=== PATIENT | female | born 1995 | race Caucasian/White ===

== ENCOUNTER 2016-05-10 13:15 | Emergency (ER) | payer SELFPAY ==
[2016-05-10 13:31] VITALS: BP 139/82
--- NOTE | 2016-05-10 13:34 | ER Document Report ---
ED Medical Screen (RME) - General Stated Complaint: RECTAL BLEEDING Mode of Arrival: Ambulatory Information source: Patient Notes: 20 y/o F presents to ED c/o bright red blood per rectum. Reports noted blood today when wiping during bowel movement. Denies pain, fever, or recent illness. I have greeted and performed a rapid initial assessment of this patient. A comprehensive ED assessment and evaluation of the patient, analysis of test results and completion of the medical decision making process will be conducted by additional ED providers. TRAVEL OUTSIDE OF THE [place] IN LAST 30 DAYS: No - Related Data Allergies/Adverse Reactions: albuterol [Albuterol] Allergy (Severe, Verified 05/10/16 13:31) Heart races & passes out chloraprep/pastora wipes Adverse Reaction (Mild, Uncoded 05/10/16 13:31) itching/welts Past Medical History - Social History Family history: Reviewed & Not Pertinent - Past Medical History Cardiac Medical History: Denies: Hx Hypertension GI Medical History: Reports: Hx Gastroesophageal Reflux Disease - With . Denies: Hx Hiatal Hernia, Hx Ulcer Skin Medical History: Reports Hx MRSA Past Surgical History: Reports: Hx Cardiac Surgery, Hx Section - Immunizations Hx Diphtheria, Pertussis, Tetanus Vaccination: No Physical Exam - Vital signs Vitals: Temp Pulse Resp BP Pulse Ox 98.2 F 94 16 139/82 H 95 05/10/16 13:30 05/10/16 13:30 05/10/16 13:30 05/10/16 13:30 05/10/16 13:30 - General General appearance: Appears well, Alert In distress: None - Respiratory Respiratory status: No respiratory distress Course - Vital Signs Vital signs: Temp Pulse Resp BP Pulse Ox 98.2 F 94 16 139/82 H 95 05/10/16 13:30 05/10/16 13:30 05/10/16 13:30 05/10/16 13:30 05/10/16 13:30
== END 2016-05-10 15:10 | disposition left against medical advice (07) ==
LOC: ER 13:15
DX: Z53.9 Procedure and treatment not carried out, unspecified reason (principal); K62.5 Hemorrhage of anus and rectum
CPT/HCPCS: 99281

== ENCOUNTER 2016-05-14 17:30 | Emergency (ER) | payer SELFPAY ==
[2016-05-14] MEDS ORDERED: ONDANSETRON 4 MG TAB.RAPDIS PO ONE (17:47)
--- NOTE | 2016-05-14 17:48 | ER Document Report ---
ED Medical Screen (RME) - General Stated Complaint: VOMITING Time seen by provider: 17:46 Notes: Pt presents with flulike symptoms that started last night. Symptoms include fever, congestion, vomiting 6. States no BM in 4 days but when she wipes she' s noticed some mucus coming from her rectum. I have greeted and performed a rapid initial assessment of this patient. A comprehensive ED assessment and evaluation of the patient, analysis of test results and completion of the medical decision making process will be conducted by additional ED providers. TRAVEL OUTSIDE OF THE [place] IN LAST 30 DAYS: No - Related Data Allergies/Adverse Reactions: albuterol [Albuterol] Allergy (Severe, Verified 05/14/16 17:47) Heart races & passes out chloraprep/pastora wipes Adverse Reaction (Mild, Uncoded 05/14/16 17:47) itching/welts Past Medical History - Social History Family history: Reviewed & Not Pertinent - Past Medical History Cardiac Medical History: Denies: Hx Hypertension Renal/ Medical History: Denies: Hx Peritoneal Dialysis GI Medical History: Reports: Hx Gastroesophageal Reflux Disease - With . Denies: Hx Hiatal Hernia, Hx Ulcer Skin Medical History: Reports Hx MRSA Past Surgical History: Reports: Hx Cardiac Surgery, Hx Section - Immunizations Hx Diphtheria, Pertussis, Tetanus Vaccination: No Physical Exam - Vital signs Vitals: Temp Pulse Resp BP Pulse Ox 99.1 F 136 H 18 134/82 H 98 05/14/16 17:43 05/14/16 17:43 05/14/16 17:43 05/14/16 17:43 05/14/16 17:43 - General General appearance: Appears well, Alert In distress: None - Cardiovascular Rhythm: Tachycardia Heart sounds: Normal auscultation Course - Vital Signs Vital signs: Temp Pulse Resp BP Pulse Ox 99.1 F 136 H 18 134/82 H 98 05/14/16 17:43 05/14/16 17:43 05/14/16 17:43 05/14/16 17:43 05/14/16 17:43
[2016-05-14 18:50] LABS: APPEARANCE,URINE SLIGHTLY-CLOUDY; BILIRUBIN,URINE NEGATIVE (NEGATIVE); GLUCOSE, URINE NEGATIVE (NEGATIVE); KETONES,URINE NEGATIVE (NEGATIVE); LEUKOCYTE ESTERASE,URINE NEGATIVE (NEGATIVE); NITRITE,URINE NEGATIVE (NEGATIVE); PROTEIN,URINE 100 mg/dL (NEGATIVE); URINE SPECIFIC GRAVITY 1.031; UROBILINOGEN,URINE NEGATIVE mg/dL (<2.0)
[2016-05-14] MEDS ORDERED: ONDANSETRON HCL INJ/PF 4 MG/2 ML SDV IV ONE (19:23)
[2016-05-14] MEDS ORDERED: NORMAL SALINE 1000 ML 2,000 ML IV ONE (19:23)
--- NOTE | 2016-05-14 19:25 | ER Document Report ---
ED General - General Chief Complaint: Flu Symptoms Stated Complaint: VOMITING Notes: Patient is a 20-year-old female without past medical history who presents with vomiting and diarrhea that has been ongoing for the past 2 days. Her daughter has been sick with the same illness. States nothing improves or worsens her symptoms. She has had subjective fever at home but has not recorded a temperature. She has not seeing a primary care doctor regarding today's concerns. Since the symptoms have been unchanged since onset and she is unable to tolerate any oral fluids are up-to-date today which prompted her come to the emergency department. She denies any focal abdominal pain. Denies any chest pain or shortness of breath. Is uncertain she's had similar symptoms before. TRAVEL OUTSIDE OF THE [place] IN LAST 30 DAYS: No - Related Data Allergies/Adverse Reactions: albuterol [Albuterol] Allergy (Severe, Verified 05/14/16 17:47) Heart races & passes out chloraprep/pastora wipes Adverse Reaction (Mild, Uncoded 05/14/16 17:47) itching/welts Past Medical History - General Information source: Patient - Social History Smoking Status: Never Smoker Chew tobacco use (# tins/day): No Frequency of alcohol use: None Drug Abuse: None Lives with: Spouse/Significant other Family History: Reviewed & Not Pertinent Patient has suicidal ideation: No Patient has homicidal ideation: No - Past Medical History Cardiac Medical History: Denies: Hx Hypertension Renal/ Medical History: Denies: Hx Peritoneal Dialysis GI Medical History: Reports: Hx Gastroesophageal Reflux Disease - With . Denies: Hx Hiatal Hernia, Hx Ulcer Skin Medical History: Reports Hx MRSA Past Surgical History: Reports: Hx Cardiac Surgery, Hx Section - Immunizations Hx Diphtheria, Pertussis, Tetanus Vaccination: No Review of Systems - Review of Systems Notes: Constitutional: Negative for fever. HENT: Negative for sore throat. Eyes: Negative for visual changes. Cardiovascular: Negative for chest pain. Respiratory: Negative for shortness of breath. Gastrointestinal: Positive for vomiting and diarrhea Genitourinary: Negative for dysuria. Musculoskeletal: Negative for back pain. Skin: Negative for rash. Neurological: Negative for headaches, weakness or numbness. 10 point ROS negative except as marked above and in HPI. Physical Exam - Vital signs Vitals: Temp Pulse Resp BP Pulse Ox 99.1 F 136 H 18 134/82 H 98 05/14/16 17:43 05/14/16 17:43 05/14/16 17:43 05/14/16 17:43 05/14/16 17:43 Interpretation: Tachycardic Notes: PHYSICAL EXAMINATION: GENERAL: Appears mildly uncomfortable but in no acute distress. HEAD: Atraumatic, normocephalic. EYES: Pupils equal round and reactive to light, extraocular movements intact, sclera anicteric, conjunctiva are normal. ENT: nares patent, oropharynx clear without exudates. Dry mucous membranes. NECK: Normal range of motion, supple without lymphadenopathy LUNGS: Breath sounds clear to auscultation bilaterally and equal. No wheezes rales or rhonchi. HEART: Regular tachycardia without murmurs ABDOMEN: Soft, nontender, normoactive bowel sounds. No guarding, no rebound. No masses appreciated. EXTREMITIES: Normal range of motion, no pitting or edema. No cyanosis. NEUROLOGICAL: No focal neurological deficits. Moves all extremities spontaneously and on command. PSYCH: Normal mood, normal affect. SKIN: Warm, Dry, normal turgor, no rashes or lesions noted. Course - Re-evaluation Re-evalutation: 05/14/16 19:24 Presentation of an overall well-appearing patient in no acute distress with complaints of nausea, vomiting, diarrhea. This is consistent with likely viral gastroenteritis. However, patient has had a small amount of blood in her stool and reports a subjective fever at home concerning for a possible bacterial enterocolitis. She will be started on 3 day course of ciprofloxacin. Patient has no abdominal tenderness on exam and specifically no tenderness in the RLQ, LLQ, RUQ. Patient was mildly tachycardic at time of arrival and did appear clinically dehydrated on exam. 2 L of IV fluids will be administered. Able to tolerate oral intake here in the emergency department. Low clinical suspicion for any acute life-threatening etiology based on exam and history including acute cholecystitis, SBO, appendicitis, nephrolithiasis, or pylonephritis. BMP without evidence of significant acute kidney injury. 05/14/16 21:10 Tachycardia is resolved after fluid administration. Patient feels improved at this time.At this time will discharge with return precautions and follow-up recommendations. Verbal discharge instructions given a the bedside and opportunity for questions given. Medication warnings reviewed. Patient is in agreement with this plan and has verbalized understanding of return precautions and the need for primary care follow-up in the next 24-72 hours. - Vital Signs Vital signs: Temp Pulse Resp BP Pulse Ox 98.6 F 96 18 109/57 L 97 05/14/16 21:40 05/14/16 21:40 05/14/16 21:40 05/14/16 21:40 05/14/16 21:40 - Laboratory Result Diagrams: 05/14/16 20:30 Laboratory results interpreted by me: 05/14/16 05/14/16 18:00 20:30 Glucose 114 H Urine Protein 100 H Urine Ascorbic Acid 40 H Discharge - Discharge Clinical Impression: Vomiting and diarrhea, Dehydration Condition: Good Disposition: HOME, SELF-CARE Additional Instructions: Your symptoms are likely due to a viral illness and should resolve in the next several days. However, given that you have had a fever and some bloody diarrhea at home your been sent home on a 3 day course of ciprofloxacin. Continue to stay hydrated with plenty of solution such as Gatorade or Pedialyte. You are being prescribed Zofran to take as needed for nausea and vomiting. Please return if you develop severe abdominal pain, pass out, become unable to tolerate any oral fluids for 12 more hours, or any other symptoms that are concerning to you. Prescriptions: Ciprofloxacin HCl [Cipro 500 mg Tablet] 500 mg PO BID #6 tablet Referrals: MARC SABA MD [Primary Care Provider] - Follow up in 3-5 days
[2016-05-14 21:06] LABS: ANION GAP 14 (5-19); BLOOD UREA NITROGEN 10 mg/dL (7-20); CALCIUM 9.5 mg/dL (8.4-10.2); CARBON DIOXIDE 26 mmol/L (22-30); CHLORIDE 100 mmol/L (98-107); CREATININE RESULT 0.64 mg/dL (0.52-1.25); GLUCOSE 114 mg/dL (75-110); POTASSIUM 3.8 mmol/L (3.6-5.0); SODIUM 139.8 mmol/L (137-145)
[2016-05-14] MEDS ORDERED: ONDANSETRON ODT 4 MG TAB (6 TAB/DSPK) PO PRN (21:11)
[2016-05-14 22:11] VITALS: BP 109/57
== END 2016-05-14 21:44 | disposition home or self-care (01) ==
LOC: ER 17:30
DX: R11.10 Vomiting, unspecified (principal); R19.7 Diarrhea, unspecified; E86.0 Dehydration; R50.9 Fever, unspecified
CPT/HCPCS: 99283; 96374; 36415; 81025; 80048; 81001; 87804; J2405

== ENCOUNTER 2016-05-20 20:56 | Emergency (ER) | payer SELFPAY ==
--- NOTE | 2016-05-20 21:55 | ER Document Report ---
ED Medical Screen (RME) - General Stated Complaint: CHEST PAIN Notes: Patient is a 20-year-old female presents emergency Department complaining of cough for 3 weeks. She states shes had new onset chest pain due to the coughing that is new as of yesterday. She states her cough has become less severe but more frequent Patient is on BC, nonnsmoker, denies recent travel, recent surgery FH (+) blood clot in Mom-DVT and Dad unsure where lmp: 04/28/16 uses protection, one partner Lungs clear to auscultation bilaterally. Chest pain nonreproducible on exam. She states that her chest pain that it's worse after coughing. I have greeted and performed a rapid initial assessment of this patient. A comprehensive ED assessment and evaluation of the patient, analysis of test results and completion of the medical decision making process will be conducted by additional ED providers. TRAVEL OUTSIDE OF THE [place] IN LAST 30 DAYS: No - Related Data Allergies/Adverse Reactions: albuterol [Albuterol] Allergy (Severe, Verified 05/14/16 17:47) Heart races & passes out chloraprep/pastora wipes Adverse Reaction (Mild, Uncoded 05/14/16 17:47) itching/welts Past Medical History - Social History Family history: Reviewed & Not Pertinent - Past Medical History Cardiac Medical History: Denies: Hx Hypertension Renal/ Medical History: Denies: Hx Peritoneal Dialysis GI Medical History: Reports: Hx Gastroesophageal Reflux Disease - With . Denies: Hx Hiatal Hernia, Hx Ulcer Skin Medical History: Reports Hx MRSA Past Surgical History: Reports: Hx Cardiac Surgery, Hx Section - Immunizations Hx Diphtheria, Pertussis, Tetanus Vaccination: No Physical Exam - Vital signs Vitals: Temp Pulse Resp BP Pulse Ox 98.9 F 104 H 17 137/81 H 97 05/20/16 21:23 05/20/16 21:23 05/20/16 21:23 05/20/16 21:23 05/20/16 21:23 Course - Vital Signs Vital signs: Temp Pulse Resp BP Pulse Ox 98.9 F 104 H 17 137/81 H 97 05/20/16 21:23 05/20/16 21:23 05/20/16 21:23 05/20/16 21:23 05/20/16 21:23
[2016-05-20] MEDS ORDERED: IPRATROPIUM BROMIDE 0.02% NEB 0.5 MG/2.5 ML AMPUL NEB ONE (22:00)
[2016-05-20 22:34] LABS: APPEARANCE,URINE CLEAR; BILIRUBIN,URINE NEGATIVE (NEGATIVE); GLUCOSE, URINE NEGATIVE (NEGATIVE); KETONES,URINE NEGATIVE (NEGATIVE); LEUKOCYTE ESTERASE,URINE NEGATIVE (NEGATIVE); NITRITE,URINE NEGATIVE (NEGATIVE); PROTEIN,URINE NEGATIVE (NEGATIVE); URINE SPECIFIC GRAVITY 1.003; UROBILINOGEN,URINE NEGATIVE mg/dL (<2.0)
[2016-05-20] MEDS ORDERED: BENZONATATE 100 MG CAPSULE PO ONE (23:20)
[2016-05-20] MEDS ORDERED: HYDROCODONE/ACETAMINOPHEN 5-325 MG TABLET PO ONE (23:20)
--- NOTE | 2016-05-20 23:25 | ER Document Report ---
ED General - General Chief Complaint: Cold Symptoms Stated Complaint: CHEST PAIN Notes: Patient is a 20-year-old female that comes emergency department for chief complaint of cough for 3 weeks, pain in her chest, she states that today she noticed more sharp pains in her chest in between coughing episodes and she became concerned and came in to be evaluated. Cough is nonproductive, she states it is worse when lying down and she has difficulty sleeping. He states about a week ago she also briefly had vomiting and diarrhea for which she was evaluated and treated here with Cipro. She states this resolved. She denies any lower extremity swelling, recent travel, smoking, or asthma history. TRAVEL OUTSIDE OF THE [place] IN LAST 30 DAYS: No - Related Data Allergies/Adverse Reactions: albuterol [Albuterol] Allergy (Severe, Verified 05/14/16 17:47) Heart races & passes out chloraprep/pastora wipes Adverse Reaction (Mild, Uncoded 05/14/16 17:47) itching/welts Past Medical History - General Information source: Patient - Social History Smoking Status: Never Smoker Chew tobacco use (# tins/day): No Frequency of alcohol use: None Drug Abuse: None Lives with: Family Family History: Reviewed & Not Pertinent Patient has suicidal ideation: No Patient has homicidal ideation: No - Past Medical History Cardiac Medical History: Denies: Hx Hypertension Renal/ Medical History: Denies: Hx Peritoneal Dialysis GI Medical History: Reports: Hx Gastroesophageal Reflux Disease - With . Denies: Hx Hiatal Hernia, Hx Ulcer Skin Medical History: Reports Hx MRSA Past Surgical History: Reports: Hx Cardiac Surgery, Hx Section - Immunizations Hx Diphtheria, Pertussis, Tetanus Vaccination: No Review of Systems - Review of Systems Constitutional: No symptoms reported EENT: No symptoms reported Cardiovascular: See HPI Respiratory: See HPI Gastrointestinal: No symptoms reported Genitourinary: No symptoms reported Female Genitourinary: No symptoms reported Musculoskeletal: No symptoms reported Skin: No symptoms reported Hematologic/Lymphatic: No symptoms reported Neurological/Psychological: No symptoms reported Physical Exam - Vital signs Vitals: Temp Pulse Resp BP Pulse Ox 98.9 F 104 H 17 137/81 H 97 05/20/16 21:23 05/20/16 21:23 05/20/16 21:23 05/20/16 21:23 05/20/16 21:23 Interpretation: Normal - General General appearance: Appears well, Alert In distress: None - Alert and well-appearing - HEENT Head: Normocephalic, Atraumatic Eyes: Normal Conjunctiva: Normal Eyelashes: Normal Pupils: PERRL Mouth/Lips: Normal Mucous membranes: Normal Pharynx: Normal Neck: Normal - Respiratory Respiratory status: No respiratory distress Chest status: Nontender Breath sounds: Normal Chest palpation: Normal - Cardiovascular Rhythm: Regular. No: Tachycardia - Patient is not tachycardic on my exam Heart sounds: Normal auscultation, S1 appreciated, S2 appreciated Murmur: No - Abdominal Inspection: Normal Distension: No distension Bowel sounds: Normal Tenderness: Nontender. No: Tender, Guarding Organomegaly: No organomegaly - Back Back: Normal, Nontender - Extremities General upper extremity: Normal inspection, Nontender, Normal color, Normal ROM , Normal temperature General lower extremity: Normal inspection, Nontender, Normal color, Normal ROM , Normal temperature, Normal weight bearing. No: Rosi's sign - Neurological Neuro grossly intact: Yes Cognition: Normal Orientation: AAOx4 [place] Coma Scale Eye Opening: Spontaneous [place] Coma Scale Verbal: Oriented [place] Coma Scale Motor: Obeys Commands [place] Coma Scale Total: 15 Speech: Normal Motor strength normal: LUE, RUE, LLE, RLE Sensory: Normal - Psychological Associated symptoms: Normal affect, Normal mood - Skin Skin Temperature: Warm Skin Moisture: Dry Skin Color: Normal Course - Re-evaluation Re-evalutation: Patient does not have specific or reproducible chest pain on exam, however she is alert, smiling, clear lung sounds, no rapid breathing, no hypoxia, very well- appearing. Patient does have frequent coughing episodes however, these are nonproductive. EKG sinus rhythm with no concerning abnormalities. Pleuritic cough. No fever or evidence of infection. After workup, discussion, examination, patient will be treated symptomatically for cough, instructed to rest, hydrate, follow up with primary care, discussed return precautions. Patient states satisfaction and agreement. - Vital Signs Vital signs: Temp Pulse Resp BP Pulse Ox 98.9 F 103 H 20 123/75 98 05/20/16 21:23 05/20/16 23:46 05/20/16 23:46 05/20/16 23:46 05/20/16 23:46 Discharge - Discharge Clinical Impression: Cough Chest pain Qualifiers: Chest pain type: unspecified Qualified Code(s): R07.9 - Chest pain, unspecified Condition: Stable Disposition: HOME, SELF-CARE Additional Instructions: EKG and chest x-ray are normal. Take cough medication as prescribed, Tessalon during the day, syrup at night if needed. Hydrate and rest. Follow-up with primary care. Return to the emergency department for any concerning or worsening symptoms. Prescriptions: Hydrocodone Bit/Homatropine [Hycodan Syrup 5-1.5 mg/5 ml Ud Cup] 5 ml PO Q4HP PRN #120 ml PRN Reason: Benzonatate [Tessalon Perle 100 mg Capsule] 100 mg PO Q8HP PRN #20 cap PRN Reason: Referrals: MARC SABA MD [Primary Care Provider] - Follow up as needed
[2016-05-21 00:13] VITALS: BP 123/75
--- NOTE | 2016-05-21 19:38 | EKG REPORT ---
SEVERITY:- NORMAL ECG - SINUS RHYTHM : Confirmed by: Sliverio Dave 21-May-2016 19:36:45
== END 2016-05-21 00:19 | disposition home or self-care (01) ==
LOC: ER 20:56
DX: R05 Cough (principal); R07.9 Chest pain, unspecified; Z88.8 Allergy status to other drugs, medicaments and biological substances
CPT/HCPCS: 93005; 94640; 99285; 81025; 81001; 71020; 93010; J3490

== ENCOUNTER 2016-05-23 22:19 | Emergency (ER) | payer OTHER ==
[2016-05-23] MEDS ORDERED: OXYCODONE-ACETAMINOPHEN 5-325 MG TABLET PO ONE (22:45)
[2016-05-23] MEDS ORDERED: FENTANYL CITRATE INJ/PF 100 MCG/2 ML AMPUL IV ONE (23:42)
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
[2016-05-24] MEDS ORDERED: FENTANYL CITRATE INJ/PF 100 MCG/2 ML AMPUL IV ONE (01:07)
[2016-05-24] MEDS ORDERED: LIDOCAINE 1% INJ-PF (10 MG/ML) 30 ML SDV ONE (01:16)
[2016-05-24] MEDS ORDERED: HYDROCODONE/ACETAMINOPHEN 5-325 MG TABLET PO ONE (01:46)
[2016-05-24] MEDS ORDERED: HYDROCODONE/ACETAMINOPHEN 5-325 MG 6 TAB/DSPK PO PRN (01:46)
[2016-05-24 03:01] VITALS: BP 110/65
== END 2016-05-24 02:57 | disposition home or self-care (01) ==
LOC: ER 22:19
PROC: 0HQEXZZ Repair Left Lower Arm Skin, External Approach (ICD-10-PCS; principal; 2016-05-23)
DX: S42.211A Unspecified displaced fracture of surgical neck of right humerus, initial encounter for closed fracture (principal); S51.812A Laceration without foreign body of left forearm, initial encounter; V48.6XXA Car passenger injured in noncollision transport accident in traffic accident, initial encounter; M54.2 Cervicalgia; R55 Syncope and collapse; Z88.8 Allergy status to other drugs, medicaments and biological substances; Z86.14 Personal history of Methicillin resistant Staphylococcus aureus infection
CPT/HCPCS: 96376; 99284; 96374; 73060; 70450; 72125; 12002; J3010

== ENCOUNTER 2016-05-28 15:02 | Day surgery (SDC) | payer OTHER, MEDICAID ==
[~2016-05-28 15:02] MED LIST: CEFAZOLIN 2 GM/D5W RTU 2 GM/50 ML RTUPB IV SCH; DEXAMETHASONE SOD PHOSPHATE INJ 4 MG/1 ML VIAL ONE; GLYCOPYRROLATE INJ 0.4 MG/2 ML VIAL ONE; LIDOCAINE 2% INJ-PF (20 MG/ML) 10 ML AMPUL ONE; METOCLOPRAMIDE HCL INJ/PF 10 MG/2 ML SDV ONE; NEOSTIGMINE METHYLSULFATE 10 MG/10 ML VIAL ONE; ONDANSETRON HCL INJ/PF 4 MG/2 ML SDV ONE; ROCURONIUM BROMIDE INJ 50 MG/5 ML VIAL IV ONE; SUCCINYLCHOLINE CHLORIDE INJ 200 MG/10 ML VIAL ONE
[2016-05-28] MEDS ORDERED: MIDAZOLAM 2 MG/2 ML INJ ONE (15:39)
[2016-05-28] MEDS ORDERED: ACETAMINOPHEN 100 ML IV ONE (15:39)
[2016-05-28] MEDS ORDERED: FENTANYL CITRATE INJ/PF 250 MCG/5 ML AMPULE ONE (15:39)
[2016-05-28] MEDS ORDERED: PROPOFOL INJ 200 MG/20 ML VIAL IV ONE (15:39)
[2016-05-28] MEDS ORDERED: MORPHINE SULFATE 10 MG/ML INJ ONE ×2 (15:40→17:33)
[2016-05-28] MEDS ORDERED: OXYCODONE-ACETAMINOPHEN 5-325 MG TABLET PO PRN ×2 (17:04)
[2016-05-28] MEDS ORDERED: MEPERIDINE HCL/PF INJ 25 MG/1 ML DISP.SYRIN IV PRN (17:04)
[2016-05-28] MEDS ORDERED: MORPHINE SULFATE 10 MG/ML INJ IV PRN (17:04)
[2016-05-28] MEDS ORDERED: PROMETHAZINE HCL INJ 25 MG/1 ML VIAL IV PRN ×2 (17:04)
[2016-05-28] MEDS ORDERED: FENTANYL CITRATE INJ/PF 100 MCG/2 ML AMPUL IV PRN ×3 (17:04)
[2016-05-28] MEDS ORDERED: DIPHENHYDRAMINE HCL 50 MG/ML VIAL IV PRN (17:04)
[2016-05-28] MEDS ORDERED: BUPIVACAINE HCL 0.5 % INJ/PF 30 ML SDV ONE (18:44)
[2016-05-28] MEDS ORDERED: ONDANSETRON HCL INJ/PF 4 MG/2 ML SDV IV PRN (19:05)
[2016-05-28] MEDS ORDERED: HYDROMORPHONE HCL INJ/PF 2 MG/ML AMPULE IV PRN (19:05)
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
--- NOTE | 2016-05-28 19:20 | PDOC DISCHARGE SUMMARY ---
Discharge Summary (SDC) - Discharge Final Diagnosis: Right proximal humerus fracture Date of Surgery: 05/28/16 Discharge Date: 05/28/16 Condition: Good Treatment or Instructions: Schedule Follow Up w/ Dr. Jakob Merino @ [facility] for [facility] to be seen in 10-14 days or as scheduled [place]: [place]: [place]: Keep operative dressing on until follow-up unless significant drainage. Ice and elevate May begin pendulum exercises, elbow wrist and hand range of motion. Stool softener of choice when on pain medication. Prescriptions: Oxycodone HCl/Acetaminophen [Percocet 5-325 mg Tablet] 1 - 2 tab PO ASDIR PRN # 45 tablet PRN Reason: Discharge Diet: As Tolerated Discharge Activity: No Lifting Over 10 Pounds, No Lifting/Push/Pulling Report the Following to Your Physician Immediately: Fever over 101 Degrees, Unusual Bleeding, Redness, Swelling, Warmth, Increased Soreness
[2016-05-29] MEDS: OXYCODONE-ACETAMINOPHEN 5-325 MG TABLET PO PRN ×2 (01:17→07:25)
--- NOTE | 2016-05-29 07:49 | PDOC PROGRESS REPORT ---
Subjective Progress Note for:: 05/29/16 Subjective:: Patient complaining of pain but had just received oral pain medication Physical Exam Vital Signs: Temp Pulse Resp BP Pulse Ox 36.9 C 106 H 16 118/70 95 05/29/16 04:58 05/29/16 04:58 05/29/16 04:58 05/29/16 04:58 05/29/16 04:58 Intake & Output 05/28/16 05/29/16 05/30/16 06:59 06:59 06:59 Intake Total 4000 Output Total 775 Balance 3225 Weight 80.74 kg General appearance: PRESENT: mild distress Head exam: PRESENT: normocephalic Eye exam: PRESENT: EOMI Respiratory exam: PRESENT: unlabored Cardiovascular exam: PRESENT: RRR Vascular exam: PRESENT: normal capillary refill GI/Abdominal exam: PRESENT: soft Rectal exam: PRESENT: deferred Extremities exam: PRESENT: other - Right hand with full motor, sensory and vascular. Right shoulder dressing clean dry and intact Neurological exam: PRESENT: alert, awake, oriented to person, oriented to place , oriented to time, oriented to situation. ABSENT: motor sensory deficit Psychiatric exam: PRESENT: appropriate affect, normal mood. ABSENT: homicidal ideation, suicidal ideation Skin exam: PRESENT: dry, intact, warm. ABSENT: cyanosis, rash Results Impressions: Fluoroscopy 05/28/16 00:00 IMPRESSION: IMAGE(S) OBTAINED DURING PROCEDURE. Humerus X-Ray 05/28/16 00:00 IMPRESSION: IMAGE(S) OBTAINED DURING PROCEDURE. Assessment & Plan - Diagnosis (1) Fracture of neck of right humerus Qualifiers: Encounter type: initial encounter Is this a current diagnosis for this admission?: YesPlan: 20-year-old white female status post open reduction internal fixation right proximal humerus fracture. Patient can be discharged home today. Prescription for Percocet written. - Time Time Spent with patient: Less than 15 minutes Anticipated discharge: Home Within: within 24 hours
[2016-05-29 08:07] VITALS: BP 118/70
== END 2016-05-29 09:10 | disposition home or self-care (01) ==
LOC: OROUT 15:02 → 2N 21:04 → OROUT 05-29 09:10
PROVIDERS: ATTEND Orthopaedic Surgery
PROC: 0PSC04Z Reposition Right Humeral Head with Internal Fixation Device, Open Approach (ICD-10-PCS; principal; 2016-05-28 17:00)
DX: S42.201A Unspecified fracture of upper end of right humerus, initial encounter for closed fracture (principal); V89.2XXA Person injured in unspecified motor-vehicle accident, traffic, initial encounter; M79.621 Pain in right upper arm; F41.9 Anxiety disorder, unspecified; Z79.51 Long term (current) use of inhaled steroids; Z79.899 Other long term (current) drug therapy; Q25.6 Stenosis of pulmonary artery
CPT/HCPCS: 81025; 73060; 23615; C1713; J2250; J3490 ×2; J1100; J3010; J2765; J2270; J0330; J2405; J2704; J0690; J0131; 01630

== ENCOUNTER 2016-07-05 08:50 | Emergency (ER) | payer MEDICAID, OTHER ==
[2016-07-05] MEDS ORDERED: OXYCODONE-ACETAMINOPHEN 5-325 MG TABLET PO ONE (09:47)
[2016-07-05] MEDS ORDERED: PROMETHAZINE HCL 25 MG TABLET PO ONE (09:49)
--- NOTE | 2016-07-05 09:50 | ER Document Report ---
ED General - General Chief Complaint: Flank Pain Stated Complaint: SIDE PAIN Mode of Arrival: Ambulatory Information source: Patient, Dr. Office Notes: 20-year-old female presents with complaints of left flank pain of three-day duration. Patient notes she had burning on urination a week ago now is having nausea vomiting diarrhea. Denies any significant abdominal pain notes it is mostly in the left flank TRAVEL OUTSIDE OF THE [place] IN LAST 30 DAYS: No - HPI Onset: Other - Three-day duration Onset/Duration: Persistent Quality of pain: Achy Severity: Mild Pain Level: 1 Associated symptoms: Diarrhea, Nausea, Vomiting Relieved by: Denies Similar symptoms previously: No Recently seen / treated by doctor: Yes - Related Data Allergies/Adverse Reactions: albuterol [Albuterol] Allergy (Severe, Verified 05/14/16 17:47) Heart races & passes out chloraprep/pastora wipes Adverse Reaction (Mild, Uncoded 05/14/16 17:47) itching/welts Past Medical History - Social History Smoking Status: Never Smoker Cigarette use (# per day): No Chew tobacco use (# tins/day): No Smoking Education Provided: No Family History: Reviewed & Not Pertinent Patient has suicidal ideation: No Patient has homicidal ideation: No - Past Medical History Cardiac Medical History: Denies: Hx Coronary Artery Disease, Hx Heart Attack, Hx Hypertension Pulmonary Medical History: Denies: Hx Asthma, Hx Bronchitis, Hx COPD, Hx Pneumonia Neurological Medical History: Denies: Hx Cerebrovascular Accident, Hx Seizures Renal/ Medical History: Denies: Hx Peritoneal Dialysis GI Medical History: Reports: Hx Gastroesophageal Reflux Disease - With . Denies: Hx Hiatal Hernia, Hx Ulcer Musculoskeltal Medical History: Denies Hx Arthritis Skin Medical History: Reports Hx MRSA Past Surgical History: Reports: Hx Cardiac Surgery, Hx Section - Immunizations Hx Diphtheria, Pertussis, Tetanus Vaccination: Yes Review of Systems - Review of Systems Notes: REVIEW OF SYSTEMS: CONSTITUTIONAL : Denies fever, chills, or sweats. Denies recent illness. EENT: Denies eye, ear, throat, or mouth pain or symptoms. Denies nasal or sinus congestion or discharge. Denies throat, tongue, or mouth swelling or difficulty swallowing. CARDIOVASCULAR: Denies chest pain. Denies palpitations or racing or irregular heart beat. Denies ankle edema. RESPIRATORY: Denies cough, cold, or chest congestion. Denies shortness of breath, difficulty breathing, or wheezing. GASTROINTESTINAL: Admits to nausea vomiting diarrhea left flank pain GENITOURINARY: Denies difficulty urinating, painful urination, burning, frequency, blood in urine, or discharge. FEMALE GENITOURINARY: Denies vaginal bleeding, heavy or abnormal periods, irregular periods. Denies vaginal discharge or odor. MUSCULOSKELETAL: Denies back or neck pain or stiffness. Denies joint pain or swelling. SKIN: Denies rash, lesions or sores. HEMATOLOGIC : Denies easy bruising or bleeding. LYMPHATIC: Denies swollen, enlarged glands. NEUROLOGICAL: Denies confusion or altered mental status. Denies passing out or loss of consciousness. Denies dizziness or lightheadedness. Denies headache. Denies weakness or paralysis or loss of use of either side. Denies problems with gait or speech. Denies sensory loss, numbness, or tingling. Denies seizures. PSYCHIATRIC: Denies anxiety or stress. Denies depression, suicidal ideation, or homicidal ideation. ALL OTHER SYSTEMS REVIEWED AND NEGATIVE. Dictation was performed using [email or web address] voice recognition software PHYSICAL EXAMINATION: GENERAL: Well-appearing, well-nourished and in mild distress. HEAD: Atraumatic, normocephalic. EYES: Pupils equal round and reactive to light, extraocular movements intact, conjunctiva are normal. ENT: Nares patent, oropharynx clear without exudates. Moist mucous membranes. NECK: Normal range of motion, supple without lymphadenopathy LUNGS: Breath sounds clear to auscultation bilaterally and equal. No wheezes rales or rhonchi. HEART: Tachycardic ABDOMEN: Soft, nontender, nondistended abdomen. No guarding, no rebound. No masses appreciated. Left CVA tenderness Female : deferred Musculoskeletal: Normal range of motion, no pitting or edema. No cyanosis. NEUROLOGICAL: Cranial nerves grossly intact. Normal speech, normal gait. Normal sensory, motor exams PSYCH: Normal mood, normal affect. SKIN: Warm, Dry, normal turgor, no rashes or lesions noted. Physical Exam - Vital signs Vitals: Temp Pulse Resp BP Pulse Ox 97.5 F 125 H 18 142/105 H 97 07/05/16 09:15 07/05/16 09:15 07/05/16 09:15 07/05/16 09:15 07/05/16 09:15 Course - Re-evaluation Re-evalutation: 07/05/16 09:50 Urinalysis lab work pending patient given nausea pain control probable pyelonephritis 07/05/16 10:22 Patient's urinalysis is consistent with pyelonephritis, she is given IV fluids nausea pain control and hCG pending Given that she is afebrile otherwise well-appearing except for the tachycardia believe she is stable for discharge After performing a Medical Screening Examination, I estimate there is LOW risk for ACUTE APPENDICITIS, BOWEL OBSTRUCTION, ACUTE CHOLECYSTITIS, PERFORATED DIVERTICULITIS, INCARCERATED HERNIA, PANCREATITIS, PELVIC INFLAMMATORY DISEASE, PERFORATED ULCER, ECTOPIC , or TUBO-OVARIAN ABSCESS, thus I consider the discharge disposition reasonable. Also, there is no evidence or peritonitis , sepsis, or toxicity. I have reevaluated this patient multiple times and no significant life threatening changes are noted. The patient and I have discussed the diagnosis and risks, and we agree with discharging home with close follow-up with the understanding that symptoms and presentations can change. We also discussed returning to the Emergency Department immediately if new or worsening symptoms occur. We have discussed the symptoms which are most concerning (e.g., bloody stool, fever, changing or worsening pain, vomiting) that necessitate immediate return. - Vital Signs Vital signs: Temp Pulse Resp BP Pulse Ox 97.5 F 125 H 18 142/105 H 97 07/05/16 09:15 07/05/16 09:15 07/05/16 09:15 07/05/16 09:15 07/05/16 09:15 - Laboratory Result Diagrams: 07/05/16 09:55 07/05/16 09:55 Laboratory results interpreted by me: 07/05/16 07/05/16 09:55 09:55 WBC 11.2 H Seg Neutrophils % 79.9 H Lymphocytes % 12.9 L Absolute Neutrophils 8.9 H Urine Protein 100 H Urine Blood LARGE H Ur Leukocyte Esterase TRACE H Discharge - Discharge Clinical Impression: Pyelonephritis, Tachycardia Nausea & vomiting Qualifiers: Vomiting type: unspecified Vomiting Intractability: non-intractable Qualified Code(s): R11.2 - Nausea with vomiting, unspecified Condition: Stable Disposition: HOME, SELF-CARE Instructions: Pyelonephritis ([facility]) Additional Instructions: Follow up with your physician tomorrow for further care or return to the ED IMMEDIATELY if symptoms worsen or new concerns occur. If you cannot afford to follow up with your primary care physician a list of low cost clinics have been provided at the end of your discharge papers as well. Prescriptions: Ciprofloxacin HCl [Cipro 500 mg Tablet] 500 mg PO BID #20 tablet Oxycodone HCl/Acetaminophen [Percocet 5-325 mg Tablet] 1 - 2 tab PO Q4H PRN #15 tablet PRN Reason: Promethazine HCl [Phenergan 25 mg Tablet] 1 - 2 tab PO Q6H PRN #15 tablet PRN Reason:
[2016-07-05] MEDS ORDERED: NORMAL SALINE 1000 ML 1,000 ML IV ONE (10:04)
[2016-07-05] MEDS ORDERED: METOCLOPRAMIDE HCL INJ/PF 10 MG/2 ML SDV IV ONE (10:04)
[2016-07-05 10:12] LABS: ABSOLUTE EOSINOPHILS # (AUTO) 0.1 10^3/uL (0.0-0.6); ABSOLUTE LYMPHOCYTES (AUTO) 1.4 10^3/uL (0.5-4.7); ABSOLUTE MONOCYTES (AUTO) 0.7 10^3/uL (0.1-1.4); ABSOLUTE NEUT (AUTO) 8.9 10^3/uL (1.7-8.2); BASOPHILS % (AUTO) 0.3 % (0-2); EOSINOPHILS % (AUTO) 0.7 % (0-6); HEMOGLOBIN 15.2 g/dL (12.0-15.5); HGB HCT DIFFERENCE 1.6; LYMPHOCYTES % (AUTO) 12.9 % (13-45); MEAN CORPUSCULAR HEMOGLOBIN 29.6 pg (27.0-33.4); MEAN CORPUSCULAR HGB CONC 34.5 g/dL (32.0-36.0); MEAN CORPUSCULAR VOLUME 86 fl (80-97); MONOCYTES % (AUTO) 6.2 % (3-13); RED BLOOD COUNT 5.12 10^6/uL (3.72-5.28); RED CELL DISTRIBUTION WIDTH 12.6 % (11.5-14.0); SEGMENTED NEUTROPHILS % (AUTO) 79.9 % (42-78); WHITE BLOOD COUNT 11.2 10^3/uL (4.0-10.5)
[2016-07-05 10:19] LABS: AMORPHOUS SEDIMENT,URINE TRACE /HPF; APPEARANCE,URINE TURBID; BILIRUBIN,URINE NEGATIVE (NEGATIVE); GLUCOSE, URINE NEGATIVE (NEGATIVE); KETONES,URINE NEGATIVE (NEGATIVE); LEUKOCYTE ESTERASE,URINE TRACE (NEGATIVE); NITRITE,URINE NEGATIVE (NEGATIVE); PROTEIN,URINE 100 mg/dL (NEGATIVE); URINE SPECIFIC GRAVITY 1.026; UROBILINOGEN,URINE NEGATIVE mg/dL (<2.0)
[2016-07-05 10:29] LABS: ALANINE AMINOTRANSFERASE 30 U/L (9-52); ALBUMIN 4.5 g/dL (3.5-5.0); ALKALINE PHOSPHATASE 108 U/L (38-126); ANION GAP 14 (5-19); ASPARTATE AMINO TRANSFERASE 20 U/L (14-36); BILIRUBIN,DIRECT 0.1 mg/dL (0.0-0.4); BILIRUBIN,TOTAL 0.5 mg/dL (0.2-1.3); BLOOD UREA NITROGEN 9 mg/dL (7-20); CALCIUM 9.9 mg/dL (8.4-10.2); CARBON DIOXIDE 25 mmol/L (22-30); CHLORIDE 103 mmol/L (98-107); CREATININE RESULT 0.71 mg/dL (0.52-1.25); GLUCOSE 123 mg/dL (75-110); LIPASE 110.9 U/L (23-300); SODIUM 141.7 mmol/L (137-145); TOTAL PROTEIN 7.5 g/dL (6.3-8.2)
[2016-07-05 11:51] VITALS: BP 140/89
== END 2016-07-05 11:52 | disposition home or self-care (01) ==
LOC: ER 08:50
DX: N12 Tubulo-interstitial nephritis, not specified as acute or chronic (principal); R00.0 Tachycardia, unspecified; R11.2 Nausea with vomiting, unspecified; R10.9 Unspecified abdominal pain; R30.0 Dysuria; R19.7 Diarrhea, unspecified; Z86.14 Personal history of Methicillin resistant Staphylococcus aureus infection
CPT/HCPCS: 99284; 96361; 96374; 36415; 83690; 85025; 81025; 80053; 81001; J2765; J3490; J7030

== ENCOUNTER 2016-07-08 19:16 | Emergency (ER) | payer MEDICAID ==
[2016-07-08 20:49] LABS: APPEARANCE,URINE CLOUDY; BILIRUBIN,URINE NEGATIVE (NEGATIVE); GLUCOSE, URINE NEGATIVE (NEGATIVE); KETONES,URINE 20 mg/dL (NEGATIVE); LEUKOCYTE ESTERASE,URINE MODERATE (NEGATIVE); NITRITE,URINE NEGATIVE (NEGATIVE); PROTEIN,URINE 100 mg/dL (NEGATIVE); URINE SPECIFIC GRAVITY 1.027; UROBILINOGEN,URINE NEGATIVE mg/dL (<2.0)
[2016-07-08] MEDS ORDERED: ONDANSETRON 4 MG TAB.RAPDIS PO ONE (22:25)
[2016-07-08] MEDS ORDERED: ONDANSETRON 4 MG TAB.RAPDIS ONE (22:28)
[2016-07-08] MEDS ORDERED: MORPHINE SULFATE 10 MG/ML INJ IV ONE (22:56)
[2016-07-08] MEDS ORDERED: ONDANSETRON HCL INJ/PF 4 MG/2 ML SDV IV ONE (22:56)
[2016-07-08] MEDS ORDERED: NORMAL SALINE 1000 ML 1,000 ML IV ONE (22:57)
--- NOTE | 2016-07-08 23:13 | ER Document Report ---
ED GI/ - General Chief Complaint: Flank Pain Stated Complaint: LEFT FLANK PAIN Time seen by provider: 23:00 Notes: Patient is a 20-year-old female that comes emergency department with chief complaint of left flank pain and vomiting. She states she was evaluated and treated for a kidney infection, states she was taking Cipro, she states she initially improved and was not needing to take pain or nausea medication, however she states that shortly after this she worsened and began having pain and vomiting again. She vomited 6 times. She denies history of kidney stones, denies frequent urinary tract infections, denies fever. She denies vaginal discharge but she is on her menstrual cycle. TRAVEL OUTSIDE OF THE [place] IN LAST 30 DAYS: No - Related Data Allergies/Adverse Reactions: albuterol [Albuterol] Allergy (Severe, Verified 07/08/16 19:44) Heart races & passes out chloraprep/pastora wipes Adverse Reaction (Mild, Uncoded 07/08/16 19:44) itching/welts Past Medical History - General Information source: Patient - Social History Smoking Status: Never Smoker Frequency of alcohol use: None Drug Abuse: None Lives with: Family Family History: Reviewed & Not Pertinent - Past Medical History Cardiac Medical History: Denies: Hx Coronary Artery Disease, Hx Heart Attack, Hx Hypertension Pulmonary Medical History: Denies: Hx Asthma, Hx Bronchitis, Hx COPD, Hx Pneumonia Neurological Medical History: Denies: Hx Cerebrovascular Accident, Hx Seizures Renal/ Medical History: Denies: Hx Peritoneal Dialysis GI Medical History: Reports: Hx Gastroesophageal Reflux Disease - With . Denies: Hx Hiatal Hernia, Hx Ulcer Musculoskeltal Medical History: Denies Hx Arthritis Skin Medical History: Reports Hx MRSA Past Surgical History: Reports: Hx Cardiac Surgery, Hx Section - Immunizations Hx Diphtheria, Pertussis, Tetanus Vaccination: Yes Review of Systems - Review of Systems Constitutional: No symptoms reported EENT: No symptoms reported Cardiovascular: No symptoms reported Respiratory: No symptoms reported Gastrointestinal: See HPI Genitourinary: See HPI Female Genitourinary: See HPI Musculoskeletal: No symptoms reported Skin: No symptoms reported Hematologic/Lymphatic: No symptoms reported Neurological/Psychological: No symptoms reported Physical Exam - Vital signs Vitals: Temp Pulse Resp BP Pulse Ox 98.5 F 105 H 18 124/88 H 99 07/08/16 19:46 07/08/16 19:46 07/08/16 19:46 07/08/16 19:46 07/08/16 19:46 Interpretation: Normal - General General appearance: Alert, Anxious In distress: Moderate - Patient appears very uncomfortable - HEENT Head: Normocephalic, Atraumatic Eyes: Normal Conjunctiva: Normal Extraocular movements intact: Yes Eyelashes: Normal Pupils: PERRL Nasal: Normal Mouth/Lips: Normal Mucous membranes: Dry Pharynx: Normal Neck: Normal - Respiratory Respiratory status: No respiratory distress Chest status: Nontender Breath sounds: Normal Chest palpation: Normal - Cardiovascular Rhythm: Regular, Tachycardia - Borderline Heart sounds: Normal auscultation, S1 appreciated, S2 appreciated Murmur: No - Abdominal Inspection: Normal Distension: No distension Bowel sounds: Normal Tenderness: Tender - Tender in the mid to lower abdomen on the left side, otherwise unremarkable Organomegaly: No organomegaly - Back Back: Normal, CVA tenderness - Left CVA tenderness - Extremities General upper extremity: Normal inspection, Nontender, Normal color, Normal ROM , Normal temperature General lower extremity: Normal inspection, Nontender, Normal color, Normal ROM , Normal temperature, Normal weight bearing. No: Rosi's sign - Neurological Neuro grossly intact: Yes Cognition: Normal Orientation: AAOx4 Monroe Coma Scale Eye Opening: Spontaneous [place] Coma Scale Verbal: Oriented Monroe Coma Scale Motor: Obeys Commands Monroe Coma Scale Total: 15 Speech: Normal Motor strength normal: LUE, RUE, LLE, RLE Sensory: Normal - Psychological Associated symptoms: Normal affect, Normal mood - Skin Skin Temperature: Warm Skin Moisture: Dry Skin Color: Normal Course - Re-evaluation Re-evalutation: Urine contaminated by menstrual cycle blood. Nonspecific. Appears to be a worsening infection, however this is not certain. Culture placed. Patient's presentation is suggestive of ureterolithiasis, much more comfortable after medications. Renal functioning unremarkable, mild leukocytosis, patient has been vomiting. No fever or tachycardia after treatments. CT of the abdomen and pelvis without contrast ordered to further evaluate patient's condition. CT showing left nephrolithiasis at 2 mm at the UVJ. Mild obstructive changes. No acute abnormalities otherwise. Catheterized urine sample obtained, this was found to not have any signs of infection. After medications patient is asymptomatic, I discussed her findings in detail, will provide treatments for this, referred to urology, discussed return precautions, patient states understanding and agreement. Patient requests Diflucan because she was taking Cipro and she frequently gets yeast infections after taking antibiotics. - Vital Signs Vital signs: Temp Pulse Resp BP Pulse Ox 98.2 F 97 17 124/70 95 07/09/16 02:53 07/09/16 02:53 07/09/16 02:53 07/09/16 02:53 07/09/16 02:53 - Laboratory Result Diagrams: 07/08/16 23:32 07/08/16 23:32 Laboratory results interpreted by me: 07/08/16 07/08/16 07/08/16 20:25 23:32 23:32 WBC 13.4 H Hgb 15.6 H Seg Neutrophils % 80.0 H Lymphocytes % 12.4 L Absolute Neutrophils 10.7 H Glucose 112 H Urine Protein 100 H Urine Ketones 20 H Urine Blood LARGE H Ur Leukocyte Esterase MODERATE H 07/09/16 01:18 WBC Hgb Seg Neutrophils % Lymphocytes % Absolute Neutrophils Glucose Urine Protein Urine Ketones Urine Blood MODERATE H Ur Leukocyte Esterase Discharge - Discharge Clinical Impression: Ureterolithiasis, Left flank pain Vomiting Qualifiers: Vomiting type: unspecified Vomiting Intractability: non-intractable Nausea presence: with nausea Qualified Code(s): R11.2 - Nausea with vomiting, unspecified Condition: Stable Disposition: HOME, SELF-CARE Additional Instructions: You are passing a kidney stone on the left side. You also have a right-sided stone in your right kidney which may pass eventually. Take Percocet if needed for pain, I recommend combining with ibuprofen and the Zofran for additional symptom management. Follow up with urology, see referrals below. Return to the emergency department immediately for concerning or worsening symptoms including fever, severe pain, uncontrolled vomiting, etc. [facility] Urologist in [place], [place] Address: [address] [place], [place] [id number] [facility] Medical clinic in [place], [place] Address: [address] [place] [id number] Prescriptions: Fluconazole [Diflucan] 150 mg PO ONCE PRN #1 tablet PRN Reason: Ondansetron [Zofran Odt 4 mg Tablet] 1 - 2 tab PO Q4H PRN #20 tab.rapdis PRN Reason: For Nausea/Vomiting Oxycodone HCl/Acetaminophen [Percocet 5-325 mg Tablet] 1 - 2 tab PO Q4H PRN #20 tablet PRN Reason: Referrals: MARC SABA MD [Primary Care Provider] - Follow up as needed
[2016-07-08 23:48] LABS: ABSOLUTE BASOPHILS # (AUTO) 0.1 10^3/uL (0.0-0.2); ABSOLUTE LYMPHOCYTES (AUTO) 1.7 10^3/uL (0.5-4.7); ABSOLUTE MONOCYTES (AUTO) 0.9 10^3/uL (0.1-1.4); ABSOLUTE NEUT (AUTO) 10.7 10^3/uL (1.7-8.2); BASOPHILS % (AUTO) 0.4 % (0-2); EOSINOPHILS % (AUTO) 0.3 % (0-6); HEMATOCRIT 44.8 % (36.0-47.0); HEMOGLOBIN 15.6 g/dL (12.0-15.5); LYMPHOCYTES % (AUTO) 12.4 % (13-45); MEAN CORPUSCULAR HEMOGLOBIN 29.8 pg (27.0-33.4); MEAN CORPUSCULAR HGB CONC 34.8 g/dL (32.0-36.0); MEAN CORPUSCULAR VOLUME 86 fl (80-97); MONOCYTES % (AUTO) 6.9 % (3-13); RED BLOOD COUNT 5.23 10^6/uL (3.72-5.28); RED CELL DISTRIBUTION WIDTH 12.8 % (11.5-14.0); WHITE BLOOD COUNT 13.4 10^3/uL (4.0-10.5)
[2016-07-09 00:03] LABS: ALANINE AMINOTRANSFERASE 29 U/L (9-52); ALBUMIN 4.7 g/dL (3.5-5.0); ALKALINE PHOSPHATASE 105 U/L (38-126); ANION GAP 16 (5-19); ASPARTATE AMINO TRANSFERASE 29 U/L (14-36); BILIRUBIN,DIRECT 0.1 mg/dL (0.0-0.4); BILIRUBIN,TOTAL 0.7 mg/dL (0.2-1.3); BLOOD UREA NITROGEN 10 mg/dL (7-20); CALCIUM 9.7 mg/dL (8.4-10.2); CARBON DIOXIDE 25 mmol/L (22-30); CHLORIDE 98 mmol/L (98-107); GLUCOSE 112 mg/dL (75-110); TOTAL PROTEIN 7.7 g/dL (6.3-8.2)
[2016-07-09] MEDS ORDERED: KETOROLAC TROMETHAMINE INJ/PF 30 MG/1 ML SDV IV ONE (01:04)
[2016-07-09] MEDS ORDERED: HYDROMORPHONE HCL INJ/PF 2 MG/ML AMPULE IV ONE (01:33)
[2016-07-09 01:34] LABS: APPEARANCE,URINE CLEAR; BILIRUBIN,URINE NEGATIVE (NEGATIVE); GLUCOSE, URINE NEGATIVE (NEGATIVE); KETONES,URINE NEGATIVE (NEGATIVE); LEUKOCYTE ESTERASE,URINE NEGATIVE (NEGATIVE); NITRITE,URINE NEGATIVE (NEGATIVE); PROTEIN,URINE NEGATIVE (NEGATIVE); URINE SPECIFIC GRAVITY 1.002; UROBILINOGEN,URINE NEGATIVE mg/dL (<2.0)
[2016-07-09] MEDS ORDERED: ONDANSETRON ODT 4 MG TAB (6 TAB/DSPK) PO PRN (02:33)
[2016-07-09 02:59] VITALS: BP 124/70
== END 2016-07-09 03:00 | disposition home or self-care (01) ==
LOC: ER 19:16
DX: N20.1 Calculus of ureter (principal); R10.9 Unspecified abdominal pain; R11.2 Nausea with vomiting, unspecified
CPT/HCPCS: 99284; 96361; 51701; 96374; 96375; 36415; 85025; 81025; 80053; 81001; 76380; J2270; J1170; J2405; J7030; S0119

== ENCOUNTER 2016-07-11 15:30 | Emergency (ER) | payer MEDICAID ==
[2016-07-11] MEDS ORDERED: ONDANSETRON HCL INJ/PF 4 MG/2 ML SDV IV ONE (16:09)
[2016-07-11] MEDS ORDERED: HYDROMORPHONE HCL INJ/PF 2 MG/ML AMPULE IV ONE (16:09)
[2016-07-11] MEDS ORDERED: NORMAL SALINE 1000 ML 1,000 ML IV ONE (16:09)
--- NOTE | 2016-07-11 16:17 | ER Document Report ---
ED Medical Screen (RME) - General Mode of Arrival: Ambulatory Information source: Patient TRAVEL OUTSIDE OF THE [place] IN LAST 30 DAYS: No - HPI Onset: This afternoon Onset/Duration: Sudden Quality of pain: Dull Severity: Severe Associated Symptoms: Nausea Exacerbated by: Denies Relieved by: Denies Similar symptoms previously: Yes - KNOWN H/O KIDNEY STONES Recently seen / treated by doctor: Yes - 07/05 AND 07/[facility] <SHAYY CONSTANTINO - Last Filed: 07/11/16 16:14> <ALYSE JONES - Last Filed: 07/11/16 19:42> - General Chief Complaint: Flank Pain Stated Complaint: URINARY ISSUES - Related Data Allergies/Adverse Reactions: albuterol [Albuterol] Allergy (Severe, Verified 07/11/16 15:46) Heart races & passes out chloraprep/pastora wipes Adverse Reaction (Mild, Uncoded 07/11/16 15:46) itching/welts Past Medical History - General Information source: Patient - Social History Family history: Reviewed & Not Pertinent - Past Medical History Cardiac Medical History: Denies: Hx Coronary Artery Disease, Hx Heart Attack, Hx Hypertension Pulmonary Medical History: Denies: Hx Asthma, Hx Bronchitis, Hx COPD, Hx Pneumonia Neurological Medical History: Denies: Hx Cerebrovascular Accident, Hx Seizures Renal/ Medical History: Reports: Hx Kidney Stones. Denies: Hx Peritoneal Dialysis GI Medical History: Reports: Hx Gastroesophageal Reflux Disease - With . Denies: Hx Hiatal Hernia, Hx Ulcer Musculoskeltal Medical History: Denies Hx Arthritis Skin Medical History: Reports Hx MRSA Past Surgical History: Reports: Hx Cardiac Surgery, Hx Section - Immunizations Hx Diphtheria, Pertussis, Tetanus Vaccination: Yes <COLEENGLADYSSHAYY - Last Filed: 07/11/16 16:14> Review of Systems - Review of Systems Constitutional: No symptoms reported. denies: Chills, Fever EENT: No symptoms reported Cardiovascular: No symptoms reported Respiratory: No symptoms reported Gastrointestinal: See HPI Genitourinary: See HPI Female Genitourinary: denies: <DOUGIESHAYY - Last Filed: 07/11/16 16:14> Physical Exam - Vital signs Interpretation: Hypertensive, Tachycardic, Tachypneic - General General appearance: Alert In distress: Moderate - HEENT Head: Normocephalic Eyes: Normal Ears: Normal Nasal: Normal Mouth/Lips: Normal Mucous membranes: Normal - Respiratory Respiratory status: No respiratory distress <SHAYY CONSTANTINO - Last Filed: 07/11/16 16:14> Course - Laboratory Result Diagrams: 07/11/16 18:55 07/11/16 17:51 <KARENALYSE - Last Filed: 07/11/16 19:42> - Vital Signs Vital signs: Temp Pulse Resp BP Pulse Ox 98.6 F 107 H 22 H 135/116 H 100 07/11/16 15:37 07/11/16 15:37 07/11/16 15:37 07/11/16 15:37 07/11/16 15:37 - Laboratory Laboratory results interpreted by me: 07/11/16 07/11/16 07/11/16 17:51 17:52 18:55 WBC 11.7 H Glucose 113 H Urine Ketones TRACE H Urine Blood SMALL H Doctor's Discharge <SHAYY CONSTANTINO - Last Filed: 07/11/16 16:14> <ALYSE JONES - Last Filed: 07/11/16 19:42> - Discharge Clinical Impression: Kidney stone Condition: Good Disposition: HOME, SELF-CARE Additional Instructions: KIDNEY STONE: You are passing or have passed a kidney stone. These stones are usually due to increased calcium or uric acid concentrations in your urine. Stones within the kidney itself are not painful. The pain occurs as the stone leaves the kidney to pass down the long tube, called the ureter, leading to the bladder. If the stone is small, it will usually pass by itself. Most patients can pass the stone at home. You will usually receive medications for pain, nausea or vomiting, and sometimes a medication to assist in passing the kidney stone. However, if the pain is very severe or if vomiting prevents you from taking oral pain medications, you may need to return for further treatment. Drink three or four quarts of fluids per day. You will be given pain medication (if needed) and urine strainers. Strain all your urine to see if the stone passes. If your doctor has asked you to bring the stone in for analysis, return with the stone once it has passed. Return if pain or vomiting become severe, if you develop a high fever, if you are unable to pass your urine, or if other unusual symptoms occur. PAIN MEDICATION INJECTION: You have received an injection of a pain medication. You should experience significant pain relief within 45 minutes. This drug is a narcotic - - it will impair your judgement, slow your reaction time and make you sleepy ( as well as relieve your pain). Narcotics also can cause nausea. You should not drive, work with machinery, or perform any task requiring mental alertness until all effects of the medication are gone -- six to eight hours. Do not take any alcohol, or sedatives, and do not take any other medication without checking with your physician. ANTINAUSEA MEDICATION: You have been given a medication to suppress nausea and vomiting. This type of medication can be given as a shot, pill, or suppository. It will usually last for many hours. Pills and shots usually last six to eight hours, suppositories last about 12 hours. For the typical illness, only one or two doses of the medication may be necessary. Mild lightheadedness may occur. This type of medicine can cause drowsiness. Do not drive or operate dangerous machinery while under its influence. Do not mix with alcohol. See your doctor at once if you have muscle spasms or tightness, or uncontrollable motions (particularly of the neck, mouth, or jaw). Persistent vomiting or severe lightheadedness should also be evaluated by the physician. ORAL NARCOTIC MEDICATION: You have been given a prescription for pain control. This medication is a narcotic. It's best taken with food, as nausea can result if taken on an empty stomach. Don't operate machinery or drive within six hours of taking this medication. Do not combine this medicine with alcohol, or with any medication which can cause sedation (such as cold tablets or sleeping pills) unless you get permission from the physician. Narcotics tend to cause constipation. If possible, drink plenty of fluids and eat a diet high in fiber and fruits. Please be aware that prescription narcotics also have the potential for abuse. People become addicted to these medications because of the general sense of wellbeing that they induce. This feeling along with a significant reduction in tension, anxiety, and aggression provides a stimulating seductive quality to these drugs. Once your pain is under control, we encourage you to discard your unused narcotics. FOLLOW-UP CARE: If you have been referred to a physician for follow-up care, call the physician s office for an appointment as you were instructed or within the next two days. If you experience worsening or a significant change in your symptoms, notify the physician immediately or return to the Emergency Department at any time for re-evaluation. Prescriptions: Ciprofloxacin HCl [Cipro 500 mg Tablet] 500 mg PO BID #14 tablet Ibuprofen [Motrin 800 mg Tablet] 800 mg PO Q8H PRN #30 tab PRN Reason: Forms: Elevated Blood Pressure Referrals: MARC SABA MD [Primary Care Provider] - Follow up in 1 week
[2016-07-11 18:11] LABS: APPEARANCE,URINE SLIGHTLY-CLOUDY; BILIRUBIN,URINE NEGATIVE (NEGATIVE); GLUCOSE, URINE NEGATIVE (NEGATIVE); KETONES,URINE TRACE mg/dL (NEGATIVE); LEUKOCYTE ESTERASE,URINE NEGATIVE (NEGATIVE); NITRITE,URINE NEGATIVE (NEGATIVE); PROTEIN,URINE NEGATIVE (NEGATIVE); URINE SPECIFIC GRAVITY 1.014; UROBILINOGEN,URINE NEGATIVE mg/dL (<2.0)
[2016-07-11 18:31] LABS: ANION GAP 11 (5-19); BLOOD UREA NITROGEN 8 mg/dL (7-20); CALCIUM 8.7 mg/dL (8.4-10.2); CARBON DIOXIDE 25 mmol/L (22-30); CHLORIDE 105 mmol/L (98-107); CREATININE RESULT 0.68 mg/dL (0.52-1.25); GLUCOSE 113 mg/dL (75-110); POTASSIUM 3.6 mmol/L (3.6-5.0); SODIUM 140.8 mmol/L (137-145)
[2016-07-11 19:00] LABS: ABSOLUTE BASOPHILS # (AUTO) 0.1 10^3/uL (0.0-0.2); ABSOLUTE EOSINOPHILS # (AUTO) 0.2 10^3/uL (0.0-0.6); ABSOLUTE LYMPHOCYTES (AUTO) 2.3 10^3/uL (0.5-4.7); ABSOLUTE NEUT (AUTO) 8.1 10^3/uL (1.7-8.2); BASOPHILS % (AUTO) 0.5 % (0-2); EOSINOPHILS % (AUTO) 1.9 % (0-6); HEMATOCRIT 40.5 % (36.0-47.0); HGB HCT DIFFERENCE 1.5; LYMPHOCYTES % (AUTO) 20.2 % (13-45); MEAN CORPUSCULAR HEMOGLOBIN 29.7 pg (27.0-33.4); MEAN CORPUSCULAR HGB CONC 34.6 g/dL (32.0-36.0); MEAN CORPUSCULAR VOLUME 86 fl (80-97); MONOCYTES % (AUTO) 8.3 % (3-13); RED BLOOD COUNT 4.72 10^6/uL (3.72-5.28); RED CELL DISTRIBUTION WIDTH 12.5 % (11.5-14.0); SEGMENTED NEUTROPHILS % (AUTO) 69.1 % (42-78); WHITE BLOOD COUNT 11.7 10^3/uL (4.0-10.5)
[2016-07-11] MEDS ORDERED: HYDROCODONE/ACETAMINOPHEN 5-325 MG 6 TAB/DSPK PO PRN (19:41)
[2016-07-11 20:18] VITALS: BP 116/69
== END 2016-07-11 20:20 | disposition home or self-care (01) ==
LOC: ER 15:30
DX: N20.0 Calculus of kidney (principal); R11.0 Nausea; Z86.14 Personal history of Methicillin resistant Staphylococcus aureus infection; Z87.442 Personal history of urinary calculi
CPT/HCPCS: 99284; 96374; 96375; 36415; 85025; 81025; 80048; 81001; 76380; J1170; J2405

== ENCOUNTER → 2016-08-11 | Outpatient (CLI) | payer MEDICAID ==
--- NOTE | 2016-08-11 18:33 | RADIOLOGY REPORT (SQ) ---
EXAM DESCRIPTION: FOOT RIGHT COMPLETE COMPLETED DATE/TIME: 08/11/2016 6:14 pm REASON FOR STUDY: RIGHT FOOT INJURY, INITIAL ENCOUNTER COMPARISON: None. NUMBER OF VIEWS: Three views. TECHNIQUE: AP, lateral and oblique radiographic images acquired of the right foot. LIMITATIONS: None. FINDINGS: MINERALIZATION: Normal. BONES: There is a small chip fracture involving the head of the 5th proximal phalanx. JOINTS: No effusions. SOFT TISSUES: No soft tissue swelling. No foreign body. OTHER: No other significant finding. IMPRESSION: Small chip fracture that appears to involve the head of the 5th proximal phalanx. TECHNICAL DOCUMENTATION: JOB ID: [id number] [employer]- All Rights Reserved
== END ==
LOC: RAD 17:48
PROVIDERS: ATTEND Nurse Practitioner Acute Care
DX: S92.511A Displaced fracture of proximal phalanx of right lesser toe(s), initial encounter for closed fracture (principal); X58.XXXA Exposure to other specified factors, initial encounter

== ENCOUNTER → 2016-08-16 | Outpatient (CLI) | payer MEDICAID ==
--- NOTE | 2016-08-16 16:42 | RADIOLOGY REPORT (SQ) ---
EXAM DESCRIPTION: U/S RETROPERITON (RENAL/AORTA) COMPLETED DATE/TIME: 08/16/2016 4:34 pm REASON FOR STUDY: UNSPECIFIED HYDRONEPHROSIS N13.30 UNSPECIFIED HYDRONEPHROSIS COMPARISON: CT dated 07/11/2016 TECHNIQUE: Dynamic and static grayscale images acquired of the kidneys and bladder and recorded on P ACS. Additional selected color Doppler and spectral images recorded. LIMITATIONS: None. FINDINGS: RIGHT KIDNEY: Normal size. Normal echogenicity. No solid or suspicious masses. No hydronep hrosis. No calcifications. LEFT KIDNEY: Normal size. Normal echogenicity. No solid or suspicious masses. No hydronephrosis. No calcifications. BLADDER: No masses. OTHER FINDINGS: No other significant finding. IMPRESSION: NORMAL RENAL AND BLADDER ULTRASOUND. TECHNICAL DOCUMENTATION: JOB ID: [id number] [email or web address]- All Rights Reserved
== END ==
LOC: RAD 16:12
PROVIDERS: ATTEND Obstetrics & Gynecology
DX: N13.30 Unspecified hydronephrosis (principal); N23 Unspecified renal colic
CPT/HCPCS: 76770

== ENCOUNTER 2016-09-03 11:59 | Emergency (ER) | payer MEDICAID ==
--- NOTE | 2016-09-03 12:56 | ER Document Report ---
ED Medical Screen (RME) - General Mode of Arrival: Ambulatory Information source: Patient TRAVEL OUTSIDE OF THE [place] IN LAST 30 DAYS: No <ROXANA WAHL - Last Filed: 09/03/16 12:50> <TIFFANY GENAO - Last Filed: 09/04/16 14:34> - General Chief Complaint: Vaginal Bleeding Stated Complaint: VAGINAL BLEEDING,ABDOMINAL PAIN Time Seen by Provider: 09/03/16 12:50 Notes: 21 yo female presents to ed for heavy vaginal bleeding with clots. LMP was jul 12 2016. Was seen at [facility] 2 days ago and just checked bp and told her if the bleeding continued it could be the nuva ring. She states they did not do test. was late changing out ring. Pelvic and lower back cramping. I have seen this patient in PIT and another provider will do a complete history physical and treatment in the ed. (ROXANA WAHL) - Related Data Allergies/Adverse Reactions: albuterol [Albuterol] Allergy (Severe, Verified 09/03/16 12:51) Heart races & passes out chloraprep/pastora wipes Adverse Reaction (Mild, Uncoded 09/03/16 12:51) itching/welts Past Medical History - Social History Family history: Reviewed & Not Pertinent - Past Medical History Cardiac Medical History: Denies: Hx Coronary Artery Disease, Hx Heart Attack, Hx Hypertension Pulmonary Medical History: Denies: Hx Asthma, Hx Bronchitis, Hx COPD, Hx Pneumonia Neurological Medical History: Denies: Hx Cerebrovascular Accident, Hx Seizures Renal/ Medical History: Reports: Hx Kidney Stones. Denies: Hx Peritoneal Dialysis GI Medical History: Reports: Hx Gastroesophageal Reflux Disease - With . Denies: Hx Hiatal Hernia, Hx Ulcer Musculoskeltal Medical History: Denies Hx Arthritis Skin Medical History: Reports Hx MRSA Past Surgical History: Reports: Hx Cardiac Surgery, Hx Section - Immunizations Hx Diphtheria, Pertussis, Tetanus Vaccination: Yes <ROXANA WAHL - Last Filed: 09/03/16 12:50> Course - Laboratory Result Diagrams: 09/03/16 13:07 09/03/16 13:07 <TIFFANY GENAO - Last Filed: 09/04/16 14:34> - Vital Signs Vital signs: Temp Pulse Resp BP Pulse Ox 98.8 F 105 H 12 119/73 97 06/23/17 17:05 09/03/16 17:05 09/03/16 17:05 09/03/16 17:05 09/03/16 17:05 - Laboratory Laboratory results interpreted by me: 09/03/16 09/03/16 09/03/16 13:07 13:07 13:07 WBC 11.6 H RBC 5.51 H Hgb 15.8 H Hct 47.4 H Carbon Dioxide 21 L Urine Protein 100 H Urine Blood LARGE H Ur Leukocyte Esterase LARGE H 09/03/16 14:45 WBC RBC Hgb Hct Carbon Dioxide Urine Protein Urine Blood MODERATE H Ur Leukocyte Esterase Doctor's Discharge <ROXANA WAHL - Last Filed: 09/03/16 12:50> <TIFFANY GENAO - Last Filed: 09/04/16 14:34> - Discharge Clinical Impression: Irregular menses, Bacterial vaginosis, Hematuria Condition: Stable Disposition: HOME, SELF-CARE Additional Instructions: Vaginosis, Bacterial Your exam shows you have bacterial vaginosis. This condition is due to an overgrowth of bacteria in the vagina. Symptoms may include vaginal itching or pain, a smelly discharge, and sometimes burning with urination. Normally this is not transmitted by sexual contact. Vaginosis can be treated with oral or topical antibiotics. Metronidazole ( Flagyl) pills are usually effective. Topical vaginal creams include Cleocin and Metro-Gel. You should avoid sexual contact until your symptoms are all better. Call the doctor if you develop pelvic pain, fever, or problems with urination, or if you don't improve as expected. Hematuria Hematuria, or blood in your urine, can be caused by minor medical problems , such as a bladder infection, or by more serious medical conditions, such as kidney stones or even tumors of the bladder or kidney. If the cause of the hematuria is known (such as a bladder infection) and can be treated, it may not need further evaluation. If the cause is not known, it will usually require further evaluation by a specialist, such as a urologist. In particular, unexplained hematuria in the older patient must be evaluated to rule out a serious condition, such as a bladder or kidney tumor. If the hematuria worsens or you are passing clots and then are unable to urinate, you should be re-evaluated. A catheter may need to be placed in the bladder to permit passage of urine. If you develop high fever, severe pain, or other new or worsening symptoms, return to the Emergency Department for re- evaluation. Prescriptions: Metronidazole [Flagyl 500 mg Tablet] 500 mg PO Q6H #40 tablet Forms: Elevated Blood Pressure Referrals: MARC SABA MD [Primary Care Provider] - Follow up in 1 week
[2016-09-03 13:35] LABS: ABSOLUTE EOSINOPHILS # (AUTO) 0.2 10^3/uL (0.0-0.6); ABSOLUTE LYMPHOCYTES (AUTO) 2.4 10^3/uL (0.5-4.7); ABSOLUTE NEUT (AUTO) 8.1 10^3/uL (1.7-8.2); BASOPHILS % (AUTO) 0.2 % (0-2); EOSINOPHILS % (AUTO) 1.3 % (0-6); HEMATOCRIT 47.4 % (36.0-47.0); HEMOGLOBIN 15.8 g/dL (12.0-15.5); LYMPHOCYTES % (AUTO) 20.6 % (13-45); MEAN CORPUSCULAR HEMOGLOBIN 28.7 pg (27.0-33.4); MEAN CORPUSCULAR HGB CONC 33.4 g/dL (32.0-36.0); MEAN CORPUSCULAR VOLUME 86 fl (80-97); MONOCYTES % (AUTO) 8.6 % (3-13); RED BLOOD COUNT 5.51 10^6/uL (3.72-5.28); RED CELL DISTRIBUTION WIDTH 12.3 % (11.5-14.0); SEGMENTED NEUTROPHILS % (AUTO) 69.3 % (42-78); WHITE BLOOD COUNT 11.6 10^3/uL (4.0-10.5)
[2016-09-03 13:43] LABS: APPEARANCE,URINE CLOUDY; BILIRUBIN,URINE NEGATIVE (NEGATIVE); GLUCOSE, URINE NEGATIVE (NEGATIVE); KETONES,URINE NEGATIVE (NEGATIVE); LEUKOCYTE ESTERASE,URINE LARGE (NEGATIVE); NITRITE,URINE NEGATIVE (NEGATIVE); PROTEIN,URINE 100 mg/dL (NEGATIVE); URINE SPECIFIC GRAVITY 1.021; UROBILINOGEN,URINE NEGATIVE mg/dL (<2.0)
[2016-09-03 13:47] LABS: BACTERIA,URINE 1+ /HPF; RBC,URINE 50-100 /HPF
[2016-09-03 14:01] LABS: ALANINE AMINOTRANSFERASE 21 U/L (9-52); ALBUMIN 4.2 g/dL (3.5-5.0); ALKALINE PHOSPHATASE 96 U/L (38-126); ANION GAP 13 (5-19); ASPARTATE AMINO TRANSFERASE 15 U/L (14-36); BILIRUBIN,DIRECT 0.2 mg/dL (0.0-0.4); BILIRUBIN,TOTAL 0.4 mg/dL (0.2-1.3); BLOOD UREA NITROGEN 9 mg/dL (7-20); CALCIUM 9.3 mg/dL (8.4-10.2); CARBON DIOXIDE 21 mmol/L (22-30); CHLORIDE 104 mmol/L (98-107); CREATININE RESULT 0.59 mg/dL (0.52-1.25); GLUCOSE 79 mg/dL (75-110); SODIUM 138.3 mmol/L (137-145); TOTAL PROTEIN 7.7 g/dL (6.3-8.2)
[2016-09-03] MEDS ORDERED: ONDANSETRON 4 MG TAB.RAPDIS PO ONE (14:27)
[2016-09-03] MEDS ORDERED: KETOROLAC TROMETHAMINE 60 MG/2 ML SDV IM ONE (14:27)
--- NOTE | 2016-09-03 14:37 | ER Document Report ---
ED GI/ - General Mode of Arrival: Ambulatory Information source: Patient TRAVEL OUTSIDE OF THE [place] IN LAST 30 DAYS: No - HPI Patient complains to provider of: Abdominal pain, Vaginal bleeding Onset: Other - 4 days ago Location: Vaginal Vaginal bleeding (Compared to normal period): Heavier, Passing clots Associated symptoms: Other - See notes above <MIK MARTIN - Last Filed: 09/03/16 15:35> <JANET NAVARRO - Last Filed: 09/03/16 19:20> - General Chief Complaint: Vaginal Bleeding Stated Complaint: VAGINAL BLEEDING,ABDOMINAL PAIN Time Seen by Provider: 09/03/16 12:50 Notes: 21-year-old female presents to the ED complaining of vaginal bleeding and lower back and diffuse abdominal pain for the past 4 days. Patient reports to passing quarter sized clots, lightheadedness, fatigue, vomiting, and nausea. Patient denies dizziness or weakness. Patient saw her OB 2 days ago and was told that her blood pressure was elevated and was told to come back if the bleeding continued. Patient tried to make an appointment with her OB, but was unable to do so, so she came to the ED. Patient is currently using the Nuva ring and states that she is using it appropriately. She has been bleeding through 1 pad every 1-2 hours. Patient reports to using Tylenol for mild pain relief. (MIK MARTIN) - Related Data Allergies/Adverse Reactions: albuterol [Albuterol] Allergy (Severe, Verified 09/03/16 12:51) Heart races & passes out chloraprep/pastora wipes Adverse Reaction (Mild, Uncoded 09/03/16 12:51) itching/welts Past Medical History - General Information source: Patient - Social History Smoking Status: Current Every Day Smoker Chew tobacco use (# tins/day): No Frequency of alcohol use: Occasional Drug Abuse: None Family History: Reviewed & Not Pertinent Patient has suicidal ideation: No Patient has homicidal ideation: No - Past Medical History Cardiac Medical History: Renal/ Medical History: Reports: Hx Kidney Stones GI Medical History: Reports: Hx Gastroesophageal Reflux Disease - With Musculoskeltal Medical History: Denies Hx Arthritis Skin Medical History: Reports Hx MRSA Past Surgical History: Reports: Hx Cardiac Surgery, Hx Section - Immunizations Hx Diphtheria, Pertussis, Tetanus Vaccination: Yes <MIK MARTIN - Last Filed: 09/03/16 15:35> Review of Systems - Review of Systems Constitutional: No symptoms reported EENT: No symptoms reported Cardiovascular: No symptoms reported Respiratory: No symptoms reported Gastrointestinal: See HPI, Abdominal pain - diffuse, Nausea, Vomiting Genitourinary: No symptoms reported Female Genitourinary: See HPI, Vaginal bleeding Musculoskeletal: No symptoms reported Skin: No symptoms reported Hematologic/Lymphatic: No symptoms reported Neurological/Psychological: No symptoms reported -: Yes All other systems reviewed and negative <MIK MARTIN - Last Filed: 09/03/16 15:35> Physical Exam <MIK MARTIN - Last Filed: 09/03/16 15:35> <JANET NAVARRO - Last Filed: 09/03/16 19:20> - Vital signs Vitals: Temp Pulse Resp BP Pulse Ox 98.6 F 91 18 139/68 H 95 09/03/16 12:03 09/03/16 12:03 09/03/16 12:03 09/03/16 12:03 09/03/16 12:03 - Notes Notes: GENERAL: Alert, interacts well. No acute distress. HEAD: Normocephalic, atraumatic. EYES: Pupils equal, round, and reactive to light. Extraocular movements intact. ENT: Oral mucosa moist, tongue midline. NECK: Full range of motion. Supple. Trachea midline. LUNGS: Clear to auscultation bilaterally, no wheezes, rales, or rhonchi. No respiratory distress. HEART: Regular rate and rhythm. No murmurs, gallops, or rubs. ABDOMEN: Soft. Mild diffuse abdominal tenderness to palpation. No guarding, rebound, or rigidity. Non-distended. Bowel sounds present in all 4 quadrants. EXTREMITIES: Moves all 4 extremities spontaneously. No edema, radial and dorsalis pedis pulses 2/4 bilaterally. No cyanosis. GENITOURINARY: Small amount of dried brown blood, but no active bleeding from cervix. Nuvaring is in position. No cervical motion tenderness. Exam was chaperoned by Diana Villasenor and Selma Hammer. NEUROLOGICAL: Alert and oriented x3. Normal speech. PSYCH: Normal affect, normal mood. SKIN: Warm, dry, normal turgor. No rashes or lesions noted. (MIK MARTIN) Course - Laboratory Result Diagrams: 09/03/16 13:07 09/03/16 13:07 <MIK MARTIN - Last Filed: 09/03/16 15:35> - Laboratory Result Diagrams: 09/03/16 13:07 09/03/16 13:07 <JANET NAVARRO - Last Filed: 09/03/16 19:20> - Re-evaluation Re-evalutation: 09/03/16 16:50 CBC shows leukocytosis of 11.6 and hemoglobin 15.8 consistent with hemoconcentration, this is further supported by CO2 of 21 on her chemistries that indicates mild dehydration, hCG is negative, initial urinalysis was a clean catch that showed moderate squamous epithelial cells so it appears to be contaminated, this showed large blood and large leukocyte esterase, I then had the nurses perform a catheterized urine that shows moderate blood but only 0-1 RBCs and trace bacteria, this was sent for culture as it is not convincing for infection at this time, it is concerning for possible myoglobinuria rather than true hematuria. Patient is already seeing a urologist for workup for the blood in her urine. She is scheduled see him again in 3 months and have a 24-hour urine collection performed in 2 months. Wet prep does not show any trichomonas but it does show 4+ bacteria and 1+ WBCs suspicious for bacterial vaginosis, patient will be treated with Flagyl. Chlamydia and gonorrhea tests are negative. (JANET NAVARRO) - Vital Signs Vital signs: Temp Pulse Resp BP Pulse Ox 98.8 F 105 H 12 119/73 97 09/03/16 17:05 09/03/16 17:05 09/03/16 17:05 09/03/16 17:05 09/03/16 17:05 - Laboratory Laboratory results interpreted by me: 09/03/16 09/03/16 09/03/16 13:07 13:07 13:07 WBC 11.6 H RBC 5.51 H Hgb 15.8 H Hct 47.4 H Carbon Dioxide 21 L Urine Protein 100 H Urine Blood LARGE H Ur Leukocyte Esterase LARGE H 09/03/16 14:45 WBC RBC Hgb Hct Carbon Dioxide Urine Protein Urine Blood MODERATE H Ur Leukocyte Esterase Discharge <MIK MARTIN - Last Filed: 09/03/16 15:35> <JANET NVAARRO - Last Filed: 09/03/16 19:20> - Discharge Clinical Impression: Irregular menses, Bacterial vaginosis, Hematuria Condition: Stable Disposition: HOME, SELF-CARE Additional Instructions: Vaginosis, Bacterial Your exam shows you have bacterial vaginosis. This condition is due to an overgrowth of bacteria in the vagina. Symptoms may include vaginal itching or pain, a smelly discharge, and sometimes burning with urination. Normally this is not transmitted by sexual contact. Vaginosis can be treated with oral or topical antibiotics. Metronidazole ( Flagyl) pills are usually effective. Topical vaginal creams include Cleocin and Metro-Gel. You should avoid sexual contact until your symptoms are all better. Call the doctor if you develop pelvic pain, fever, or problems with urination, or if you don't improve as expected. Hematuria Hematuria, or blood in your urine, can be caused by minor medical problems , such as a bladder infection, or by more serious medical conditions, such as kidney stones or even tumors of the bladder or kidney. If the cause of the hematuria is known (such as a bladder infection) and can be treated, it may not need further evaluation. If the cause is not known, it will usually require further evaluation by a specialist, such as a urologist. In particular, unexplained hematuria in the older patient must be evaluated to rule out a serious condition, such as a bladder or kidney tumor. If the hematuria worsens or you are passing clots and then are unable to urinate, you should be re-evaluated. A catheter may need to be placed in the bladder to permit passage of urine. If you develop high fever, severe pain, or other new or worsening symptoms, return to the Emergency Department for re- evaluation. Prescriptions: Metronidazole [Flagyl 500 mg Tablet] 500 mg PO Q6H #40 tablet Forms: Elevated Blood Pressure Referrals: MARC SABA MD [Primary Care Provider] - Follow up in 1 week Scribe Attestation: 09/03/16 19:20 I personally performed the services described in the documentation, reviewed and edited the documentation which was dictated to the scribe in my presence, and it accurately records my words and actions. (JANET NAVARRO) Scribe Documentation - Scribe Written by Francesca:: Francesca Terry, 09/03/2016 1458 acting as scribe for :: Yenny <MIK MARTIN - Last Filed: 09/03/16 15:35>
[2016-09-03 15:42] LABS: APPEARANCE,URINE CLEAR; BILIRUBIN,URINE NEGATIVE (NEGATIVE); GLUCOSE, URINE NEGATIVE (NEGATIVE); KETONES,URINE NEGATIVE (NEGATIVE); LEUKOCYTE ESTERASE,URINE NEGATIVE (NEGATIVE); NITRITE,URINE NEGATIVE (NEGATIVE); PROTEIN,URINE NEGATIVE (NEGATIVE); URINE SPECIFIC GRAVITY 1.017; UROBILINOGEN,URINE NEGATIVE mg/dL (<2.0)
[2016-09-03 15:43] LABS: BACTERIA,URINE TRACE /HPF; RBC,URINE 0-1 /HPF; WBC,URINE 0-1 /HPF
[2016-09-03 16:01] LABS: CHLAM PCR NOT DETECTED (NOT DETECT)
[2016-09-03 17:08] VITALS: BP 119/73
== END 2016-09-03 17:26 | disposition home or self-care (01) ==
LOC: ER 11:59
DX: N92.6 Irregular menstruation, unspecified (principal); N76.0 Acute vaginitis; B96.89 Other specified bacterial agents as the cause of diseases classified elsewhere; R31.9 Hematuria, unspecified; M54.5 Low back pain; R10.9 Unspecified abdominal pain; F17.200 Nicotine dependence, unspecified, uncomplicated; Z87.442 Personal history of urinary calculi; Z86.14 Personal history of Methicillin resistant Staphylococcus aureus infection
CPT/HCPCS: 99284; 96372; 51701; 36415; 87086; 87210; 84703; 85025; 80053; 81001; 87491; 87591; J1885; S0119

== ENCOUNTER 2016-11-14 20:43 | Emergency (ER) | payer MEDICAID ==
[2016-11-14] MEDS ORDERED: CETIRIZINE 10 MG TABLET PO ONE (22:26)
[2016-11-14] MEDS ORDERED: BUTALB/ACETAMINOPHEN/CAFFEINE 1 TAB EACH PO ONE (22:26)
--- NOTE | 2016-11-14 22:28 | ER Document Report ---
ED General - General Chief Complaint: Allergic Reaction Stated Complaint: POSSIBLE HIVES Time Seen by Provider: 11/14/16 21:32 Notes: Patient is a 54-[id number]-year-old female with a history of idiopathic urticaria who presents with concerns that her urticaria has not yet resolved. She was seen in the emergency department 36 hours ago and at that time started on steroids. She notes that her hives have diminished in size but that they are still present. Denies any difficulty breathing, vomiting, diarrhea, abdominal pain or syncope. States this feels very similar to prior episodes of exacerbations of her idiopathic urticaria. She also notes that she has a migraine headache which is typical for her but notes that this is not the reason for her visit today. Describes it as her typical migraine, with left- sided, throbbing, constant pain to her scalp. Lights and sounds worsen the pain. She has not tried anything for improvement of the pain. TRAVEL OUTSIDE OF THE [place] IN LAST 30 DAYS: No - Related Data Allergies/Adverse Reactions: albuterol [Albuterol] Allergy (Severe, Verified 11/14/16 21:16) Heart races & passes out chloraprep/pastora wipes Adverse Reaction (Mild, Uncoded 11/14/16 21:16) itching/welts Past Medical History - General Information source: Patient - Social History Smoking Status: Never Smoker Frequency of alcohol use: None Drug Abuse: None Lives with: Spouse/Significant other Family History: Reviewed & Not Pertinent - Past Medical History Cardiac Medical History: Denies: Hx Coronary Artery Disease, Hx Heart Attack, Hx Hypertension Pulmonary Medical History: Denies: Hx Asthma, Hx Bronchitis, Hx COPD, Hx Pneumonia Neurological Medical History: Denies: Hx Cerebrovascular Accident, Hx Seizures Renal/ Medical History: Reports: Hx Kidney Stones. Denies: Hx Peritoneal Dialysis GI Medical History: Reports: Hx Gastroesophageal Reflux Disease - With . Denies: Hx Hiatal Hernia, Hx Ulcer Musculoskeltal Medical History: Denies Hx Arthritis Skin Medical History: Reports Hx MRSA Past Surgical History: Reports: Hx Cardiac Surgery, Hx Section - Immunizations Hx Diphtheria, Pertussis, Tetanus Vaccination: Yes Review of Systems - Review of Systems Notes: Constitutional: Negative for fever. HENT: Negative for sore throat. Eyes: Negative for visual changes. Cardiovascular: Negative for chest pain. Respiratory: Negative for shortness of breath. Gastrointestinal: Negative for abdominal pain, vomiting or diarrhea. Genitourinary: Negative for dysuria. Musculoskeletal: Negative for back pain. Skin: Positive for rash. Neurological: Negative for headaches, weakness or numbness. 10 point ROS negative except as marked above and in HPI. Physical Exam - Vital signs Vitals: Temp Pulse Resp BP Pulse Ox 98.4 F 76 16 149/85 H 98 11/14/16 21:18 11/14/16 21:18 11/14/16 21:18 11/14/16 21:18 11/14/16 21:18 Interpretation: Hypertensive Notes: PHYSICAL EXAMINATION: GENERAL: Well-appearing, well-nourished and in no acute distress. HEAD: Atraumatic, normocephalic. EYES: Pupils equal round and reactive to light, extraocular movements intact, sclera anicteric, conjunctiva are normal. ENT: nares patent, oropharynx clear without exudates. Moist mucous membranes. NECK: Normal range of motion, supple without lymphadenopathy LUNGS: Breath sounds clear to auscultation bilaterally and equal. No wheezes rales or rhonchi. HEART: Regular rate and rhythm without murmurs ABDOMEN: Soft, nontender, normoactive bowel sounds. No guarding, no rebound. No masses appreciated. EXTREMITIES: Normal range of motion, no pitting or edema. No cyanosis. NEUROLOGICAL: No focal neurological deficits. Moves all extremities spontaneously and on command. PSYCH: Normal mood, normal affect. SKIN: Warm, Dry, normal turgor, small areas of scattered urticaria Course - Re-evaluation Re-evalutation: 11/14/16 22:26 Patient presents with symptoms consistent with an allergic reaction without anaphylaxis. States is better than when she was seen only cutaneous involvement with multiple areas of hives. States it is better than when she was seen to possibly 36 hours ago and she is already on steroids. Vitals otherwise within normal limits at time of arrival. No respiratory, GI, cardiovascular, or oral pharyngeal symptoms. She has seen an reservations manager in the past and did not react to anything other than histamine. Her clinical history is most suggestive of a likely autoimmune versus hypersensitivity origin. Will recommend ongoing antihistamine therapy as an outpatient. At this time will discharge with return precautions and follow-up recommendations. Verbal discharge instructions given a the bedside and opportunity for questions given. Medication warnings reviewed. Patient is in agreement with this plan and has verbalized understanding of return precautions and the need for primary care follow-up in the next 24-72 hours. - Vital Signs Vital signs: Temp Pulse Resp BP Pulse Ox 98.3 F 74 18 107/62 99 11/14/16 22:30 11/14/16 22:30 11/14/16 22:30 11/14/16 22:30 11/14/16 22:30 Discharge - Discharge Clinical Impression: Urticaria Condition: Good Disposition: HOME, SELF-CARE Additional Instructions: You were seen today for hives. This can be either allergic, autoimmune, or environmental in origin. You can continue to take cetirizine 10mg up to 3 times daily as needed for itching. Apply the topical steroid cream that has been prescribed as needed for severe inching. IF YOU DEVELOP DIFFICULTY BREATHING, SPREADING OF HIVES, VOMITING, LIGHTHEADEDNESS, IMMEDIATELY AND CALL 911. Please follow-up with your primary care physician in the next 1-2 days.
[2016-11-14 22:32] VITALS: BP 107/62
== END 2016-11-14 22:48 | disposition home or self-care (01) ==
LOC: ER 20:43
DX: L50.9 Urticaria, unspecified (principal); G43.909 Migraine, unspecified, not intractable, without status migrainosus; Z88.8 Allergy status to other drugs, medicaments and biological substances; Z86.14 Personal history of Methicillin resistant Staphylococcus aureus infection
CPT/HCPCS: 99283; J3490 ×2

== ENCOUNTER 2016-11-16 12:26 | Emergency (ER) | payer MEDICAID ==
[2016-11-16 12:40] VITALS: BP 140/78
--- NOTE | 2016-11-16 13:31 | ER Document Report ---
ED Allergic Reaction - General Chief Complaint: Hives Stated Complaint: POSSIBLE ALLERGIC REACTION Time Seen by Provider: 11/16/16 13:15 Mode of Arrival: Ambulatory Information source: Patient Notes: 21-year-old female presents to ED for complaint of idiopathic urticaria. She states that she is concerned that she has been to the emergency room several times and has not gotten any relief from her hives. She states that the hives are smaller and fewer of them but she is still having them. She denies any difficulty breathing nausea vomiting belly pain or any passing out. She states she has been in hand the past for passing out due to her hives. She has been to an guest service agent and had allergy testing and they told her she was not allergic to anything. She denies any symptoms except for the urticaria. He states she has been on prednisone and antihistamines and Pepcid. She states that the guest service agent put her on Zyrtec twice a day and she has been taken that. She states the urticaria started in April 2014. TRAVEL OUTSIDE OF THE [place] IN LAST 30 DAYS: No - HPI Onset: Other - Chronic idiopathic urticaria Onset/Duration: Persistent Quality of pain: Burning - From hives Severity: Moderate Pain Level: 3 Identified cause: No Skin rash / itching: Diffuse, "Hives" Associated symptoms: None Similar symptoms previously: No Recently seen / treated by doctor: No - Related Data Allergies/Adverse Reactions: albuterol [Albuterol] Allergy (Severe, Verified 11/14/16 21:16) Heart races & passes out chloraprep/pastora wipes Adverse Reaction (Mild, Uncoded 11/14/16 21:16) itching/welts Past Medical History - General Information source: Patient - Social History Smoking Status: Current Every Day Smoker Cigarette use (# per day): Yes - 7 cigarettes a day Chew tobacco use (# tins/day): No Smoking Education Provided: Yes - Less than 2 minutes Frequency of alcohol use: None Drug Abuse: None Lives with: Family Family History: None Patient has suicidal ideation: No Patient has homicidal ideation: No - Past Medical History Cardiac Medical History: Reports: None Pulmonary Medical History: Reports: None EENT Medical History: Reports: None Neurological Medical History: Reports: None Endocrine Medical History: Reports: None Renal/ Medical History: Reports: Hx Kidney Stones Malignancy Medical History: Reports: None GI Medical History: Reports: Hx Gastroesophageal Reflux Disease - With Musculoskeltal Medical History: Reports None Skin Medical History: Reports Hx MRSA Psychiatric Medical History: Reports: None Traumatic Medical History: Reports: None Infectious Medical History: Reports: None Past Surgical History: Reports: Hx Cardiac Surgery, Hx Section - Immunizations Immunizations up to date: Yes Hx Diphtheria, Pertussis, Tetanus Vaccination: Yes Review of Systems - Review of Systems Constitutional: No symptoms reported EENT: No symptoms reported Cardiovascular: No symptoms reported Respiratory: No symptoms reported Gastrointestinal: No symptoms reported Genitourinary: No symptoms reported Female Genitourinary: No symptoms reported Musculoskeletal: No symptoms reported Skin: Other - Urticaria to arms legs abdomen and back Hematologic/Lymphatic: No symptoms reported Neurological/Psychological: No symptoms reported -: Yes All other systems reviewed and negative Physical Exam - Vital signs Vitals: Temp Pulse Resp BP Pulse Ox 99.4 F 88 18 140/78 H 97 11/16/16 12:38 11/16/16 12:38 11/16/16 12:38 11/16/16 12:38 11/16/16 12:38 Interpretation: Normal - General General appearance: Appears well, Alert - HEENT Head: Normocephalic, Atraumatic Eyes: Normal Pupils: PERRL - Respiratory Respiratory status: No respiratory distress Chest status: Nontender Breath sounds: Normal Chest palpation: Normal - Cardiovascular Rhythm: Regular Heart sounds: Normal auscultation Murmur: No - Abdominal Inspection: Normal Distension: No distension Bowel sounds: Normal Tenderness: Nontender Organomegaly: No organomegaly - Back Back: Normal, Nontender - Extremities General upper extremity: Normal inspection, Nontender, Normal color, Normal ROM , Normal temperature General lower extremity: Normal inspection, Nontender, Normal color, Normal ROM , Normal temperature, Normal weight bearing. No: Rosi's sign - Neurological Neuro grossly intact: Yes Cognition: Normal Orientation: AAOx4 [place] Coma Scale Eye Opening: Spontaneous [place] Coma Scale Verbal: Oriented [place] Coma Scale Motor: Obeys Commands [place] Coma Scale Total: 15 Speech: Normal Motor strength normal: LUE, RUE, LLE, RLE Sensory: Normal - Psychological Associated symptoms: Normal affect, Normal mood - Skin Skin Temperature: Warm Skin Moisture: Dry Skin Color: Normal Location of irregularity: Generalized Character of irregularity: Erythematous, Urticarial Irregularity with: Swelling, Tenderness Course - Re-evaluation Re-evalutation: 11/16/16 15:02 Symptoms consistent with chronic urticaria. Patient is on Zyrtec twice daily Pepcid twice daily and states she is taking prednisone at this time. She states that the hives get better and worse. She has been seen several times and started on the steroids and Pepcid recently. Her vital signs are normal. She is having no difficulty breathing swallowing or speaking. I recommended a stronger antihistamine for a short period of time. Hydroxyzine 50 mg daily written. Patient given instructions that this will make her sleepy she needs to not take this medication when she needs to drive or be alone with her small children. Patient instructed to follow-up with her primary doctor and her guest service agent. - Vital Signs Vital signs: Temp Pulse Resp BP Pulse Ox 99.4 F 88 18 140/78 H 97 11/16/16 12:38 11/16/16 12:38 11/16/16 12:38 11/16/16 12:38 11/16/16 12:38 Discharge - Discharge Clinical Impression: Urticaria Condition: Stable Disposition: HOME, SELF-CARE Instructions: Family Physicians / Practices Additional Instructions: ACUTE ALLERGIC REACTION: Your symptoms are due to an allergic reaction. Allergy can cause hives, swelling of the hands, feet, and face, hoarseness, and difficulty swallowing or breathing. It may be due to exposure to medication, animal dander, foods, infection, or insect bites. Medication is a common cause, even when prior use of this same medication caused no problems. Acute treatment may include adrenalin and antihistamines. Usually, the specific allergic agent can't be identified unless repeated episodes occur. Home treatment includes the following: (1) Stop any suspicious medications. This will be discussed with you. (2) Oral antihistamines for the next four to five days. Example, diphenhydramine (Benadryl) every four hours. (3) You may also use cimetidine (Tagamet), ranitidine (Zantac), or famotidine ( Pepcid) every four hours if diphenhydramine is not controlling itching and hives. (4) Avoid aspirin until the hives completely disappear. (5) Avoid hot baths or showers until the hives are completely gone. Call the doctor if faintness, difficulty swallowing, tightness in the chest , or wheezing occurs. ACID-SUPPRESSING MEDICATION: You have a prescription for medicine which reduces the stomach's secretion of acid. Examples include Zantac, Tagament, and Pepcid. These drugs are often used to allow healing of ulcers or esophagitis. They may be needed to prevent recurrence of ulcers in some patients, or to prevent damage from acid reflux in the esophagus. Take all medication as prescribed, even after the pain is gone. Regular antacids may be added as needed if you have symptoms while taking this medicine. These medications sometimes are prescribed for allergic reactions because they have anti-histaminic effects and relieve the rash and itching of the reaction. There are usually no side effects from this medication. But, in rare cases and particularly in the elderly, serious problems can occur. Contact your doctor if there is fever, rash, hallucinations, confusion, or unusual bruising. Contact your doctor at once if you develop lightheadedness, black or bloody stool, or bloody vomitus. ANTIHISTAMINES: An antihistamine has been given and/or prescribed to control your symptoms. Antihistamines are used for many reasons, including itching, watering eyes, runny nose, allergic swelling, hives, and insect stings. Antihistamines may cause drowsiness, especially with the first dose. Do not operate machinery or drive while under the effects of the medication. Other common side effects include dry mouth and eyes. In older persons, antihistamines can occasionally cause urinary retention, constipation, and trouble focusing the eyes. Do not combine the medication with alcohol, or with any other medication without talking to your doctor. USE OF DIPHENHYDRAMINE: The use of diphenhydramine (Benadryl) has been recommended to control allergic symptoms. The 25 mg strength is available over- the-counter, as well as the elixir. This antihistamine is used for many symptoms. It's useful for itching, watering eyes and nose, allergic swelling, hives, and insect stings. The medication can be repeated four times daily. Age Elixir (12.5 mg/tsp) 25 mg pill 2-3 yr 1/2 tsp 4-8 yr 1 tsp 9-14 yr 2 tsp one tab adult 1-2 tabs Antihistamines may cause drowsiness, especially with the first dose. Do not operate machinery or drive while under the effects of the medication. Do not combine the medication with alcohol, or with any other medication without talking to your doctor. FOLLOW-UP CARE: If you have been referred to a physician for follow-up care, call the physician s office for an appointment as you were instructed or within the next two days. If you experience worsening or a significant change in your symptoms, notify the physician immediately or return to the Emergency Department at any time for re-evaluation. Prescriptions: Hydroxyzine Pamoate [Vistaril 25 mg Capsule] 25 mg PO DAILYP PRN #30 capsule PRN Reason: Forms: Elevated Blood Pressure
== END 2016-11-16 13:48 | disposition home or self-care (01) ==
LOC: ER 12:26
DX: L50.1 Idiopathic urticaria (principal); F17.210 Nicotine dependence, cigarettes, uncomplicated; Z87.442 Personal history of urinary calculi; Z86.14 Personal history of Methicillin resistant Staphylococcus aureus infection
CPT/HCPCS: 99282

== ENCOUNTER 2017-01-06 22:37 | Emergency (ER) | payer MEDICAID ==
[2017-01-06] MEDS ORDERED: EPINEPHRINE INJ/PF 1 MG/1 ML AMPULE IM ONE (23:35)
--- NOTE | 2017-01-07 00:19 | ER Document Report ---
ED General - General Chief Complaint: Allergic Reaction Stated Complaint: RASH,BREATING DIFFICULTY Time Seen by Provider: 01/06/17 23:34 Notes: Patient is a 21-year-old female with a past medical history of idiopathic urticaria who presents with an exacerbation of this urticaria. Patient states she woke up with a large patch of hives on her right upper extremity earlier today. She took cetirizine and prednisone her initially her hives did dissipate but she states approximately 3 hours ago they became diffuse covering her bilateral upper and lower extremities. She also notes that she had some mild difficulty breathing. Nothing worsened her symptoms. Uncertain of the trigger although she states she had allergy testing done several weeks ago which was negative for any acute reaction to any tested allergen. She has not seen a primary care doctor regarding today's symptoms. She denies any vomiting , diarrhea, fever or constitutional symptoms. TRAVEL OUTSIDE OF THE [place] IN LAST 30 DAYS: No - Related Data Allergies/Adverse Reactions: albuterol [Albuterol] Allergy (Severe, Verified 11/14/16 21:16) Heart races & passes out chloraprep/pastora wipes Adverse Reaction (Mild, Uncoded 11/14/16 21:16) itching/welts Past Medical History - General Information source: Patient - Social History Smoking Status: Never Smoker Frequency of alcohol use: None Drug Abuse: None Lives with: Family Family History: Reviewed & Not Pertinent Patient has suicidal ideation: No Patient has homicidal ideation: No - Past Medical History Cardiac Medical History: Denies: Hx Coronary Artery Disease, Hx Heart Attack, Hx Hypertension Pulmonary Medical History: Denies: Hx Asthma, Hx Bronchitis, Hx COPD, Hx Pneumonia Neurological Medical History: Denies: Hx Cerebrovascular Accident, Hx Seizures Renal/ Medical History: Reports: Hx Kidney Stones. Denies: Hx Peritoneal Dialysis GI Medical History: Reports: Hx Gastroesophageal Reflux Disease - With . Denies: Hx Hiatal Hernia, Hx Ulcer Musculoskeltal Medical History: Denies Hx Arthritis Skin Medical History: Reports Hx MRSA Past Surgical History: Reports: Hx Cardiac Surgery, Hx Section - Immunizations Immunizations up to date: Yes Hx Diphtheria, Pertussis, Tetanus Vaccination: Yes Review of Systems - Review of Systems Notes: Constitutional: Negative for fever. HENT: Negative for sore throat. Eyes: Negative for visual changes. Cardiovascular: Negative for chest pain. Respiratory: Positive for shortness of breath. Gastrointestinal: Negative for abdominal pain, vomiting or diarrhea. Genitourinary: Negative for dysuria. Musculoskeletal: Negative for back pain. Skin: Positive for urticaria Neurological: Negative for headaches, weakness or numbness. 10 point ROS negative except as marked above and in HPI. Physical Exam - Vital signs Vitals: Temp Pulse Resp BP Pulse Ox 98.6 F 91 20 147/87 H 99 01/06/17 22:45 01/06/17 22:45 01/06/17 22:45 01/06/17 22:45 01/06/17 22:45 Interpretation: Hypertensive Notes: PHYSICAL EXAMINATION: GENERAL: Well-appearing, well-nourished and in no acute distress. HEAD: Atraumatic, normocephalic. EYES: Pupils equal round and reactive to light, extraocular movements intact, sclera anicteric, conjunctiva are normal. ENT: nares patent, oropharynx clear without exudates. Moist mucous membranes. NECK: Normal range of motion, supple without lymphadenopathy LUNGS: Breath sounds clear to auscultation bilaterally and equal. No wheezes rales or rhonchi. HEART: Regular rate and rhythm without murmurs ABDOMEN: Soft, nontender, normoactive bowel sounds. No guarding, no rebound. No masses appreciated. EXTREMITIES: Normal range of motion, no pitting or edema. No cyanosis. NEUROLOGICAL: No focal neurological deficits. Moves all extremities spontaneously and on command. PSYCH: Normal mood, normal affect. SKIN: Warm, Dry, normal turgor, diffuse urticaria over the bilateral upper and lower extremities, chest wall and back Course - Re-evaluation Re-evalutation: 01/07/17 00:20 Patient presents with diffuse urticaria without any respiratory, cardiovascular , or GI system involvement. Patient's clinical history is most consistent with autoimmune urticaria as she has had brought allergy testing all of which was negative. Her urticaria also seemed appear at random. Clinical examination does show diffuse urticaria but is otherwise unremarkable. Patient is already on steroids. She has had improvement of her urticaria here after receiving a single dose of IM epinephrine. I have encouraged her to follow-up with allergy/ immunology as she may require long-term immunosuppression. Vitals otherwise within normal limits. I do not see an indication to monitor the patient long- term here in the emergency department at this point based on her well appearance and absence of symptoms consistent with acute anaphylaxis. At this time will discharge with return precautions and follow-up recommendations. Verbal discharge instructions given a the bedside and opportunity for questions given. Medication warnings reviewed. Patient is in agreement with this plan and has verbalized understanding of return precautions and the need for primary care follow-up in the next 24-72 hours. - Vital Signs Vital signs: Temp Pulse Resp BP Pulse Ox 97.5 F 158 H 18 156/71 H 98 01/07/17 00:59 01/07/17 00:59 01/07/17 00:59 01/07/17 00:59 01/07/17 00:59 Discharge - Discharge Clinical Impression: Autoimmune urticaria Condition: Good Disposition: HOME, SELF-CARE Additional Instructions: He can begin taking cetirizine 10 mg 3 times daily. Please follow-up with allergy terminal manager as you may require long-term immunosuppression if you continue to have these bouts of urticaria. Please return to the emergency department immediately if he began having difficulty breathing, pass out, progressive worsening of your hives, or any other symptoms that are worrisome to you.
[2017-01-07 01:00] VITALS: BP 156/71
== END 2017-01-07 01:30 | disposition home or self-care (01) ==
LOC: ER 22:37
DX: L50.8 Other urticaria (principal); R06.02 Shortness of breath; Z88.8 Allergy status to other drugs, medicaments and biological substances
CPT/HCPCS: 99283; 96372; J0171

== ENCOUNTER 2017-01-08 00:56 | Emergency (ER) | payer MEDICAID ==
[2017-01-08 01:05] VITALS: BP 147/95
[2017-01-08] MEDS ORDERED: DEXAMETHASONE 4 MG TABLET PO ONE (01:48)
--- NOTE | 2017-01-08 02:15 | ER Document Report ---
ED Allergic Reaction - General Chief Complaint: Allergic Reaction Stated Complaint: TROUBLE BREATHING Time Seen by Provider: 01/08/17 01:47 Notes: Patient is a 21-year-old female with a past medical history of idiopathic versus autoimmune urticaria who presents with urticaria and concerns of difficulty breathing. She was seen 24 hours ago for the same complaint by me. States she been doing well until tonight when she began to develop diffuse urticaria and felt she could not breathe. She tried taking hydroxyzine in a cold shower but this did not resolve her symptoms so she came to the emergency department. She notes at time of my assessment that her difficulty breathing has spontaneously resolved. She does remain with diffuse urticarial lesions that are consistently pruritic. She is planning to follow-up with allergy and immunology at her earliest ability. She denies any vomiting, diarrhea, or syncope. TRAVEL OUTSIDE OF THE [place] IN LAST 30 DAYS: No - Related Data Allergies/Adverse Reactions: albuterol [Albuterol] Allergy (Severe, Verified 01/08/17 00:59) Heart races & passes out chloraprep/pastora wipes Adverse Reaction (Mild, Uncoded 11/14/16 21:16) itching/welts Past Medical History - General Information source: Patient - Social History Smoking Status: Never Smoker Frequency of alcohol use: None Drug Abuse: None Lives with: Spouse/Significant other Family History: Reviewed & Not Pertinent Patient has suicidal ideation: No Patient has homicidal ideation: No - Past Medical History Cardiac Medical History: Denies: Hx Coronary Artery Disease, Hx Heart Attack, Hx Hypertension Pulmonary Medical History: Denies: Hx Asthma, Hx Bronchitis, Hx COPD, Hx Pneumonia Neurological Medical History: Denies: Hx Cerebrovascular Accident, Hx Seizures Renal/ Medical History: Reports: Hx Kidney Stones. Denies: Hx Peritoneal Dialysis GI Medical History: Reports: Hx Gastroesophageal Reflux Disease - With . Denies: Hx Hiatal Hernia, Hx Ulcer Musculoskeltal Medical History: Denies Hx Arthritis Skin Medical History: Reports Hx MRSA Past Surgical History: Reports: Hx Cardiac Surgery, Hx Section - Immunizations Immunizations up to date: Yes Hx Diphtheria, Pertussis, Tetanus Vaccination: Yes Review of Systems - Review of Systems Notes: Constitutional: Negative for fever. HENT: Negative for sore throat. Eyes: Negative for visual changes. Cardiovascular: Negative for chest pain. Respiratory: Positive ve for shortness of breath. Gastrointestinal: Negative for abdominal pain, vomiting or diarrhea. Genitourinary: Negative for dysuria. Musculoskeletal: Negative for back pain. Skin: Positive for urticaria Neurological: Negative for headaches, weakness or numbness. 10 point ROS negative except as marked above and in HPI. Physical Exam - Vital signs Vitals: Temp Pulse Resp BP Pulse Ox 98.2 F 102 H 24 H 147/95 H 97 01/08/17 01:00 01/08/17 01:00 01/08/17 01:00 01/08/17 01:00 01/08/17 01:00 Interpretation: Tachycardic, Tachypneic Notes: PHYSICAL EXAMINATION: GENERAL: Well-appearing, well-nourished and in no acute distress. HEAD: Atraumatic, normocephalic. EYES: Pupils equal round and reactive to light, extraocular movements intact, sclera anicteric, conjunctiva are normal. ENT: nares patent, oropharynx clear without exudates. Moist mucous membranes. NECK: Normal range of motion, supple without lymphadenopathy LUNGS: Breath sounds clear to auscultation bilaterally and equal. No wheezes rales or rhonchi. HEART: Regular rate and rhythm without murmurs ABDOMEN: Soft, nontender, normoactive bowel sounds. No guarding, no rebound. No masses appreciated. EXTREMITIES: Normal range of motion, no pitting or edema. No cyanosis. NEUROLOGICAL: No focal neurological deficits. Moves all extremities spontaneously and on command. PSYCH: Normal mood, normal affect. SKIN: Warm, Dry, normal turgor, diffuse urticarial lesions over the bilateral upper and lower extremities relatively improved since last assessment Course - Re-evaluation Re-evalutation: 01/08/17 02:13 Patient presents with ongoing intermittent spell of diffuse urticaria and intermittent difficulty breathing. At time of assessment she states her difficulty breathing has resolved without any acute intervention. Vitals within normal limits. Breath sounds clear bilaterally without any stridor or wheezing. No GI or cardiovascular involvement. Again, patient does have a known history of increasing episodes around her menstrual cycle and continues to be on her menses today. She notes that the last time she had these episodes was when she was last having her menstrual period I have encouraged her to follow-up with [facility] for consideration of an intrauterine device that she her cycle can be terminated to prevent recurrences as this would certainly be preferable to going on long-term immunosuppression. At this time will discharge with return precautions and follow-up recommendations. Verbal discharge instructions given a the bedside and opportunity for questions given. Medication warnings reviewed. Patient is in agreement with this plan and has verbalized understanding of return precautions and the need for primary care follow-up in the next 24-72 hours. - Vital Signs Vital signs: Temp Pulse Resp BP Pulse Ox 98.2 F 102 H 24 H 147/95 H 97 01/08/17 01:00 01/08/17 01:00 01/08/17 01:00 01/08/17 01:00 01/08/17 01:00 Discharge - Discharge Clinical Impression: Autoimmune urticaria Condition: Good Disposition: HOME, SELF-CARE Additional Instructions: Follow-up with your [facility] for consideration of placement of an intrauterine device as we discussed. Follow-up with allergy and immunology for consideration of further management of your autoimmune urticaria.
== END 2017-01-08 02:33 | disposition home or self-care (01) ==
LOC: ER 00:56
DX: L50.8 Other urticaria (principal); Z79.899 Other long term (current) drug therapy
CPT/HCPCS: 99283; J3490

== ENCOUNTER 2017-01-10 20:40 | Emergency (ER) | payer MEDICAID ==
[2017-01-10] MEDS ORDERED: FAMOTIDINE INJ/PF 20 MG/2 ML SDV IV ONE (22:59)
[2017-01-10] MEDS ORDERED: METHYLPREDNISOLONE INJ 125 MG/2 ML SDV IV ONE (22:59)
--- NOTE | 2017-01-10 23:01 | ER Document Report ---
ED Medical Screen (RME) - General Chief Complaint: Allergic Reaction Stated Complaint: POSSIBLE ALLERGIC REACTION Time Seen by Provider: 01/10/17 22:58 Mode of Arrival: Ambulatory Information source: Patient Notes: Patient presents complaining of hives for the past week. Patient does report intermittent difficulty breathing. Patient states that she did have some lip swelling and hand swelling today although has taken Benadryl around 7 PM and the lip swelling has improved. Patient did see an information systems architect today. Patient has been seen in the emergency department 3 other times this week for this complaint. TRAVEL OUTSIDE OF THE [place] IN LAST 30 DAYS: No - Related Data Allergies/Adverse Reactions: albuterol [Albuterol] Allergy (Severe, Verified 01/10/17 21:06) Heart races & passes out chloraprep/pastora wipes Adverse Reaction (Mild, Uncoded 11/14/16 21:16) itching/welts Past Medical History - Social History Family history: Reviewed & Not Pertinent - Past Medical History Cardiac Medical History: Denies: Hx Coronary Artery Disease, Hx Heart Attack, Hx Hypertension Pulmonary Medical History: Denies: Hx Asthma, Hx Bronchitis, Hx COPD, Hx Pneumonia Neurological Medical History: Denies: Hx Cerebrovascular Accident, Hx Seizures Renal/ Medical History: Reports: Hx Kidney Stones. Denies: Hx Peritoneal Dialysis GI Medical History: Reports: Hx Gastroesophageal Reflux Disease - With . Denies: Hx Hiatal Hernia, Hx Ulcer Musculoskeltal Medical History: Denies Hx Arthritis Skin Medical History: Reports Hx MRSA Past Surgical History: Reports: Hx Cardiac Surgery, Hx Section - Immunizations Immunizations up to date: Yes Hx Diphtheria, Pertussis, Tetanus Vaccination: Yes History of Influenza Vaccine for 12/2016 - 05/2017 Season: Unknown Physical Exam - Vital signs Vitals: Temp Pulse Resp BP Pulse Ox 98.3 F 77 20 127/83 H 100 01/10/17 21:06 01/10/17 21:06 01/10/17 21:06 01/10/17 21:06 01/10/17 21:06 - HEENT Mouth/Lips: Normal. No: Angioedema Mucous membranes: Normal Pharynx: Normal. No: Potential airway comprom. - Skin Skin irregularity: Rash - Urticarial rash distributed to extremities Course - Vital Signs Vital signs: Temp Pulse Resp BP Pulse Ox 98.3 F 77 20 127/83 H 100 01/10/17 21:06 01/10/17 21:06 01/10/17 21:06 01/10/17 21:06 01/10/17 21:06
--- NOTE | 2017-01-10 23:51 | ER Document Report ---
HPI - HPI Patient complains to provider of: Jhoana Pain Level: 4 Context: Patient is a 21-year-old female comes emergency department for chief complaint of a rash that is itchy over the majority of her body but especially on her arms and legs. She has a history of chronic idiopathic urticaria, she states she saw an bellows filler today but they barely spoke to her and she is going to her primary care provider tomorrow for a referral. She states she came in because earlier today she was having a shortness of breath sensation, she states this has resolved now, she has been taking Benadryl at home. She states that currently her only symptom is the itchy rash. She states she has had full allergy testing in the past and nothing came back positive. She states she has been told she may have autoimmune urticaria. She states she was on prednisone but this did not help and she was taken off. - REPRODUCTIVE Reproductive: DENIES: : - DERM Skin Color: Normal Past Medical History - General Information source: Patient - Social History Smoking Status: Never Smoker Frequency of alcohol use: None Drug Abuse: None Lives with: Spouse/Significant other Family History: Reviewed & Not Pertinent Patient has suicidal ideation: No Patient has homicidal ideation: No - Past Medical History Cardiac Medical History: Denies: Hx Coronary Artery Disease, Hx Heart Attack, Hx Hypertension Pulmonary Medical History: Denies: Hx Asthma, Hx Bronchitis, Hx COPD, Hx Pneumonia Neurological Medical History: Denies: Hx Cerebrovascular Accident, Hx Seizures Renal/ Medical History: Reports: Hx Kidney Stones. Denies: Hx Peritoneal Dialysis GI Medical History: Reports: Hx Gastroesophageal Reflux Disease - With . Denies: Hx Hiatal Hernia, Hx Ulcer Musculoskeltal Medical History: Denies Hx Arthritis Skin Medical History: Reports Hx MRSA Past Surgical History: Reports: Hx Cardiac Surgery, Hx Section - Immunizations Immunizations up to date: Yes Hx Diphtheria, Pertussis, Tetanus Vaccination: Yes Vertical Provider Document - CONSTITUTIONAL General Appearance: WD/WN, No Apparent Distress - INFECTION CONTROL TRAVEL OUTSIDE OF THE [place] IN LAST 30 DAYS: No - HEENT HEENT: Atraumatic, Normal ENT Exam, Normocephalic - NECK Neck: Normal Inspection - RESPIRATORY Respiratory: Breath Sounds Normal, No Respiratory Distress O2 Sat by Pulse Oximetry: 100 - CARDIOVASCULAR Cardiovascular: Regular Rate, Regular Rhythm - GI/ABDOMEN Gastrointestinal: Abdomen Soft, Abdomen Non-Tender - NEURO Level of Consciousness: Awake, Alert, Appropriate - DERM Integumentary: Rash - Faint scattered urticaria mainly over the legs at the knees and thighs, faintly over the underarms, otherwise unremarkable skin exam Course - Re-evaluation Re-evalutation: No wheezing on my examination. No hypoxia, facial swelling, tongue swelling, airway compromise, or signs of distress. On reexamination after Solu-Medrol and Pepcid patient's hives are significantly decreased. She states she feels much improved and she is ready to leave. Patient has a close follow-up today with her primary provider, she is planning on seeing another bellows filler, she is planning on getting injections from allergies. She already has epi-pens at home. She is already taking antihistamines. Discussed follow-up and return precautions in detail. Patient states understanding and agreement. - Vital Signs Vital signs: Temp Pulse Resp BP Pulse Ox 98.3 F 77 20 127/83 H 100 01/10/17 21:06 01/10/17 21:06 01/10/17 21:06 01/10/17 21:06 01/10/17 21:06 Discharge - Discharge Clinical Impression: Urticaria Condition: Stable Disposition: HOME, SELF-CARE Additional Instructions: Please follow-up with your provider and bellows filler as planned. Continue your home antihistamines. In the event of anaphylaxis (tongue/throat/airway swelling) please take the epinephrine and return to the emergency department. Return for any other concerning symptoms.
[2017-01-11] MEDS ORDERED: DEXAMETHASONE SOD PHOS INJ 10 MG/1 ML VIAL IV ONE (00:35)
[2017-01-11 01:11] VITALS: BP 130/85
== END 2017-01-11 01:05 | disposition home or self-care (01) ==
LOC: ER 20:40
DX: L50.1 Idiopathic urticaria (principal); Z86.14 Personal history of Methicillin resistant Staphylococcus aureus infection
CPT/HCPCS: 99283; 96374; 96375; J2930; S0028; J1100

== ENCOUNTER 2017-04-15 20:43 | Emergency (ER) | payer MEDICAID, OTHER ==
[2017-04-15 21:59] LABS: APPEARANCE,URINE CLEAR; BILIRUBIN,URINE NEGATIVE (NEGATIVE); COLOR,URINE STRAW; GLUCOSE, URINE NEGATIVE (NEGATIVE); KETONES,URINE NEGATIVE (NEGATIVE); LEUKOCYTE ESTERASE,URINE NEGATIVE (NEGATIVE); NITRITE,URINE NEGATIVE (NEGATIVE); PROTEIN,URINE NEGATIVE (NEGATIVE); URINE SPECIFIC GRAVITY 1.009; UROBILINOGEN,URINE NEGATIVE mg/dL (<2.0)
--- NOTE | 2017-04-15 22:03 | ER Document Report ---
HPI - HPI Pain Level: 3 Context: Patient is a 21-year-old female presents emergency department with a chief complaint of sore throat as well as cough for the past 3 days. States that her sore throat is intermittent. She denies any pain with swallowing she has had a ache in her throat. Denies any fever. Denies any productive cough, shortness of breath, chest pain. Patient states that she has not taken anything at home for symptoms. Denies any recent sick contacts. Patient is a non-smoker - EENT EENT: REPORTS: Sore Throat - REPRODUCTIVE Reproductive: DENIES: : Past Medical History - Social History Smoking Status: Unknown if Ever Smoked Family History: Reviewed & Not Pertinent Patient has suicidal ideation: No Patient has homicidal ideation: No - Past Medical History Cardiac Medical History: Denies: Hx Coronary Artery Disease, Hx Heart Attack, Hx Hypertension Pulmonary Medical History: Denies: Hx Asthma, Hx Bronchitis, Hx COPD, Hx Pneumonia Neurological Medical History: Denies: Hx Cerebrovascular Accident, Hx Seizures Renal/ Medical History: Reports: Hx Kidney Stones. Denies: Hx Peritoneal Dialysis GI Medical History: Reports: Hx Gastroesophageal Reflux Disease - With . Denies: Hx Hiatal Hernia, Hx Ulcer Musculoskeltal Medical History: Denies Hx Arthritis Skin Medical History: Reports Hx MRSA Past Surgical History: Reports: Hx Cardiac Surgery, Hx Section - Immunizations Immunizations up to date: Yes Hx Diphtheria, Pertussis, Tetanus Vaccination: Yes Vertical Provider Document - CONSTITUTIONAL Agree With Documented VS: Yes Notes: PHYSICAL EXAM GENERAL: Alert, interacts well. HEENT: NCAT, pale conjunctiva, extraocular movements intact, pupils PERRL. external ear normal, no evidence of external auditory canal tenderness, blood/ drainage, cerumen impaction, TM intact without evidence of effusion, bulging, injection, MMM, Uvula midline. Airway patent. No evidence of tonsillar enlargement, peritonsillar abscess, retropharyngeal abscess. LUNGS: Clear to auscultation bilaterally, no wheezes, rales, or rhonchi. No respiratory distress. HEART: Regular rate and rhythm. No murmurs, gallops, or rubs. ABDOMEN: Soft, nondistended, nontender. No guarding, rebound, or rigidity.. Bowel sounds present in all 4 quadrants. Back: No CVA tenderness bilaterally, pain reproducible palpation, paralumbar parathoracic muscle tenderness EXTREMITIES: Moves all 4 extremities spontaneously. No edema, radial and dorsalis pedis pulses 2/4 bilaterally. No cyanosis. NEUROLOGICAL: Alert and oriented x4. Normal speech. PSYCH: Normal affect, normal mood. SKIN: Warm, dry, normal turgor. No rashes or lesions noted. - INFECTION CONTROL TRAVEL OUTSIDE OF THE [place] IN LAST 30 DAYS: No Course - Re-evaluation Re-evalutation: 04/15/17 23:11 Patient is a 21-year-old female is hemodynamically stable, no acute distress and afebrile. presentation is most consistent with a viral upper respiratory infection. Patient is overall well appearance, vitals within normal limits, well-hydrated. Patient denies any headache, neck pain, and has no evidence of meningismus on examination. Lungs are clear bilaterally. No evidence of respiratory distress. Based on clinical exam and history, I do not suspect an acute pneumonia, meningitis, strep pharyngitis, or an acute encephalitis. Centor criteria low with negative strep test. No laboratory or imaging testing is indicated at this time. Will discharge patient with return precautions and followup recommendations. They are in agreement this plan have verbalized understanding return precautions. - Diagnostic Test Radiology reviewed: Image reviewed, Reports reviewed Discharge - Discharge Clinical Impression: URI (upper respiratory infection) Qualifiers: URI type: unspecified viral URI Qualified Code(s): J06.9 - Acute upper respiratory infection, unspecified Condition: Good Disposition: HOME, SELF-CARE Additional Instructions: Your symptoms are most likely due to a viral infection it should resolve over the next 7-14 days. You should take [id number] guanfacine per bottle instructions to help thin the mucus. For nasal congestion: I would recommend that you get [id number] oxymetazoline also known is afrin. Use only per bottle instructions and be sure to never use this for more than 3 days if you can develop severe rebound congestion. You may also use tylenol or ibuprofen as needed for aches and thorat discomfort. Please be sure to drink plenty of fluids and get rest. Return to the emergency department he began having difficulty breathing, chest pain, persistent vomiting, or any other symptoms that are concerning to you.
--- NOTE | 2017-04-15 22:24 | RADIOLOGY REPORT (SQ) ---
EXAM DESCRIPTION: CHEST PA/LAT COMPLETED DATE/TIME: 04/15/2017 10:16 pm REASON FOR STUDY: chest wall pain COMPARISON: 05/20/2016 EXAM PARAMETERS: NUMBER OF VIEWS: two views TECHNIQUE: Digital Frontal and Lateral radiographic views of the chest acquired. RADIATION DOSE: NA LIMITATIONS: none FINDINGS: LUNGS AND PLEURA: No opacities, masses or pneumothorax. No pleural effusion. MEDIASTINUM AND HILAR STRUCTURES: No masses or contour abnormalities. HEART AND VASCULAR STRUCTURES: Heart normal size. No evidence for failure. BONES: No acute findings. HARDWARE: None in the chest. OTHER: No other significant finding. IMPRESSION: NO SIGNIFICANT RADIOGRAPHIC FINDING IN THE CHEST. TECHNICAL DOCUMENTATION: JOB ID: [id number] [employer]- All Rights Reserved
[2017-04-15 23:02] LABS: A TYPE INFLUENZA AG NEGATIVE (NEGATIVE); B INFLUENZA AG NEGATIVE (NEGATIVE)
[2017-04-15] MEDS ORDERED: DIPHENHYDRAMINE HCL 25 MG CAPSULE PO ONE (23:12)
[2017-04-15 23:25] VITALS: BP 138/83
== END 2017-04-15 23:25 | disposition home or self-care (01) ==
LOC: ER 20:43
DX: J06.9 Acute upper respiratory infection, unspecified (principal); Z87.442 Personal history of urinary calculi; Z86.14 Personal history of Methicillin resistant Staphylococcus aureus infection
CPT/HCPCS: 99284; 87070; 87880; 87077; 81001; 87804; 71046; J3490

== ENCOUNTER 2017-05-13 20:51 | Emergency (ER) | payer MEDICAID ==
[2017-05-13 22:14] LABS: ABSOLUTE EOSINOPHILS # (AUTO) 0.2 10^3/uL (0.0-0.6); ABSOLUTE LYMPHOCYTES (AUTO) 3.9 10^3/uL (0.5-4.7); BASOPHILS % (AUTO) 0.4 % (0-2); EOSINOPHILS % (AUTO) 2.3 % (0-6); HEMATOCRIT 43.7 % (36.0-47.0); HEMOGLOBIN 15.1 g/dL (12.0-15.5); MEAN CORPUSCULAR HEMOGLOBIN 30.3 pg (27.0-33.4); MEAN CORPUSCULAR HGB CONC 34.5 g/dL (32.0-36.0); MEAN CORPUSCULAR VOLUME 88 fl (80-97); MONOCYTES % (AUTO) 10.5 % (3-13); PLATELET COUNT 216 10^3/uL (150-450); RED BLOOD COUNT 4.98 10^6/uL (3.72-5.28); RED CELL DISTRIBUTION WIDTH 12.5 % (11.5-14.0); SEGMENTED NEUTROPHILS % (AUTO) 43.8 % (42-78); TOTAL CELLS COUNTED % (AUTO) 100 %; WHITE BLOOD COUNT 9.1 10^3/uL (4.0-10.5)
[2017-05-13 22:22] LABS: APPEARANCE,URINE CLOUDY; BILIRUBIN,URINE NEGATIVE (NEGATIVE); COLOR,URINE YELLOW; GLUCOSE, URINE NEGATIVE (NEGATIVE); KETONES,URINE NEGATIVE (NEGATIVE); LEUKOCYTE ESTERASE,URINE NEGATIVE (NEGATIVE); NITRITE,URINE NEGATIVE (NEGATIVE); PROTEIN,URINE NEGATIVE (NEGATIVE); URINE SPECIFIC GRAVITY 1.027; UROBILINOGEN,URINE NEGATIVE mg/dL (<2.0)
--- NOTE | 2017-05-13 22:26 | RADIOLOGY REPORT (SQ) ---
EXAM DESCRIPTION: CHEST PA/LAT COMPLETED DATE/TIME: 05/13/2017 10:18 pm REASON FOR STUDY: intermittent epigastric pain COMPARISON: 04/15/2017 EXAM PARAMETERS: NUMBER OF VIEWS: two views TECHNIQUE: Digital Frontal and Lateral radiographic views of the chest acquired. RADIATION DOSE: NA LIMITATIONS: none FINDINGS: LUNGS AND PLEURA: No opacities, masses or pneumothorax. No pleural effusion. MEDIASTINUM AND HILAR STRUCTURES: No masses or contour abnormalities. HEART AND VASCULAR STRUCTURES: Heart stable in size. No evidence for failure. BONES: No acute findings. HARDWARE: None in the chest. OTHER: No other significant finding. IMPRESSION: NO ACUTE CARDIOPULMONARY PROCESS. NO SIGNIFICANT CHANGE FROM PRIOR STUDY. TECHNICAL DOCUMENTATION: JOB ID: [id number] [employer]- All Rights Reserved Reading location - IP/workstation name: [email or web address]
[2017-05-13 22:28] LABS: ALANINE AMINOTRANSFERASE 31 U/L (9-52); ALBUMIN 4.6 g/dL (3.5-5.0); ALKALINE PHOSPHATASE 81 U/L (38-126); ANION GAP 10 (5-19); ASPARTATE AMINO TRANSFERASE 18 U/L (14-36); BILIRUBIN,DIRECT 0.1 mg/dL (0.0-0.4); BILIRUBIN,TOTAL 0.2 mg/dL (0.2-1.3); BLOOD UREA NITROGEN 14 mg/dL (7-20); CALCIUM 9.6 mg/dL (8.4-10.2); CARBON DIOXIDE 28 mmol/L (22-30); CHLORIDE 102 mmol/L (98-107); GLUCOSE 93 mg/dL (75-110); SODIUM 140.2 mmol/L (137-145); TOTAL PROTEIN 7.1 g/dL (6.3-8.2)
[2017-05-13 22:51] LABS: T.VAGINALIS (WET MOUNT) NO TRICHOMONAS SEEN; YEAST (WET MOUNT) NO YEAST SEEN
[2017-05-13 22:52] LABS: BACTERIA (WET MOUNT) 3+ BACTERIA SEEN; EPITHELIALS (WET MOUNT) 3+ EPITHELIALS SEEN; RBCS (WET MOUNT) NO RBCS SEEN; WBCS (WET MOUNT) RARE WBCS SEEN
--- NOTE | 2017-05-13 23:06 | ER Document Report ---
ED General - General Chief Complaint: Flank Pain Stated Complaint: ABDOMINAL PAIN Time Seen by Provider: 05/13/17 21:59 TRAVEL OUTSIDE OF THE [place] IN LAST 30 DAYS: No - HPI Notes: Patient is a 21-year-old female who presents to the ED complaining of intermittent lower pelvic cramping times several days. Patient has also had intermittent epigastric burning pain that is worsened with food intake during acute flareups. Patient states that her pains do not radiate otherwise and her lower abdominal symptoms are described as more of a soreness and cramping. Patient states that she currently does not have any epigastric discomfort, and her lower abdominal discomfort is "mild." Patient states that she has been eating and drinking without difficulties. She is urinating normally and having normal bowel movements. She has not tried any [id number] meds for her symptoms. Patient states that she has been in a monogamous relationship and has lower concerns for any STD or STI. Denies any vaginal discharge, odor, or bleeding. Denies any headache, fever, neck pain, URI, sore throat, chest pain, palpitations, syncope, cough, shortness of breath, wheeze, dyspnea, nausea/ vomiting/diarrhea, urinary retention, dysuria, hematuria, back pain, loss of control of bowel or bladder, numbness/tingling, saddle anesthesia, muscle paralysis/weakness, or rash. - Related Data Allergies/Adverse Reactions: albuterol [Albuterol] Allergy (Severe, Verified 01/10/17 21:06) Heart races & passes out chloraprep/pastora wipes Adverse Reaction (Mild, Uncoded 11/14/16 21:16) itching/welts Past Medical History - Social History Smoking Status: Former Smoker Frequency of alcohol use: None Drug Abuse: None Family History: Reviewed & Not Pertinent Patient has suicidal ideation: No Patient has homicidal ideation: No - Past Medical History Cardiac Medical History: Denies: Hx Coronary Artery Disease, Hx Heart Attack, Hx Hypertension Pulmonary Medical History: Denies: Hx Asthma, Hx Bronchitis, Hx COPD, Hx Pneumonia Neurological Medical History: Denies: Hx Cerebrovascular Accident, Hx Seizures Renal/ Medical History: Reports: Hx Kidney Stones. Denies: Hx Peritoneal Dialysis GI Medical History: Reports: Hx Gastroesophageal Reflux Disease - With . Denies: Hx Hiatal Hernia, Hx Ulcer Musculoskeltal Medical History: Denies Hx Arthritis Skin Medical History: Reports Hx MRSA Past Surgical History: Reports: Hx Cardiac Surgery, Hx Section - Immunizations Immunizations up to date: Yes Hx Diphtheria, Pertussis, Tetanus Vaccination: Yes Review of Systems - Review of Systems -: Yes All other systems reviewed and negative Physical Exam - Vital signs Vitals: Temp Pulse Resp BP Pulse Ox 98.5 F 84 14 143/87 H 98 05/13/17 21:04 05/13/17 21:04 05/13/17 21:04 05/13/17 21:04 05/13/17 21:04 - Notes Notes: PHYSICAL EXAMINATION: GENERAL: Well-appearing, well-nourished and in no acute distress. A&Ox4. Appears and moves comfortably. HEAD: Atraumatic, normocephalic. EYES: Pupils equal round and reactive to light, extraocular movements intact, conjunctiva are normal. ENT: Nares patent, oropharynx clear without exudates. Moist mucous membranes. No tonsillar hypertrophy or erythema. NECK: Normal range of motion, supple without lymphadenopathy LUNGS: Breath sounds clear to auscultation bilaterally and equal. No wheezes rales or rhonchi. HEART: Regular rate and rhythm without murmurs ABDOMEN: Soft, nondistended abdomen. No guarding, no rebound. No masses appreciated. Normal bowel sounds present. CVA tenderness negative bilaterally. + mild tenderness to the pelvic area. No tenderness at [place] point with a negative dunbar. Female : No inguinal adenopathy. External genitalia without erythema, lesions , or masses. Vaginal mucosa pink with scant white discharge. Cervix parous, pink, and without discharge. Uterus is smooth. No adnexal tenderness. Musculoskeletal: FROM to passive/active. Strength 5+/5. Extremities: No cyanosis/clubbing/edema b/l. Peripheral pulses 2+. Capillary refill less than 3 seconds. NEUROLOGICAL: Normal speech, normal gait. Normal sensory, motor exams PSYCH: Normal mood, normal affect. SKIN: Warm, Dry, normal turgor, no rashes or lesions noted. Course - Re-evaluation Re-evalutation: 05/13/17 23:50 Patient is an afebrile, well-hydrated, 21-year-old female who presents to the ED with bacterial vaginosis as well as intermittent epigastric pain which I suspect is gastritis versus GERD. Vitals are stable. PE is otherwise unremarkable. CBC, CMP, lipase, urinalysis, hCG were all unremarkable for any acute pathology. See wet mount results which showed bacterial vaginosis. Chlamydia/gonorrhea test are pending, but I do have a low suspicion at this time. Patient still accepted treatment with Zithromax and Rocephin. Chest x- ray was unremarkable for any acute pathology. Transvaginal ultrasound was unremarkable for any acute pathology. No other labs or imaging warranted at this time based on H&P. Patient is tolerating p.o. without any difficulties. Low suspicion/risk for acute appendicitis, bowel obstruction, acute cholecystitis, acute cholangitis, perforated diverticulitis, incarcerated hernia , pancreatitis, perforated ulcer, peritonitis, sepsis, pelvic inflammatory disease, ectopic , tubo-ovarian abscess, ovarian torsion, or other systemic emergent condition at this time. Patient is aware that her condition can change from initial presentation and she needs to monitor symptoms closely and seek medical attention if any acute changes. I will send her home with a prescription for Flagyl as well as Carafate and omeprazole. Conservative measures otherwise for symptoms. Recheck with your PCM/OBGYN in 3-5 days. Consider consult with a cigarette making machine catcher. Return to the ED with any worsening /concerning symptoms otherwise as reviewed in discharge. Patient is in agreement. - Vital Signs Vital signs: Temp Pulse Resp BP Pulse Ox 98.5 F 84 14 143/87 H 98 05/13/17 21:04 05/13/17 21:04 05/13/17 21:04 05/13/17 21:04 05/13/17 21:04 - Laboratory Result Diagrams: 05/13/17 21:55 05/13/17 21:55 Discharge - Discharge Clinical Impression: Bacterial vaginosis, Epigastric abdominal pain Condition: Stable Disposition: HOME, SELF-CARE Instructions: Abdominal Pain ([facility]), Low-Fat Diet ([facility]), Metronidazole ([facility]), Vaginosis, Bacterial ([facility]) Additional Instructions: Maintain adequate fluid and food intake Avoid caffeine, spices, citrus, eating soon before laying down, etc tylenol if needed Proper hygenic techniques Monitor for any worsening symptoms Make sure you are staying hydrated enough to urinate and have normal BM's Recheck with your PCM/OBGYN in 3-5 days Consider consult with Gastroenterology for ongoing/worsening symptoms Return to the ED with any worsening symptoms and/or development of fever, headache, chest pain, palpitations, syncope, shortness of breath, trouble breathing, abdominal pain, n/v/d, blood in stool/urine, weakness, or other worsening symptoms that are concerning to you. Prescriptions: Metronidazole [Flagyl] 500 mg PO BID #14 tablet Omeprazole 20 mg PO DAILY #30 tablet. Sucralfate [Carafate] 1 gm PO QID PRN #420 ml PRN Reason: Forms: Elevated Blood Pressure [facility]errals[facility] [Provider Group] - Follow up as needed ULI MICHAEL MD [ACTIVE STAFF] - Follow up as needed JAMARI DE LEÓN MD [ACTIVE STAFF] - Follow up as needed
--- NOTE | 2017-05-13 23:52 | RADIOLOGY REPORT (SQ) ---
EXAM DESCRIPTION: U/S NON OB PEL TV W/DOPPLER CLINICAL HISTORY: 21 years, Female, lower pelvic pain COMPARISON: None. TECHNIQUE: Transvaginal LIMITATIONS: As below. FINDINGS: 9 cm uterus, 0.6 cm thick endometrial stripe with limited visualization due to positioning artifact, minimal free pelvic fluid, and nonvisualization of bilateral ovaries due to bowel artifact appear otherwise unremarkable. IMPRESSION: No acute findings; limitation.
[2017-05-13] MEDS ORDERED: AZITHROMYCIN 250 MG TABLET PO ONE (23:54)
[2017-05-13] MEDS ORDERED: CEFTRIAXONE INJ 250 MG VIAL IM ONE (23:54)
[2017-05-14 00:11] LABS: CHLAM PCR NOT DETECTED (NOT DETECT); GON PCR NOT DETECTED (NOT DETECT)
[2017-05-14 00:19] VITALS: BP 124/70
== END 2017-05-14 00:19 | disposition home or self-care (01) ==
LOC: ER 20:51
DX: N76.0 Acute vaginitis (principal); B96.89 Other specified bacterial agents as the cause of diseases classified elsewhere; R10.13 Epigastric pain; R10.2 Pelvic and perineal pain; R10.30 Lower abdominal pain, unspecified; Z87.891 Personal history of nicotine dependence
CPT/HCPCS: 99284; 96372; 36415; 87086; 87210; 83690; 85025; 81025; 80053; 81001; 87491; 87591; 71046; 76830; 93976; Q0144; J0696

== ENCOUNTER 2017-05-31 00:20 | Emergency (ER) | payer MEDICAID ==
[2017-05-31 00:59] LABS: APPEARANCE,URINE CLEAR; BILIRUBIN,URINE NEGATIVE (NEGATIVE); COLOR,URINE YELLOW; GLUCOSE, URINE NEGATIVE (NEGATIVE); KETONES,URINE NEGATIVE (NEGATIVE); LEUKOCYTE ESTERASE,URINE NEGATIVE (NEGATIVE); NITRITE,URINE NEGATIVE (NEGATIVE); PROTEIN,URINE NEGATIVE (NEGATIVE); URINE SPECIFIC GRAVITY 1.024
[2017-05-31] MEDS ORDERED: CEPHALEXIN 500 MG CAPSULE PO ONE (02:54)
--- NOTE | 2017-05-31 03:06 | ER Document Report ---
ED General - General Chief Complaint: Urinary Problem Stated Complaint: PAINFUL URINATION Time Seen by Provider: 05/31/17 02:07 Notes: Patient is a 21 year old female currently at approximately 6 weeks by LMP who presents with 2 days of dysuria. Patient reports that each time she urinates it arrieta and stings and she also notes urinary frequency and incomplete emptying with urination. She states this feels exactly the same as when she has had urinary tract infections in the past. Nothing improves or worsens her symptoms. She has not seen a primary care doctor regarding today's concerns. She denies any fever, flank pain, lower abdominal pain or constitutional symptoms. No vaginal bleeding or discharge. TRAVEL OUTSIDE OF THE [place] IN LAST 30 DAYS: No - Related Data Allergies/Adverse Reactions: albuterol [Albuterol] Allergy (Severe, Verified 01/10/17 21:06) Heart races & passes out chloraprep/pastora wipes Adverse Reaction (Mild, Uncoded 11/14/16 21:16) itching/welts Past Medical History - General Information source: Patient Last Menstrual Period: 04/07/17 - Social History Smoking Status: Never Smoker Frequency of alcohol use: None Drug Abuse: None Lives with: Spouse/Significant other Family History: Reviewed & Not Pertinent Patient has suicidal ideation: No Patient has homicidal ideation: No - Past Medical History Cardiac Medical History: Denies: Hx Coronary Artery Disease, Hx Heart Attack, Hx Hypertension Pulmonary Medical History: Denies: Hx Asthma, Hx Bronchitis, Hx COPD, Hx Pneumonia Neurological Medical History: Denies: Hx Cerebrovascular Accident, Hx Seizures Renal/ Medical History: Reports: Hx Kidney Stones. Denies: Hx Peritoneal Dialysis GI Medical History: Reports: Hx Gastroesophageal Reflux Disease - With . Denies: Hx Hiatal Hernia, Hx Ulcer Musculoskeltal Medical History: Denies Hx Arthritis Skin Medical History: Reports Hx MRSA Past Surgical History: Reports: Hx Cardiac Surgery, Hx Section - Immunizations Immunizations up to date: Yes Hx Diphtheria, Pertussis, Tetanus Vaccination: Yes Review of Systems - Review of Systems Notes: Constitutional: Negative for fever. HENT: Negative for sore throat. Eyes: Negative for visual changes. Cardiovascular: Negative for chest pain. Respiratory: Negative for shortness of breath. Gastrointestinal: Negative for abdominal pain, vomiting or diarrhea. Genitourinary: Positive for dysuria. Musculoskeletal: Negative for back pain. Skin: Negative for rash. Neurological: Negative for headaches, weakness or numbness. 10 point ROS negative except as marked above and in HPI. Physical Exam - Vital signs Vitals: Temp Pulse Resp BP Pulse Ox 98.4 F 91 18 146/75 H 100 05/31/17 00:31 05/31/17 00:31 05/31/17 00:31 05/31/17 00:31 05/31/17 00:31 Interpretation: Normal Notes: PHYSICAL EXAMINATION: GENERAL: Well-appearing, well-nourished and in no acute distress. HEAD: Atraumatic, normocephalic. EYES: Pupils equal round and reactive to light, extraocular movements intact, sclera anicteric, conjunctiva are normal. ENT: nares patent, oropharynx clear without exudates. Moist mucous membranes. NECK: Normal range of motion, supple without lymphadenopathy LUNGS: Breath sounds clear to auscultation bilaterally and equal. No wheezes rales or rhonchi. HEART: Regular rate and rhythm without murmurs ABDOMEN: Soft, nontender, normoactive bowel sounds. No guarding, no rebound. No masses appreciated. EXTREMITIES: Normal range of motion, no pitting or edema. No cyanosis. NEUROLOGICAL: No focal neurological deficits. Moves all extremities spontaneously and on command. PSYCH: Normal mood, normal affect. SKIN: Warm, Dry, normal turgor, no rashes or lesions noted. Course - Re-evaluation Re-evalutation: 05/31/17 03:04 Patient presents with symptoms consistent with an acute cystitis. Vitals wnl. No history of fever, flank pain, or constitution symptoms to suggest ascending infection at this time. Patient is well in appearance, tolerating oral intake without difficulty. No focal abdominal tenderness to suggest acute appendicitis , biliary pathology, acute pancreatitis, tubo-ovarian abscesses, or pelvic inflammatory disease. Although the urinalysis is overall unremarkable, patient' s clinical history is extremely consistent with a urinary tract infection. A culture will be sent but I will also begin empiric treatment given her degree of symptoms. Patient is but already knew about her and has OB follow-up in the morning. At this time will discharge with return precautions and follow-up recommendations. Verbal discharge instructions given a the bedside and opportunity for questions given. Medication warnings reviewed. Patient is in agreement with this plan and has verbalized understanding of return precautions and the need for primary care follow-up in the next 24-72 hours. - Vital Signs Vital signs: Temp Pulse Resp BP Pulse Ox 98.5 F 88 18 142/72 H 100 05/31/17 03:31 05/31/17 03:31 05/31/17 03:31 05/31/17 03:31 05/31/17 03:31 - Laboratory Laboratory results interpreted by me: 05/31/17 05/31/17 00:41 00:41 Urine Urobilinogen 2.0 H Urine HCG, Qual POSITIVE H Discharge - Discharge Clinical Impression: Dysuria Condition: Good Disposition: HOME, SELF-CARE Additional Instructions: Your urine shows findings consistent with a urinary tract infection. Please take all the antibiotics as directed even if your symptoms have improved. Please follow-up with your primary care physician as needed. Return to emergency room if you develop fever >101F, persistent vomiting, become lethargic , have severe pain in your sides, or any other symptoms that are concerning to you. Prescriptions: Cephalexin Monohydrate [Keflex 500 mg Capsule] 500 mg PO QID #20 capsule Referrals: ART SELLERS FNP-C [Primary Care Provider] - Follow up as needed
[2017-05-31 03:32] VITALS: BP 142/72
== END 2017-05-31 03:34 | disposition home or self-care (01) ==
LOC: ER 00:20
DX: O26.899 Other specified pregnancy related conditions, unspecified trimester (principal); R30.0 Dysuria; R39.14 Feeling of incomplete bladder emptying; R35.0 Frequency of micturition; Z3A.00 Weeks of gestation of pregnancy not specified; Z87.440 Personal history of urinary (tract) infections; Z87.442 Personal history of urinary calculi; Z88.8 Allergy status to other drugs, medicaments and biological substances
CPT/HCPCS: 81001; 81025; 87086; 99283

== ENCOUNTER 2017-06-19 22:04 | Emergency (ER) | payer MEDICAID ==
--- NOTE | 2017-06-19 23:58 | ER Document Report ---
ED General - General Chief Complaint: Vag Bleeding, +preg <12wks Stated Complaint: VAGINAL BLEEDING Time Seen by Provider: 06/19/17 23:37 Notes: 21-year-old at approximately 7 weeks by dates presents with 2 problems, ongoing upper epigastric pain that feels like heartburn intermittently for 3 weeks. This is been evaluated by her primary care. Not currently having this pain. More concerning to her is some lower abdominal cramping which now resolved it was read by vaginal spotting for the past few hours. 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 Considered high risk and is being seen by health department for a few visits before [facility] [place] for high risk maternal- medicine. She has had 2 ultrasounds confirming an intrauterine gestational sac but she says they did not see a heartbeat yet last one of these was done at 5 weeks. TRAVEL OUTSIDE OF THE [place] IN LAST 30 DAYS: No - Related Data Allergies/Adverse Reactions: albuterol [Albuterol] Allergy (Severe, Verified 01/10/17 21:06) Heart races & passes out chloraprep/pastora wipes Adverse Reaction (Mild, Uncoded 11/14/16 21:16) itching/welts Past Medical History - Social History Smoking Status: Never Smoker Family History: Reviewed & Not Pertinent - Past Medical History Cardiac Medical History: Denies: Hx Coronary Artery Disease, Hx Heart Attack, Hx Hypertension Pulmonary Medical History: Denies: Hx Asthma, Hx Bronchitis, Hx COPD, Hx Pneumonia Neurological Medical History: Denies: Hx Cerebrovascular Accident, Hx Seizures Renal/ Medical History: Reports: Hx Kidney Stones. Denies: Hx Peritoneal Dialysis GI Medical History: Reports: Hx Gastroesophageal Reflux Disease - With . Denies: Hx Hiatal Hernia, Hx Ulcer Musculoskeltal Medical History: Denies Hx Arthritis Skin Medical History: Reports Hx MRSA Past Surgical History: Reports: Hx Cardiac Surgery, Hx Section - Immunizations Immunizations up to date: Yes Hx Diphtheria, Pertussis, Tetanus Vaccination: Yes Review of Systems - Review of Systems Notes: REVIEW OF SYSTEMS GEN: Denies fever, chills, weight loss ENT: Denies sore throat, nasal discharge, ear pain EYES: Denies blurry vision, eye pain, discharge CV: Denies chest pain, palpitations, edema RESP: Denies cough, shortness of breath, wheezing GI: Epigastric pain vaginal bleeding MSK: Denies joint pain/swelling, edema, SKIN: Denies rash, skin lesions LYMPH: Denies swollen glands/lymph nodes NEURO: Denies headache, focal weakness or numbness, dizziness PSYCH: Denies depression, suicidal or homicidal ideation PHYSICAL EXAMINATION General: No acute distress, well-nourished Head: Atraumatic, normocephalic ENT: Mouth normal, oropharynx moist, no exudates or tonsillar enlargement Eyes: Conjunctiva normal, pupils equal, lids normal Neck: No JVD, supple, no guarding CVS: Normal rate, regular rhythm, no murmurs Resp: No resp distress, equal and normal breath sounds bilaterally GI: Nondistended, soft, no tenderness to palpation, no rebound or guarding Ext: No deformities, no edema, normal range of motion in upper and lower ext Back: No CVA or midline TTP Skin: No rash, warm Lymphatic: No lymphadeopathy noted Neuro: Awake, alert. Face symmetric. GCS 15. Physical Exam - Vital signs Vitals: Temp Pulse BP Pulse Ox 98.8 F 86 138/83 H 100 06/19/17 22:26 06/19/17 22:26 06/19/17 22:26 06/19/17 22:26 Course - Re-evaluation Re-evalutation: 06/19/17 23:58 21-year-old female high risk presents with vaginal spotting the first trimester. No previously established IUP based on her report. She said her blood type is O-. Will do type and screen beta hCG labs and a transvaginal ultrasound. In terms of her epigastric pain I think that this is less pertinent , sounds like GERD and is been going on for 3 weeks with no tenderness. No Mak sign present. 06/20/17 02:32 Beta hCG is appropriately elevated. Blood type O+, no RhoGam needed. Ultrasound shows viable intrauterine 7 weeks and change. Discussed with Dr. Giang from [facility] who will gladly follow up the patient in 48 hours in her office for both a beta hCG and a consultation regarding his high risk . Patient was reassured, recommended Pepcid and Tums for her upper abdominal pain, which she is not currently feeling, and she was discharged home in stable condition. I have discussed with the patient there likely diagnosis, aftercare plan, follow-up plans and my usual and customary return precautions. They verbalized understanding of this. - Vital Signs Vital signs: Temp Pulse Resp BP Pulse Ox 98.1 F 83 14 107/85 96 06/20/17 02:24 06/20/17 02:24 06/20/17 02:24 06/20/17 02:24 06/20/17 02:24 - Laboratory Result Diagrams: 06/20/17 00:25 06/20/17 00:25 Laboratory results interpreted by me: 06/20/17 00:25 Creatinine 0.51 L AST 13 L Beta HCG, Quant [id number] H - Diagnostic Test Radiology reviewed: Image reviewed, Reports reviewed Discharge - Discharge Clinical Impression: Threatened miscarriage Condition: Good Disposition: HOME, SELF-CARE Instructions: [facility]-[employer] [facility] Doctors Additional Instructions: Please follow-up in 48 hours for repeat beta hCG Referrals: [facility], [facility] [Primary Care Provider] - Follow up as needed
[2017-06-20 00:46] LABS: ABSOLUTE BASOPHILS # (AUTO) 0.1 10^3/uL (0.0-0.2); ABSOLUTE EOSINOPHILS # (AUTO) 0.1 10^3/uL (0.0-0.6); ABSOLUTE LYMPHOCYTES (AUTO) 3.8 10^3/uL (0.5-4.7); ABSOLUTE NEUT (AUTO) 5.1 10^3/uL (1.7-8.2); BASOPHILS % (AUTO) 0.5 % (0-2); EOSINOPHILS % (AUTO) 0.8 % (0-6); HEMATOCRIT 43.2 % (36.0-47.0); HEMOGLOBIN 14.9 g/dL (12.0-15.5); LYMPHOCYTES % (AUTO) 37.3 % (13-45); MEAN CORPUSCULAR HEMOGLOBIN 30.5 pg (27.0-33.4); MEAN CORPUSCULAR HGB CONC 34.5 g/dL (32.0-36.0); MEAN CORPUSCULAR VOLUME 89 fl (80-97); MONOCYTES % (AUTO) 10.3 % (3-13); PLATELET COUNT 212 10^3/uL (150-450); RED BLOOD COUNT 4.88 10^6/uL (3.72-5.28); RED CELL DISTRIBUTION WIDTH 12.8 % (11.5-14.0); SEGMENTED NEUTROPHILS % (AUTO) 51.1 % (42-78); TOTAL CELLS COUNTED % (AUTO) 100 %; WHITE BLOOD COUNT 10.1 10^3/uL (4.0-10.5)
[2017-06-20 01:05] LABS: ALANINE AMINOTRANSFERASE 17 U/L (9-52); ALBUMIN 4.1 g/dL (3.5-5.0); ALKALINE PHOSPHATASE 72 U/L (38-126); ANION GAP 9 (5-19); ASPARTATE AMINO TRANSFERASE 13 U/L (14-36); BILIRUBIN,DIRECT 0.1 mg/dL (0.0-0.4); BILIRUBIN,TOTAL 0.2 mg/dL (0.2-1.3); BLOOD UREA NITROGEN 10 mg/dL (7-20); CALCIUM 9.6 mg/dL (8.4-10.2); CARBON DIOXIDE 24 mmol/L (22-30); CHLORIDE 104 mmol/L (98-107); GLUCOSE 99 mg/dL (75-110); SODIUM 137.2 mmol/L (137-145); TOTAL PROTEIN 6.3 g/dL (6.3-8.2)
[2017-06-20] MEDS ORDERED: DIPHENHYDRAMINE HCL 50 MG CAPSULE PO ONE (01:21)
[2017-06-20 01:47] LABS: AMORPHOUS SEDIMENT,URINE TRACE /HPF; APPEARANCE,URINE SLIGHTLY-CLOUDY; BILIRUBIN,URINE NEGATIVE (NEGATIVE); COLOR,URINE YELLOW; GLUCOSE, URINE NEGATIVE (NEGATIVE); KETONES,URINE NEGATIVE (NEGATIVE); LEUKOCYTE ESTERASE,URINE NEGATIVE (NEGATIVE); NITRITE,URINE NEGATIVE (NEGATIVE); PROTEIN,URINE NEGATIVE (NEGATIVE); URINE SPECIFIC GRAVITY 1.015; UROBILINOGEN,URINE NEGATIVE mg/dL (<2.0)
--- NOTE | 2017-06-20 02:06 | RADIOLOGY REPORT (SQ) ---
EXAM DESCRIPTION: U/S OB TRANSVAG W/DOPPLER CLINICAL HISTORY: 21 years, Female, , vaginal bleeding COMPARISON: 3.05.01 TECHNIQUE: Transvaginal LIMITATIONS: None. FINDINGS: Living intrauterine fetus measures 7w3d with RUTH of 02/03/18 and cardiac activity of 163 bpm. [place] rump length is 1.2-cm. Cervical length is 3.0 cm. Ovarian fossae are unremarkable. Ovaries are not directly visualized. No free fluid. IMPRESSION: Living intrauterine fetus measures 7w3d with RUTH of 02/03/18.
[2017-06-20 02:27] VITALS: BP 107/85
== END 2017-06-20 02:25 | disposition home or self-care (01) ==
LOC: ER 22:04
DX: O20.0 Threatened abortion (principal); O26.851 Spotting complicating pregnancy, first trimester; Z3A.01 Less than 8 weeks gestation of pregnancy; Z88.8 Allergy status to other drugs, medicaments and biological substances
CPT/HCPCS: 99284; 86900; 86901; 36415; 84702; 85025; 80053; 81001; 76817; 93976; J3490

== ENCOUNTER 2017-07-16 19:23 | Emergency (ER) | payer MEDICAID ==
--- NOTE | 2017-07-16 20:19 | ER Document Report ---
ED General - General Chief Complaint: Rib Pain Stated Complaint: UPPER LT ABDOMINAL PAIN Time Seen by Provider: 07/16/17 20:19 Mode of Arrival: Ambulatory Information source: Patient TRAVEL OUTSIDE OF THE [place] IN LAST 30 DAYS: No - HPI Notes: 22-year-old female 1 para 1 who is 12 weeks comes to the ER for left rib pain that has been occurring for the last 2 days. She reports she has been coughing the last few days, dry cough. Patient does have history of seasonal allergies. Patient states she had similar episode when she was initially found out to be . Denies any trauma. Patient states it hurts when she takes a deep breath or sneezes. Pain is 3 out of 10, achy. Has tried ibuprofen in the past but has not been taking any due to her . Denies any chest pain or shortness of breath. Denies any fevers or chills. Denies palpitations, shortness of breath, dyspnea, nausea, vomiting, diarrhea, abdominal pain, hematuria,blurred vision, double vision, loss of vision, speech changes, LH, dizziness, syncope, headaches, wheezing, ST, URI, neck pain, weakness, bowel or bladder dysfunction, saddle anesthesia, numbness or tingling in bilateral upper or lower extremities equally, muscle paralysis, weakness in bilateral upper or lower extremities equally or rash. Denies IV drug use. - Related Data Allergies/Adverse Reactions: albuterol [Albuterol] Allergy (Severe, Verified 01/10/17 21:06) Heart races & passes out chloraprep/pastora wipes Adverse Reaction (Mild, Uncoded 11/14/16 21:16) itching/welts Past Medical History - General Information source: Patient - Social History Smoking Status: Never Smoker Family History: Reviewed & Not Pertinent - Past Medical History Cardiac Medical History: Denies: Hx Coronary Artery Disease, Hx Heart Attack, Hx Hypertension Pulmonary Medical History: Denies: Hx Asthma, Hx Bronchitis, Hx COPD, Hx Pneumonia Neurological Medical History: Denies: Hx Cerebrovascular Accident, Hx Seizures Renal/ Medical History: Reports: Hx Kidney Stones. Denies: Hx Peritoneal Dialysis GI Medical History: Reports: Hx Gastroesophageal Reflux Disease - With . Denies: Hx Hiatal Hernia, Hx Ulcer Musculoskeltal Medical History: Denies Hx Arthritis Skin Medical History: Reports Hx MRSA Past Surgical History: Reports: Hx Cardiac Surgery, Hx Section - Immunizations Immunizations up to date: Yes Hx Diphtheria, Pertussis, Tetanus Vaccination: Yes Review of Systems - Review of Systems Constitutional: No symptoms reported EENT: No symptoms reported Cardiovascular: No symptoms reported Respiratory: No symptoms reported Gastrointestinal: No symptoms reported Genitourinary: No symptoms reported Female Genitourinary: No symptoms reported Musculoskeletal: No symptoms reported Skin: No symptoms reported Hematologic/Lymphatic: No symptoms reported Neurological/Psychological: No symptoms reported Physical Exam - Notes Notes: PHYSICAL EXAMINATION: GENERAL: Well-appearing, well-nourished and in no acute distress. HEAD: Atraumatic, normocephalic. EYES: Pupils equal round and reactive to light, extraocular movements intact, conjunctiva are normal. ENT: Nares patent, oropharynx clear without exudates. Moist mucous membranes. NECK: Normal range of motion, supple without lymphadenopathy LUNGS: Breath sounds clear to auscultation bilaterally and equal. No wheezes rales or rhonchi. Reproducible left chest wall pain on palpation between 6 and seventh intercostal space HEART: Regular rate and rhythm without murmurs ABDOMEN: Soft, nontender, nondistended abdomen. No guarding, no rebound. No masses appreciated. Female : deferred Musculoskeletal: Normal range of motion, no pitting or edema. No cyanosis. NEUROLOGICAL: Cranial nerves grossly intact. Normal speech, normal gait. Normal sensory, motor exams PSYCH: Normal mood, normal affect. SKIN: Warm, Dry, normal turgor, no rashes or lesions noted. Course - Re-evaluation Re-evalutation: 22-year-old female urinalysis is negative for any proteinuria comes for left- sided rib pain after coughing for the last few days. This provider is able to reproduce pain that brought patient to the emergency room. Discussed with patient the importance of taking [id number] Tylenol, splinting when coughing or sneezing, warm compress 20 minutes on 20 minutes off several times a day to area. Follow-up with REUSE TECHNICIAN within 3 days. I have reevaluated this patient multiple times and no significant life threatening changes, no signs of toxicity, sepsis or peritonitis are noted. The patient and I have discussed the diagnosis and risks, and we agree with discharging home and close follow- up. We also discussed returning to the Emergency Department immediately if new or worsening symptoms occur with the understanding that symptoms and presentations can change. At this time will discharge with return precautions and follow-up recommendations. Verbal discharge instructions given a the bedside and opportunity for questions given. We have discussed the symptoms which are most concerning (e.g., saddle anesthesia, urinary or bowel incontinence or retention, changing or worsening pain) that necessitate immediate return. Medication warnings reviewed. Patient is in agreement with this plan and has verbalized understanding of return precautions and the need for primary care follow-up in the next 24-72 hours. Patient verbalized understanding of plan of care and agree with plan of care. Discharge - Discharge Clinical Impression: Acute costochondritis Condition: Good Disposition: HOME, SELF-CARE Instructions: Costochondritis ([facility]) Referrals: RELL ORTEGA MD [[facility]] - Follow up in 3-5 days MARC SABA MD [Primary Care Provider] - Follow up in 3-5 days
[2017-07-16 21:18] LABS: APPEARANCE,URINE SLIGHTLY-CLOUDY; BILIRUBIN,URINE NEGATIVE (NEGATIVE); CALCIUM OXALATE CRYSTALS,URINE RARE /HPF; COLOR,URINE YELLOW; GLUCOSE, URINE NEGATIVE (NEGATIVE); KETONES,URINE NEGATIVE (NEGATIVE); LEUKOCYTE ESTERASE,URINE NEGATIVE (NEGATIVE); NITRITE,URINE NEGATIVE (NEGATIVE); PROTEIN,URINE NEGATIVE (NEGATIVE); URINE SPECIFIC GRAVITY 1.021; UROBILINOGEN,URINE NEGATIVE mg/dL (<2.0)
== END 2017-07-16 22:00 | disposition home or self-care (01) ==
LOC: ER 19:23
DX: O99.89 Other specified diseases and conditions complicating pregnancy, childbirth and the puerperium (principal); M94.0 Chondrocostal junction syndrome [Tietze]; O26.891 Other specified pregnancy related conditions, first trimester; R07.81 Pleurodynia; R10.10 Upper abdominal pain, unspecified; R05 Cough; Z3A.12 12 weeks gestation of pregnancy
CPT/HCPCS: 81001; 99283

== ENCOUNTER 2017-07-27 16:59 | Emergency (ER) | payer MEDICAID ==
[2017-07-27 19:56] LABS: ABSOLUTE EOSINOPHILS # (AUTO) 0.1 10^3/uL (0.0-0.6); ABSOLUTE LYMPHOCYTES (AUTO) 2.7 10^3/uL (0.5-4.7); ABSOLUTE MONOCYTES (AUTO) 0.8 10^3/uL (0.1-1.4); ABSOLUTE NEUT (AUTO) 4.3 10^3/uL (1.7-8.2); BASOPHILS % (AUTO) 0.2 % (0-2); HEMATOCRIT 40.6 % (36.0-47.0); HEMOGLOBIN 14.1 g/dL (12.0-15.5); LYMPHOCYTES % (AUTO) 34.9 % (13-45); MEAN CORPUSCULAR HEMOGLOBIN 30.6 pg (27.0-33.4); MEAN CORPUSCULAR HGB CONC 34.9 g/dL (32.0-36.0); MEAN CORPUSCULAR VOLUME 88 fl (80-97); MONOCYTES % (AUTO) 9.6 % (3-13); PLATELET COUNT 189 10^3/uL (150-450); RED BLOOD COUNT 4.63 10^6/uL (3.72-5.28); RED CELL DISTRIBUTION WIDTH 12.6 % (11.5-14.0); SEGMENTED NEUTROPHILS % (AUTO) 54.3 % (42-78); TOTAL CELLS COUNTED % (AUTO) 100 %; WHITE BLOOD COUNT 7.8 10^3/uL (4.0-10.5)
[2017-07-27] MEDS ORDERED: NORMAL SALINE 1000 ML 1,000 ML IV ONE (20:07)
[2017-07-27] MEDS ORDERED: METOCLOPRAMIDE HCL INJ/PF 10 MG/2 ML SDV IV ONE (20:08)
--- NOTE | 2017-07-27 20:14 | ER Document Report ---
ED General - General Chief Complaint: Abdominal Pain Stated Complaint: FACIAL NUMBNESS Time Seen by Provider: 07/27/17 19:24 Mode of Arrival: Ambulatory Information source: Patient TRAVEL OUTSIDE OF THE [place] IN LAST 30 DAYS: No - HPI Patient complains to provider of: left sided headache Onset: Other - last few days Onset/Duration: Gradual Associated symptoms: Nausea, Vomiting - usual for her with . Last emesis yesterday. Exacerbated by: Denies Relieved by: Denies Similar symptoms previously: Yes Notes: Patient is sitting up in bed laughing and smiling. Her 3-year-old daughter as well as her are present. Patient states that she has a left-sided headache behind her left eye as well as pins and needles to the eye area. She states it started yesterday. She states that she does have a history of migraines and with her 3-year-old her whole second trimester she had headaches. She is 13 weeks currently her QUALITATIVE FIELD COORDINATOR is women's health care. She is having no diarrhea. She has solid and liquid intake positive urination. She states she also has some lower abdominal cramping without any vaginal bleeding or discharge. Patient states she is content is concerned because her coworker had intrahepatic cholestasis her . She found this out after they were discussing their pregnancies at work. Patient states that she has itchy hands and her coworker had itchy hands as well. - Related Data Allergies/Adverse Reactions: albuterol [Albuterol] Allergy (Severe, Verified 07/27/17 16:59) Heart races & passes out chloraprep/pastora wipes Adverse Reaction (Mild, Uncoded 07/27/17 16:59) itching/welts Past Medical History - General Information source: Patient - Social History Smoking Status: Never Smoker Chew tobacco use (# tins/day): No Frequency of alcohol use: None Drug Abuse: None Lives with: Family Family History: Reviewed & Not Pertinent Patient has suicidal ideation: No Patient has homicidal ideation: No - Past Medical History Cardiac Medical History: Reports: None Denies: Hx Coronary Artery Disease, Hx Heart Attack, Hx Hypertension Pulmonary Medical History: Reports: None Denies: Hx Asthma, Hx Bronchitis, Hx COPD, Hx Pneumonia EENT Medical History: Reports: None Neurological Medical History: Reports: None. Denies: Hx Cerebrovascular Accident, Hx Seizures Endocrine Medical History: Reports: None Renal/ Medical History: Reports: Hx Kidney Stones. Denies: Hx Peritoneal Dialysis GI Medical History: Reports: Hx Gastroesophageal Reflux Disease - With . Denies: Hx Hiatal Hernia, Hx Ulcer Musculoskeltal Medical History: Reports None, Denies Hx Arthritis Skin Medical History: Reports Hx MRSA Psychiatric Medical History: Reports: None Traumatic Medical History: Reports: None Past Surgical History: Reports: Hx Cardiac Surgery - pulm stenosis-had stent placed, Hx Section - @41 weeks pregant due to breech - Immunizations Immunizations up to date: Yes Hx Diphtheria, Pertussis, Tetanus Vaccination: Yes Review of Systems - Review of Systems Constitutional: No symptoms reported EENT: No symptoms reported Cardiovascular: No symptoms reported Respiratory: No symptoms reported Gastrointestinal: See HPI Genitourinary: No symptoms reported Female Genitourinary: No symptoms reported Musculoskeletal: No symptoms reported Skin: See HPI Hematologic/Lymphatic: No symptoms reported Neurological/Psychological: Headaches. denies: Confusion, Dementia, Depression , Anxiety, Hallucinations, Sensory change, Weakness, Gait changes, Loss of power , Paralysis, Seizure, Lost consciousness, Speech impairment, Numbness, Suicidal ideation, Tingling Physical Exam - Vital signs Vitals: Temp Pulse Resp BP Pulse Ox 99.3 F 89 18 132/81 H 99 07/27/17 17:14 07/27/17 17:14 07/27/17 17:14 07/27/17 17:14 07/27/17 17:14 - Notes Notes: PHYSICAL EXAMINATION: GENERAL: Well-appearing, well-nourished and in no acute distress. HEAD: Atraumatic, normocephalic. EYES: Pupils equal round and reactive to light, extraocular movements intact, conjunctiva are normal. Nystagmus. ENT: Nares patent, oropharynx clear without exudates. Moist mucous membranes. NECK: Normal range of motion, supple without lymphadenopathy LUNGS: Breath sounds clear to auscultation bilaterally and equal. No wheezes rales or rhonchi. HEART: Regular rate and rhythm without murmurs ABDOMEN: Soft, nontender, nondistended abdomen. No guarding, no rebound. No masses appreciated. Female : deferred Musculoskeletal: Normal range of motion, no pitting or edema. No cyanosis. NEUROLOGICAL: Cranial nerves grossly intact. Normal speech, normal gait. Normal sensory, motor exams PSYCH: Normal mood, normal affect. SKIN: Warm, Dry, normal turgor, no rashes or lesions noted. Course - Re-evaluation Re-evalutation: 07/27/17 21:36 Patient states she is feeling better. Headache is much improved. I did tell her that we are going to discharge her home and she is agreeable to the plan. Patient's to follow up with her QUALITATIVE FIELD COORDINATOR this week. She is to return to the emergency department immediately if she has any visual deficits, fevers, intractable vomiting or any other concerns. 07/27/17 21:37 Labs- All tests 24 hr 07/27/17 07/27/17 07/27/17 19:40 19:40 20:25 WBC 7.8 RBC 4.63 Hgb 14.1 Hct 40.6 MCV 88 MCH 30.6 MCHC 34.9 RDW 12.6 Plt Count 189 Seg Neutrophils % 54.3 Lymphocytes % 34.9 Monocytes % 9.6 Eosinophils % 1.0 Basophils % 0.2 Absolute Neutrophils 4.3 Absolute Lymphocytes 2.7 Absolute Monocytes 0.8 Absolute Eosinophils 0.1 Absolute Basophils 0.0 Sodium 140.2 Potassium 3.6 Chloride 103 Carbon Dioxide 26 Anion Gap 11 BUN 9 Creatinine 0.53 Est GFR ( Amer) > 60 Est GFR (Non-Af Amer) > 60 Glucose 87 Calcium 9.0 Total Bilirubin 0.3 Direct Bilirubin 0.3 Neonat Total Bilirubin Not Reportable Neonat Direct Bilirubin Not Reportable Neonat Indirect Bili Not Reportable AST 14 ALT 20 Alkaline Phosphatase 61 Total Protein 6.3 Albumin 3.6 Beta HCG, Quant 93502.00 H Total Beta HCG POSITIVE Urine Color YELLOW Urine Appearance CLOUDY Urine pH 8.0 Ur Specific [place] 1.013 Urine Protein NEGATIVE Urine Glucose (UA) NEGATIVE Urine Ketones NEGATIVE Urine Blood NEGATIVE Urine Nitrite NEGATIVE Urine Bilirubin NEGATIVE Urine Urobilinogen NEGATIVE Ur Leukocyte Esterase NEGATIVE Urine WBC (Auto) 13 Urine RBC (Auto) 1 Squamous Epi Cells Auto 2 Amorphous Sediment Auto TRACE Urine Mucus (Auto) RARE Urine Ascorbic Acid NEGATIVE 07/27/17 21:38 FHT 141 - Vital Signs Vital signs: Temp Pulse Resp BP Pulse Ox 99.3 F 89 18 112/71 100 07/27/17 17:14 07/27/17 17:14 07/27/17 17:14 07/27/17 21:03 07/27/17 21:03 - Laboratory Result Diagrams: 07/27/17 19:40 07/27/17 19:40 Laboratory results interpreted by me: 07/27/17 19:40 Beta HCG, Quant 93595.00 H Discharge - Discharge Clinical Impression: Headache Condition: Stable Disposition: HOME, SELF-CARE Instructions: Headache ([facility]) Additional Instructions: Return to the emergency department immediately if you have fevers, intractable vomiting, worsening of headache, visual disturbance or any other concerns. Please follow-up with your QUALITATIVE FIELD COORDINATOR within the next 2-3 days as well as her primary medical doctor. Referrals: MARC SABA MD [Primary Care Provider] - Follow up in 3-5 days
[2017-07-27 20:18] LABS: ALANINE AMINOTRANSFERASE 20 U/L (9-52); ALBUMIN 3.6 g/dL (3.5-5.0); ALKALINE PHOSPHATASE 61 U/L (38-126); ANION GAP 11 (5-19); ASPARTATE AMINO TRANSFERASE 14 U/L (14-36); BILIRUBIN,DIRECT 0.3 mg/dL (0.0-0.4); BILIRUBIN,TOTAL 0.3 mg/dL (0.2-1.3); BLOOD UREA NITROGEN 9 mg/dL (7-20); CARBON DIOXIDE 26 mmol/L (22-30); CHLORIDE 103 mmol/L (98-107); GLUCOSE 87 mg/dL (75-110); POTASSIUM 3.6 mmol/L (3.6-5.0); SODIUM 140.2 mmol/L (137-145); TOTAL PROTEIN 6.3 g/dL (6.3-8.2)
[2017-07-27 20:58] LABS: AMORPHOUS SEDIMENT,URINE TRACE /HPF; APPEARANCE,URINE CLOUDY; BILIRUBIN,URINE NEGATIVE (NEGATIVE); COLOR,URINE YELLOW; GLUCOSE, URINE NEGATIVE (NEGATIVE); KETONES,URINE NEGATIVE (NEGATIVE); LEUKOCYTE ESTERASE,URINE NEGATIVE (NEGATIVE); NITRITE,URINE NEGATIVE (NEGATIVE); PROTEIN,URINE NEGATIVE (NEGATIVE); URINE SPECIFIC GRAVITY 1.013; UROBILINOGEN,URINE NEGATIVE mg/dL (<2.0)
[2017-07-27 22:16] VITALS: BP 116/81
== END 2017-07-27 22:16 | disposition home or self-care (01) ==
LOC: ER 16:59
DX: O26.891 Other specified pregnancy related conditions, first trimester (principal); R51 Headache; R10.30 Lower abdominal pain, unspecified; R20.0 Anesthesia of skin; R11.2 Nausea with vomiting, unspecified; Z3A.13 13 weeks gestation of pregnancy
CPT/HCPCS: 99284; 96361; 96374; 36415; 84702; 85025; 80053; 81001; J2765; J7030

== ENCOUNTER 2017-08-11 20:40 | Emergency (ER) | payer MEDICAID ==
[2017-08-11 21:45] LABS: ABSOLUTE EOSINOPHILS # (AUTO) 0.1 10^3/uL (0.0-0.6); ABSOLUTE MONOCYTES (AUTO) 0.8 10^3/uL (0.1-1.4); ABSOLUTE NEUT (AUTO) 6.1 10^3/uL (1.7-8.2); BASOPHILS % (AUTO) 0.3 % (0-2); EOSINOPHILS % (AUTO) 0.6 % (0-6); HEMATOCRIT 40.2 % (36.0-47.0); HEMOGLOBIN 14.3 g/dL (12.0-15.5); LYMPHOCYTES % (AUTO) 30.1 % (13-45); MEAN CORPUSCULAR HEMOGLOBIN 31.1 pg (27.0-33.4); MEAN CORPUSCULAR HGB CONC 35.5 g/dL (32.0-36.0); MEAN CORPUSCULAR VOLUME 88 fl (80-97); MONOCYTES % (AUTO) 8.4 % (3-13); PLATELET COUNT 183 10^3/uL (150-450); RED BLOOD COUNT 4.59 10^6/uL (3.72-5.28); RED CELL DISTRIBUTION WIDTH 12.6 % (11.5-14.0); SEGMENTED NEUTROPHILS % (AUTO) 60.6 % (42-78); TOTAL CELLS COUNTED % (AUTO) 100 %
[2017-08-11 21:52] LABS: APPEARANCE,URINE SLIGHTLY-CLOUDY; BILIRUBIN,URINE NEGATIVE (NEGATIVE); COLOR,URINE YELLOW; GLUCOSE, URINE NEGATIVE (NEGATIVE); KETONES,URINE 80 mg/dL (NEGATIVE); LEUKOCYTE ESTERASE,URINE NEGATIVE (NEGATIVE); NITRITE,URINE NEGATIVE (NEGATIVE); PROTEIN,URINE NEGATIVE (NEGATIVE); UROBILINOGEN,URINE NEGATIVE mg/dL (<2.0)
[2017-08-11 21:57] LABS: ALANINE AMINOTRANSFERASE 23 U/L (9-52); ALBUMIN 3.9 g/dL (3.5-5.0); ALKALINE PHOSPHATASE 72 U/L (38-126); ANION GAP 13 (5-19); ASPARTATE AMINO TRANSFERASE 13 U/L (14-36); BILIRUBIN,DIRECT 0.3 mg/dL (0.0-0.4); BILIRUBIN,TOTAL 0.4 mg/dL (0.2-1.3); BLOOD UREA NITROGEN 8 mg/dL (7-20); CALCIUM 9.5 mg/dL (8.4-10.2); CARBON DIOXIDE 24 mmol/L (22-30); CHLORIDE 103 mmol/L (98-107); GLUCOSE 83 mg/dL (75-110); SODIUM 139.8 mmol/L (137-145); TOTAL PROTEIN 6.8 g/dL (6.3-8.2)
--- NOTE | 2017-08-11 23:26 | RADIOLOGY REPORT (SQ) ---
EXAM DESCRIPTION: US LIMITED COMPLETED DATE/TME: 08/11/2017 21:34 CLINICAL HISTORY: 22 years, Female, vaginal pain abd pain +preg LMP 04/29/2017 COMPARISON: None. TECHNIQUE: Limited second trimester obstetrical ultrasound obtained with transabdominal imaging. LIMITATIONS: None. FINDINGS: Cervical length of 3.0 cm and closed. position: Breech heart rate 157 beats for minute. Placenta: Anterior. IMPRESSION: Single live intrauterine with heart rate of 157 beats for minute. 2010 [facility] [employer]- All Rights Reserved
--- NOTE | 2017-08-12 00:11 | ER Document Report ---
ED General - General Chief Complaint: Vaginal Pain Stated Complaint: ABDOMINAL PAIN Time Seen by Provider: 08/11/17 21:32 TRAVEL OUTSIDE OF THE [place] IN LAST 30 DAYS: No - HPI Patient complains to provider of: Abdominal pain Notes: Patient is a coming in for lower abdominal pain. Patient is approximately 15 weeks . Patient denies any trauma to her abdomen denies any vaginal discharge vaginal bleeding. Patient denies any recent sexual intercourse. Patient otherwise is resting comfortably upon my evaluation states compliance with her vitamins and other medications. - Related Data Allergies/Adverse Reactions: albuterol [Albuterol] Allergy (Severe, Verified 07/27/17 16:59) Heart races & passes out chloraprep/pastora wipes Adverse Reaction (Mild, Uncoded 07/27/17 16:59) itching/welts Past Medical History - Social History Smoking Status: Unknown if Ever Smoked Family History: Reviewed & Not Pertinent Patient has suicidal ideation: No Patient has homicidal ideation: No - Past Medical History Cardiac Medical History: Denies: Hx Coronary Artery Disease, Hx Heart Attack, Hx Hypertension Pulmonary Medical History: Denies: Hx Asthma, Hx Bronchitis, Hx COPD, Hx Pneumonia Neurological Medical History: Denies: Hx Cerebrovascular Accident, Hx Seizures Renal/ Medical History: Reports: Hx Kidney Stones. Denies: Hx Peritoneal Dialysis GI Medical History: Reports: Hx Gastroesophageal Reflux Disease - With . Denies: Hx Hiatal Hernia, Hx Ulcer Musculoskeltal Medical History: Denies Hx Arthritis Skin Medical History: Reports Hx MRSA Past Surgical History: Reports: Hx Cardiac Surgery - pulm stenosis-had stent placed, Hx Section - @41 weeks pregant due to breech - Immunizations Immunizations up to date: Yes Hx Diphtheria, Pertussis, Tetanus Vaccination: Yes Review of Systems - Review of Systems Constitutional: No symptoms reported EENT: No symptoms reported Cardiovascular: No symptoms reported Respiratory: No symptoms reported Gastrointestinal: Abdominal pain Genitourinary: No symptoms reported Female Genitourinary: No symptoms reported Musculoskeletal: No symptoms reported Skin: No symptoms reported Hematologic/Lymphatic: No symptoms reported Neurological/Psychological: No symptoms reported -: Yes All other systems reviewed and negative Physical Exam - Vital signs Vitals: Temp Pulse Resp BP Pulse Ox 98.7 F 80 12 142/86 H 100 08/11/17 21:17 08/11/17 21:17 08/11/17 21:17 08/11/17 21:17 08/11/17 21:17 Interpretation: Normal - General General appearance: Appears well, Alert - HEENT Head: Normocephalic, Atraumatic Eyes: Normal Pupils: PERRL - Respiratory Respiratory status: No respiratory distress Chest status: Nontender Breath sounds: Normal Chest palpation: Normal - Cardiovascular Rhythm: Regular Heart sounds: Normal auscultation Murmur: No - Abdominal Inspection: Normal, Gravid female Distension: No distension Bowel sounds: Normal Tenderness: Nontender Organomegaly: No organomegaly - Back Back: Normal, Nontender - Extremities General upper extremity: Normal inspection, Nontender, Normal color, Normal ROM , Normal temperature General lower extremity: Normal inspection, Nontender, Normal color, Normal ROM , Normal temperature, Normal weight bearing. No: Rosi's sign - Neurological Neuro grossly intact: Yes Cognition: Normal Orientation: AAOx4 [place] Coma Scale Eye Opening: Spontaneous [place] Coma Scale Verbal: Oriented [place] Coma Scale Motor: Obeys Commands [place] Coma Scale Total: 15 Speech: Normal Motor strength normal: LUE, RUE, LLE, RLE Sensory: Normal - Psychological Associated symptoms: Normal affect, Normal mood - Skin Skin Temperature: Warm Skin Moisture: Dry Skin Color: Normal Course - Re-evaluation Re-evalutation: 08/12/17 03:38 The patient presents with abdominal pain without signs of peritonitis or other life-threatening or serious etiology. The patient appears stable for discharge and has been instructed to return immediately if the symptoms worsen in any way , or in 8-12hr if not improved for re-evaluation. The patient has been instructed to return if the symptoms worsen or change in any way. Patient's ultrasound otherwise not show any signs significant pathology. Possible etiology of her pain is round ligament. Patient was encouraged to follow-up with her CORPORATE LAW SPECIALIST she was very grateful for her care and pleased about the ultrasound results. - Vital Signs Vital signs: Temp Pulse Resp BP Pulse Ox 98.3 F 83 16 133/76 H 100 08/12/17 00:15 08/12/17 00:15 08/12/17 00:15 08/12/17 00:15 08/12/17 00:15 - Laboratory Result Diagrams: 08/11/17 21:25 08/11/17 21:25 Laboratory results interpreted by me: 08/11/17 08/11/17 21:25 21:25 Creatinine 0.49 L AST 13 L Beta HCG, Quant 49093.00 H Urine Ketones 80 H Discharge - Discharge Clinical Impression: Abdominal pain during Qualifiers: Trimester: second trimester Qualified Code(s): O26.892 - Other specified related conditions, second trimester Condition: Good Disposition: HOME, SELF-CARE Instructions: Abdominal Pain ([facility]), Pelvic Pain in ([facility]) Additional Instructions: Recommend taking Tylenol for your pain. At this time your ultrasound lab work did not reveal any significant pathology. Please return to ER symptoms worsen follow-up with your CORPORATE LAW SPECIALIST. Recommend taking the Reglan as prescribed for any nausea that you are having also from information provided below for nausea treatment during For nausea and vomiting during I recomment: Start with 10-12.5 mg of pyridoxine (vitamin B6) three times a day for 2 days. If not fully effective, Increase to 12.5 mg of pyridoxine four times a day for 2 days. If not fully effective, Increase to 25 mg of pyridoxine three times a day for 2 days. If not fully effective, Continue 25 mg pyridoxine 3 times a day, and add 12.5 mg of doxylamine before bedtime each day for 2 days. If not fully effective, Continue 25 mg pyridoxine 3 times a day, and take 12.5 mg of doxylamine twice a day. If not fully effective, Continue 25 mg pyridoxine 3 times a day, and take 12.5 mg of doxylamine three times a day. If not fully effective, Continue 25 mg pyridoxine 3 times a day, and 12.5 mg of doxylamine 3 times a day , while adding Emetrol, one to two tablespoons (15-30 cc) taken once or twice a day as needed. (Emetrol is an [id number] mixture of sugar syrups and phosphoric acid [phosphorylated carbohydrate solution]) that acts by soothing the actual wall of the gastrointestinal tract). If not fully effective, Consult with your doctor. Prescriptions: Metoclopramide HCl [Reglan] 5 mg PO Q6 #30 tablet Referrals: ISI ROOT, [Primary Care Provider] - Follow up as needed
[2017-08-12 00:21] VITALS: BP 133/76
== END 2017-08-12 00:17 | disposition home or self-care (01) ==
LOC: ER 20:40
DX: O26.892 Other specified pregnancy related conditions, second trimester (principal); R10.30 Lower abdominal pain, unspecified; Z3A.00 Weeks of gestation of pregnancy not specified; Z88.8 Allergy status to other drugs, medicaments and biological substances; Z87.19 Personal history of other diseases of the digestive system
CPT/HCPCS: 36415; 76815; 80053; 81001; 83690; 84702; 85025; 86900; 86901; 99284

== ENCOUNTER 2017-08-31 17:18 | Emergency (ER) | payer MEDICAID, OTHER ==
--- NOTE | 2017-08-31 17:43 | ER Document Report ---
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 She denies full LOC. She follows with cardiology at [facility] for the pulmonary artery stenosis and PACs and had a normal checkup 5 days ago. She had a Holter monitor and dropped it off in radiology 4 days ago, but did not hear the results. She denies any current symptoms. Denies current abdominal pain, nausea, vomiting, vaginal bleeding, chest pain, shortness of breath, back pain, leg swelling or hemoptysis. TRAVEL OUTSIDE OF THE [place] IN LAST 30 DAYS: No - Related Data Allergies/Adverse Reactions: albuterol [Albuterol] Allergy (Severe, Verified 08/31/17 17:22) Heart races & passes out chloraprep/pastora wipes Adverse Reaction (Mild, Uncoded 08/31/17 17:22) itching/welts Past Medical History - General Information source: Patient - Social History Smoking Status: Never Smoker Chew tobacco use (# tins/day): No Frequency of alcohol use: None Drug Abuse: None Family History: Reviewed & Not Pertinent Patient has suicidal ideation: No Patient has homicidal ideation: No - Past Medical History Cardiac Medical History: Denies: Hx Coronary Artery Disease, Hx Heart Attack, Hx Hypertension Pulmonary Medical History: Denies: Hx Asthma, Hx Bronchitis, Hx COPD, Hx Pneumonia Neurological Medical History: Denies: Hx Cerebrovascular Accident, Hx Seizures Renal/ Medical History: Reports: Hx Kidney Stones. Denies: Hx Peritoneal Dialysis GI Medical History: Reports: Hx Gastroesophageal Reflux Disease - With . Denies: Hx Hiatal Hernia, Hx Ulcer Musculoskeltal Medical History: Denies Hx Arthritis Skin Medical History: Reports Hx MRSA Past Surgical History: Reports: Hx Cardiac Surgery - pulm stenosis-had stent placed, Hx Section - @41 weeks pregant due to breech - Immunizations Immunizations up to date: Yes Hx Diphtheria, Pertussis, Tetanus Vaccination: Yes Review of Systems - Review of Systems Notes: REVIEW OF SYSTEMS: CONSTITUTIONAL: -fevers, -chills EENT: -eye pain, -difficulty swallowing, -nasal congestion CARDIOVASCULAR: -chest pain, +near syncope. RESPIRATORY: -cough, -SOB GASTROINTESTINAL: -abdominal pain, -nausea, -vomiting, -diarrhea GENITOURINARY: -dysuria, -hematuria MUSCULOSKELETAL: -back pain, -neck pain SKIN: -rash or skin lesions. HEMATOLOGIC: -easy bruising or bleeding. LYMPHATIC: -swollen, enlarged glands. NEUROLOGICAL: -altered mental status or loss of consciousness, -headache, - neurologic symptoms PSYCHIATRIC: -anxiety, -depression. ALL OTHER SYSTEMS REVIEWED AND NEGATIVE. Physical Exam - Vital signs Vitals: Temp Pulse Resp BP Pulse Ox 98.4 F 81 15 128/65 H 97 08/31/17 17:27 08/31/17 17:27 08/31/17 17:27 08/31/17 17:27 08/31/17 17:27 - Notes Notes: PHYSICAL EXAMINATION: GENERAL: Well-appearing, well-nourished and in no acute distress. HEAD: Atraumatic, normocephalic. EYES: Pupils equal round and reactive to light, extraocular movements intact, sclera anicteric, conjunctiva are normal. ENT: nares patent, oropharynx clear without exudates. Moist mucous membranes. NECK: Normal range of motion, supple without lymphadenopathy LUNGS: Breath sounds clear to auscultation bilaterally and equal. No wheezes rales or rhonchi. HEART: Regular rate and rhythm without murmurs ABDOMEN: Soft, nontender, normoactive bowel sounds. Gravid abdomen. No guarding , no rebound. No masses appreciated. EXTREMITIES: Normal range of motion, no pitting or edema. No cyanosis. NEUROLOGICAL: Cranial nerves grossly intact. Normal speech, normal gait. Normal sensory and motor exams. PSYCH: Normal mood, normal affect. SKIN: Warm, Dry, normal turgor, no rashes or lesions noted. Course - Re-evaluation Re-evalutation: Patient appears well and has no symptoms at this time. Her symptoms sound consistent with vasovagal near syncope. Her EKG does not show any evidence of prolonged QT syndrome, WPW or Brugada. She just saw her deboning team leader this week and said her pulmonary arteries are patent and not stenotic. Urine does not show evidence of UTI and she had a hemoglobin checked earlier today that was 14 by her OB. Instructed patient to continue to stay hydrated and follow-up with her primary care physician. Given very strict return precautions and she understands. - Vital Signs Vital signs: Temp Pulse Resp BP Pulse Ox 98.4 F 81 15 128/65 H 97 08/31/17 17:27 08/31/17 17:27 08/31/17 17:27 08/31/17 17:27 08/31/17 17:27 Discharge - Discharge Clinical Impression: Near syncope Condition: Stable Additional Instructions: SYNCOPAL EPISODE: Syncope (fainting or near-fainting) can occur from many different health problems. Or it can be a simple fainting spell requiring no treatment. It is safe for you to go home, but further evaluation will likely be necessary. Your work-up may include tests for internal bleeding, heart disease, medication problems, or near-strokes. Tests are not always required, however, depending on the nature of your problem. The warning signs of an impending faint include: dizziness, lightheadedness , nausea, hot flashes, tingling, and weakness. If this happens, lay down and put your feet up, then wait until all of these symptoms have passed before standing up again. If these episodes become recurrent, or if you develop chest pain, heart palpitations, mental confusion, blurred vision, or headache, then you should call the physician, or go to the emergency room. NEAR SYNCOPAL EPISODE: Syncope or near syncope (fainting or near-fainting) can occur from many different health problems. Or it can be a simple fainting spell requiring no treatment. It is safe for you to go home, but further evaluation will likely be necessary. Your work-up may include tests for internal bleeding, heart disease, medication problems, or near-strokes. Tests are not always required, however, depending on the nature of your problem. The warning signs of an impending faint include: dizziness, lightheadedness , nausea, hot flashes, tingling, and weakness. If this happens, lay down and put your feet up, then wait until all of these symptoms have passed before standing up again. If these episodes become recurrent, or if you develop chest pain, heart palpitations, mental confusion, blurred vision, or headache, then you should call the physician, or go to the emergency room. NORMAL EXAM AND WORKUP: At this time, your examination and workup show no significant abnormality. No significant abnormal physical findings were noted. All laboratory, EKG, and imaging (x-ray, CT scans, ultrasound) studies that were ordered show no significant abnormality. Although your examination and all studies that were ordered showed no significant abnormal finding, there are no examinations and no studies that are 100% accurate. There is always the possibility that some abnormality could exist and not be detected with physical examination or within the limits and capabilities of laboratory and other studies. You should return or follow up as you were instructed on your visit today for further evaluation if your symptoms do not resolve. FOLLOW-UP CARE: If you have been referred to a physician for follow-up care, call the physician s office for an appointment as you were instructed or within the next two days. If you experience worsening or a significant change in your symptoms, notify the physician immediately or return to the Emergency Department at any time for re-evaluation. Forms: Elevated Blood Pressure Referrals: ISI ROOT, [Primary Care Provider] - Follow up as needed
[2017-08-31 18:20] LABS: APPEARANCE,URINE SLIGHTLY-CLOUDY; BILIRUBIN,URINE NEGATIVE (NEGATIVE); CALCIUM OXALATE CRYSTALS,URINE RARE /HPF; COLOR,URINE YELLOW; GLUCOSE, URINE 50 mg/dL (NEGATIVE); KETONES,URINE NEGATIVE (NEGATIVE); LEUKOCYTE ESTERASE,URINE NEGATIVE (NEGATIVE); NITRITE,URINE NEGATIVE (NEGATIVE); PROTEIN,URINE 30 mg/dL (NEGATIVE); URINE SPECIFIC GRAVITY 1.024
[2017-08-31 18:36] VITALS: BP 126/64
--- NOTE | 2017-09-01 09:36 | EKG REPORT ---
SEVERITY:- BORDERLINE ECG - SINUS RHYTHM WITH APC BORDERLINE T ABNORMALITIES, INFERIOR LEADS : Confirmed by: Silverio Dave 01-Sep-2017 09:35:26
== END 2017-08-31 18:36 | disposition home or self-care (01) ==
LOC: ER 17:18
DX: O26.892 Other specified pregnancy related conditions, second trimester (principal); R55 Syncope and collapse; Q25.6 Stenosis of pulmonary artery; O99.412 Diseases of the circulatory system complicating pregnancy, second trimester; I49.1 Atrial premature depolarization; O23.42 Unspecified infection of urinary tract in pregnancy, second trimester; Z3A.17 17 weeks gestation of pregnancy
CPT/HCPCS: 81001; 82962; 93005; 93010; 99284

== ENCOUNTER 2017-09-16 11:29 | Emergency (ER) | payer MEDICAID ==
[2017-09-16 11:35] VITALS: BP 134/79
--- NOTE | 2017-09-16 11:49 | ER Document Report ---
ED Medical Screen (RME) - General Chief Complaint: Cough Stated Complaint: COUGH Time Seen by Provider: 09/16/17 11:38 Notes: RAPID MEDICAL EVALUATION DISCLOSURE I have seen this patient as part of a Rapid Medical Evaluation and, if applicable, placed any initially appropriate orders. The patient will be seen and fully evaluated, including a full history and physical exam, by a provider ( in Main ED or Fast Track) when a room becomes available. 22-year-old female approximately 20 weeks gestation here with complaints of cough congestion runny nose ongoing for the past 1 week. The cough is productive of yellow-green sputum. This morning she felt like she had a fever. This morning she also started to have some lower abdominal pain but no dysuria hematuria frequency. She is also having nausea for the past 1 week but does not know if it is associated with her . EXAM CTAB RRR TRAVEL OUTSIDE OF THE [place]. IN LAST 30 DAYS: No - Related Data Allergies/Adverse Reactions: albuterol [Albuterol] Allergy (Severe, Verified 09/16/17 11:31) Heart races & passes out chloraprep/pastora wipes Adverse Reaction (Mild, Uncoded 09/16/17 11:31) itching/welts Past Medical History - Social History Chew tobacco use (# tins/day): No Drug Abuse: None Family history: Reviewed & Not Pertinent - Past Medical History Cardiac Medical History: Denies: Hx Coronary Artery Disease, Hx Heart Attack, Hx Hypertension Pulmonary Medical History: Denies: Hx Asthma, Hx Bronchitis, Hx COPD, Hx Pneumonia Neurological Medical History: Denies: Hx Cerebrovascular Accident, Hx Seizures Renal/ Medical History: Reports: Hx Kidney Stones. Denies: Hx Peritoneal Dialysis GI Medical History: Reports: Hx Gastroesophageal Reflux Disease - With . Denies: Hx Hiatal Hernia, Hx Ulcer Musculoskeltal Medical History: Denies Hx Arthritis Skin Medical History: Reports Hx MRSA Past Surgical History: Reports: Hx Cardiac Surgery - pulm stenosis-had stent placed, Hx Section - @41 weeks pregant due to breech - Immunizations Immunizations up to date: Yes Hx Diphtheria, Pertussis, Tetanus Vaccination: Yes History of Influenza Vaccine for 12/2016 - 05/2017 Season: Unknown Physical Exam - Vital signs Vitals: Temp Pulse Resp BP Pulse Ox 99.1 F 94 16 134/79 H 98 09/16/17 11:34 09/16/17 11:34 09/16/17 11:34 09/16/17 11:34 09/16/17 11:34 Course - Vital Signs Vital signs: Temp Pulse Resp BP Pulse Ox 99.1 F 94 16 134/79 H 98 09/16/17 11:34 09/16/17 11:34 09/16/17 11:34 09/16/17 11:34 09/16/17 11:34 Doctor's Discharge - Discharge Referrals: ISI ROOT DO [Primary Care Provider] - Follow up as needed
--- NOTE | 2017-09-16 12:30 | RADIOLOGY REPORT (SQ) ---
EXAM DESCRIPTION: CHEST 2 VIEWS COMPLETED DATE/TIME: 09/16/2017 12:20 pm REASON FOR STUDY: cough prod yellow green sputum; pneumonia? COMPARISON: 05/13/2017 in 05/20/2016 EXAM PARAMETERS: NUMBER OF VIEWS: two views TECHNIQUE: Digital Frontal and Lateral radiographic views of the chest acquired. RADIATION DOSE: NA LIMITATIONS: none FINDINGS: LUNGS AND PLEURA: No acute opacities, masses or pneumothorax. No pleural effusion. MEDIASTINUM AND HILAR STRUCTURES: No masses or contour abnormalities. HEART AND VASCULAR STRUCTURES: Heart normal size. No evidence for failure. BONES: No acute findings. HARDWARE: None in the chest. OTHER: No other significant finding. IMPRESSION: NO ACUTE RADIOGRAPHIC FINDING IN THE CHEST. TECHNICAL DOCUMENTATION: JOB ID: [id number] [employer]- All Rights Reserved Reading location - IP/workstation name: [email or web address]
[2017-09-16 12:37] LABS: APPEARANCE,URINE SLIGHTLY-CLOUDY; BILIRUBIN,URINE NEGATIVE (NEGATIVE); COLOR,URINE YELLOW; GLUCOSE, URINE 50 mg/dL (NEGATIVE); KETONES,URINE NEGATIVE (NEGATIVE); LEUKOCYTE ESTERASE,URINE NEGATIVE (NEGATIVE); NITRITE,URINE NEGATIVE (NEGATIVE); PROTEIN,URINE NEGATIVE (NEGATIVE); URINE SPECIFIC GRAVITY 1.009; UROBILINOGEN,URINE NEGATIVE mg/dL (<2.0)
--- NOTE | 2017-09-16 13:07 | ER Document Report ---
HPI - HPI Patient complains to provider of: Cough Onset: Last week Onset/Duration: Persistent Quality of pain: Achy Pain Level: 4 Context: Patient is currently 20 weeks reports cough for the past week. Patient is . Patient states she does have a history of pulmonary stenosis and is followed by maternal- medicine out of [place] as well as [facility]. Patient states she has had lower pelvic cramping off and on today although presently states the pain is resolved. Patient does complain of some nausea and vomiting 2 episodes today. Patient denies any urinary symptoms. Patient does report she has had elevated blood glucose level recently and is due to have a glucose tolerance test later this month. Patient denies any vaginal bleeding or discharge. Patient denies any shortness of breath. Associated Symptoms: Nonproductive cough, Nausea, Vomiting, Other - Lower abdominal pain. denies: Chest pain, Fever Exacerbated by: Denies Relieved by: Denies Similar symptoms previously: No Recently seen / treated by doctor: No - ROS ROS below otherwise negative: Yes Systems Reviewed and Negative: Yes All other systems reviewed and negative - CONSTITUTIONAL Constitutional: DENIES: Fever - EENT EENT: DENIES: Sore Throat - CARDIOVASCULAR Cardiovascular: DENIES: Chest pain - RESPIRATORY Respiratory: REPORTS: Coughing. DENIES: Trouble Breathing - GASTROINTESTINAL Gastrointestinal: REPORTS: Abdominal Pain, Nausea, Patient vomiting. DENIES: Diarrhea - URINARY Urinary: DENIES: Dysuria, Urgency, Frequency - REPRODUCTIVE Reproductive: DENIES: :, Abnormal bleeding / discharge - MUSCULOSKELETAL Musculoskeletal: DENIES: Back Pain - DERM Skin Color: Normal Skin Problems: None Past Medical History - General Information source: Patient - Social History Smoking Status: Never Smoker Chew tobacco use (# tins/day): No Drug Abuse: None Occupation: [employer] Lives with: Family Family History: Reviewed & Not Pertinent Patient has suicidal ideation: No Patient has homicidal ideation: No - Past Medical History Cardiac Medical History: Reports: Other - Pulmonary stenosis Denies: Hx Coronary Artery Disease, Hx Heart Attack, Hx Hypertension Pulmonary Medical History: Denies: Hx Asthma, Hx Bronchitis, Hx COPD, Hx Pneumonia Neurological Medical History: Denies: Hx Cerebrovascular Accident, Hx Seizures Renal/ Medical History: Reports: Hx Kidney Stones. Denies: Hx Peritoneal Dialysis GI Medical History: Reports: Hx Gastroesophageal Reflux Disease - With . Denies: Hx Hiatal Hernia, Hx Ulcer Musculoskeltal Medical History: Denies Hx Arthritis Skin Medical History: Reports Hx MRSA Past Surgical History: Reports: Hx Cardiac Surgery - pulm stenosis-had stent placed, Hx Section - @41 weeks pregant due to breech - Immunizations Immunizations up to date: Yes Hx Diphtheria, Pertussis, Tetanus Vaccination: Yes Vertical Provider Document - CONSTITUTIONAL Agree With Documented VS: Yes Exam Limitations: No Limitations General Appearance: WD/WN, No Apparent Distress - INFECTION CONTROL TRAVEL OUTSIDE OF THE [place] IN LAST 30 DAYS: No - HEENT HEENT: Atraumatic, Normal ENT Exam, Normocephalic - NECK Neck: Normal Inspection, Supple. negative: Lymphadenopathy-Left, Lymphadenopathy-Right - RESPIRATORY Respiratory: Breath Sounds Normal, No Respiratory Distress, Chest Non-Tender - CARDIOVASCULAR Cardiovascular: Regular Rate, Regular Rhythm, No Murmur - GI/ABDOMEN Gastrointestinal: Abdomen Soft, Abdomen Non-Tender, Normal Bowel Sounds Notes: Gravid - BACK Back: Normal Inspection. negative: CVA Tenderness-Right, CVA Tenderness-Left - MUSCULOSKELETAL/EXTREMETIES Musculoskeletal/Extremeties: ELOISE MOBLEY - NEURO Level of Consciousness: Awake, Alert, Appropriate Motor/Sensory: No Motor Deficit - DERM Integumentary: Warm, Dry, No Rash Course - Re-evaluation Re-evalutation: 09/16/17 13:04 The patient denies any abdominal tenderness at this time. Patient denies nausea. 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 Patient states she is to to have a glucose tolerance test within the next 2 weeks. Patient states that her [employer] is aware but they did not feel that she needed to have a sooner glucose tolerance test than what she is already scheduled. - Vital Signs Vital signs: Temp Pulse Resp BP Pulse Ox 99.1 F 94 16 134/79 H 98 09/16/17 11:34 09/16/17 11:34 09/16/17 11:34 09/16/17 11:34 09/16/17 11:34 - Laboratory Laboratory results interpreted by me: 09/16/17 11:45 Urine Glucose (UA) 50 H - Diagnostic Test Radiology reviewed: Image reviewed, Reports reviewed Discharge - Discharge Clinical Impression: Pelvic cramping, Cough Upper respiratory infection Qualifiers: URI type: unspecified URI Qualified Code(s): J06.9 - Acute upper respiratory infection, unspecified Condition: Stable Disposition: HOME, SELF-CARE Instructions: Upper Respiratory Illness ([facility]) Additional Instructions: Return immediately for any new or worsening symptoms Followup with your primary care provider, call tomorrow to make a followup appointment Follow-up directly with the labor and delivery floor for a labor check. You did have some glucose in your urine today. Follow-up with your [employer] regarding this finding. Forms: Return to Work Referrals: ISI ROOT DO [NO LOCAL MD] - Follow up as needed [facility] [Provider Group] - Follow up tomorrow
== END 2017-09-16 13:12 | disposition home or self-care (01) ==
LOC: ER 11:29
DX: O99.512 Diseases of the respiratory system complicating pregnancy, second trimester (principal); J06.9 Acute upper respiratory infection, unspecified; O26.892 Other specified pregnancy related conditions, second trimester; R05 Cough; R10.2 Pelvic and perineal pain; O21.2 Late vomiting of pregnancy; O99.282 Endocrine, nutritional and metabolic diseases complicating pregnancy, second trimester; R73.9 Hyperglycemia, unspecified; Z3A.20 20 weeks gestation of pregnancy
CPT/HCPCS: 71046; 81001; 82962; 99283

== ENCOUNTER 2017-09-16 13:06 | Outpatient (CLI) | payer MEDICAID ==
[2017-09-16 14:25] LABS: APPEARANCE,URINE CLEAR; BILIRUBIN,URINE NEGATIVE (NEGATIVE); COLOR,URINE STRAW; GLUCOSE, URINE NEGATIVE (NEGATIVE); KETONES,URINE NEGATIVE (NEGATIVE); LEUKOCYTE ESTERASE,URINE NEGATIVE (NEGATIVE); NITRITE,URINE NEGATIVE (NEGATIVE); PROTEIN,URINE NEGATIVE (NEGATIVE); URINE SPECIFIC GRAVITY 1.006; UROBILINOGEN,URINE NEGATIVE mg/dL (<2.0)
[2017-09-16 14:56] LABS: BACTERIA (WET MOUNT) 3+ BACTERIA SEEN; EPITHELIALS (WET MOUNT) 3+ EPITHELIALS SEEN; T.VAGINALIS (WET MOUNT) NO TRICHOMONAS SEEN; WBCS (WET MOUNT) 1+ WBCS SEEN; YEAST (WET MOUNT) NO YEAST SEEN
[2017-09-16 14:57] LABS: URINE AMPHETAMINES SCREEN NEGATIVE; URINE BARBITURATES SCREEN NEGATIVE; URINE BENZODIAZEPINES SCREEN NEGATIVE; URINE COCAINE SCREEN NEGATIVE; URINE MARIJUANA (THC) SCREEN NEGATIVE; URINE PHENCYCLIDINE SCREEN NEGATIVE
[2017-09-16 15:38] LABS: URINE METHADONE SCREEN NEGATIVE
--- NOTE | 2017-09-16 16:06 | RADIOLOGY REPORT (SQ) ---
EXAM DESCRIPTION: U/S OB LIMITED COMPLETED DATE/TIME: 09/16/2017 3:46 pm REASON FOR STUDY: s/p fall on 09/12. pelvic cramping, cvx length, plac COMPARISON: 08/11/2017 TECHNIQUE: Limited transabdominal and endovaginal grayscale ultrasound for evaluation of specific r equested obstetrical parameters. LIMITATIONS: None. FINDINGS: CERVICAL LENGTH: 3.2 cm Closed. BAKARI: 10.8 cm. FHR: 152 beats per minute. PRESENTATION: Breech OTHER: Placenta is anterior grade 1. No abruption or previa. IMPRESSION: LIMITED OBSTETRICAL ULTRASOUND WITH MEASURED PARAMETERS DELINEATED ABOVE. Trimester of : Second trimester - 13 weeks 1 day to 27 weeks 6 days. TECHNICAL DOCUMENTATION: JOB ID: [id number] [employer]- All Rights Reserved Reading location - IP/workstation name: [email or web address]
[2017-09-16 16:12] LABS: CHLAM PCR NOT DETECTED (NOT DETECT); GON PCR NOT DETECTED (NOT DETECT)
== END 2017-09-16 16:19 | disposition home or self-care (01) ==
LOC: LC 13:06
PROVIDERS: ATTEND Student in an Organized Health Care Education/Training Program
PROC: 4A1HXCZ Monitoring of Products of Conception, Cardiac Rate, External Approach (ICD-10-PCS; principal; 2017-09-16)
DX: O26.892 Other specified pregnancy related conditions, second trimester (principal); R10.2 Pelvic and perineal pain; Z3A.20 20 weeks gestation of pregnancy
CPT/HCPCS: 76815; 80307; 81001; 87210; 87491; 87591

== ENCOUNTER 2017-10-06 15:06 | Emergency (ER) | payer MEDICAID ==
[2017-10-06] MEDS ORDERED: NORMAL SALINE 1000 ML 1,000 ML IV ONE (15:56)
[2017-10-06] MEDS ORDERED: PYRIDOXINE HCL 50 MG TABLET PO ONE (15:57)
[2017-10-06] MEDS ORDERED: METOCLOPRAMIDE HCL 10 MG TABLET PO ONE (15:57)
--- NOTE | 2017-10-06 16:01 | ER Document Report ---
ED Medical Screen (RME) - General Chief Complaint: Nausea/Vomiting/Diarrhea Stated Complaint: VOMITING Time Seen by Provider: 10/06/17 15:50 Mode of Arrival: Ambulatory Information source: Patient TRAVEL OUTSIDE OF THE [place] IN LAST 30 DAYS: No - HPI Notes: 10/06/17 15:51 22 yr old female with a hx of pulmonary stenosis (since she was 10 months old and followed with same case investigator since) who is , 23 weeks presents to the ED with nausea, vomiting and loose stool at least 12 times in the last 24 hours with intermittent LUQ abdominal pain. Denies coffee ground emesis or melena. Pt's case investigator is Dr. Myles in [place] placed her on a holter monitor for 1 month due to palpitations, she has this multiple times before. Denies any cp, sob, vaginal discharge, vaginal pain or bleeding. S1 S2 regular, sinus. lungs CTA heart tones 154 I have greeted and performed a rapid initial assessment of this patient. A comprehensive ED assessment and evaluation of the patient, analysis of test results and completion of medical decision making process will be conducted by an additional ED providers. 10/06/17 17:59 - Related Data Allergies/Adverse Reactions: albuterol [Albuterol] Allergy (Severe, Verified 09/16/17 13:29) Heart races & passes out chloraprep/pastora wipes Adverse Reaction (Mild, Uncoded 09/16/17 13:29) itching/welts Past Medical History - Social History Family history: Reviewed & Not Pertinent - Past Medical History Cardiac Medical History: Denies: Hx Coronary Artery Disease, Hx Heart Attack, Hx Hypertension Pulmonary Medical History: Denies: Hx Asthma, Hx Bronchitis, Hx COPD, Hx Pneumonia Neurological Medical History: Denies: Hx Cerebrovascular Accident, Hx Seizures Renal/ Medical History: Reports: Hx Kidney Stones. Denies: Hx Peritoneal Dialysis GI Medical History: Reports: Hx Gastroesophageal Reflux Disease - With . Denies: Hx Hiatal Hernia, Hx Ulcer Musculoskeltal Medical History: Denies Hx Arthritis Skin Medical History: Reports Hx MRSA Past Surgical History: Reports: Hx Cardiac Surgery - pulm stenosis-had stent placed, Hx Section - @41 weeks pregant due to breech - Immunizations Immunizations up to date: Yes Hx Diphtheria, Pertussis, Tetanus Vaccination: Yes History of Influenza Vaccine for 12/2016 - 05/2017 Season: Unknown Physical Exam - Vital signs Vitals: Temp Pulse Resp BP Pulse Ox 99.2 F 73 18 126/64 H 100 10/06/17 15:28 10/06/17 15:28 10/06/17 15:28 10/06/17 15:28 10/06/17 15:28 Course - Vital Signs Vital signs: Temp Pulse Resp BP Pulse Ox 99.2 F 73 18 126/64 H 100 10/06/17 15:28 10/06/17 15:28 10/06/17 15:28 10/06/17 15:28 10/06/17 15:28 - Laboratory Result Diagrams: 10/06/17 17:23 10/06/17 17:23 Doctor's Discharge - Discharge Clinical Impression: Abdominal pain affecting Nausea and vomiting Qualifiers: Vomiting type: unspecified Vomiting Intractability: non-intractable Qualified Code(s): R11.2 - Nausea with vomiting, unspecified Diarrhea Qualifiers: Diarrhea type: unspecified type Qualified Code(s): R19.7 - Diarrhea, unspecified Condition: Stable Disposition: HOME, SELF-CARE Additional Instructions: ABDOMINAL PAIN: There are many causes of abdominal pain. Pain can mean a serious problem requiring surgery (such as appendicitis). It can also be an innocent problem that goes away on its own (such as a viral infection). Often, time must pass to determine the cause of pain. The physician does not feel that hospitalization is necessary, at present. Things may change within the next 24 hours. Call the doctor or come back for re- examination if any problems occur, such as: (1) Pain that becomes more severe, steady, or becomes concentrated in one specific area. Also, pain that is more severe with movement or coughing. (2) Vomiting that persists or becomes more frequent. (3) Blood in the vomitus, urine, or bowel movements. Blood in the stool may have a tarry or black appearance. (4) Shaking chills or fever greater than 100 degrees F. (5) The abdomen becomes more distended or swollen. (6) Bowel movements cease. (7) Failure to improve as expected. ANTINAUSEA MEDICATION: You have been given a medication to suppress nausea and vomiting. This type of medication can be given as a shot, pill, or suppository. It will usually last for many hours. Pills and shots usually last six to eight hours, suppositories last about 12 hours. For the typical illness, only one or two doses of the medication may be necessary. Mild lightheadedness may occur. This type of medicine can cause drowsiness. Do not drive or operate dangerous machinery while under its influence. Do not mix with alcohol. See your doctor at once if you have muscle spasms or tightness, or uncontrollable motions (particularly of the neck, mouth, or jaw). Persistent vomiting or severe lightheadedness should also be evaluated by the physician. Please go straight to labor and delivery for labor check due to your abdominal pain and vaginal pain. You will be discharged from the emergency room and sent up with paper for labor check. FOLLOW-UP CARE: If you have been referred to a physician for follow-up care, call the physician s office for an appointment as you were instructed or within the next two days. If you experience worsening or a significant change in your symptoms, notify the physician immediately or return to the Emergency Department at any time for re-evaluation. Referrals: MRAC SABA MD [Primary Care Provider] - Follow up as needed
--- NOTE | 2017-10-06 17:44 | ER Document Report ---
ED GI/ - General Chief Complaint: Nausea/Vomiting/Diarrhea Stated Complaint: VOMITING Time Seen by Provider: 10/06/17 15:50 Mode of Arrival: Ambulatory Notes: 22-year-old female presents to ED for cramping nausea vomiting or diarrhea with side pain and headache. She states she has had a weight loss and she is 23 weeks . Patient is alert and oriented respirations regular and unlabored speaking in full sentences. Patient states she is having vaginal pain and has been for the last hour or so. I spoke with Kenia and labor and delivery. She states that they will follow-up for lab results and the IV visit is I finished my assessment to send her up to labor and delivery. This young lady states that she called [facility] and they told her to come to the hospital and they would send her up to labor and delivery where she will get some IV fluids. Patient states when she got to the hospital they did not send her to labor and delivery but put her in the emergency room instead. TRAVEL OUTSIDE OF THE [place] IN LAST 30 DAYS: No - HPI Patient complains to provider of: Abdominal pain, Diarrhea, - 22 weeks , Vomiting Onset: This morning Timing/Duration: Intermittent Quality of pain: Cramping, Pressure Severity at maximum: Severe Severity in ED: Severe Pain Level: 5 Location: LUQ, LLQ, Vaginal Vaginal bleeding (Compared to normal period): None LMP: 23 weeks heart tones (bpm): 154 Associated symptoms: Diarrhea, Nausea, Vaginal discharge, Vomiting, Other - Patient states she has had vaginal pain as well as pain to the left abdomen all day intermittently. She states she has had vomiting 6 times today a couple loose stools. Exacerbated by: Denies Relieved by: Denies Similar symptoms previously: Yes Recently seen / treated by doctor: Yes - Related Data Allergies/Adverse Reactions: albuterol [Albuterol] Allergy (Severe, Verified 09/16/17 13:29) Heart races & passes out chloraprep/pastora wipes Adverse Reaction (Mild, Uncoded 09/16/17 13:29) itching/welts Past Medical History - General Information source: Patient - Social History Smoking Status: Never Smoker Cigarette use (# per day): No Chew tobacco use (# tins/day): No Smoking Education Provided: No Frequency of alcohol use: None Drug Abuse: None Lives with: Family Family History: Reviewed & Not Pertinent Patient has suicidal ideation: No Patient has homicidal ideation: No - Past Medical History Cardiac Medical History: Reports: None Pulmonary Medical History: Reports: None EENT Medical History: Reports: None Neurological Medical History: Reports: None Endocrine Medical History: Reports: None Renal/ Medical History: Reports: Hx Kidney Stones Malignancy Medical History: Reports: None GI Medical History: Reports: Hx Gastroesophageal Reflux Disease - With Musculoskeletal Medical History: Reports None Skin Medical History: Reports Hx MRSA Psychiatric Medical History: Reports: None Traumatic Medical History: Reports: None Infectious Medical History: Reports: None Past Surgical History: Reports: Hx Cardiac Surgery - pulm stenosis-had stent placed, Hx Section - @41 weeks pregant due to breech - Immunizations Immunizations up to date: Yes Hx Diphtheria, Pertussis, Tetanus Vaccination: Yes Review of Systems - Review of Systems Constitutional: No symptoms reported EENT: No symptoms reported Cardiovascular: No symptoms reported Respiratory: No symptoms reported Gastrointestinal: Abdominal pain - Left upper and lower and suprapubic pain, Diarrhea, Nausea, Vomiting Genitourinary: No symptoms reported Female Genitourinary: , Other - vaginal pressure Musculoskeletal: No symptoms reported Skin: No symptoms reported Hematologic/Lymphatic: No symptoms reported Neurological/Psychological: No symptoms reported -: Yes All other systems reviewed and negative Physical Exam - Vital signs Vitals: Temp Pulse Resp BP Pulse Ox 99.2 F 73 18 126/64 H 100 10/06/17 15:28 10/06/17 15:28 10/06/17 15:28 10/06/17 15:28 10/06/17 15:28 Interpretation: Normal - General General appearance: Appears well, Alert - HEENT Head: Normocephalic, Atraumatic Eyes: Normal Pupils: PERRL - Respiratory Respiratory status: No respiratory distress Chest status: Nontender Breath sounds: Normal Chest palpation: Normal - Cardiovascular Rhythm: Regular Heart sounds: Normal auscultation Murmur: No - Abdominal Inspection: Normal, Gravid female - 23 weeks Distension: No distension Bowel sounds: Normal Tenderness: Tender - Left upper and lower abdominal pain suprapubic pain Organomegaly: No organomegaly - Back Back: Normal, Nontender - Extremities General upper extremity: Normal inspection, Nontender, Normal color, Normal ROM , Normal temperature General lower extremity: Normal inspection, Nontender, Normal color, Normal ROM , Normal temperature, Normal weight bearing. No: Rosi's sign - Neurological Neuro grossly intact: Yes Cognition: Normal Orientation: AAOx4 [place] Coma Scale Eye Opening: Spontaneous [place] Coma Scale Verbal: Oriented [place] Coma Scale Motor: Obeys Commands [place] Coma Scale Total: 15 Speech: Normal Motor strength normal: LUE, RUE, LLE, RLE Sensory: Normal - Psychological Associated symptoms: Normal affect, Normal mood - Skin Skin Temperature: Warm Skin Moisture: Dry Skin Color: Normal Course - Re-evaluation Re-evalutation: 10/06/17 18:13 Talk with Kenia in labor and delivery unit. Patient will have her labs evaluated by labor and delivery and she will complete her IV fluids in labor and delivery. Patient is complaining of vaginal pain and will be discharged from the emergency room and sent to labor and delivery promptly. Patient was transported to labor and delivery by stretcher. - Vital Signs Vital signs: Temp Pulse Resp BP Pulse Ox 98.1 F 78 16 122/72 100 10/06/17 18:00 10/06/17 18:00 10/06/17 18:00 10/06/17 18:00 10/06/17 18:00 - Laboratory Result Diagrams: 10/06/17 17:23 10/06/17 17:23 Laboratory results interpreted by me: 10/06/17 10/06/17 17:23 17:23 BUN 4 L Creatinine 0.48 L AST 11 L Beta HCG, Quant 54961.00 H Urine Glucose (UA) 50 H Discharge - Discharge Clinical Impression: Abdominal pain affecting Nausea and vomiting Qualifiers: Vomiting type: unspecified Vomiting Intractability: non-intractable Qualified Code(s): R11.2 - Nausea with vomiting, unspecified Diarrhea Qualifiers: Diarrhea type: unspecified type Qualified Code(s): R19.7 - Diarrhea, unspecified Condition: Stable Disposition: HOME, SELF-CARE Additional Instructions: ABDOMINAL PAIN: There are many causes of abdominal pain. Pain can mean a serious problem requiring surgery (such as appendicitis). It can also be an innocent problem that goes away on its own (such as a viral infection). Often, time must pass to determine the cause of pain. The physician does not feel that hospitalization is necessary, at present. Things may change within the next 24 hours. Call the doctor or come back for re- examination if any problems occur, such as: (1) Pain that becomes more severe, steady, or becomes concentrated in one specific area. Also, pain that is more severe with movement or coughing. (2) Vomiting that persists or becomes more frequent. (3) Blood in the vomitus, urine, or bowel movements. Blood in the stool may have a tarry or black appearance. (4) Shaking chills or fever greater than 100 degrees F. (5) The abdomen becomes more distended or swollen. (6) Bowel movements cease. (7) Failure to improve as expected. ANTINAUSEA MEDICATION: You have been given a medication to suppress nausea and vomiting. This type of medication can be given as a shot, pill, or suppository. It will usually last for many hours. Pills and shots usually last six to eight hours, suppositories last about 12 hours. For the typical illness, only one or two doses of the medication may be necessary. Mild lightheadedness may occur. This type of medicine can cause drowsiness. Do not drive or operate dangerous machinery while under its influence. Do not mix with alcohol. See your doctor at once if you have muscle spasms or tightness, or uncontrollable motions (particularly of the neck, mouth, or jaw). Persistent vomiting or severe lightheadedness should also be evaluated by the physician. Please go straight to labor and delivery for labor check due to your abdominal pain and vaginal pain. You will be discharged from the emergency room and sent up with paper for labor check. FOLLOW-UP CARE: If you have been referred to a physician for follow-up care, call the physician s office for an appointment as you were instructed or within the next two days. If you experience worsening or a significant change in your symptoms, notify the physician immediately or return to the Emergency Department at any time for re-evaluation. Referrals: MARC SABA MD [Primary Care Provider] - Follow up as needed
[2017-10-06 17:55] LABS: ABSOLUTE EOSINOPHILS # (AUTO) 0.1 10^3/uL (0.0-0.6); ABSOLUTE LYMPHOCYTES (AUTO) 2.4 10^3/uL (0.5-4.7); ABSOLUTE MONOCYTES (AUTO) 0.7 10^3/uL (0.1-1.4); ABSOLUTE NEUT (AUTO) 6.7 10^3/uL (1.7-8.2); BASOPHILS % (AUTO) 0.3 % (0-2); EOSINOPHILS % (AUTO) 0.7 % (0-6); HEMATOCRIT 40.5 % (36.0-47.0); HEMOGLOBIN 14.5 g/dL (12.0-15.5); LYMPHOCYTES % (AUTO) 24.4 % (13-45); MEAN CORPUSCULAR HEMOGLOBIN 32.7 pg (27.0-33.4); MEAN CORPUSCULAR HGB CONC 35.7 g/dL (32.0-36.0); MEAN CORPUSCULAR VOLUME 92 fl (80-97); MONOCYTES % (AUTO) 7.2 % (3-13); PLATELET COUNT 170 10^3/uL (150-450); RED BLOOD COUNT 4.43 10^6/uL (3.72-5.28); RED CELL DISTRIBUTION WIDTH 13.9 % (11.5-14.0); SEGMENTED NEUTROPHILS % (AUTO) 67.4 % (42-78); TOTAL CELLS COUNTED % (AUTO) 100 %
[2017-10-06 18:05] LABS: APPEARANCE,URINE CLEAR; BILIRUBIN,URINE NEGATIVE (NEGATIVE); COLOR,URINE YELLOW; GLUCOSE, URINE 50 mg/dL (NEGATIVE); KETONES,URINE NEGATIVE (NEGATIVE); LEUKOCYTE ESTERASE,URINE NEGATIVE (NEGATIVE); NITRITE,URINE NEGATIVE (NEGATIVE); PROTEIN,URINE NEGATIVE (NEGATIVE); URINE SPECIFIC GRAVITY 1.009; UROBILINOGEN,URINE NEGATIVE mg/dL (<2.0)
[2017-10-06 18:12] VITALS: BP 122/72
[2017-10-06 18:17] LABS: ALANINE AMINOTRANSFERASE 18 U/L (9-52); ALKALINE PHOSPHATASE 71 U/L (38-126); ANION GAP 12 (5-19); ASPARTATE AMINO TRANSFERASE 11 U/L (14-36); BILIRUBIN,DIRECT 0.2 mg/dL (0.0-0.4); BILIRUBIN,TOTAL 0.6 mg/dL (0.2-1.3); BLOOD UREA NITROGEN 4 mg/dL (7-20); CALCIUM 9.2 mg/dL (8.4-10.2); CARBON DIOXIDE 26 mmol/L (22-30); CHLORIDE 102 mmol/L (98-107); GLUCOSE 99 mg/dL (75-110); POTASSIUM 3.8 mmol/L (3.6-5.0); SODIUM 140.4 mmol/L (137-145); TOTAL PROTEIN 6.9 g/dL (6.3-8.2)
== END 2017-10-06 18:10 | disposition home or self-care (01) ==
LOC: ER 15:06
DX: O21.2 Late vomiting of pregnancy (principal); R10.9 Unspecified abdominal pain; R19.7 Diarrhea, unspecified; Z3A.23 23 weeks gestation of pregnancy
CPT/HCPCS: 99284; 96360; 36415; 84702; 85025; 80053; 81001; J3490; J7030

== ENCOUNTER 2017-10-06 17:58 | Outpatient (CLI) | payer MEDICAID ==
[2017-10-06 20:32] LABS: URINE AMPHETAMINES SCREEN NEGATIVE; URINE BARBITURATES SCREEN NEGATIVE; URINE BENZODIAZEPINES SCREEN NEGATIVE; URINE COCAINE SCREEN NEGATIVE; URINE MARIJUANA (THC) SCREEN NEGATIVE; URINE METHADONE SCREEN NEGATIVE; URINE PHENCYCLIDINE SCREEN NEGATIVE
--- NOTE | 2017-10-06 20:34 | RADIOLOGY REPORT (SQ) ---
EXAM DESCRIPTION: U/S OB LIMITED COMPLETED DATE/TIME: 10/06/2017 8:14 pm REASON FOR STUDY: lower abdominal pain, cervical lenght, FWB COMPARISON: 09/16/2017 TECHNIQUE: Limited transabdominal grayscale ultrasound for evaluation of specific requested obstetri javed parameters. LIMITATIONS: None. FINDINGS: CERVICAL LENGTH: 3.3 cm Closed. BAKARI: 13.5 cm. FHR: 145 beats per minute. PRESENTATION: Breech OTHER: Anterior placenta. IMPRESSION: LIMITED OBSTETRICAL ULTRASOUND WITH MEASURED PARAMETERS DELINEATED ABOVE. Trimester of : Second trimester - 13 weeks 1 day to 27 weeks 6 days. TECHNICAL DOCUMENTATION: JOB ID: [id number] 2010 [employer]- All Rights Reserved Reading location - IP/workstation name: [email or web address]
== END 2017-10-06 20:45 | disposition home or self-care (01) ==
LOC: LC 17:58
PROVIDERS: ATTEND Student in an Organized Health Care Education/Training Program
PROC: 4A1HXCZ Monitoring of Products of Conception, Cardiac Rate, External Approach (ICD-10-PCS; principal; 2017-10-06)
DX: O21.2 Late vomiting of pregnancy (principal); O26.892 Other specified pregnancy related conditions, second trimester; R10.9 Unspecified abdominal pain; Z3A.22 22 weeks gestation of pregnancy
CPT/HCPCS: 76815; 80307

== ENCOUNTER 2017-10-17 13:06 | Outpatient (CLI) | payer MEDICAID ==
[2017-10-17 14:19] LABS: APPEARANCE,URINE CLEAR; BILIRUBIN,URINE NEGATIVE (NEGATIVE); COLOR,URINE STRAW; GLUCOSE, URINE 50 mg/dL (NEGATIVE); KETONES,URINE NEGATIVE (NEGATIVE); LEUKOCYTE ESTERASE,URINE NEGATIVE (NEGATIVE); NITRITE,URINE NEGATIVE (NEGATIVE); PROTEIN,URINE NEGATIVE (NEGATIVE); URINE SPECIFIC GRAVITY 1.002; UROBILINOGEN,URINE NEGATIVE mg/dL (<2.0)
[2017-10-17 14:21] LABS: BACTERIA (WET MOUNT) 3+ BACTERIA SEEN; EPITHELIALS (WET MOUNT) 4+ EPITHELIALS SEEN; WBCS (WET MOUNT) 1+ WBCS SEEN; YEAST (WET MOUNT) NO YEAST SEEN
[2017-10-17 14:23] LABS: T.VAGINALIS (WET MOUNT) COULD NOT PERFORM
[2017-10-17 14:44] LABS: URINE AMPHETAMINES SCREEN NEGATIVE; URINE BARBITURATES SCREEN NEGATIVE; URINE BENZODIAZEPINES SCREEN NEGATIVE; URINE COCAINE SCREEN NEGATIVE; URINE MARIJUANA (THC) SCREEN NEGATIVE; URINE METHADONE SCREEN NEGATIVE; URINE PHENCYCLIDINE SCREEN NEGATIVE
[2017-10-17 15:55] LABS: CHLAM PCR NOT DETECTED (NOT DETECT); GON PCR NOT DETECTED (NOT DETECT)
--- NOTE | 2017-10-17 17:56 | RADIOLOGY REPORT (SQ) ---
EXAM DESCRIPTION: U/S OB LIMITED COMPLETED DATE/TIME: 10/17/2017 5:49 pm REASON FOR STUDY: IUP @ 24w3d w vaginal bleeding and abdominal pain COMPARISON: 10/06/2017 TECHNIQUE: Limited transvaginal grayscale ultrasound for evaluation of specific requested obstetrica l parameters. LIMITATIONS: None. FINDINGS: CERVICAL LENGTH: 3.5 Closed. BAKARI: 14.7 cm. FHR: 156 beats per minute. PRESENTATION: Breech OTHER: No other significant findings. IMPRESSION: LIMITED OBSTETRICAL ULTRASOUND WITH MEASURED PARAMETERS DELINEATED ABOVE. Trimester of : Second trimester - 13 weeks 1 day to 27 weeks 6 days. TECHNICAL DOCUMENTATION: JOB ID: [id number] [employer]- All Rights Reserved Reading location - IP/workstation name: [email or web address]
== END 2017-10-17 18:02 | disposition home or self-care (01) ==
LOC: CANPRECLI → LC 13:06
PROVIDERS: ATTEND Obstetrics & Gynecology Gynecology
PROC: 4A1HXCZ Monitoring of Products of Conception, Cardiac Rate, External Approach (ICD-10-PCS; principal; 2017-10-17)
DX: O47.02 False labor before 37 completed weeks of gestation, second trimester (principal); O46.92 Antepartum hemorrhage, unspecified, second trimester; Z3A.24 24 weeks gestation of pregnancy
CPT/HCPCS: 76815; 80307; 81001; 87210; 87491; 87591

== ENCOUNTER 2017-11-05 09:49 | Outpatient (CLI) | payer MEDICAID ==
[2017-11-05 10:54] LABS: APPEARANCE,URINE CLEAR; BILIRUBIN,URINE NEGATIVE (NEGATIVE); COLOR,URINE YELLOW; GLUCOSE, URINE NEGATIVE (NEGATIVE); KETONES,URINE NEGATIVE (NEGATIVE); LEUKOCYTE ESTERASE,URINE NEGATIVE (NEGATIVE); NITRITE,URINE NEGATIVE (NEGATIVE); PROTEIN,URINE NEGATIVE (NEGATIVE); URINE SPECIFIC GRAVITY 1.013; UROBILINOGEN,URINE NEGATIVE mg/dL (<2.0)
[2017-11-05 11:11] LABS: URINE AMPHETAMINES SCREEN NEGATIVE; URINE BARBITURATES SCREEN NEGATIVE; URINE BENZODIAZEPINES SCREEN NEGATIVE; URINE COCAINE SCREEN NEGATIVE; URINE MARIJUANA (THC) SCREEN NEGATIVE; URINE METHADONE SCREEN NEGATIVE; URINE PHENCYCLIDINE SCREEN NEGATIVE
== END 2017-11-05 10:55 | disposition home or self-care (01) ==
LOC: LC 09:49
PROVIDERS: ATTEND Obstetrics & Gynecology Gynecology
PROC: 4A1HXCZ Monitoring of Products of Conception, Cardiac Rate, External Approach (ICD-10-PCS; principal; 2017-11-05)
DX: O26.892 Other specified pregnancy related conditions, second trimester (principal); R51 Headache; Z3A.27 27 weeks gestation of pregnancy
CPT/HCPCS: 80307; 81001

== ENCOUNTER 2017-11-18 18:56 | Outpatient (CLI) | payer MEDICAID ==
[2017-11-18 20:12] LABS: APPEARANCE,URINE CLEAR; BILIRUBIN,URINE NEGATIVE (NEGATIVE); COLOR,URINE YELLOW; GLUCOSE, URINE 50 mg/dL (NEGATIVE); KETONES,URINE NEGATIVE (NEGATIVE); LEUKOCYTE ESTERASE,URINE NEGATIVE (NEGATIVE); NITRITE,URINE NEGATIVE (NEGATIVE); PROTEIN,URINE NEGATIVE (NEGATIVE); URINE SPECIFIC GRAVITY 1.019
[2017-11-18 20:31] LABS: URINE AMPHETAMINES SCREEN NEGATIVE; URINE BARBITURATES SCREEN NEGATIVE; URINE BENZODIAZEPINES SCREEN NEGATIVE; URINE COCAINE SCREEN NEGATIVE; URINE MARIJUANA (THC) SCREEN NEGATIVE; URINE METHADONE SCREEN NEGATIVE; URINE PHENCYCLIDINE SCREEN NEGATIVE
--- NOTE | 2017-11-18 21:07 | RADIOLOGY REPORT (SQ) ---
EXAM DESCRIPTION: U/S OB LIMITED COMPLETED DATE/TIME: 11/18/2017 8:46 pm REASON FOR STUDY: cervical length severe abd pain COMPARISON: 10/17/2017 TECHNIQUE: Limited transabdominal grayscale ultrasound for evaluation of specific requested obstetri javed parameters. LIMITATIONS: None. FINDINGS: CERVICAL LENGTH: 3.5 cm. Closed. BAKARI: Not measured. Cm. FHR: 147 beats per minute. PRESENTATION: Cephalic. OTHER: No other significant findings. IMPRESSION: LIMITED OBSTETRICAL ULTRASOUND WITH MEASURED PARAMETERS DELINEATED ABOVE. Trimester of : Third trimester - 28 weeks to delivery. TECHNICAL DOCUMENTATION: JOB ID: [id number] [employer]- All Rights Reserved Reading location - IP/workstation name: [email or web address]
== END 2017-11-18 21:45 | disposition home or self-care (01) ==
LOC: LC 18:56
PROVIDERS: ATTEND Obstetrics & Gynecology
PROC: 4A1HXCZ Monitoring of Products of Conception, Cardiac Rate, External Approach (ICD-10-PCS; principal; 2017-11-18)
DX: O47.03 False labor before 37 completed weeks of gestation, third trimester (principal); Z3A.29 29 weeks gestation of pregnancy
CPT/HCPCS: 76815; 80307; 81001

== ENCOUNTER → 2017-12-16 | Outpatient (CLI) | payer MEDICAID ==
--- NOTE | 2017-12-17 19:25 | EKG REPORT ---
SEVERITY:- OTHERWISE NORMAL ECG - SINUS ARRHYTHMIA, RATE 74-85 VENTRICULAR PREMATURE COMPLEX : Confirmed by: Silverio Dave 17-Dec-2017 19:24:29
--- NOTE | 2017-12-19 15:37 | NONINVASIVE CARDIOLOGY REPORT ---
ECHOCARDIOGRAPHY REPORT [id number] RO[facility]#: DATE OF SERVICE: 12/16/2017 : 1995 [facility] REFERENCE #: [id number] PRIMARY CARE: Dee Thomas MD (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 REPORT This echocardiogram shows good cardiac function. Right ventricle is not abnormally large and not hypertrophied. Pulmonary valve function is normal. There is no abnormal pulmonary valve stenosis. Left ventricular size, wall thickness, and septal thickness are within normal limits, with normal LV ejection fraction 74%. Atrial sizes are normal. Aortic root is normal. Morphology of the aortic, mitral, and tricuspid valves are normal. There is no aortic coarctation. Doppler velocities are normal through the four cardiac valves and descending aorta. Color mapping shows normal degree of pulmonary valve regurgitation and no abnormal valve regurgitations. CARDIAC DIMENSIONS: LVED 4.5 cm, LVES 2.6 cm, LV wall 0.9 cm, septum 1.1 cm, right ventricle 3.0 cm, left atrium 3.6 cm. DOPPLER VELOCITIES: Aorta 1.2 m/sec, descending aorta 1.7, mitral 0.8 m/sec, pulmonary 0.8 m/sec, tricuspid 0.6 m/sec. FINAL IMPRESSION: NORMAL ECHOCARDIOGRAM YEARS AFTER INFANT BALLOON DILATION OF PULMONARY VALVE. PREMATURE ATRIAL BEATS ARE NOTED DURING THE STUDY, BUT VENTRICULAR FUNCTION IS EXCELLENT. INTERPRETING PHYSICIAN: MARQUITA DALEY MD /: [id number] TT: [id number] ID: [id number] /: [id number] TD: [id number] JOB: [id number] cc:MARQUITA DALEY MD >
--- NOTE | 2017-12-19 15:42 | [facility] ---
[facility] NAME: MICKEY GARZA [facility] REFERENCE #: [id number] : 1995 DATE OF VISIT: 12/16/2017 PRIMARY CARE: Faith Bernal NP and Dee Thomas MD, [facility]. CHIEF COMPLAIN: Followup of congenital heart disease and arrhythmia in a young woman who is at 33 weeks gestation . HISTORY: The patient is seen with her and her daughter at our [facility]. I performed a catheter balloon dilation of her pulmonary valve many years ago when she was an . Her result has been good with minimal pulmonary stenosis and good pulmonary valve function. We have noted over the years she has frequent premature atrial beats but she has not had any cardiac dysfunction from them. She is at 33 weeks' gestation . She says that she is feeling well. She feels no palpitations. She did feel palpitations up until about 20 weeks and now she no longer feels them. She feels good. Her energy seems good. Her breathing is good. She says that her glucose has been borderline but she is controlling her blood sugar without need of medication and that her fasting blood sugar is 90 and her postprandial 115. 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 She states the female fetus is doing well intrauterine. MEDICATIONS: vitamins. ALLERGIES TO MEDICATIONS: Stated to be ALBUTEROL allergic. SOCIAL HISTORY: Lives with her and her [id number] daughter. PAST MEDICAL HISTORY: See HPI. REVIEW OF SYSTEMS: Negative for significant headaches, chest pain, GI symptoms, urinary complaints, musculoskeletal issues, or abnormal bleeding issues. FAMILY HISTORY: She had a brother who during surgery for complex congenital heart disease. PHYSICAL EXAM: Weight 174 pounds, height 63 inches. Blood pressure 117/77, heart rate 80. General exam is a pleasant, well-appearing woman with good color and perfusion. I hear a premature atrial beat about every 20th heart beat. There is really no abnormal murmur. Lungs clear. Thyroid not enlarged. Abdomen is gravid. Distal pulses are excellent. Gait and coordination good. Extremities without edema. A twelve-lead electrocardiogram shows one premature atrial beat and the rest of the EKG is very normal. Her echocardiogram shows occasional premature atrial beat. Her pulmonary valve function is essentially normal after the pulmonary balloon catheter procedure many years ago. She has excellent left ventricular function and a normal appearing right heart. Her ejection fraction today was 74%. I reviewed result of a Holter monitor that was done here August 26 and it showed about 12,000 premature atrial beats representing about 12% of the QRS complexes. There was a four beat run of atrial ectopic rhythm at 160 beats per minute at which time she felt a palpitation. 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 SHE HAS FREQUENT ATRIAL PREMATURE BEATS BUT SHE IS AT VERY LOW RISK TO DEVELOP CLASSIC SVT. SHE COULD HAVE RUNS OF ATRIAL TACHYCARDIA IN THE UPPER 100S BUT EVEN IF THIS OCCURRED DURING DELIVERY IT SHOULD NOT RESULT IN ANY SYMPTOMS OR HEMODYNAMIC COMPROMISE. AT PRESENT, SHE IS FEELING NO PALPITATIONS. THERE IS NO INDICATION FOR HER TO BE ON ANTIARRHYTHMIC MEDICATION. IF SHE FEELS FREQUENT PALPITATIONS AFTER SHE DELIVERS AND IF SHE WISHES TO HAVE AN ABLATION OF HER ATRIAL FLUTTER, WHICH IT COULD BE, WE COULD OBTAIN A CONSULTATION REGARDING THIS BUT AT PRESENT SHE HAS NO MEDICAL INDICATION TO PERFORM THIS IN THE ABSENCE OF SYMPTOMS. I have asked her to call me after she delivers her baby and we can discuss if palpitations return. Because she has such frequent PACs, return to Pediatric Cardiology or adult environmental science program director within the next couple of years as recommended. MARQUITA DALEY MD [id number] PHY#: [id number] ID: [id number] JOB#: [id number] ACCT: [id number] cc:MARQUITA DALEY MD >
== END ==
LOC: PC 10:29
PROVIDERS: ATTEND Pediatrics Pediatric Cardiology
DX: I49.1 Atrial premature depolarization (principal); Q22.1 Congenital pulmonary valve stenosis
CPT/HCPCS: 93005; 93010; 93304; 93321; 93325

== ENCOUNTER 2017-12-23 16:23 | Outpatient (CLI) | payer MEDICAID ==
[2017-12-23 17:03] LABS: APPEARANCE,URINE SLIGHTLY-CLOUDY; BILIRUBIN,URINE NEGATIVE (NEGATIVE); COLOR,URINE YELLOW; GLUCOSE, URINE NEGATIVE (NEGATIVE); KETONES,URINE NEGATIVE (NEGATIVE); LEUKOCYTE ESTERASE,URINE NEGATIVE (NEGATIVE); NITRITE,URINE NEGATIVE (NEGATIVE); PROTEIN,URINE 30 mg/dL (NEGATIVE); URINE SPECIFIC GRAVITY 1.017; UROBILINOGEN,URINE NEGATIVE mg/dL (<2.0)
[2017-12-23 17:20] LABS: URINE AMPHETAMINES SCREEN NEGATIVE; URINE BARBITURATES SCREEN NEGATIVE; URINE BENZODIAZEPINES SCREEN NEGATIVE; URINE COCAINE SCREEN NEGATIVE; URINE MARIJUANA (THC) SCREEN NEGATIVE; URINE METHADONE SCREEN NEGATIVE; URINE PHENCYCLIDINE SCREEN NEGATIVE
[2017-12-23] MEDS ORDERED: HYDROXYZINE PAMOATE 50 MG CAPSULE ONE (17:29)
[2017-12-23] MEDS ORDERED: HYDROXYZINE PAMOATE 50 MG CAPSULE PO ONE (18:00)
--- NOTE | 2017-12-23 20:35 | Non Stress Test Report ---
Non Stress Test Datetime Report Generated by CPN: 12/23/2017 20:35 DEMOGRAPHIC EGA NST: 34.0 INDICATION Indication for Study: Ordered by Provider Indication for Study (NST) Other: LC URINE RESULTS Urine Protein, NST: Positive Urine Ketones - NST: Negative Urine Glucose - NST: Negative Urine Blood - NST: Negative MONITORING Monitor Explained: Monitor Explained; Test Explained; Patient Verbalized Understanding Time on Monitor: 12/23/2017 18:45 Time off Monitor: 12/23/2017 19:12 NST Duration: 27 NST INTERVENTIONS NST Interventions: PO Hydration Physician Notified NST: Dr. Giang BABY A: [id number] BABY A Movement : Present FHR Baseline : 135 Accelerations : 15X15 Decelerations : None Variability : Moderate 6-25bpm NST Review: Meets Criteria for Reactive NST NST Review and Verified By : Uma Herrera RN NST Results: Reactive NST REPORT Report Trigger: Send Report
== END 2017-12-23 20:28 | disposition home or self-care (01) ==
LOC: LC 16:23
PROVIDERS: ATTEND Student in an Organized Health Care Education/Training Program
PROC: 4A1HXCZ Monitoring of Products of Conception, Cardiac Rate, External Approach (ICD-10-PCS; principal; 2017-12-23)
DX: O47.03 False labor before 37 completed weeks of gestation, third trimester (principal); Z3A.34 34 weeks gestation of pregnancy
CPT/HCPCS: 59025; 81005; 80307; J3490

== ENCOUNTER 2017-12-26 10:09 | Outpatient (CLI) | payer MEDICAID ==
--- NOTE | 2017-12-26 10:59 | Non Stress Test Report ---
Non Stress Test Datetime Report Generated by CPN: 12/26/2017 10:58 DEMOGRAPHIC EGA NST: 34.3 INDICATION Indication for Study: Ordered by Provider MONITORING Monitor Explained: Monitor Explained; Test Explained; Patient Verbalized Understanding Time on Monitor: 12/26/2017 10:17 Time off Monitor: 12/26/2017 10:48 NST Duration: 31 NST INTERVENTIONS NST Interventions: None Physician Notified NST: C. Canales, CNM BABY A: [id number] BABY A Movement : Present Contraction Frequency : irregular FHR Baseline : 135 Accelerations : 15X15 Decelerations : None Variability : Moderate 6-25bpm NST Review: Meets Criteria for Reactive NST NST Review and Verified By : BRITTNEY Martinez Results: Reactive NST REPORT Report Trigger: Send Report
== END 2017-12-26 10:53 | disposition home or self-care (01) ==
LOC: LC 10:09
PROVIDERS: ATTEND Obstetrics & Gynecology
PROC: 4A1HXCZ Monitoring of Products of Conception, Cardiac Rate, External Approach (ICD-10-PCS; principal; 2017-12-26)
DX: Z34.93 Encounter for supervision of normal pregnancy, unspecified, third trimester (principal)
CPT/HCPCS: 59025

== ENCOUNTER 2017-12-30 14:26 | Outpatient (CLI) | payer MEDICAID ==
[2017-12-30 15:24] LABS: APPEARANCE,URINE SLIGHTLY-CLOUDY; BILIRUBIN,URINE NEGATIVE (NEGATIVE); COLOR,URINE YELLOW; GLUCOSE, URINE NEGATIVE (NEGATIVE); KETONES,URINE TRACE mg/dL (NEGATIVE); LEUKOCYTE ESTERASE,URINE NEGATIVE (NEGATIVE); NITRITE,URINE NEGATIVE (NEGATIVE); PROTEIN,URINE NEGATIVE (NEGATIVE); URINE SPECIFIC GRAVITY 1.009; UROBILINOGEN,URINE NEGATIVE mg/dL (<2.0)
[2017-12-30 15:41] LABS: URINE AMPHETAMINES SCREEN NEGATIVE; URINE BARBITURATES SCREEN NEGATIVE; URINE BENZODIAZEPINES SCREEN NEGATIVE; URINE COCAINE SCREEN NEGATIVE; URINE MARIJUANA (THC) SCREEN NEGATIVE; URINE METHADONE SCREEN NEGATIVE; URINE PHENCYCLIDINE SCREEN NEGATIVE
--- NOTE | 2017-12-30 16:08 | Non Stress Test Report ---
Non Stress Test Datetime Report Generated by CPN: 12/30/2017 16:08 DEMOGRAPHIC EGA NST: 35.0 INDICATION Indication for Study: Ordered by Provider MONITORING Monitor Explained: Monitor Explained; Test Explained; Patient Verbalized Understanding Time on Monitor: 12/30/2017 14:42 Time off Monitor: 12/30/2017 15:50 NST Duration: 68 NST INTERVENTIONS NST Interventions: None BABY A: [id number] BABY A Movement : Present Contraction Frequency : rare FHR Baseline : 135 Accelerations : 15X15 Decelerations : None Variability : Moderate 6-25bpm NST Review: Meets Criteria for Reactive NST NST Review and Verified By : Anne Chou RN NST Results: Reactive NST REPORT Report Trigger: Send Report
== END 2017-12-30 15:58 | disposition home or self-care (01) ==
LOC: LC 14:26
PROVIDERS: ATTEND Obstetrics & Gynecology
PROC: 4A1HXCZ Monitoring of Products of Conception, Cardiac Rate, External Approach (ICD-10-PCS; principal; 2017-12-30)
DX: O47.03 False labor before 37 completed weeks of gestation, third trimester (principal); Z3A.35 35 weeks gestation of pregnancy
CPT/HCPCS: 59025; 80307; 81001; 84112

== ENCOUNTER 2018-01-04 03:37 | Outpatient (CLI) | payer MEDICAID ==
[2018-01-04 04:06] LABS: APPEARANCE,URINE CLEAR; BILIRUBIN,URINE NEGATIVE (NEGATIVE); COLOR,URINE STRAW; GLUCOSE, URINE NEGATIVE (NEGATIVE); KETONES,URINE NEGATIVE (NEGATIVE); LEUKOCYTE ESTERASE,URINE NEGATIVE (NEGATIVE); NITRITE,URINE NEGATIVE (NEGATIVE); PROTEIN,URINE NEGATIVE (NEGATIVE); URINE SPECIFIC GRAVITY 1.009; UROBILINOGEN,URINE NEGATIVE mg/dL (<2.0)
[2018-01-04 04:21] LABS: URINE AMPHETAMINES SCREEN NEGATIVE; URINE BARBITURATES SCREEN NEGATIVE; URINE BENZODIAZEPINES SCREEN NEGATIVE; URINE COCAINE SCREEN NEGATIVE; URINE MARIJUANA (THC) SCREEN NEGATIVE; URINE METHADONE SCREEN NEGATIVE; URINE PHENCYCLIDINE SCREEN NEGATIVE
[2018-01-04] MEDS ORDERED: HYDROXYZINE PAMOATE 50 MG CAPSULE ONE (04:26)
--- NOTE | 2018-01-04 04:43 | Non Stress Test Report ---
Non Stress Test Datetime Report Generated by CPN: 01/04/2018 04:43 DEMOGRAPHIC EGA NST: 35.5 INDICATION Indication for Study: Ordered by Provider Indication for Study (NST) Other: LC MONITORING Monitor Explained: Monitor Explained; Test Explained; Patient Verbalized Understanding Time on Monitor: 01/04/2018 03:54 Time off Monitor: 01/04/2018 04:34 NST Duration: 40 NST INTERVENTIONS NST Interventions: PO Hydration; Reposition Patient Physician Notified NST: Aranda BABY A: [id number] BABY A Movement : Present Contraction Frequency : 3-7 FHR Baseline : 135 Accelerations : 15X15 Decelerations : None Variability : Moderate 6-25bpm NST Review: Meets Criteria for Reactive NST NST Review and Verified By : Fransico Krueger RN NST Results: Reactive NST REPORT Report Trigger: Send Report
[2018-01-04] MEDS ORDERED: HYDROXYZINE PAMOATE 50 MG CAPSULE PO ONE (04:50)
== END 2018-01-04 04:44 | disposition home or self-care (01) ==
LOC: LC 03:37
PROVIDERS: ATTEND Obstetrics & Gynecology
PROC: 4A1HXCZ Monitoring of Products of Conception, Cardiac Rate, External Approach (ICD-10-PCS; principal; 2018-01-04)
DX: O47.03 False labor before 37 completed weeks of gestation, third trimester (principal); Z3A.35 35 weeks gestation of pregnancy
CPT/HCPCS: 59025; 81001; 80307; J3490

== ENCOUNTER 2018-01-14 21:40 | Outpatient (CLI) | payer MEDICAID ==
[2018-01-14 22:47] LABS: APPEARANCE,URINE CLOUDY; BILIRUBIN,URINE NEGATIVE (NEGATIVE); COLOR,URINE YELLOW; GLUCOSE, URINE 50 mg/dL (NEGATIVE); KETONES,URINE NEGATIVE (NEGATIVE); LEUKOCYTE ESTERASE,URINE NEGATIVE (NEGATIVE); NITRITE,URINE NEGATIVE (NEGATIVE); PROTEIN,URINE 30 mg/dL (NEGATIVE); URINE SPECIFIC GRAVITY 1.021
[2018-01-14 23:07] LABS: URINE AMPHETAMINES SCREEN NEGATIVE; URINE BARBITURATES SCREEN NEGATIVE; URINE BENZODIAZEPINES SCREEN NEGATIVE; URINE COCAINE SCREEN NEGATIVE; URINE MARIJUANA (THC) SCREEN NEGATIVE; URINE METHADONE SCREEN NEGATIVE; URINE PHENCYCLIDINE SCREEN NEGATIVE
--- NOTE | 2018-01-14 23:27 | Non Stress Test Report ---
Non Stress Test Datetime Report Generated by CPN: 01/14/2018 23:27 DEMOGRAPHIC EGA NST: 37.1 INDICATION Indication for Study: Ordered by Provider Indication for Study (NST) Other: LC URINE RESULTS Urine Protein, NST: Positive Urine Ketones - NST: Negative Urine Glucose - NST: Positive Urine Blood - NST: Negative MONITORING Monitor Explained: Monitor Explained; Test Explained; Patient Verbalized Understanding Time on Monitor: 01/14/2018 22:06 Time off Monitor: 01/14/2018 23:19 NST Duration: 73 NST INTERVENTIONS NST Interventions: PO Hydration Physician Notified NST: Gregorio Elliott BABY A: [id number] BABY A Movement : Present Contraction Frequency : irregular FHR Baseline : 135 Accelerations : Prolonged Decelerations : None Variability : Moderate 6-25bpm NST Review: Meets Criteria for Reactive NST NST Review and Verified By : Maria Elena Mcguire RN NST REPORT Report Trigger: Send Report
--- NOTE | 2018-01-14 23:51 | RADIOLOGY REPORT (SQ) ---
EXAM DESCRIPTION: US BIOPHYSICAL PROFILE WITHOUT NON STRESS TEST COMPLETED DATE/TME: 01/14/2018 00:00 CLINICAL HISTORY: 22 years, Female, BPP Findings: Limited obstetric ultrasound demonstrates biophysical profile score of eight out of eight points. heart rate 169 bpm. BAKARI is low at 3.5 cm. IMPRESSION: Oligohydramnios. Biophysical profile score 8 out of eight points.
--- NOTE | 2018-01-15 01:49 | Admission Physical ---
Datetime Report Generated by CPN: 01/15/2018 01:49 CURRENT ADMISSION Chief Complaint: Decreased Movement; Other Chief Complaint Other: Widespread itching of hands, face, feet, legs x 3 days. Has not tried any remedies. Indication for Induction: Not Applicable Admit Impression : Term, Intrauterine ; No Active Labor Admit Impression- Other: Oligohydramnios Pruritis Admit Plan: Discharge Home Admit Plan- Other: BPP 88 (BAKARI 3.5 with 2x2 single pocket) Fractionated bile acids ordered ALLERGIES Medication Allergies: Yes Medication Allergies: albuterol/SV/Heart races p (01/04/2018) Latex: No Latex Allergies Food Allergies: none Environmental Allergies: none OBSTETRICAL HISTORY EDC: 02/03/2018 00:00 : 2 Para: 1 Term: 1 : 0 SAB: 0 IAB: 0 Ectopic: 0 Livin Cesareans: 1 VBACs: 0 Multiple Births: 0 Gestational Diabetes: No Rh Sensitization: No Incompetent Cervix: No MYRON: No Infertility: No ART Treatment: No Uterine Anomaly: No IUGR: No Hx Previous C/S: Yes Macrosomia: No Hx Loss/Stillborn: No PIH: No Hx : No Placenta Previa/Abruption: No Depression/PP Depression: No PTL/PROM: No Post Hemorrhage: No Current Procedures: Ultrasound; NST (Annotations: Data stored by CPN on behalf of user) Obstetrical History Comments: - 2013 41 weeks primary c/s r/t breech presentation G2- current , desires SEE RECORDS Alcohol: No Marijuana : No Cocaine: No Other Illicit Drugs: No Cigarettes: Former Smoker. 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 INFECTIOUS HISTORY Gonorrhea: No Genital Herpes: No Chlamydia: Yes Tuberculosis: No Syphilis: No Hepatitis: No HIV/AIDS Exposure: No Rash or Viral Illness: No HPV: No Infectious History Comments: chlamydia 2016 PHYSICAL EXAM General: Normal HEENT: Normal Neurologic: Normal Genitourinary Exam: Normal Pelvic Type: Adequate Vital Signs: Reviewed; Within Normal Limits VAGINAL EXAM Dilatation: 0 Effacement: 0 Station: -3 MEMBRANES Membranes: Intact FETUS A EGA: 37.2 Monitoring: External US FHR- Baseline: 135 Variability: Moderate 6-25bpm Accelerations: 15X15 Decelerations: None FHR Category: Category I Presentation: Vertex PLANS FOR LABOR AND DELIVERY Labor and Delivery: None Feeding Preference: Breast Benefit of Breast Feed Discussed: Yes INFORMED CONSENT Signature: with User ID: [email or web address]
== END 2018-01-15 01:46 | disposition home or self-care (01) ==
LOC: LC 21:40
PROVIDERS: ATTEND Obstetrics & Gynecology
PROC: 4A1HXCZ Monitoring of Products of Conception, Cardiac Rate, External Approach (ICD-10-PCS; principal; 2018-01-14)
DX: O41.03X0 Oligohydramnios, third trimester, not applicable or unspecified (principal); O36.8130 Decreased fetal movements, third trimester, not applicable or unspecified; O36.8330 Maternal care for abnormalities of the fetal heart rate or rhythm, third trimester, not applicable or unspecified; O47.1 False labor at or after 37 completed weeks of gestation; O26.893 Other specified pregnancy related conditions, third trimester; L29.9 Pruritus, unspecified; Z3A.37 37 weeks gestation of pregnancy
CPT/HCPCS: 36415; 59025; 76819; 80307; 81005; 82542

== ENCOUNTER 2018-01-15 16:51 | Outpatient (CLI) | payer MEDICAID ==
[2018-01-15] MEDS ORDERED: URSODIOL 300 MG CAPSULE PO ONE (17:23)
[2018-01-15] MEDS ORDERED: URSODIOL 300 MG CAPSULE ONE (17:49)
[2018-01-15 19:00] LABS: ALANINE AMINOTRANSFERASE 13 U/L (9-52); ASPARTATE AMINO TRANSFERASE 11 U/L (14-36)
--- NOTE | 2018-01-15 19:20 | Non Stress Test Report ---
Non Stress Test Datetime Report Generated by CPN: 01/15/2018 19:20 DEMOGRAPHIC EGA NST: 37.2 INDICATION Indication for Study: Other MONITORING Time on Monitor: 01/15/2018 17:07 Time off Monitor: 01/15/2018 19:19 NST Duration: 132 NST INTERVENTIONS Physician Notified NST: Dr Aranda BABY A: [id number] BABY A Movement : Present Contraction Frequency : irregular FHR Baseline : 135 Accelerations : 15X15 Decelerations : None Variability : Moderate 6-25bpm NST Review: Meets Criteria for Reactive NST NST Review and Verified By : H. Shayna, RN NST Results: Reactive NST REPORT Report Trigger: Send Report
[2018-01-15 19:31] LABS: APPEARANCE,URINE SLIGHTLY-CLOUDY; BILIRUBIN,URINE NEGATIVE (NEGATIVE); COLOR,URINE YELLOW; GLUCOSE, URINE NEGATIVE (NEGATIVE); KETONES,URINE NEGATIVE (NEGATIVE); LEUKOCYTE ESTERASE,URINE NEGATIVE (NEGATIVE); NITRITE,URINE NEGATIVE (NEGATIVE); PROTEIN,URINE NEGATIVE (NEGATIVE); UROBILINOGEN,URINE NEGATIVE mg/dL (<2.0)
[2018-01-15 19:46] LABS: URINE AMPHETAMINES SCREEN NEGATIVE; URINE BARBITURATES SCREEN NEGATIVE; URINE BENZODIAZEPINES SCREEN NEGATIVE; URINE COCAINE SCREEN NEGATIVE; URINE MARIJUANA (THC) SCREEN NEGATIVE; URINE METHADONE SCREEN NEGATIVE; URINE PHENCYCLIDINE SCREEN NEGATIVE
[2018-01-15] MEDS ORDERED: HYDROXYZINE PAMOATE 50 MG CAPSULE PO ONE (21:00)
--- NOTE | 2018-01-15 21:03 | RADIOLOGY REPORT (SQ) ---
EXAM DESCRIPTION: US LIMITED COMPLETED DATE/TME: 01/15/2018 00:00 CLINICAL HISTORY: 22 years, Female, BAKARI Findings: Single viable IUP is noted. BAKARI is noted at 6.6 cm. heart rate 153 bpm. Single viable IUP of 37 weeks and four days.
[2018-01-15] MEDS ORDERED: HYDROXYZINE PAMOATE 50 MG CAPSULE ONE (21:13)
== END 2018-01-15 21:14 | disposition home or self-care (01) ==
LOC: LC 16:51
PROVIDERS: ATTEND Obstetrics & Gynecology
PROC: 4A1HXCZ Monitoring of Products of Conception, Cardiac Rate, External Approach (ICD-10-PCS; principal; 2018-01-15)
DX: O47.1 False labor at or after 37 completed weeks of gestation (principal); O36.8330 Maternal care for abnormalities of the fetal heart rate or rhythm, third trimester, not applicable or unspecified; O26.893 Other specified pregnancy related conditions, third trimester; L29.9 Pruritus, unspecified; Z3A.37 37 weeks gestation of pregnancy
CPT/HCPCS: 59025; 36415; 84450; 84460; 81005; 80307; 76815; J3490 ×2

== ENCOUNTER 2018-01-20 11:19 | Outpatient (CLI) | payer MEDICAID ==
[2018-01-20 12:05] LABS: APPEARANCE,URINE SLIGHTLY-CLOUDY; BILIRUBIN,URINE NEGATIVE (NEGATIVE); COLOR,URINE YELLOW; GLUCOSE, URINE NEGATIVE (NEGATIVE); KETONES,URINE NEGATIVE (NEGATIVE); LEUKOCYTE ESTERASE,URINE NEGATIVE (NEGATIVE); NITRITE,URINE NEGATIVE (NEGATIVE); PROTEIN,URINE NEGATIVE (NEGATIVE); URINE SPECIFIC GRAVITY 1.012; UROBILINOGEN,URINE NEGATIVE mg/dL (<2.0)
[2018-01-20 12:33] LABS: BACTERIA (WET MOUNT) 4+ BACTERIA SEEN; EPITHELIALS (WET MOUNT) 3+ EPITHELIALS SEEN; RBCS (WET MOUNT) FEW RBCS SEEN; T.VAGINALIS (WET MOUNT) NO TRICHOMONAS SEEN; WBCS (WET MOUNT) 2+ WBCS SEEN; YEAST (WET MOUNT) NO YEAST SEEN
[2018-01-20 12:42] LABS: URINE AMPHETAMINES SCREEN NEGATIVE; URINE BARBITURATES SCREEN NEGATIVE; URINE BENZODIAZEPINES SCREEN NEGATIVE; URINE COCAINE SCREEN NEGATIVE; URINE MARIJUANA (THC) SCREEN NEGATIVE; URINE METHADONE SCREEN NEGATIVE; URINE PHENCYCLIDINE SCREEN NEGATIVE
[2018-01-20 12:59] LABS: ABSOLUTE LYMPHOCYTES (AUTO) 2.1 10^3/uL (0.5-4.7); ABSOLUTE MONOCYTES (AUTO) 0.8 10^3/uL (0.1-1.4); ABSOLUTE NEUT (AUTO) 5.8 10^3/uL (1.7-8.2); BASOPHILS % (AUTO) 0.3 % (0-2); EOSINOPHILS % (AUTO) 0.5 % (0-6); HEMATOCRIT 37.2 % (36.0-47.0); HEMOGLOBIN 13.1 g/dL (12.0-15.5); MEAN CORPUSCULAR HEMOGLOBIN 31.9 pg (27.0-33.4); MEAN CORPUSCULAR HGB CONC 35.2 g/dL (32.0-36.0); MEAN CORPUSCULAR VOLUME 91 fl (80-97); MONOCYTES % (AUTO) 9.1 % (3-13); PLATELET COUNT 147 10^3/uL (150-450); RED BLOOD COUNT 4.11 10^6/uL (3.72-5.28); RED CELL DISTRIBUTION WIDTH 13.1 % (11.5-14.0); SEGMENTED NEUTROPHILS % (AUTO) 66.1 % (42-78); TOTAL CELLS COUNTED % (AUTO) 100 %; WHITE BLOOD COUNT 8.7 10^3/uL (4.0-10.5)
[2018-01-20 13:18] LABS: ALANINE AMINOTRANSFERASE 10 U/L (9-52); ALBUMIN 3.2 g/dL (3.5-5.0); ALKALINE PHOSPHATASE 145 U/L (38-126); ANION GAP 12 (5-19); ASPARTATE AMINO TRANSFERASE 12 U/L (14-36); BILIRUBIN,DIRECT 0.2 mg/dL (0.0-0.4); BILIRUBIN,TOTAL 0.4 mg/dL (0.2-1.3); BLOOD UREA NITROGEN 5 mg/dL (7-20); CALCIUM 8.6 mg/dL (8.4-10.2); CARBON DIOXIDE 23 mmol/L (22-30); CHLORIDE 103 mmol/L (98-107); GLUCOSE 79 mg/dL (75-110); POTASSIUM 3.8 mmol/L (3.6-5.0); SODIUM 138.1 mmol/L (137-145)
--- NOTE | 2018-01-20 15:16 | Non Stress Test Report ---
Non Stress Test Datetime Report Generated by CPN: 01/20/2018 15:16 DEMOGRAPHIC EGA NST: 38.0 INDICATION Indication for Study: Ordered by Provider MONITORING Monitor Explained: Monitor Explained; Test Explained; Patient Verbalized Understanding Time on Monitor: 01/20/2018 11:29 Time off Monitor: 01/20/2018 12:26 NST Duration: 57 NST INTERVENTIONS NST Interventions: None Physician Notified NST: Gerard, CNM BABY A: [id number] BABY A Movement : Present Contraction Frequency : 6-12 FHR Baseline : 130 Accelerations : 15X15 Decelerations : None Variability : Moderate 6-25bpm NST Review: Meets Criteria for Reactive NST NST Review and Verified By : BRITTNEY Ragsdale Results: Reactive NST REPORT Report Trigger: Send Report
== END 2018-01-20 15:13 | disposition home or self-care (01) ==
LOC: LC 11:19
PROVIDERS: ATTEND Student in an Organized Health Care Education/Training Program
PROC: 4A1HXCZ Monitoring of Products of Conception, Cardiac Rate, External Approach (ICD-10-PCS; principal; 2018-01-20)
DX: O47.1 False labor at or after 37 completed weeks of gestation (principal); Z3A.38 38 weeks gestation of pregnancy
CPT/HCPCS: 36415; 59025; 80053; 80307; 81005; 84112; 85025; 87210

== ENCOUNTER 2018-01-22 01:57 | Outpatient (CLI) | payer MEDICAID ==
[2018-01-22 02:41] LABS: APPEARANCE,URINE SLIGHTLY-CLOUDY; BILIRUBIN,URINE NEGATIVE (NEGATIVE); COLOR,URINE YELLOW; GLUCOSE, URINE 50 mg/dL (NEGATIVE); KETONES,URINE NEGATIVE (NEGATIVE); LEUKOCYTE ESTERASE,URINE NEGATIVE (NEGATIVE); NITRITE,URINE NEGATIVE (NEGATIVE); PROTEIN,URINE NEGATIVE (NEGATIVE); URINE SPECIFIC GRAVITY 1.011; UROBILINOGEN,URINE NEGATIVE mg/dL (<2.0)
[2018-01-22 03:00] LABS: URINE AMPHETAMINES SCREEN NEGATIVE; URINE BARBITURATES SCREEN NEGATIVE; URINE BENZODIAZEPINES SCREEN NEGATIVE; URINE COCAINE SCREEN NEGATIVE; URINE MARIJUANA (THC) SCREEN NEGATIVE; URINE METHADONE SCREEN NEGATIVE; URINE PHENCYCLIDINE SCREEN NEGATIVE
[2018-01-22] MEDS ORDERED: HYDROXYZINE PAMOATE 50 MG CAPSULE PO ONE (03:03)
[2018-01-22] MEDS ORDERED: HYDROXYZINE PAMOATE 50 MG CAPSULE ONE (03:04)
--- NOTE | 2018-01-22 03:19 | Non Stress Test Report ---
Non Stress Test Datetime Report Generated by CPN: 01/22/2018 03:19 DEMOGRAPHIC EGA NST: 38.2 INDICATION Indication for Study: Ordered by Provider MONITORING Monitor Explained: Monitor Explained; Test Explained; Patient Verbalized Understanding Time on Monitor: 01/22/2018 02:13 Time off Monitor: 01/22/2018 02:42 NST Duration: 29 NST INTERVENTIONS NST Interventions: None Physician Notified NST: Dr. Marie BABY A: [id number] BABY A Movement : Present Contraction Frequency : none FHR Baseline : 135 Accelerations : 15X15 Decelerations : None Variability : Moderate 6-25bpm NST Review: Meets Criteria for Reactive NST NST Review and Verified By : Uma Herrera RN NSCale Results: Reactive NST REPORT Report Trigger: Send Report
== END 2018-01-22 03:14 | disposition home or self-care (01) ==
LOC: LC 01:57
PROVIDERS: ATTEND Obstetrics & Gynecology
PROC: 4A1HXCZ Monitoring of Products of Conception, Cardiac Rate, External Approach (ICD-10-PCS; principal; 2018-01-22)
DX: O47.1 False labor at or after 37 completed weeks of gestation (principal); Z3A.38 38 weeks gestation of pregnancy
CPT/HCPCS: 59025; 81005; 80307; J3490

== ENCOUNTER 2018-01-31 10:20 | Outpatient (CLI) | payer MEDICAID ==
[2018-01-31 10:48] LABS: APPEARANCE,URINE CLEAR; BILIRUBIN,URINE NEGATIVE (NEGATIVE); COLOR,URINE STRAW; GLUCOSE, URINE NEGATIVE (NEGATIVE); KETONES,URINE NEGATIVE (NEGATIVE); LEUKOCYTE ESTERASE,URINE NEGATIVE (NEGATIVE); NITRITE,URINE NEGATIVE (NEGATIVE); PROTEIN,URINE NEGATIVE (NEGATIVE); URINE SPECIFIC GRAVITY 1.006; UROBILINOGEN,URINE NEGATIVE mg/dL (<2.0)
[2018-01-31] MEDS ORDERED: HYDROXYZINE PAMOATE 50 MG CAPSULE PO ONE (10:58)
[2018-01-31] MEDS ORDERED: HYDROXYZINE PAMOATE 50 MG CAPSULE ONE (11:00)
[2018-01-31 11:14] LABS: URINE AMPHETAMINES SCREEN NEGATIVE; URINE BARBITURATES SCREEN NEGATIVE; URINE BENZODIAZEPINES SCREEN NEGATIVE; URINE COCAINE SCREEN NEGATIVE; URINE MARIJUANA (THC) SCREEN NEGATIVE; URINE METHADONE SCREEN NEGATIVE; URINE PHENCYCLIDINE SCREEN NEGATIVE
--- NOTE | 2018-01-31 11:47 | Non Stress Test Report ---
Non Stress Test Datetime Report Generated by CPN: 01/31/2018 11:47 DEMOGRAPHIC EGA NST: 39.4 INDICATION Indication for Study: Other Indication for Study (NST) Other: Labor Check VITAL SIGNS Temperature - NST: 97.9 Pulse - NST: 72 RESP - NST: 17 NBPSYS NST: 118 NBPDIA NST: 66 MONITORING Monitor Explained: Monitor Explained; Test Explained; Patient Verbalized Understanding Time on Monitor: 01/31/2018 10:34 Time off Monitor: 01/31/2018 10:54 NST Duration: 20 NST INTERVENTIONS NST Interventions: PO Hydration Physician Notified NST: N. Gerard, CNM BABY A: [id number] BABY A Movement : Present Contraction Frequency : 4-5 FHR Baseline : 135 Accelerations : 15X15 Decelerations : None Variability : Moderate 6-25bpm NST Review: Meets Criteria for Reactive NST NST Review and Verified By : BRITTNEY Ragsdale Results: Reactive NST REPORT Report Trigger: Send Report
== END 2018-01-31 11:48 | disposition home or self-care (01) ==
LOC: LC 10:20
PROVIDERS: ATTEND Obstetrics & Gynecology Gynecology
PROC: 4A1HXCZ Monitoring of Products of Conception, Cardiac Rate, External Approach (ICD-10-PCS; principal; 2018-01-31)
DX: O47.1 False labor at or after 37 completed weeks of gestation (principal); Z3A.39 39 weeks gestation of pregnancy
CPT/HCPCS: 59025; 81005; 80307; J3490

== ENCOUNTER 2018-02-02 00:24 | Outpatient (CLI) | payer MEDICAID ==
[2018-02-02 00:59] LABS: APPEARANCE,URINE CLEAR; BILIRUBIN,URINE NEGATIVE (NEGATIVE); COLOR,URINE STRAW; GLUCOSE, URINE 50 mg/dL (NEGATIVE); KETONES,URINE NEGATIVE (NEGATIVE); LEUKOCYTE ESTERASE,URINE TRACE (NEGATIVE); NITRITE,URINE NEGATIVE (NEGATIVE); PROTEIN,URINE NEGATIVE (NEGATIVE); URINE SPECIFIC GRAVITY 1.011; UROBILINOGEN,URINE NEGATIVE mg/dL (<2.0)
[2018-02-02 01:15] LABS: URINE AMPHETAMINES SCREEN NEGATIVE; URINE BARBITURATES SCREEN NEGATIVE; URINE BENZODIAZEPINES SCREEN NEGATIVE; URINE COCAINE SCREEN NEGATIVE; URINE MARIJUANA (THC) SCREEN NEGATIVE; URINE METHADONE SCREEN NEGATIVE; URINE PHENCYCLIDINE SCREEN NEGATIVE
--- NOTE | 2018-02-02 02:27 | Non Stress Test Report ---
Non Stress Test Datetime Report Generated by CPN: 02/02/2018 02:26 DEMOGRAPHIC Test Number: 5 EGA NST: 39.6 INDICATION Indication for Study: Ordered by Provider; Other Indication for Study (NST) Other: Labor Check VITAL SIGNS RESP - NST: 14 URINE RESULTS Urine Protein, NST: Negative Urine Ketones - NST: Negative Urine Glucose - NST: Positive Urine Blood - NST: Negative MONITORING Monitor Explained: Monitor Explained; Test Explained; Patient Verbalized Understanding Time on Monitor: 02/02/2018 00:46 Time off Monitor: 02/02/2018 02:14 NST Duration: 88 NST INTERVENTIONS NST Interventions: PO Hydration Physician Notified NST: Dr. Younger BABY A: [id number] BABY A Movement : Present Contraction Frequency : 4-7 FHR Baseline : 125 Accelerations : 15X15 Decelerations : None Variability : Moderate 6-25bpm NST Review: Meets Criteria for Reactive NST NST Review and Verified By : Cr Whitney, RNC NST Results: Reactive NST REPORT Report Trigger: Send Report
== END 2018-02-02 02:27 | disposition home or self-care (01) ==
LOC: LC 00:24
PROVIDERS: ATTEND Obstetrics & Gynecology
PROC: 4A1HXCZ Monitoring of Products of Conception, Cardiac Rate, External Approach (ICD-10-PCS; principal; 2018-02-02)
DX: Z34.93 Encounter for supervision of normal pregnancy, unspecified, third trimester (principal)
CPT/HCPCS: 59025; 80307; 81005

== ENCOUNTER 2018-02-02 18:33 | Outpatient (CLI) | payer MEDICAID ==
[2018-02-02 19:14] LABS: APPEARANCE,URINE CLEAR; BILIRUBIN,URINE NEGATIVE (NEGATIVE); COLOR,URINE YELLOW; GLUCOSE, URINE NEGATIVE (NEGATIVE); KETONES,URINE NEGATIVE (NEGATIVE); LEUKOCYTE ESTERASE,URINE NEGATIVE (NEGATIVE); NITRITE,URINE NEGATIVE (NEGATIVE); PROTEIN,URINE 30 mg/dL (NEGATIVE); URINE SPECIFIC GRAVITY 1.014; UROBILINOGEN,URINE NEGATIVE mg/dL (<2.0)
[2018-02-02 19:30] LABS: URINE AMPHETAMINES SCREEN NEGATIVE; URINE BARBITURATES SCREEN NEGATIVE; URINE BENZODIAZEPINES SCREEN NEGATIVE; URINE COCAINE SCREEN NEGATIVE; URINE MARIJUANA (THC) SCREEN NEGATIVE; URINE METHADONE SCREEN NEGATIVE; URINE PHENCYCLIDINE SCREEN NEGATIVE
--- NOTE | 2018-02-02 20:28 | Non Stress Test Report ---
Non Stress Test Datetime Report Generated by CPN: 02/02/2018 20:27 DEMOGRAPHIC EGA NST: 39.6 INDICATION Indication for Study: Ordered by Provider Indication for Study (NST) Other: Labor check VITAL SIGNS Temperature - NST: 96.1 Pulse - NST: 96 RESP - NST: 16 NBPSYS NST: 123 NBPDIA NST: 74 URINE RESULTS Urine Protein, NST: Positive Urine Ketones - NST: Negative Urine Glucose - NST: Negative Urine Blood - NST: Negative MONITORING Monitor Explained: Monitor Explained; Test Explained; Patient Verbalized Understanding Time on Monitor: 02/02/2018 18:55 Time off Monitor: 02/02/2018 20:05 NST Duration: 70 NST INTERVENTIONS NST Interventions: PO Hydration; Reposition Patient; Other NST Interventions Other: Popsicle x's 2 Physician Notified NST: Manoj Physician Notified NST: Manoj BABY A: [id number] BABY A Movement : Present Contraction Frequency : 3.5-7 FHR Baseline : 125 Accelerations : 15X15 Decelerations : None Variability : Moderate 6-25bpm NST Review: Meets Criteria for Reactive NST NST Review and Verified By : Kristin MADDOXT Results: Reactive NST REPORT Report Trigger: Send Report
== END 2018-02-02 20:05 | disposition home or self-care (01) ==
LOC: LC 18:33
PROVIDERS: ATTEND Obstetrics & Gynecology
PROC: 4A1HXCZ Monitoring of Products of Conception, Cardiac Rate, External Approach (ICD-10-PCS; principal; 2018-02-02)
DX: Z34.93 Encounter for supervision of normal pregnancy, unspecified, third trimester (principal)
CPT/HCPCS: 59025; 80307; 81005

== ENCOUNTER 2018-02-03 04:11 | Outpatient (CLI) | payer MEDICAID ==
[2018-02-03 04:42] LABS: APPEARANCE,URINE CLEAR; BILIRUBIN,URINE NEGATIVE (NEGATIVE); COLOR,URINE YELLOW; GLUCOSE, URINE 150 mg/dL (NEGATIVE); KETONES,URINE NEGATIVE (NEGATIVE); LEUKOCYTE ESTERASE,URINE NEGATIVE (NEGATIVE); NITRITE,URINE NEGATIVE (NEGATIVE); PROTEIN,URINE 30 mg/dL (NEGATIVE); URINE SPECIFIC GRAVITY 1.013; UROBILINOGEN,URINE NEGATIVE mg/dL (<2.0)
[2018-02-03] MEDS ORDERED: HYDROXYZINE PAMOATE 50 MG CAPSULE PO ONE (04:55)
[2018-02-03] MEDS ORDERED: HYDROXYZINE PAMOATE 50 MG CAPSULE ONE (04:57)
[2018-02-03 04:59] LABS: URINE AMPHETAMINES SCREEN NEGATIVE; URINE BARBITURATES SCREEN NEGATIVE; URINE COCAINE SCREEN NEGATIVE; URINE MARIJUANA (THC) SCREEN NEGATIVE; URINE METHADONE SCREEN NEGATIVE; URINE PHENCYCLIDINE SCREEN NEGATIVE
[2018-02-03 05:08] LABS: URINE BENZODIAZEPINES SCREEN NEGATIVE
== END 2018-02-03 07:35 | disposition home or self-care (01) ==
LOC: LC 04:11
PROVIDERS: ATTEND Obstetrics & Gynecology
PROC: 4A1HXCZ Monitoring of Products of Conception, Cardiac Rate, External Approach (ICD-10-PCS; principal; 2018-02-03)
DX: Z34.83 Encounter for supervision of other normal pregnancy, third trimester (principal)
CPT/HCPCS: 59025; 81005; 80307; J3490

== ENCOUNTER 2018-02-03 19:39 | Outpatient (CLI) | payer MEDICAID ==
[2018-02-03 20:25] LABS: APPEARANCE,URINE SLIGHTLY-CLOUDY; BILIRUBIN,URINE NEGATIVE (NEGATIVE); COLOR,URINE YELLOW; GLUCOSE, URINE 50 mg/dL (NEGATIVE); KETONES,URINE NEGATIVE (NEGATIVE); LEUKOCYTE ESTERASE,URINE TRACE (NEGATIVE); NITRITE,URINE NEGATIVE (NEGATIVE); PROTEIN,URINE NEGATIVE (NEGATIVE); URINE SPECIFIC GRAVITY 1.011; UROBILINOGEN,URINE NEGATIVE mg/dL (<2.0)
[2018-02-03 20:42] LABS: URINE AMPHETAMINES SCREEN NEGATIVE; URINE BARBITURATES SCREEN NEGATIVE; URINE BENZODIAZEPINES SCREEN NEGATIVE; URINE COCAINE SCREEN NEGATIVE; URINE MARIJUANA (THC) SCREEN NEGATIVE; URINE METHADONE SCREEN NEGATIVE; URINE PHENCYCLIDINE SCREEN NEGATIVE
[2018-02-03] MEDS ORDERED: HYDROXYZINE PAMOATE 50 MG CAPSULE PO ONE (22:30)
[2018-02-03] MEDS ORDERED: HYDROXYZINE PAMOATE 50 MG CAPSULE ONE (22:34)
--- NOTE | 2018-02-03 23:44 | Non Stress Test Report ---
Non Stress Test Datetime Report Generated by CPN: 02/03/2018 23:44 DEMOGRAPHIC Test Number: 12 EGA NST: 40.0 INDICATION Indication for Study: Ordered by Provider VITAL SIGNS Pulse - NST: 90 RESP - NST: 14 NBPSYS NST: 117 NBPDIA NST: 66 URINE RESULTS Urine Protein, NST: Negative Urine Ketones - NST: Negative Urine Glucose - NST: Positive Urine Blood - NST: Positive MONITORING Monitor Explained: Monitor Explained; Test Explained; Patient Verbalized Understanding Time on Monitor: 02/03/2018 20:01 Time off Monitor: 02/03/2018 22:34 NST Duration: 153 NST INTERVENTIONS NST Interventions: PO Hydration Physician Notified NST: Dr. Younger BABY A: [id number] BABY A Movement : Present Contraction Frequency : irregular FHR Baseline : 140 Accelerations : 15X15 Decelerations : None Variability : Moderate 6-25bpm NST Review: Meets Criteria for Reactive NST NST Review and Verified By : KFady Maynor, RN NST Results: Reactive NST REPORT Report Trigger: Send Report
== END 2018-02-03 21:55 | disposition home or self-care (01) ==
LOC: LC 19:39
PROVIDERS: ATTEND Obstetrics & Gynecology
PROC: 4A1HXCZ Monitoring of Products of Conception, Cardiac Rate, External Approach (ICD-10-PCS; principal; 2018-02-03)
DX: O48.0 Post-term pregnancy (principal); Z3A.40 40 weeks gestation of pregnancy
CPT/HCPCS: 59025; 81005; 80307; J3490

== ENCOUNTER 2018-02-04 00:49 | Inpatient (IN) | payer MEDICAID ==
[2018-02-04 01:44] LABS: APPEARANCE,URINE CLEAR; BILIRUBIN,URINE NEGATIVE (NEGATIVE); COLOR,URINE STRAW; GLUCOSE, URINE NEGATIVE (NEGATIVE); KETONES,URINE 20 mg/dL (NEGATIVE); LEUKOCYTE ESTERASE,URINE NEGATIVE (NEGATIVE); NITRITE,URINE NEGATIVE (NEGATIVE); PROTEIN,URINE NEGATIVE (NEGATIVE); URINE SPECIFIC GRAVITY 1.008; UROBILINOGEN,URINE NEGATIVE mg/dL (<2.0)
--- NOTE | 2018-02-04 01:59 | Admission Physical ---
Datetime Report Generated by CPN: 02/04/2018 01:59 CURRENT ADMISSION Chief Complaint: Uterine Contractions Chief Complaint Other: Widespread itching of hands, face, feet, legs x 3 days. Has not tried any remedies. Indication for Induction: Not Applicable Admit Impression : Term, Intrauterine ; Active Labor; Intact Membranes Admit Impression- Other: Oligohydramnios Pruritis Admit Plan: Admit to Unit; Initiate Protocol Admit Plan- Other: BPP 8 (BAKARI 3.5 with 2x2 single pocket) Fractionated bile acids ordered ALLERGIES Medication Allergies: Yes Medication Allergies: ethinyl estradiol (02/04/2018); albuterol/SV/Heart races p (02/04/2018); etonogestrel (02/04/2018) Latex: No Latex Allergies Food Allergies: none Environmental Allergies: none OBSTETRICAL HISTORY EDC: 02/03/2018 00:00 : 2 Para: 1 Term: 1 : 0 SAB: 0 IAB: 0 Ectopic: 0 Livin Cesareans: 1 VBACs: 0 Multiple Births: 0 Gestational Diabetes: No Rh Sensitization: No Incompetent Cervix: No MYRON: No Infertility: No ART Treatment: No Uterine Anomaly: No IUGR: No Hx Previous C/S: Yes Macrosomia: No Hx Loss/Stillborn: No PIH: No Hx : No Placenta Previa/Abruption: No Depression/PP Depression: No PTL/PROM: No Post Hemorrhage: No Current Procedures: Ultrasound; NST (Annotations: Data stored by CPN on behalf of user) Obstetrical History Comments: G1- 2013 41 weeks primary c/s r/t breech presentation G2- current , desires SEE RECORDS Alcohol: No Marijuana : No Cocaine: No Other Illicit Drugs: No Cigarettes: Former Smoker. [id number] MEDICAL HISTORY Diabetes: No Blood Transfusion: No Pulmonary Disease (Asthma, TB): Yes Breast Disease: No Hypertension: No Appliquer Zigzag Surgery: No Heart Disease: Yes Hosp/Surgery: Yes Autoimmune Disorder: No Anesthetic Complications: No Kidney Disease: Yes Abnormal Pap Smear: No Neuro/Epilepsy: No Psychiatric Disorders: No Other Medical Diseases: Yes Hepatitis/Liver Disease: No Significant Family History: No Varicosities/Phlebitis: No Trauma/Violence : No Thyroid Dysfunction: No Medical History Comments: c/s 2013, pulmonary stenosis- cardiac stent placement at 10 months old, plate and screws in right arm 2016, asthma as a child, Kidney stones 2017, UTI's frequently, anxiety (no meds). INFECTIOUS HISTORY Gonorrhea: No Genital Herpes: No Chlamydia: Yes Tuberculosis: No Syphilis: No Hepatitis: No HIV/AIDS Exposure: No Rash or Viral Illness: No HPV: No Infectious History Comments: chlamydia 2016 PHYSICAL EXAM General: Normal HEENT: Normal Neurologic: Normal Thyroid: Normal Heart: Normal Lungs: Normal Breast: Normal Back: Normal Abdomen: Normal Genitourinary Exam: Normal Extremities: Normal DTRs: Normal Pelvic Type: Adequate Vital Signs: Reviewed VAGINAL EXAM Dilatation: 3-4 Effacement: 90 Station: -2 Contraction Comments: q 2-3 MEMBRANES Membranes: Intact FETUS A EGA: 40.1 Monitoring: External US FHR- Baseline: 130s Variability: Moderate 6-25bpm Accelerations: 15X15 Decelerations: None FHR Category: Category I Presentation: Vertex Admit Comment: Pt desires to . Her first C/S was secondary to Breech position. PLANS FOR LABOR AND DELIVERY Labor and Delivery: None Pain Management: Epidural Feeding Preference: Breast Benefit of Breast Feed Discussed: Yes Circumcision: N/A INFORMED CONSENT Signature: with User ID: [email or web address]
[2018-02-04 02:03] LABS: URINE AMPHETAMINES SCREEN NEGATIVE; URINE BARBITURATES SCREEN NEGATIVE; URINE BENZODIAZEPINES SCREEN NEGATIVE; URINE COCAINE SCREEN NEGATIVE; URINE MARIJUANA (THC) SCREEN NEGATIVE; URINE METHADONE SCREEN NEGATIVE; URINE PHENCYCLIDINE SCREEN NEGATIVE
[2018-02-04 02:06] LABS: ABSOLUTE LYMPHOCYTES (AUTO) 2.5 10^3/uL (0.5-4.7); ABSOLUTE MONOCYTES (AUTO) 1.2 10^3/uL (0.1-1.4); BASOPHILS % (AUTO) 0.3 % (0-2); EOSINOPHILS % (AUTO) 0.1 % (0-6); HEMATOCRIT 41.5 % (36.0-47.0); HEMOGLOBIN 14.4 g/dL (12.0-15.5); LYMPHOCYTES % (AUTO) 17.9 % (13-45); MEAN CORPUSCULAR HEMOGLOBIN 31.2 pg (27.0-33.4); MEAN CORPUSCULAR HGB CONC 34.6 g/dL (32.0-36.0); MEAN CORPUSCULAR VOLUME 90 fl (80-97); MONOCYTES % (AUTO) 8.8 % (3-13); PLATELET COUNT 179 10^3/uL (150-450); SEGMENTED NEUTROPHILS % (AUTO) 72.9 % (42-78); TOTAL CELLS COUNTED % (AUTO) 100 %; WHITE BLOOD COUNT 13.8 10^3/uL (4.0-10.5)
[2018-02-04] MEDS: RINGERS SOLUTION,LACTATED 1,000 ML IV PRN ×2 (02:13→03:04)
[2018-02-04] MEDS ORDERED: LIDOCAINE 1% INJ-PF (10 MG/ML) 30 ML SDV ONE (02:37)
[2018-02-04] MEDS ORDERED: EPHEDRINE SULFATE INJ 50 MG/1 ML AMPULE ONE (02:37)
[2018-02-04] MEDS ORDERED: OXYTOCIN/NORMAL SALINE 20 UNIT/1,000 ML RTUINJ ONE (02:37)
[2018-02-04] MEDS ORDERED: FENTANYL/BUPIVACAINE/NS/PF 300 MCG/150 ML RTUINJ EPI ONE (02:37)
[2018-02-04] MEDS ORDERED: OXYTOCIN 10 UNIT/ML VIAL ONE (02:37)
[2018-02-04] MEDS ORDERED: MISOPROSTOL 0.2 MG TABLET ONE (02:37)
[2018-02-04] MEDS ORDERED: BUPIVACAINE HCL 0.5 % INJ/PF 30 ML SDV ONE (02:38)
--- NOTE | 2018-02-04 02:39 | L&D Progress Notes ---
PROGRESS NOTES Datetime Report Generated by CPN: 02/04/2018 02:39 PROGRESS NOTE Impression: Normal Progression of Labor Plan: Continue Present Management Informed Consent Obtained: Vaginal After Vital Signs : Reviewed; Within Normal Limits Comment: Will call anethesia for epidural. VAGINAL EXAM Dilatation: 5 Dilatation: 3-4 Dilatation: 0 Effacement: 100 Effacement: 90 Effacement: 0 Station: -2 Station: -2 Station: -3 Contractions: q 1-4 Contractions: q 2-3 LAST VAGINAL EXAM-NURSING Dilitation: 5.0 Dilitation: 3.5 Dilitation: 1.5 Dilitation: 1.5 (Annotations: loose one cm ) Dilitation: 1.0 Dilitation: 1.0 Dilitation: 1.0 Dilitation: closed Dilitation: closed Dilitation: closed Dilitation: 0.0 Dilitation: closed Dilitation: C Effacement: 100 Effacement: 90 Effacement: 90 Effacement: 90 Effacement: 80 Effacement: 75 Effacement: 75 Effacement: 50 Effacement: thick Effacement: thick Effacement: thick Effacement: thick Effacement: Thick Station: -2 Station: -2 Station: -1 Station: -1 Station: -1 Station: -1 Station: -1 Station: -2 Station: high Station: high Station: high Station: high Station: High Contractions: irregular Contractions: pt. denies feeling ctn's Contractions: occaisional Contractions: occaisional Contractions: Some uterine irritability noted. Contractions: Uterine Irritability Contractions: Uterine Irritability Contractions: Uterine Irritability Contractions: Uterine Irritability Contractions: irritability noted MEMBRANES Membranes: Intact Membranes: Intact FETUS A FHR - Baseline: 130s Monitoring: External US Variability: Moderate 6-25bpm Accelerations: 15X15 Decelerations: None FHR Category: Category I : 40.1 : 40.1 Presentation: Vertex SIGNATURE SIGNATURE: 10,[id number];14,[id number];13,[id number] SIGNATURE: 13,8290648216;14,[id number] SIGNATURE: 14,2336070542;13,8002161047 SIGNATURE: 13,4764835835;14,4758981353 SIGNATURE: 14,1460411254;13,[id number] SIGNATURE: 13,8470902825;14,3703002135 SIGNATURE: 14,7554402519;13,2351396034 SIGNATURE: 13,6193461465;14,5615827254 SIGNATURE: 14,5491900337;13,1683554089 SIGNATURE: 13,6233490339;14,1562716344 SIGNATURE: 14,5581326252 SIGNATURE: 14,3814455333 SIGNATURE: 14,3119594838 SIGNATURE: 14,[id number] SIGNATURE: 14,[id number] Signature: with User ID: [email or web address]
[2018-02-04] MEDS ORDERED: NORMAL SALINE 250 ML IV PRN (05:24)
--- NOTE | 2018-02-04 06:17 | Admission Physical ---
Datetime Report Generated by CPN: 02/04/2018 06:16 CURRENT ADMISSION Chief Complaint: Uterine Contractions Chief Complaint Other: Widespread itching of hands, face, feet, legs x 3 days. Has not tried any remedies. Indication for Induction: Post Dates Admit Impression : Term, Intrauterine ; Active Labor Admit Impression- Other: Oligohydramnios Pruritis Admit Plan: Admit to Unit; Initiate Labor Protocol Admit Plan- Other: BPP 88 (BAKARI 3.5 with 2x2 single pocket) Fractionated bile acids ordered ALLERGIES Medication Allergies: Yes Medication Allergies: ethinyl estradiol (02/04/2018); albuterol/SV/Heart races p (02/04/2018); etonogestrel (02/04/2018) Latex: No Latex Allergies Food Allergies: none Environmental Allergies: none OBSTETRICAL HISTORY EDC: 02/03/2018 00:00 : 2 Para: 1 Term: 1 : 0 SAB: 0 IAB: 0 Ectopic: 0 Livin Cesareans: 1 VBACs: 0 Multiple Births: 0 Gestational Diabetes: No Rh Sensitization: No Incompetent Cervix: No MYRON: No Infertility: No ART Treatment: No Uterine Anomaly: No IUGR: No Hx Previous C/S: Yes Macrosomia: No Hx Loss/Stillborn: No PIH: No Hx : No Placenta Previa/Abruption: No Depression/PP Depression: No PTL/PROM: No Post Hemorrhage: No Current Procedures: Ultrasound; NST (Annotations: Data stored by CPN on behalf of user) Obstetrical History Comments: G1- 2013 41 weeks primary c/s r/t breech presentation G2- current , desires SEE RECORDS Alcohol: No Marijuana : No Cocaine: No Other Illicit Drugs: No Cigarettes: Former Smoker. 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 INFECTIOUS HISTORY Gonorrhea: No Genital Herpes: No Chlamydia: Yes Tuberculosis: No Syphilis: No Hepatitis: No HIV/AIDS Exposure: No Rash or Viral Illness: No HPV: No Infectious History Comments: chlamydia 2016 PHYSICAL EXAM General: Normal HEENT: Normal Neurologic: Normal Thyroid: Normal Heart: Normal Lungs: Normal Breast: Normal Back: Normal Abdomen: Normal Genitourinary Exam: Normal Extremities: Normal DTRs: Normal Pelvic Type: Adequate Vital Signs: Reviewed; Within Normal Limits VAGINAL EXAM Dilatation: 4 Effacement: 90 Station: -1 Contraction Comments: q 4 MEMBRANES Membranes: Intact FETUS A EGA: 40.1 Monitoring: External US FHR- Baseline: 130s Variability: Moderate 6-25bpm Accelerations: 15X15 Decelerations: None FHR Category: Category I Presentation: Vertex Admit Comment: Pt desires to . Her first C/S was secondary to Breech position. PLANS FOR LABOR AND DELIVERY Labor and Delivery: None Pain Management: Epidural Feeding Preference: Breast Benefit of Breast Feed Discussed: Yes Circumcision: N/A INFORMED CONSENT Informed Consent Obtained: Vaginal After Signature: with User ID: [email or web address]
[2018-02-04] MEDS ORDERED: FENTANYL/BUPIVACAINE/NS/PF 200 MCG/100 ML RTUINJ EPI PRN (09:02)
[2018-02-04] MEDS ORDERED: BUPIVACAINE HCL 0.25 % INJ/PF (2.5 MG/1 ML) 30 ML VIAL INFIL ONE (09:02)
[2018-02-04] MEDS ORDERED: DIPHENHYDRAMINE HCL 50 MG/ML VIAL IV PRN (09:02)
[2018-02-04] MEDS ORDERED: BENZOIN/ALOE VERA/STORAX/TOLU TINCTURE 60 ML TP PRN (09:02)
[2018-02-04] MEDS ORDERED: DIPHENHYDRAMINE HCL 25 MG CAPSULE ONE (09:17)
[2018-02-04] MEDS ORDERED: PROMETHAZINE HCL 25 MG TABLET PO PRN (14:11)
[2018-02-04] MEDS ORDERED: PROMETHAZINE HCL 25 MG SUPP.RECT PR PRN (14:11)
[2018-02-04] MEDS ORDERED: DIPHENHYDRAMINE HCL 25 MG CAPSULE PO PRN (14:11)
[2018-02-04] MEDS ORDERED: DIBUCAINE 1% OINTMENT 28 GM TP PRN (14:11)
[2018-02-04] MEDS ORDERED: PROMETHAZINE HCL INJ 25 MG/1 ML VIAL IV PRN (14:11)
[2018-02-04] MEDS ORDERED: GLYCERIN/WITCH HAZEL LEAF 1 EACH MED..PAD TP PRN (14:11)
[2018-02-04] MEDS ORDERED: DIPH/PERTUSS(ACELL)/TETANUS VAC/PF 0.5 ML SYR (>=10YO) IM PRN (14:11)
[2018-02-04] MEDS ORDERED: BENZOCAINE/MENTHOL AEROSOL SPRAY 56 ML TOP PRN (14:11)
[2018-02-04] MEDS ORDERED: ACETAMINOPHEN 650 MG SUPP.RECT PR PRN (14:11)
[2018-02-04] MEDS ORDERED: MAGNESIUM HYDROXIDE SUSP 30 ML UDCUP PO PRN (14:11)
[2018-02-04] MEDS ORDERED: PSEUDOEPHEDRINE HCL 30 MG TABLET PO PRN (14:11)
[2018-02-04] MEDS ORDERED: OXYTOCIN/NORMAL SALINE 20 UNIT/1,000 ML RTUINJ IV PRN (14:11)
[2018-02-04] MEDS ORDERED: ZOLPIDEM TARTRATE 5 MG TABLET PO PRN (14:11)
[2018-02-04] MEDS ORDERED: ACETAMINOPHEN WITH CODEINE #3 TABLET PO PRN ×2 (14:11)
[2018-02-04] MEDS ORDERED: NA PHOS,M-B/NA PHOS,DI-BA (ADULT) 133 ML ENEMA PR PRN (14:11)
[2018-02-04] MEDS ORDERED: MEASLES,MUMPS&RUBELLA VACC/PF 0.5 ML VIAL SUBCUT PRN (14:11)
--- NOTE | 2018-02-04 17:13 | Delivery Summary ---
Del Sum A-C Datetime Report Generated by CPN: 02/04/2018 17:13 DELIVERY PERSONNEL DELIVERY PERSONNEL: [id number] Delivery Doctor:: Mic Aranda MD Labor and Delivery Nurse:: Dot Corral RNpropagator Nurse:: Zakia Mary RN Grease Packer/GROCERY CLERK CHECKING: Angella Burden, ST MATERNAL INFORMATION Delivery Anesthesia: Epidural Medications After Delivery: Pitocin Bolus-Please Comment Meds After Delivery Comment: 20 units Pitocin in 1000mL NS Estimated Blood Loss (ml): 250 Maternal Complications: None Provider Comments: of a viable female @ 0554 with an OA presentation; meconium;APGARS 8, 9; 1st degree left vaginal lac LABOR SUMMARY EDC: 02/03/2018 00:00 No. Babies in Womb: 1 Attempted: Yes Labor Anesthesia: Epidural LABOR INFORMATION Reason for Induction: Not Applicable Onset of Labor: 02/04/2018 01:25 Complete Dilatation: 02/04/2018 12:37 Cervical Ripening Agents: Other Oxytocin: N/A Group B Beta Strep: Negative Antibiotics # of Doses: 0 Steroids Given: None Reason Steroids Not Administered: Not Applicable MEMBRANES Membranes Rupture Method: Spontaneous Rupture of Membranes: 02/04/2018 12:36 Length of Rupture (hr): 1.25 Amniotic Fluid Color: Clear Amniotic Fluid Amount: Moderate Amniotic Fluid Odor: Normal STAGES OF LABOR Stage 1 hr: 11 Stage 1 min: 12 Stage 2 hr: 1 Stage 2 min: 14 Stage 3 hr: 0 Stage 3 min: 6 Total Time in Labor hr: 12 Total Time in Labor min: 32 VAGINAL DELIVERY Episiotomy: None Laceration #1: Vaginal Laceration Extension #1: N/A Laceration #2: None Laceration #3: None Laceration Repair: Yes Laceration Repair Note: Laceration repaired with 3-0 vicryl Sponge Count Correct: Yes Sharps Count Correct: Yes BABY A INFORMATION Infant Delivery Date/Time: 02/04/2018 13:51 Method of Delivery: Vaginal Born in Route : No : Successful Forceps: N/A Vacuum Extraction: Successful Shoulder Dystocia : No ASSISTED DELIVERY BABY A Indication for Assisted Delivery: bradycardia Catheter Prior to Procedure: No Station Vacuum/Forcep Apply: Position Vacuum/Forcep Apply: Left Occipital Anterior Vacuum Number of Pulls: 1 Vacuum Number of PopOffs: 0 Vacuum Maximum Pressure Obtained: 550 Reduce Pressure btwn Ctx: No Vacuum [employer] Source Operations Officer: kiwi Total Time Vacuum Applied: 10 sec Vacuum/Forceps Comment: kiwi for bradycardia with one pull from with pressure in the green PRESENTATION/POSITION BABY A Presentation: Cephalic Cephalic Presentation: Vertex Vertex Position: Left Occipital Anterior PLACENTA INFORMATION BABY A Placenta Delivery Time : 02/04/2018 13:57 Placenta Method of Delivery: Spontaneous Placenta Status: Delivered SCORES BABY A Heart Rate 1 min: >100 bpm Resp Effort 1 min: Slow, Irregular Reflex Irritability 1 min: Cough or Sneeze or Pulls Away Muscle Tone 1 min: Active Motion Color 1 min: Blue/Pale Resuscitation Effort 1 min: Tactile Stimulation SCORE 1 MIN: 7 Heart Rate 5 min: >100 bpm Resp Effort 5 min: Good Cry Reflex Irritability 5 min: Cough or Sneeze or Pulls Away Muscle Tone 5 min: Active Motion Color 5 min: Body [place], Extremities Blue Resuscitation Effort 5 min: Tactile Stimulation SCORE 5 MIN: 9 INFORMATION BABY A Gestational Age at Delivery: 40.1 Gestational Status: Full Term- 39- 40.6 Weeks Outcome : Liveborn Condition : Stable Infant Sex: Female IDENTIFICATION BABY A Verification Date/Time: 02/04/2018 15:06 ID Band Number: [id number] Mother's Name Verified: Yes RN Verifying Infant: H. Shayna, RN and B. Baidy, RN WEIGHT/LENGTH BABY A Birthweight (gm): 2940 Infant Weight (lb): 6 Weight (oz): 8 Length (in): 19.75 Length (cm): 50.17 CORD INFORMATION BABY A No. Cord Vessels: 3 Nuchal Cord : N/A Cord Blood Taken: Yes-For Eval (Mom's Blood Type - or O+) Suction: None ASSESSMENT BABY A Infant Complications: None Physical Findings at Delivery: Within Normal Limits Infant Respirations: Appears Normal Skin to Skin: Yes Administrative Fellow/ALS Called : No Infant Care By: Lynn Mary RN Transferred To: Remains with Mother SIGNATURES Signature: with User ID: [email or web address]
[2018-02-04] MEDS: FERROUS SULFATE 325 MG TABLET PO SCH (19:24)
[2018-02-04] MEDS: DOCUSATE SODIUM 100 MG CAPSULE PO SCH (19:24)
[2018-02-04] MEDS: FAMOTIDINE 20 MG TABLET PO SCH (21:09)
[2018-02-04] MEDS: IBUPROFEN 800 MG TABLET PO SCH (21:09)
[2018-02-05] MEDS: IBUPROFEN 800 MG TABLET PO SCH ×3 (06:28→22:20)
[2018-02-05] MEDS: SENNOSIDES/DOCUSATE 8.6-50 MG 1 EACH TABLET PO SCH (09:47)
[2018-02-05] MEDS: PRENATAL VITAMIN W DHA CAPSULE PO SCH (09:47)
[2018-02-05] MEDS: FERROUS SULFATE 325 MG TABLET PO SCH ×2 (09:47→17:54)
[2018-02-05] MEDS: DOCUSATE SODIUM 100 MG CAPSULE PO SCH ×2 (09:47→17:54)
[2018-02-05] MEDS: FAMOTIDINE 20 MG TABLET PO SCH ×2 (09:47→22:20)
[2018-02-05 10:10] LABS: HEMATOCRIT 31.9 % (36.0-47.0); MEAN CORPUSCULAR HEMOGLOBIN 31.9 pg (27.0-33.4); MEAN CORPUSCULAR HGB CONC 34.8 g/dL (32.0-36.0); MEAN CORPUSCULAR VOLUME 92 fl (80-97); PLATELET COUNT 157 10^3/uL (150-450); RED BLOOD COUNT 3.48 10^6/uL (3.72-5.28); RED CELL DISTRIBUTION WIDTH 13.2 % (11.5-14.0); WHITE BLOOD COUNT 9.4 10^3/uL (4.0-10.5)
[2018-02-05 10:11] LABS: HEMOGLOBIN 11.1 g/dL (12.0-15.5)
--- NOTE | 2018-02-05 10:23 | PDOC PROGRESS REPORT ---
Subjective-OB Progress Note for:: 02/05/18 Subjective: reports bleeding slowing, pain controlled with current meds, denies needs Physical Exam (OB) Vital Signs: Intake & Output 02/04/18 02/05/18 02/06/18 06:59 06:59 06:59 Intake Total 106 1240 Balance 106 1240 Weight 82 kg - Abdomen Description: Soft Hernia Present: No Fundal Description: Firm, Midline Fundal Height: u/u - u/2 - Abdominal Distension: No distension Tenderness: Nontender - Extremities Lower extremities: Rosi's sign - neg Calf: Normal, Nontender Objective-Diagnostic Laboratory: 02/05/18 09:33 02/05/18 09:33 WBC 9.4 RBC 3.48 L Hgb 11.1 L D Hct 31.9 L MCV 92 MCH 31.9 MCHC 34.8 RDW 13.2 Plt Count 157 Assessment and Plan(PN) - Assessment and Plan (1) Vacuum extraction, delivered, current hospitalization Is this a current diagnosis for this admission?: Yes (2) Vaginal after () Is this a current diagnosis for this admission?: Yes - Time Spent with Patient Time with patient: Less than 15 minutes Medications reviewed and adjusted accordingly: Yes - Disposition Anticipated Discharge: Home Within: within 24 hours
[2018-02-06] MEDS: IBUPROFEN 800 MG TABLET PO SCH ×2 (05:12→13:40)
[2018-02-06] MEDS: FERROUS SULFATE 325 MG TABLET PO SCH (10:41)
[2018-02-06] MEDS: FAMOTIDINE 20 MG TABLET PO SCH (10:42)
[2018-02-06] MEDS: PRENATAL VITAMIN W DHA CAPSULE PO SCH (10:42)
[2018-02-06] MEDS: DOCUSATE SODIUM 100 MG CAPSULE PO SCH (10:42)
[2018-02-06] MEDS: SENNOSIDES/DOCUSATE 8.6-50 MG 1 EACH TABLET PO SCH (10:42)
[2018-02-06 11:20] VITALS: BP 122/77
--- NOTE | 2018-02-06 13:50 | PDOC PROGRESS REPORT ---
Subjective-OB Progress Note for:: 02/06/18 Subjective: Ready for discharge. Physical Exam (OB) Vital Signs: Temp Pulse Resp BP Pulse Ox 97.8 F 110 H 16 122/77 95 02/06/18 11:19 02/06/18 11:19 02/06/18 11:19 02/06/18 11:19 02/06/18 11:19 Intake & Output 02/05/18 02/06/18 02/07/18 06:59 06:59 06:59 Intake Total 1240 375 Balance 1240 375 - PIH/Pre-Eclampsia Clonus: Negative Headache: Absent Epigastric Pain: No Visual Changes: No - Lochia Lochia Amount: Scant < 10 ml Lochia Color: Rubra/Red - Abdomen Description: Soft, Round Hernia Present: No Bowel Sounds: Normoactive Flatus Presence: Present Stool: No Fundal Description: Firm, Midline Fundal Height: u/u - u/2 Objective-Diagnostic Laboratory: 02/05/18 09:33 Assessment and Plan(PN) - Time Spent with Patient Medications reviewed and adjusted accordingly: Yes - Disposition Anticipated Discharge: Home
--- NOTE | 2018-02-06 13:59 | PDOC DISCHARGE SUMMARY ---
Final Diagnosis Discharge Date: 02/06/18 - Final Diagnosis (1) Is this a current diagnosis for this admission?: Yes (2) Vaginal after () Is this a current diagnosis for this admission?: Yes (3) Vacuum extraction, delivered, current hospitalization Is this a current diagnosis for this admission?: Yes Discharge Data - Discharge Medication Home Medications: Pnv No.103/Folic/Om3s/Fish Oil [ Gummies] 2 dose PO DAILY 08/31/17 Gestational Age: 40.1 wks Reason(s) for Admission: Onset of Labor Procedures: Ultrasound Intrapartum Procedure(s): Vacuum Extraction Complication(s): Laceration-Perineal Laceration-Degree: 1st - Lorida Data Baby 1 Female at 1 minute: 7 at 5 minutes: 9 Weight: 2.948 kg Home with Mother: Yes Complications: Yes - Vacuum extraction for bradycardia - Diagnosis Test Laboratory: Temp Pulse Resp BP Pulse Ox 97.8 F 110 H 16 122/77 95 02/06/18 11:19 02/06/18 11:19 02/06/18 11:19 02/06/18 11:19 02/06/18 11:19 02/04/18 02/04/18 02/05/18 01:20 01:46 09:33 RBC 4.60 3.48 L Hgb 14.4 11.1 L D Hct 41.5 31.9 L Urine Opiates Screen NEGATIVE - Discharge information/Instructions Discharge Activity: Activity As Tolerated, Balance Activity w/Rest, Pelvic Rest , Slowly Increase Activity, No tub bath Discharge Diet: Regular Disposition: HOME, SELF-CARE Follow up with: [facility] in: 4, Weeks
--- NOTE | 2018-02-09 14:55 | Delivery Summary ---
Del Sum A-C Datetime Report Generated by CPN: 02/09/2018 14:55 DELIVERY PERSONNEL DELIVERY PERSONNEL: [id number] Delivery Doctor:: Mic Aranda MD Labor and Delivery Nurse:: Dot Corral RNclient service supervisor Nurse:: Zakia Mary RN Pulp Mixer/SOFTWARE CLERK: Angella Burden, ST MATERNAL INFORMATION Delivery Anesthesia: Epidural Medications After Delivery: Pitocin Bolus-Please Comment Meds After Delivery Comment: 20 units Pitocin in 1000mL NS Estimated Blood Loss (ml): 250 Maternal Complications: None LABOR SUMMARY EDC: 02/03/2018 00:00 No. Babies in Womb: 1 Attempted: Yes Labor Anesthesia: Epidural LABOR INFORMATION Reason for Induction: Not Applicable Onset of Labor: 02/04/2018 01:25 Complete Dilatation: 02/04/2018 12:37 Cervical Ripening Agents: Other Oxytocin: N/A Group B Beta Strep: Negative Antibiotics # of Doses: 0 Steroids Given: None Reason Steroids Not Administered: Not Applicable MEMBRANES Membranes Rupture Method: Spontaneous Rupture of Membranes: 02/04/2018 12:36 Length of Rupture (hr): 1.25 Amniotic Fluid Color: Clear Amniotic Fluid Amount: Moderate Amniotic Fluid Odor: Normal STAGES OF LABOR Stage 1 hr: 11 Stage 1 min: 12 Stage 2 hr: 1 Stage 2 min: 14 Stage 3 hr: 0 Stage 3 min: 6 Total Time in Labor hr: 12 Total Time in Labor min: 32 VAGINAL DELIVERY Episiotomy: None Laceration #1: Perineal Laceration Extension #1: First Degree Laceration #2: None Laceration #3: None Laceration Repair: Yes Sponge Count Correct: Yes Sharps Count Correct: Yes BABY A INFORMATION Infant Delivery Date/Time: 02/04/2018 13:51 Method of Delivery: Vaginal Born in Route : No : Successful Forceps: N/A Vacuum Extraction: Successful Shoulder Dystocia : No ASSISTED DELIVERY BABY A Indication for Assisted Delivery: bradycardia Catheter Prior to Procedure: No Station Vacuum/Forcep Apply: Position Vacuum/Forcep Apply: Left Occipital Anterior Vacuum Number of Pulls: 1 Vacuum Number of PopOffs: 0 Vacuum Maximum Pressure Obtained: 550 Reduce Pressure btwn Ctx: No Vacuum Sewer Tapper: kiwi Total Time Vacuum Applied: 10 sec Vacuum/Forceps Comment: kiwi for bradycardia with one pull from with pressure in the green PRESENTATION/POSITION BABY A Presentation: Cephalic Presentation: Cephalic Presentation: Cephalic Presentation: Cephalic Cephalic Presentation: Vertex Vertex Position: Left Occipital Anterior PLACENTA INFORMATION BABY A Placenta Delivery Time : 02/04/2018 13:57 Placenta Method of Delivery: Spontaneous Placenta Status: Delivered SCORES BABY A Heart Rate 1 min: >100 bpm Resp Effort 1 min: Slow, Irregular Reflex Irritability 1 min: Cough or Sneeze or Pulls Away Muscle Tone 1 min: Active Motion Color 1 min: Blue/Pale Resuscitation Effort 1 min: Tactile Stimulation SCORE 1 MIN: 7 Heart Rate 5 min: >100 bpm Resp Effort 5 min: Good Cry Reflex Irritability 5 min: Cough or Sneeze or Pulls Away Muscle Tone 5 min: Active Motion Color 5 min: Body [place], Extremities Blue Resuscitation Effort 5 min: Tactile Stimulation SCORE 5 MIN: 9 INFORMATION BABY A Gestational Age at Delivery: 40.1 Gestational Status: Full Term- 39- 40.6 Weeks Outcome : Liveborn Condition : Stable Sex: Female IDENTIFICATION BABY A Verification Date/Time: 02/04/2018 15:06 ID Band Number: [id number] Mother's Name Verified: Yes RN Verifying Infant: H. Shayna, RN and B. Baidy, RN WEIGHT/LENGTH BABY A Infant Birthweight (gm): 2940 Infant Weight (lb): 6 Weight (oz): 8 Infant Length (in): 19.75 Infant Length (cm): 50.17 CORD INFORMATION BABY A No. Cord Vessels: 3 Nuchal Cord : N/A Cord Blood Taken: Yes-For Eval (Mom's Blood Type - or O+) Suction: None ASSESSMENT BABY A Infant Complications: None Physical Findings at Delivery: Within Normal Limits Respirations: Appears Normal Skin to Skin: Yes Skin to Skin: Yes Engineer Internship/ALS Called : No Infant Care By: Lynn Mary RN Transferred To: Remains with Mother SIGNATURES Signature: with User ID: [email or web address], Addendum/Amendment: The following provider comments do not apply to this patient. Patient was delivered by Dr. Aranda. Delivery Comments ProviderNSVD of a viable female @ 0554 with an OA presentation; meconium;APGARS 8, 9; 1st degree left vaginal lac09/16/17 13:20:00Ana Pringle MD ([facility])11/24/18 06:14:26 Episiotomy UznkJfou48/06/18 13:20:00Terri Shakeel Pringle MD ([facility])02/04/18 06:11:42Number ok Laceration Extension, [id number] Ezeihn96/06/18 13:20:00Terri Shakeel Pringle MD ([facility])09/16/17 13:20:00Terri Shakeel Pringle MD ([facility])02/04/18 06:12:07 Laceration EkfoZctepwk92/06/18 13:20:00Terri Shakeel Pringle MD ([facility])02/04/18 06:11:44Number ok Laceration Type #[id number]/06/18 13:20:00Terri Shakeel Pringle MD ([facility])02/04/18 06:12:09Number ok Signature: with User ID: Ana Signature: with User ID: [email or web address] : with User ID: Ana : with User ID: Alden
== END 2018-02-06 14:33 | disposition home or self-care (01) | DRG 806 ==
LOC: LC 00:49 → LR 01:36 → 2S 16:51
PROVIDERS: ADMIT Obstetrics & Gynecology; ATTEND Obstetrics & Gynecology
PROC: 10D07Z6 Extraction of Products of Conception, Vacuum, Via Natural or Artificial Opening (ICD-10-PCS; principal; 2018-02-04)
PROC: 0HQ9XZZ Repair Perineum Skin, External Approach (ICD-10-PCS; 2018-02-04)
PROC: 4A1HXCZ Monitoring of Products of Conception, Cardiac Rate, External Approach (ICD-10-PCS; 2018-02-04)
DX: O99.89 Other specified diseases and conditions complicating pregnancy, childbirth and the puerperium (principal); O41.03X0 Oligohydramnios, third trimester, not applicable or unspecified; Z37.0 Single live birth; R00.1 Bradycardia, unspecified; O48.0 Post-term pregnancy; O70.0 First degree perineal laceration during delivery; Z3A.40 40 weeks gestation of pregnancy; Z88.8 Allergy status to other drugs, medicaments and biological substances; Z87.891 Personal history of nicotine dependence
CPT/HCPCS: 36415; 80307; 81001; 85025; 85027; 86592; 86850; 86900; 86901; 86920; 87491; 87591; 90471; 90686; 90715; 93005; 93010; G0008; J2590; J3010; J3490

== ENCOUNTER 2018-02-13 14:11 | Emergency (ER) | payer MEDICAID ==
--- NOTE | 2018-02-13 16:00 | ER Document Report ---
ED Medical Screen (RME) - General Chief Complaint: High Blood Pressure Stated Complaint: ELEVATED BLOOD PRESSURE,DIZZINESS,BLEEDING Time Seen by Provider: 02/13/18 15:49 Notes: 22-year-old female sent [facility] by [facility] for elevated blood pressure. Reports she started developing intermittent headaches yesterday , she has started to have lower extremity swelling as well. She denies history of hypertension, she denies preeclampsia during , she states that she is in 1 week of delivery ( shows [address] Graham). TRAVEL OUTSIDE OF THE [place] IN LAST 30 DAYS: No - Related Data Allergies/Adverse Reactions: albuterol [Albuterol] Allergy (Severe, Verified 02/13/18 14:15) Heart races & passes out ethinyl estradiol [From NuvaRing] Allergy (Verified 02/13/18 14:15) etonogestrel [From NuvaRing] Allergy (Verified 02/13/18 14:15) chloraprep/pastora wipes Adverse Reaction (Mild, Uncoded 02/13/18 14:15) itching/welts Past Medical History - Social History Chew tobacco use (# tins/day): No Frequency of alcohol use: None Drug Abuse: None Family history: Reviewed & Not Pertinent - Past Medical History Cardiac Medical History: Denies: Hx Coronary Artery Disease, Hx Heart Attack, Hx Hypertension Pulmonary Medical History: Denies: Hx Asthma, Hx Bronchitis, Hx COPD, Hx Pneumonia Neurological Medical History: Denies: Hx Cerebrovascular Accident, Hx Seizures Renal/ Medical History: Reports: Hx Kidney Stones. Denies: Hx Peritoneal Dialysis GI Medical History: Reports: Hx Gastroesophageal Reflux Disease - With . Denies: Hx Hiatal Hernia, Hx Ulcer Musculoskeltal Medical History: Denies Hx Arthritis Skin Medical History: Reports Hx MRSA Past Surgical History: Reports: Hx Cardiac Surgery - pulm stenosis-had stent placed, Hx Section - @41 weeks pregant due to breech - Immunizations Immunizations up to date: Yes Hx Diphtheria, Pertussis, Tetanus Vaccination: Yes History of Influenza Vaccine for 12/2016 - 05/2017 Season: Unknown Physical Exam - Vital signs Vitals: Temp Pulse Resp BP Pulse Ox 99.0 F 116 H 14 144/100 H 99 02/13/18 14:20 02/13/18 14:20 02/13/18 14:20 02/13/18 14:20 02/13/18 14:20 - General General appearance: Appears well In distress: None - Extremities General upper extremity: Edema Course - Re-evaluation Re-evalutation: Patient with blood pressure in the 150 systolic in triage. She does have mild bilateral lower extremity swelling. She is in no distress. I called and spoke with Dr. Aranda, [employer] marketing and promotions manager and discussed preferences to approaching this, he recommends checking a platelets, LFTs, urinalysis and potentially patient could be discharged for blood pressure control on Procardia XL 30 mg twice a day. Does not recommend additional laboratory evaluation, magnesium, or admission at this time. - Vital Signs Vital signs: Temp Pulse Resp BP Pulse Ox 99.0 F 116 H 14 144/100 H 99 02/13/18 14:20 02/13/18 14:20 02/13/18 14:20 02/13/18 14:20 02/13/18 14:20 Doctor's Discharge - Discharge Referrals: [facility], INSURANCE LOSS ASSESSOR-C [Primary Care Provider] - Follow up as needed
[2018-02-13 16:58] LABS: APPEARANCE,URINE SLIGHTLY-CLOUDY; BILIRUBIN,URINE NEGATIVE (NEGATIVE); COLOR,URINE YELLOW; GLUCOSE, URINE NEGATIVE (NEGATIVE); KETONES,URINE NEGATIVE (NEGATIVE); LEUKOCYTE ESTERASE,URINE LARGE (NEGATIVE); NITRITE,URINE NEGATIVE (NEGATIVE); PROTEIN,URINE NEGATIVE (NEGATIVE); URINE SPECIFIC GRAVITY 1.011; UROBILINOGEN,URINE NEGATIVE mg/dL (<2.0)
[2018-02-13 17:08] LABS: ABSOLUTE EOSINOPHILS # (AUTO) 0.1 10^3/uL (0.0-0.6); ABSOLUTE LYMPHOCYTES (AUTO) 2.7 10^3/uL (0.5-4.7); ABSOLUTE MONOCYTES (AUTO) 0.8 10^3/uL (0.1-1.4); ABSOLUTE NEUT (AUTO) 5.8 10^3/uL (1.7-8.2); BASOPHILS % (AUTO) 0.3 % (0-2); EOSINOPHILS % (AUTO) 0.8 % (0-6); HEMATOCRIT 41.8 % (36.0-47.0); HEMOGLOBIN 14.6 g/dL (12.0-15.5); MEAN CORPUSCULAR HEMOGLOBIN 31.5 pg (27.0-33.4); MEAN CORPUSCULAR HGB CONC 34.9 g/dL (32.0-36.0); MEAN CORPUSCULAR VOLUME 90 fl (80-97); MONOCYTES % (AUTO) 8.1 % (3-13); PLATELET COUNT 276 10^3/uL (150-450); RED BLOOD COUNT 4.64 10^6/uL (3.72-5.28); RED CELL DISTRIBUTION WIDTH 13.1 % (11.5-14.0); SEGMENTED NEUTROPHILS % (AUTO) 61.8 % (42-78); TOTAL CELLS COUNTED % (AUTO) 100 %; WHITE BLOOD COUNT 9.3 10^3/uL (4.0-10.5)
--- NOTE | 2018-02-13 17:08 | ER Document Report ---
ED General - General Chief Complaint: High Blood Pressure Stated Complaint: ELEVATED BLOOD PRESSURE,DIZZINESS,BLEEDING Time Seen by Provider: 02/13/18 15:49 Mode of Arrival: Ambulatory Information source: Patient, Office TRAVEL OUTSIDE OF THE [place] IN LAST 30 DAYS: No - HPI Patient complains to provider of: High blood pressure, headache, lower extremity swelling Onset/Duration: Persistent Quality of pain: Achy, Pressure Severity: Moderate Pain Level: 3 Associated symptoms: Headache Exacerbated by: Denies Relieved by: Denies Similar symptoms previously: No Recently seen / treated by doctor: Yes Notes: Patient is a 22-year-old female who is 9 days from a vaginal delivery with no complications, she presents today from [facility] office with an elevated blood pressure, a persistent headache and lower extremity swelling, she reports that she had a headache the entire time she was hospitalized during the birthing process, with tinnitus at times, she reports that she felt as though it was probably a sinus type of headache as she had some nasal congestion, her symptoms are not worsened by different positions and therefore unlikely to be secondary to lumbar puncture headache, she has had some persistent bleeding with slight increase today as well, states that the OB/ TELEVISION REPAIRER checked her at the office and stated that her bleeding was normal however was concerned about a blood pressure reading of 159/92 with her persistent headache and lower extremity swelling, concern for preeclampsia - Related Data Allergies/Adverse Reactions: albuterol [Albuterol] Allergy (Severe, Verified 02/13/18 14:15) Heart races & passes out ethinyl estradiol [From NuvaRing] Allergy (Verified 02/13/18 14:15) etonogestrel [From NuvaRing] Allergy (Verified 02/13/18 14:15) chloraprep/pastora wipes Adverse Reaction (Mild, Uncoded 02/13/18 14:15) itching/welts Past Medical History - General Information source: Patient - Social History Smoking Status: Never Smoker Chew tobacco use (# tins/day): No Frequency of alcohol use: None Drug Abuse: None Family History: Reviewed & Not Pertinent Patient has suicidal ideation: No Patient has homicidal ideation: No - Past Medical History Cardiac Medical History: Denies: Hx Coronary Artery Disease, Hx Heart Attack, Hx Hypertension Pulmonary Medical History: Denies: Hx Asthma, Hx Bronchitis, Hx COPD, Hx Pneumonia Neurological Medical History: Denies: Hx Cerebrovascular Accident, Hx Seizures Renal/ Medical History: Reports: Hx Kidney Stones. Denies: Hx Peritoneal Dialysis GI Medical History: Reports: Hx Gastroesophageal Reflux Disease - With . Denies: Hx Hiatal Hernia, Hx Ulcer Musculoskeletal Medical History: Denies Hx Arthritis Skin Medical History: Reports Hx MRSA Past Surgical History: Reports: Hx Cardiac Surgery - pulm stenosis-had stent placed, Hx Section - @41 weeks pregant due to breech, Hx Orthopedic Surgery - R shoulder - Immunizations Immunizations up to date: Yes Hx Diphtheria, Pertussis, Tetanus Vaccination: Yes Review of Systems - Review of Systems Constitutional: No symptoms reported EENT: No symptoms reported Cardiovascular: Edema Respiratory: No symptoms reported Gastrointestinal: No symptoms reported Genitourinary: No symptoms reported Female Genitourinary: No symptoms reported Musculoskeletal: No symptoms reported Skin: No symptoms reported Hematologic/Lymphatic: No symptoms reported Neurological/Psychological: Headaches -: Yes All other systems reviewed and negative Physical Exam - Vital signs Vitals: Temp Pulse Resp BP Pulse Ox 99.0 F 116 H 14 144/100 H 99 02/13/18 14:20 02/13/18 14:20 02/13/18 14:20 02/13/18 14:20 02/13/18 14:20 Interpretation: Hypertensive, Tachycardic - General General appearance: Appears well, Alert - HEENT Head: Normocephalic, Atraumatic Eyes: Normal Pupils: PERRL - Respiratory Respiratory status: No respiratory distress Chest status: Nontender Breath sounds: Normal Chest palpation: Normal - Cardiovascular Rhythm: Regular Heart sounds: Normal auscultation Murmur: No - Abdominal Inspection: Normal Distension: No distension Bowel sounds: Normal Tenderness: Nontender Organomegaly: No organomegaly - Back Back: Normal, Nontender - Extremities General upper extremity: Normal inspection, Nontender, Normal color, Normal ROM , Normal temperature General lower extremity: Normal inspection, Nontender, Edema - Trace, Normal color, Normal ROM, Normal temperature, Normal weight bearing. No: Rosi's sign - Neurological Neuro grossly intact: Yes Cognition: Normal Orientation: AAOx4 [place] Coma Scale Eye Opening: Spontaneous [place] Coma Scale Verbal: Oriented [place] Coma Scale Motor: Obeys Commands [place] Coma Scale Total: 15 Speech: Normal Motor strength normal: LUE, RUE, LLE, RLE Sensory: Normal - Psychological Associated symptoms: Normal affect, Normal mood - Skin Skin Temperature: Warm Skin Moisture: Dry Skin Color: Normal Course - Re-evaluation Re-evalutation: 02/13/18 18:22 Patient was discussed with on-call [facility], Dr. Bennie Aranda, who recommends starting patient on Procardia 30 mg twice daily, treating her UTI and discharging home with outpatient follow-up 02/13/18 18:56 Patient resting comfortably, reports significant improvement in symptoms, headache is resolved, she continues to have some pressure behind her right ear, on exam has mild tympanic membrane bulging with no erythema, patient will be discharged home with prescription for Procardia and Macrobid, as well as instructions for follow-up, patient acknowledges understanding and agreement with this plan - Vital Signs Vital signs: Temp Pulse Resp BP Pulse Ox 99.0 F 116 H 14 144/100 H 99 02/13/18 14:20 02/13/18 14:20 02/13/18 14:20 02/13/18 14:20 02/13/18 14:20 - Laboratory Result Diagrams: 02/13/18 16:57 02/13/18 16:57 Laboratory results interpreted by me: 02/13/18 02/13/18 02/13/18 16:16 16:16 16:57 Beta HCG, Quant 47.97 H Urine Blood LARGE H Ur Leukocyte Esterase LARGE H Protein/Creatinin Ratio 0.5 H Urine Total Protein 24.3 H Discharge - Discharge Clinical Impression: Hypertension, Headache Condition: Stable Disposition: HOME, SELF-CARE Instructions: High Blood Pressure, Requiring Treatment ([facility]), Headache ([facility]) Additional Instructions: Follow up with your [facility] in one to 2 days. Return to the emergency room immediately if symptoms worsen or any additional concerns. Prescriptions: Nifedipine [Procardia Xl 30 mg Tablet] 30 mg PO BID #60 tab.er.24 Nitrofurantoin/Nitrofuran Mac [Macrobid 100 mg Capsule] 100 mg PO BID #20 capsule Referrals: ART SELLERS FNP-C [COMMUNITY BASED STAFF] - Follow up as needed
[2018-02-13 17:14] LABS: UR PRO/CREAT RATIO RESULT 0.5 mg/mg (0.0-0.2); URINE PROTEIN 24.3 mg/dL (<12)
[2018-02-13 17:27] LABS: ALANINE AMINOTRANSFERASE 13 U/L (9-52); ALBUMIN 3.9 g/dL (3.5-5.0); ALKALINE PHOSPHATASE 124 U/L (38-126); ANION GAP 12 (5-19); ASPARTATE AMINO TRANSFERASE 15 U/L (14-36); BILIRUBIN,DIRECT 0.2 mg/dL (0.0-0.4); BILIRUBIN,TOTAL 0.4 mg/dL (0.2-1.3); BLOOD UREA NITROGEN 7 mg/dL (7-20); CALCIUM 9.3 mg/dL (8.4-10.2); CARBON DIOXIDE 26 mmol/L (22-30); CHLORIDE 103 mmol/L (98-107); GLUCOSE 89 mg/dL (75-110); POTASSIUM 3.9 mmol/L (3.6-5.0); SODIUM 141.3 mmol/L (137-145); TOTAL PROTEIN 7.3 g/dL (6.3-8.2); URIC ACID 4.8 mg/dL (2.5-6.2)
[2018-02-13] MEDS ORDERED: NORMAL SALINE 1000 ML 1,000 ML IV ONE (17:50)
[2018-02-13] MEDS ORDERED: ONDANSETRON HCL INJ/PF 4 MG/2 ML SDV IV ONE (17:50)
[2018-02-13] MEDS ORDERED: KETOROLAC TROMETHAMINE INJ/PF 30 MG/1 ML SDV IV ONE (17:50)
[2018-02-13 19:20] VITALS: BP 124/84
== END 2018-02-13 19:25 | disposition home or self-care (01) ==
LOC: ER 14:11
DX: O16.5 Unspecified maternal hypertension, complicating the puerperium (principal); R51 Headache
CPT/HCPCS: 99283; 96361; 96374; 96375; 36415; 84702; 83615; 84156; 84550; 82570; 85025; 80053; 81001; J1885; J2405; J7030

== ENCOUNTER 2018-03-16 09:57 | Emergency (ER) | payer MEDICAID ==
[2018-03-16] MEDS ORDERED: PREDNISOLONE SOD PHOS 15 MG/5 ML ORAL SYRING PO ONE (10:24)
--- NOTE | 2018-03-16 11:21 | ER Document Report ---
ED Medical Screen (RME) - General Chief Complaint: Allergic Reaction Stated Complaint: ALLERGIC REACTION Time Seen by Provider: 03/16/18 10:15 Mode of Arrival: Ambulatory Information source: Patient TRAVEL OUTSIDE OF THE [place] IN LAST 30 DAYS: No - HPI Patient complains to provider of: Hives Onset: Other - 22-year-old otherwise healthy female that presents for evaluation of hives over her body similar to a previous episode in the past in the setting of being recently and delivering. She is currently breast-feeding a 2 -1/2-month-old. She denies any fevers chills shortness of breath throat fullness chest pain abdominal pain diarrhea constipation or dysuria. She is not take anything to try and help with this because she is breast-feeding and she is concerned. - Related Data Allergies/Adverse Reactions: albuterol [Albuterol] Allergy (Severe, Verified 03/16/18 09:58) Heart races & passes out ethinyl estradiol [From NuvaRing] Allergy (Verified 03/16/18 09:58) etonogestrel [From NuvaRing] Allergy (Verified 03/16/18 09:58) chloraprep/pastora wipes Adverse Reaction (Mild, Uncoded 03/16/18 09:58) itching/welts Past Medical History - General Information source: Patient - Social History Cigarette use (# per day): No Chew tobacco use (# tins/day): No Frequency of alcohol use: None Drug Abuse: None Family history: Reviewed & Not Pertinent - Past Medical History Cardiac Medical History: Denies: Hx Coronary Artery Disease, Hx Heart Attack, Hx Hypertension Pulmonary Medical History: Denies: Hx Asthma, Hx Bronchitis, Hx COPD, Hx Pneumonia Neurological Medical History: Denies: Hx Cerebrovascular Accident, Hx Seizures Renal/ Medical History: Reports: Hx Kidney Stones. Denies: Hx Peritoneal Dialysis GI Medical History: Reports: Hx Gastroesophageal Reflux Disease - With . Denies: Hx Hiatal Hernia, Hx Ulcer Musculoskeltal Medical History: Denies Hx Arthritis Skin Medical History: Reports Hx MRSA Past Surgical History: Reports: Hx Cardiac Surgery - pulm stenosis-had stent placed, Hx Section - @41 weeks pregant due to breech, Hx Orthopedic Surgery - R shoulder - Immunizations Immunizations up to date: Yes Hx Diphtheria, Pertussis, Tetanus Vaccination: Yes History of Influenza Vaccine for 12/2016 - 05/2017 Season: Unknown Review of Systems - Review of Systems -: Yes All other systems reviewed and negative Physical Exam - Vital signs Vitals: Temp Pulse Resp BP Pulse Ox 98.0 F 74 16 134/76 H 99 03/16/18 10:00 03/16/18 10:00 03/16/18 10:00 03/16/18 10:00 03/16/18 10:00 Interpretation: Normal - General General appearance: Appears well, Alert - HEENT Head: Normocephalic, Atraumatic Eyes: Normal Pupils: PERRL - Respiratory Respiratory status: No respiratory distress Chest status: Nontender Breath sounds: Normal Chest palpation: Normal - Cardiovascular Rhythm: Regular Heart sounds: Normal auscultation Murmur: No - Abdominal Inspection: Normal Distension: No distension Bowel sounds: Normal Tenderness: Nontender Organomegaly: No organomegaly - Back Back: Normal, Nontender - Extremities General upper extremity: Normal inspection, Nontender, Normal color, Normal ROM, Normal temperature General lower extremity: Normal inspection, Nontender, Normal color, Normal ROM, Normal temperature, Normal weight bearing. No: Rosi's sign - Neurological Neuro grossly intact: Yes Cognition: Normal Orientation: AAOx4 [place] Coma Scale Eye Opening: Spontaneous [place] Coma Scale Verbal: Oriented [place] Coma Scale Motor: Obeys Commands [place] Coma Scale Total: 15 Speech: Normal Motor strength normal: LUE, RUE, LLE, RLE Sensory: Normal - Psychological Associated symptoms: Normal affect, Normal mood - Skin Skin Temperature: Warm Skin Color: [place] - Confluent erythematous hives extending over her lower extremities bilaterally as well as her flank and bilateral upper arms. Course - Re-evaluation Re-evalutation: 03/16/18 12:53 22-year-old breast-feeding female that presents for evaluation of diffuse hives. On examination she does not have any systemic signs of more serious underlying issue such as but not limited to cellulitis, toxic epidermal necrolysis, pemphigus vulgaris. Per lactmed both steroids and antihistamines are well tolerated in breast- feeding mothers. They have few if any effects on the infant's. Because of the ability of these to be safely tolerated by Ms. Humphrey I will plan to administer a dose of steroids in the emergency department. She was given a dose of prednisone, she started to have some resolution of her symptoms prior to discharge, we did discuss that antihistamines are safe options for her as well as this brief course of steroids because she does seem to have some serious skin itching. I will plan for her to undergo discharge with return precautions and a brief course as described above. - Vital Signs Vital signs: Temp Pulse Resp BP Pulse Ox 98.0 F 74 16 134/76 H 99 03/16/18 10:00 03/16/18 10:00 03/16/18 10:00 03/16/18 10:00 03/16/18 10:00 Doctor's Discharge - Discharge Clinical Impression: Urticaria, Itching Condition: Good Disposition: HOME, SELF-CARE Instructions: Steroid Medication Additional Instructions: You were seen today in the emergency department for your hives. You had an evaluation including a physical exam. It is likely that these are reactive hives potentially as a result of your recent . You are given a dose of steroids, he will be given a prescription for steroids for the next 3 days. You can also use normal doses of Benadryl at home to help treat your symptoms as needed. It is okay for you to take Zyrtec or Claritin once daily. If you have worsening fevers, chills, shortness of breath, abdominal pain or feel like you are having difficulty breathing return to the emergency room because it could be developing a more serious condition. Prescriptions: Prednisone [Deltasone 20 mg Tablet] 3 tab PO DAILY 4 Days #12 tablet Referrals: MARC SABA MD [Primary Care Provider] - Follow up as needed
[2018-03-16 11:36] VITALS: BP 143/78
== END 2018-03-16 11:35 | disposition home or self-care (01) ==
LOC: ER 09:57
DX: L50.9 Urticaria, unspecified (principal); Z87.442 Personal history of urinary calculi; Z86.14 Personal history of Methicillin resistant Staphylococcus aureus infection
CPT/HCPCS: 99283; J7510

== ENCOUNTER 2018-03-17 09:53 | Emergency (ER) | payer MEDICAID ==
[2018-03-17] MEDS ORDERED: PREDNISONE 20 MG TABLET PO ONE (10:09)
[2018-03-17] MEDS ORDERED: CETIRIZINE 10 MG TABLET PO ONE (10:12)
--- NOTE | 2018-03-17 10:18 | ER Document Report ---
ED Medical Screen (RME) - General Chief Complaint: Allergic Reaction Stated Complaint: RASH Time Seen by Provider: 03/17/18 10:08 Mode of Arrival: Ambulatory Information source: Patient TRAVEL OUTSIDE OF THE [place] IN LAST 30 DAYS: No - HPI Patient complains to provider of: hives Onset: Other - 22-year-old female who is currently breast-feeding a 3-month-old who presents for evaluation of hives. She was evaluated yesterday for similar complaint at which time she began to develop hives of her primary her legs and upper trunk and torso this morning after having taken a single dose of steroids yesterday along with some Benadryl she had had relief and then the hives returned briefly last night and then worsened this morning involving the face as well as the axilla and trunk. She notes that there is intense itching and burning throughout the skin which prompted her to return. She is going to the pharmacy to try and get her dose of steroids but they said it would not be available until today. - Related Data Allergies/Adverse Reactions: albuterol [Albuterol] Allergy (Severe, Verified 03/17/18 09:54) Heart races & passes out ethinyl estradiol [From NuvaRing] Allergy (Verified 03/17/18 09:54) etonogestrel [From NuvaRing] Allergy (Verified 03/17/18 09:54) chloraprep/pastora wipes Adverse Reaction (Mild, Uncoded 03/17/18 09:54) itching/welts Past Medical History - General Information source: Patient - Social History Cigarette use (# per day): No Chew tobacco use (# tins/day): No Frequency of alcohol use: None Drug Abuse: None Lives with: Family Family history: Reviewed & Not Pertinent - Past Medical History Cardiac Medical History: Denies: Hx Coronary Artery Disease, Hx Heart Attack, Hx Hypertension Pulmonary Medical History: Denies: Hx Asthma, Hx Bronchitis, Hx COPD, Hx Pneumonia Neurological Medical History: Denies: Hx Cerebrovascular Accident, Hx Seizures Renal/ Medical History: Reports: Hx Kidney Stones. Denies: Hx Peritoneal Dialysis GI Medical History: Reports: Hx Gastroesophageal Reflux Disease - With . Denies: Hx Hiatal Hernia, Hx Ulcer Musculoskeltal Medical History: Denies Hx Arthritis Skin Medical History: Reports Hx MRSA Past Surgical History: Reports: Hx Cardiac Surgery - pulm stenosis-had stent placed, Hx Section - @41 weeks pregant due to breech, Hx Orthopedic Surgery - R shoulder - Immunizations Immunizations up to date: Yes Hx Diphtheria, Pertussis, Tetanus Vaccination: Yes History of Influenza Vaccine for 12/2016 - 05/2017 Season: Unknown Review of Systems - Review of Systems -: Yes All other systems reviewed and negative Physical Exam - Vital signs Vitals: Temp Pulse Resp BP Pulse Ox 98.6 F 88 18 134/68 H 100 03/17/18 09:58 03/17/18 09:58 03/17/18 09:58 03/17/18 09:58 03/17/18 09:58 - General General appearance: Appears well, Alert - HEENT Head: Normocephalic, Atraumatic Eyes: Normal Pupils: PERRL - Respiratory Respiratory status: No respiratory distress Chest status: Nontender Breath sounds: Normal Chest palpation: Normal - Cardiovascular Rhythm: Regular Heart sounds: Normal auscultation Murmur: No - Abdominal Inspection: Normal Distension: No distension Bowel sounds: Normal Tenderness: Nontender Organomegaly: No organomegaly - Back Back: Normal, Nontender - Extremities General upper extremity: Normal inspection, Nontender, Normal color, Normal ROM, Normal temperature General lower extremity: Normal inspection, Nontender, Normal color, Normal ROM, Normal temperature, Normal weight bearing. No: Rosi's sign - Neurological Neuro grossly intact: Yes Cognition: Normal Orientation: AAOx4 [place] Coma Scale Eye Opening: Spontaneous [place] Coma Scale Verbal: Oriented [place] Coma Scale Motor: Obeys Commands [place] Coma Scale Total: 15 Speech: Normal Motor strength normal: LUE, RUE, LLE, RLE Sensory: Normal - Psychological Associated symptoms: Normal affect, Normal mood - Skin Skin Temperature: Warm Skin Color: Erythema, Other Course - Re-evaluation Re-evalutation: 03/17/18 10:19 This 22-year-old female presents with hives did take Benadryl this morning. Was given a steroid yesterday which did improve her symptoms. She was unable to fill that steroid prescription today. She will be dosed with prednisone here. She also be given cetirizine. She has not been able take anything else at this time because the steroids were not able to be filled yesterday. We will plan for reassessment following administration of steroid here. 03/17/18 10:37 Following administration of steroids here as well as cetirizine patient had improvement in her hives. Her itching was improved. She is scheduled to be seen in 3 hours by her technical solutions director. Current plan will be for this patient undergo discharge with her continued expectant management. - Vital Signs Vital signs: Temp Pulse Resp BP Pulse Ox 98.6 F 88 18 134/68 H 100 03/17/18 09:58 03/17/18 09:58 03/17/18 09:58 03/17/18 09:58 03/17/18 09:58 Doctor's Discharge - Discharge Clinical Impression: Urticaria Condition: Good Disposition: HOME, SELF-CARE Additional Instructions: You were seen today in the emergency department for your hives. You should take cetirizine 10 mg every day while you are having hives. You should take the steroid prescribed to you yesterday taken next dose this evening may be around 6 or 7:00. Then take the rest of the doses thereafter. You can use Benadryl as needed for hives. Return for any shortness of breath, swelling in the throat, pain elsewhere. Otherwise follow-up with your chief security officer as previously scheduled. Prescriptions: Cetirizine HCl [Zyrtec 10 mg Tablet] 1 tab PO DAILY #30 tablet
[2018-03-17 11:15] VITALS: BP 121/72
== END 2018-03-17 11:18 | disposition home or self-care (01) ==
LOC: ER 09:53
DX: L50.9 Urticaria, unspecified (principal); Z88.8 Allergy status to other drugs, medicaments and biological substances
CPT/HCPCS: 99283; J7512; J3490

== ENCOUNTER 2018-06-05 16:07 | Emergency (ER) | payer MEDICAID ==
--- NOTE | 2018-06-05 16:30 | ER Document Report ---
ED Medical Screen (RME) - General Chief Complaint: Abdominal Pain Stated Complaint: ABDOMINAL PAIN Time Seen by Provider: 06/05/18 16:26 Mode of Arrival: Ambulatory Notes: pt c/o epigastric/ luq abd pain for 3 weeks with v/d today. reports she was told her gallbladder was inflamed when she was . PP 4 months. I have greeted and performed a rapid initial assessment of this patient. A comprehensive ED assessment and evaluation of the patient, analysis of test results and completion of the medical decision making process will be conducted by additional ED providers. TRAVEL OUTSIDE OF THE [place] IN LAST 30 DAYS: No - Related Data Allergies/Adverse Reactions: albuterol [Albuterol] Allergy (Severe, Verified 06/05/18 16:16) Heart races & passes out ethinyl estradiol [From NuvaRing] Allergy (Verified 06/05/18 16:16) etonogestrel [From NuvaRing] Allergy (Verified 06/05/18 16:16) chloraprep/pastora wipes Adverse Reaction (Mild, Uncoded 06/05/18 16:16) itching/welts Past Medical History - Social History Family history: Reviewed & Not Pertinent - Past Medical History Cardiac Medical History: Denies: Hx Coronary Artery Disease, Hx Heart Attack, Hx Hypertension Pulmonary Medical History: Denies: Hx Asthma, Hx Bronchitis, Hx COPD, Hx Pneumonia Neurological Medical History: Denies: Hx Cerebrovascular Accident, Hx Seizures Renal/ Medical History: Reports: Hx Kidney Stones. Denies: Hx Peritoneal Dialysis GI Medical History: Reports: Hx Gastroesophageal Reflux Disease - With . Denies: Hx Hiatal Hernia, Hx Ulcer Musculoskeltal Medical History: Denies Hx Arthritis Skin Medical History: Reports Hx MRSA Past Surgical History: Reports: Hx Cardiac Surgery - pulm stenosis-had stent placed, Hx Section - @41 weeks pregant due to breech, Hx Orthopedic Surgery - R shoulder - Immunizations Immunizations up to date: Yes Hx Diphtheria, Pertussis, Tetanus Vaccination: Yes History of Influenza Vaccine for 12/2016 - 05/2017 Season: Unknown Physical Exam - Vital signs Vitals: Temp Pulse Resp BP Pulse Ox 98.3 F 103 H 18 141/90 H 99 06/05/18 16:27 06/05/18 16:27 06/05/18 16:27 06/05/18 16:27 06/05/18 16:27 Course - Vital Signs Vital signs: Temp Pulse Resp BP Pulse Ox 98.3 F 103 H 18 141/90 H 99 06/05/18 16:27 06/05/18 16:27 06/05/18 16:27 06/05/18 16:27 06/05/18 16:27
[2018-06-05 19:44] LABS: ABSOLUTE EOSINOPHILS # (AUTO) 0.1 10^3/uL (0.0-0.6); ABSOLUTE LYMPHOCYTES (AUTO) 1.2 10^3/uL (0.5-4.7); ABSOLUTE MONOCYTES (AUTO) 0.8 10^3/uL (0.1-1.4); BASOPHILS % (AUTO) 0.1 % (0-2); EOSINOPHILS % (AUTO) 1.2 % (0-6); HEMATOCRIT 45.4 % (36.0-47.0); HEMOGLOBIN 15.8 g/dL (12.0-15.5); LYMPHOCYTES % (AUTO) 14.6 % (13-45); MEAN CORPUSCULAR HEMOGLOBIN 29.7 pg (27.0-33.4); MEAN CORPUSCULAR HGB CONC 34.8 g/dL (32.0-36.0); MEAN CORPUSCULAR VOLUME 85 fl (80-97); MONOCYTES % (AUTO) 9.4 % (3-13); PLATELET COUNT 219 10^3/uL (150-450); RED BLOOD COUNT 5.31 10^6/uL (3.72-5.28); RED CELL DISTRIBUTION WIDTH 12.8 % (11.5-14.0); SEGMENTED NEUTROPHILS % (AUTO) 74.7 % (42-78); TOTAL CELLS COUNTED % (AUTO) 100 %
[2018-06-05 19:51] LABS: APPEARANCE,URINE SLIGHTLY-CLOUDY; BILIRUBIN,URINE NEGATIVE (NEGATIVE); COLOR,URINE YELLOW; GLUCOSE, URINE NEGATIVE (NEGATIVE); KETONES,URINE NEGATIVE (NEGATIVE); LEUKOCYTE ESTERASE,URINE TRACE (NEGATIVE); NITRITE,URINE NEGATIVE (NEGATIVE); PROTEIN,URINE NEGATIVE (NEGATIVE)
[2018-06-05 19:55] LABS: ALANINE AMINOTRANSFERASE 29 U/L (9-52); ALBUMIN 4.6 g/dL (3.5-5.0); ALKALINE PHOSPHATASE 116 U/L (38-126); ANION GAP 12 (5-19); ASPARTATE AMINO TRANSFERASE 24 U/L (14-36); BILIRUBIN,DIRECT 0.1 mg/dL (0.0-0.4); BILIRUBIN,TOTAL 0.8 mg/dL (0.2-1.3); BLOOD UREA NITROGEN 10 mg/dL (7-20); CALCIUM 9.6 mg/dL (8.4-10.2); CARBON DIOXIDE 28 mmol/L (22-30); CHLORIDE 100 mmol/L (98-107); GLUCOSE 94 mg/dL (75-110); LIPASE 123.8 U/L (23-300); POTASSIUM 4.1 mmol/L (3.6-5.0); SODIUM 139.8 mmol/L (137-145); TOTAL PROTEIN 8.1 g/dL (6.3-8.2)
[2018-06-05] MEDS ORDERED: ONDANSETRON 4 MG TAB.RAPDIS PO ONE (20:48)
[2018-06-05] MEDS ORDERED: DICYCLOMINE HCL 20 MG TABLET PO ONE (20:48)
[2018-06-05] MEDS ORDERED: KETOROLAC TROMETHAMINE 60 MG/2 ML SDV IM ONE (20:48)
--- NOTE | 2018-06-05 20:49 | ER Document Report ---
ED General - General Chief Complaint: Abdominal Pain Stated Complaint: ABDOMINAL PAIN Time Seen by Provider: 06/05/18 16:26 Primary Care Provider: PHUONG RODRIGUEZ MD [Primary Care Provider] - Follow up as needed Mode of Arrival: Ambulatory Information source: Patient, [facility] Records Notes: 22-year-old female presents with complaint of nausea, vomiting, abdominal pain a nd diarrhea that started today. Pain is located in the epigastric region and described as a stabbing pain that is intermittent. Patient had 3 episodes of nonbilious nonbloody emesis and 4 episodes of nonbloody diarrhea. Patient has had sick contacts with family members at home with similar symptoms. Patient states that she had a fever this morning which resolved after taking Tylenol. TRAVEL OUTSIDE OF THE [place] IN LAST 30 DAYS: No - HPI Onset: This morning Onset/Duration: Gradual, Intermittent Quality of pain: Stabbing Severity: Moderate Associated symptoms: Diarrhea, Fever, Nausea, Vomiting. denies: Chest pain, Headache, Shortness of breath Exacerbated by: Movement - Related Data Allergies/Adverse Reactions: albuterol [Albuterol] Allergy (Severe, Verified 06/05/18 16:16) Heart races & passes out ethinyl estradiol [From NuvaRing] Allergy (Verified 06/05/18 16:16) etonogestrel [From NuvaRing] Allergy (Verified 06/05/18 16:16) chloraprep/pastora wipes Adverse Reaction (Mild, Uncoded 06/05/18 16:16) itching/welts Past Medical History - General Information source: Patient, [facility] Records - Social History Smoking Status: Never Smoker Frequency of alcohol use: None Drug Abuse: None Lives with: Family Family History: Reviewed & Not Pertinent Patient has suicidal ideation: No Patient has homicidal ideation: No - Past Medical History Cardiac Medical History: Denies: Hx Coronary Artery Disease, Hx Heart Attack, Hx Hypertension Pulmonary Medical History: Denies: Hx Asthma, Hx Bronchitis, Hx COPD, Hx Pneumonia Neurological Medical History: Denies: Hx Cerebrovascular Accident, Hx Seizures Renal/ Medical History: Reports: Hx Kidney Stones. Denies: Hx Peritoneal Dialysis GI Medical History: Reports: Hx Gastroesophageal Reflux Disease - With pre gnancy. Denies: Hx Hiatal Hernia, Hx Ulcer Musculoskeletal Medical History: Denies Hx Arthritis Skin Medical History: Reports Hx MRSA Past Surgical History: Reports: Hx Cardiac Surgery - pulm stenosis-had stent placed, Hx Section - @41 weeks pregant due to breech, Hx Orthopedic Surgery - R shoulder - Immunizations Immunizations up to date: Yes Hx Diphtheria, Pertussis, Tetanus Vaccination: Yes Review of Systems - Review of Systems Notes: REVIEW OF SYSTEMS: CONSTITUTIONAL : Denies chills, or sweats. Denies recent illness. Denies weight loss, recent hospitalizations. EENT: Denies visual changes, eye pain. Denies sore throat, oral lesions, difficulty swallowing. CARDIOVASCULAR: Denies chest pain. Denies palpitations. Denies lower extremity edema. RESPIRATORY: Denies cough. Denies shortness of breath, wheezing. GASTROINTESTINAL: Denies abdominal distention. Denies blood in vomitus, stools, or per rectum. Denies black, tarry stools. Denies constipation. GENITOURINARY: Denies difficulty urinating, painful urination, frequency, blood in urine, or vaginal discharge. MUSCULOSKELETAL: Denies back or neck pain or stiffness. Denies joint pain or swelling. SKIN: Denies rash, lesions or sores. HEMATOLOGIC : Denies easy bruising or bleeding. LYMPHATIC: Denies swollen glands. NEUROLOGICAL: Denies confusion or altered mental status. Denies loss of consciousness. Denies dizziness or lightheadedness. Denies headache. Denies weakness or paralysis. Denies problems difficulty with ambulation, slurred speech. Denies sensory loss, numbness, or tingling. Denies seizures. PSYCHIATRIC: Denies anxiety or stress. Denies depression, suicidal ideation, or homicidal ideation. Denies visual or auditory hallucinations. Physical Exam - Vital signs Vitals: Temp Pulse Resp BP Pulse Ox 98.3 F 103 H 18 141/90 H 99 06/05/18 16:27 06/05/18 16:27 06/05/18 16:27 06/05/18 16:27 06/05/18 16:27 - Notes Notes: PHYSICAL EXAMINATION: GENERAL: Well-appearing, well-nourished and in no acute distress. HEAD: Atraumatic, normocephalic. EYES: Pupils equal round and reactive to light, extraocular movements intact, co njunctiva are normal. ENT: Nares patent, oropharynx clear without exudates. Moist mucous membranes. NECK: Normal range of motion, supple without lymphadenopathy LUNGS: Breath sounds clear to auscultation bilaterally and equal. No wheezes rales or rhonchi. HEART: Regular rate and rhythm without murmurs ABDOMEN: Soft, nontender, nondistended abdomen. No guarding, no rebound. No masses appreciated. Female : deferred Musculoskeletal: Normal range of motion, no pitting or edema. No cyanosis. NEUROLOGICAL: Cranial nerves grossly intact. Normal speech, normal gait. Normal sensory, motor exams PSYCH: Normal mood, normal affect. SKIN: Warm, Dry, normal turgor, no rashes or lesions noted. Course - Re-evaluation Re-evalutation: 06/05/18 21:55 Laboratory 06/05/18 06/05/18 06/05/18 18:54 18:54 18:54 WBC 8.0 RBC 5.31 H Hgb 15.8 H Hct 45.4 MCV 85 MCH 29.7 MCHC 34.8 RDW 12.8 Plt Count 219 Seg Neutrophils % 74.7 Lymphocytes % 14.6 Monocytes % 9.4 Eosinophils % 1.2 Basophils % 0.1 Absolute Neutrophils 6.0 Absolute Lymphocytes 1.2 Absolute Monocytes 0.8 Absolute Eosinophils 0.1 Absolute Basophils 0.0 Sodium 139.8 Potassium 4.1 Chloride 100 Carbon Dioxide 28 Anion Gap 12 BUN 10 Creatinine 0.57 Est GFR ( Amer) > 60 Est GFR (Non-Af Amer) > 60 Glucose 94 Calcium 9.6 Total Bilirubin 0.8 Direct Bilirubin 0.1 Neonat Total Bilirubin Not Reportable Neonat Direct Bilirubin Not Reportable Neonat Indirect Bili Not Reportable AST 24 ALT 29 Alkaline Phosphatase 116 Total Protein 8.1 Albumin 4.6 Lipase 123.8 Serum HCG, Qual NEGATIVE Urine Color Urine Appearance Urine pH Ur Specific [place] Urine Protein Urine Glucose (UA) Urine Ketones Urine Blood Urine Nitrite Urine Bilirubin Urine Urobilinogen Ur Leukocyte Esterase Urine WBC (Auto) Squamous Epi Cells Auto Urine Mucus (Auto) Urine Ascorbic Acid 06/05/18 18:54 WBC RBC Hgb Hct MCV MCH MCHC RDW Plt Count Seg Neutrophils % Lymphocytes % Monocytes % Eosinophils % Basophils % Absolute Neutrophils Absolute Lymphocytes Absolute Monocytes Absolute Eosinophils Absolute Basophils Sodium Potassium Chloride Carbon Dioxide Anion Gap BUN Creatinine Est GFR ( Amer) Est GFR (Non-Af Amer) Glucose Calcium Total Bilirubin Direct Bilirubin Neonat Total Bilirubin Neonat Direct Bilirubin Neonat Indirect Bili AST ALT Alkaline Phosphatase Total Protein Albumin Lipase Serum HCG, Qual Urine Color YELLOW Urine Appearance SLIGHTLY-CLOUDY Urine pH 6.0 Ur Specific [place] 1.020 Urine Protein NEGATIVE Urine Glucose (UA) NEGATIVE Urine Ketones NEGATIVE Urine Blood NEGATIVE Urine Nitrite NEGATIVE Urine Bilirubin NEGATIVE Urine Urobilinogen 4.0 H Ur Leukocyte Esterase TRACE H Urine WBC (Auto) 4 Squamous Epi Cells Auto 6 Urine Mucus (Auto) RARE Urine Ascorbic Acid 40 H Abdomen Ultrasound 06/05/18 16:28 IMPRESSION: 1. No evidence of gallstones or acute cholecystitis. 2. Query nonobstructing stone in the right kidney. Temp Pulse Resp BP Pulse Ox 98.3 F 103 H 18 141/90 H 99 06/05/18 16:27 06/05/18 16:27 06/05/18 16:27 06/05/18 16:27 06/05/18 16:27 Presentation of an overall well-appearing patient in no acute distress with complaints of nausea, vomiting, diarrhea. This is consistent with likely viral gastroenteritis. Patient has no abdominal tenderness on exam and specifically no tenderness in the RLQ, LLQ, RUQ. Overall well hydrated on exam. Able to tolerate oral intake here in the emergency department. Low clinical suspicion for any acute life-threatening etiology based on exam and history including acute cholecystitis, SBO, appendicitis, nephrolithiasis, or pylonephritis. CMP without evidence of acute hepatitis or significant dehydration. Will plan for discharge at this time with return precautions and followup recommendations. - Vital Signs Vital signs: Temp Pulse Resp BP Pulse Ox 98.3 F 103 H 18 141/90 H 99 06/05/18 16:27 06/05/18 16:27 06/05/18 16:27 06/05/18 16:27 06/05/18 16:27 - Laboratory Result Diagrams: 06/05/18 18:54 06/05/18 18:54 Laboratory results interpreted by me: 06/05/18 06/05/18 18:54 18:54 RBC 5.31 H Hgb 15.8 H Urine Urobilinogen 4.0 H Ur Leukocyte Esterase TRACE H Urine Ascorbic Acid 40 H - Diagnostic Test Radiology reviewed: Image reviewed, Reports reviewed Discharge - Discharge Clinical Impression: Nausea vomiting and diarrhea, Epigastric abdominal pain, Gastroenteritis Condition: Good Disposition: HOME, SELF-CARE Instructions: Abdominal Pain ([facility]), Gastroenteritis (adult) ([facility]), Viral Syndrome ([facility]), Vomiting ([facility]) Additional Instructions: Your symptoms are likely due to a viral illness and should resolve in the next several days. You can take [id number] loperamide also known as Imodium as needed for diarrhea per box instructions. Continue to stay hydrated with plenty of solution such as Gatorade or Pedialyte. You are being prescribed Zofran to take as needed for nausea and vomiting. Please return if you develop severe abdominal pain, pass out, become unable to tolerate any oral fluids for 12 more hours, or any other symptoms that are concerning to you. Prescriptions: Famotidine [Pepcid 40 mg Tablet] 40 mg PO DAILY #7 tablet Ondansetron [Zofran Odt 4 mg Tablet] 1 - 2 tab PO Q4H PRN #15 tab.rapdis PRN Reason: For Nausea/Vomiting Forms: Elevated Blood Pressure Referrals: PHUONG RODRIGUEZ MD [Primary Care Provider] - Follow up as needed
--- NOTE | 2018-06-05 21:41 | RADIOLOGY REPORT (SQ) ---
US ABDOMEN LIMITED EXAM DATE: 06/05/2018 16:28 HISTORY: Right upper quadrant pain. COMPARISON: None. TECHNIQUE: Grayscale and color Doppler imaging of the right upper quadrant was performed. FINDINGS: The liver has normal echotexture without focal lesion identified. The main portal vein has normal hepatopetal flow. No shadowing gallstones are seen. No pericholecystic fluid or gallbladder wall thickening. The common bile duct is normal caliber. The pancreas is unremarkable. The right kidney is 11.9 cm in length. A small 5 mm echogenic shadowing focus is present which may represent a nonobstructing stone. No hydronephrosis. The visualized portions of the IVC and aorta are patent. IMPRESSION: 1. No evidence of gallstones or acute cholecystitis. 2. Query nonobstructing stone in the right kidney.
[2018-06-05] MEDS ORDERED: ONDANSETRON ODT 4 MG TAB (6 TAB/ER DISP) PO PRN (21:45)
[2018-06-05 22:18] VITALS: BP 131/75
== END 2018-06-05 22:24 | disposition home or self-care (01) ==
LOC: ER 16:07
DX: K52.9 Noninfective gastroenteritis and colitis, unspecified (principal); R10.13 Epigastric pain; R11.2 Nausea with vomiting, unspecified; R50.9 Fever, unspecified; Z86.14 Personal history of Methicillin resistant Staphylococcus aureus infection
CPT/HCPCS: 99284; 96372; 36415; 83690; 84703; 85025; 80053; 81001; 76705; J3490; J1885; S0119

== ENCOUNTER 2018-06-10 22:06 | Emergency (ER) | payer MEDICAID ==
[2018-06-10 22:42] LABS: APPEARANCE,URINE SLIGHTLY-CLOUDY; BILIRUBIN,URINE NEGATIVE (NEGATIVE); COLOR,URINE YELLOW; GLUCOSE, URINE NEGATIVE (NEGATIVE); KETONES,URINE NEGATIVE (NEGATIVE); LEUKOCYTE ESTERASE,URINE TRACE (NEGATIVE); NITRITE,URINE NEGATIVE (NEGATIVE); PROTEIN,URINE NEGATIVE (NEGATIVE); URINE SPECIFIC GRAVITY 1.015; UROBILINOGEN,URINE NEGATIVE mg/dL (<2.0)
[2018-06-10 23:23] LABS: ABSOLUTE EOSINOPHILS # (AUTO) 0.1 10^3/uL (0.0-0.6); ABSOLUTE LYMPHOCYTES (AUTO) 3.4 10^3/uL (0.5-4.7); ABSOLUTE NEUT (AUTO) 2.9 10^3/uL (1.7-8.2); BASOPHILS % (AUTO) 0.4 % (0-2); EOSINOPHILS % (AUTO) 1.6 % (0-6); HEMATOCRIT 41.2 % (36.0-47.0); HEMOGLOBIN 14.3 g/dL (12.0-15.5); LYMPHOCYTES % (AUTO) 45.7 % (13-45); MEAN CORPUSCULAR HEMOGLOBIN 29.6 pg (27.0-33.4); MEAN CORPUSCULAR HGB CONC 34.8 g/dL (32.0-36.0); MEAN CORPUSCULAR VOLUME 85 fl (80-97); PLATELET COUNT 224 10^3/uL (150-450); RED BLOOD COUNT 4.85 10^6/uL (3.72-5.28); RED CELL DISTRIBUTION WIDTH 12.6 % (11.5-14.0); SEGMENTED NEUTROPHILS % (AUTO) 39.3 % (42-78); TOTAL CELLS COUNTED % (AUTO) 100 %; WHITE BLOOD COUNT 7.4 10^3/uL (4.0-10.5)
[2018-06-10 23:32] LABS: ALANINE AMINOTRANSFERASE 26 U/L (9-52); ALBUMIN 4.1 g/dL (3.5-5.0); ALKALINE PHOSPHATASE 96 U/L (38-126); ANION GAP 7 (5-19); ASPARTATE AMINO TRANSFERASE 22 U/L (14-36); BILIRUBIN,DIRECT 0.2 mg/dL (0.0-0.4); BILIRUBIN,TOTAL 0.3 mg/dL (0.2-1.3); BLOOD UREA NITROGEN 13 mg/dL (7-20); CALCIUM 9.4 mg/dL (8.4-10.2); CARBON DIOXIDE 33 mmol/L (22-30); CHLORIDE 101 mmol/L (98-107); GLUCOSE 83 mg/dL (75-110); LIPASE 208.7 U/L (23-300); POTASSIUM 4.5 mmol/L (3.6-5.0); SODIUM 141.1 mmol/L (137-145); TOTAL PROTEIN 7.1 g/dL (6.3-8.2)
--- NOTE | 2018-06-11 00:43 | ER Document Report ---
ED General - General Chief Complaint: Flank Pain Stated Complaint: FLANK PAIN Time Seen by Provider: 06/10/18 23:56 Primary Care Provider: PAOLA VICENTE MD [Primary Care Provider] - Follow up as needed Notes: Patient is a pleasant 22-year-old female presents with complaint of left flank pain. No dysuria. Pain started tonight. Says it feels similar to when she had kidney stones in the past. She says when she first arrived to the ED was very painful but now the pain is almost completely resolved on its own. No fevers. No vomiting. No diarrhea. No other complaints at this time. Patient says there is no chance she could be . TRAVEL OUTSIDE OF THE [place] IN LAST 30 DAYS: No - Related Data Allergies/Adverse Reactions: albuterol [Albuterol] Allergy (Severe, Verified 06/10/18 22:10) Heart races & passes out ethinyl estradiol [From NuvaRing] Allergy (Verified 06/10/18 22:10) etonogestrel [From NuvaRing] Allergy (Verified 06/10/18 22:10) chloraprep/pastora wipes Adverse Reaction (Mild, Uncoded 06/10/18 22:10) itching/welts Past Medical History - Social History Smoking Status: Never Smoker Frequency of alcohol use: None Drug Abuse: None Family History: Reviewed & Not Pertinent - Past Medical History Cardiac Medical History: Denies: Hx Coronary Artery Disease, Hx Heart Attack, Hx Hypertension Pulmonary Medical History: Denies: Hx Asthma, Hx Bronchitis, Hx COPD, Hx Pneumonia Neurological Medical History: Denies: Hx Cerebrovascular Accident, Hx Seizures Renal/ Medical History: Reports: Hx Kidney Stones. Denies: Hx Peritoneal Dialysis GI Medical History: Reports: Hx Gastroesophageal Reflux Disease - With . Denies: Hx Hiatal Hernia, Hx Ulcer Musculoskeletal Medical History: Denies Hx Arthritis Skin Medical History: Reports Hx MRSA Past Surgical History: Reports: Hx Cardiac Surgery - pulm stenosis-had stent placed, Hx Section - @41 weeks pregant due to breech, Hx Orthopedic Surgery - R shoulder - Immunizations Immunizations up to date: Yes Hx Diphtheria, Pertussis, Tetanus Vaccination: Yes Review of Systems - Review of Systems Notes: My Normal Review Basic REVIEW OF SYSTEMS: CONSTITUTIONAL : Denies fever, chills, or sweats. Denies recent illness. EENT: Denies eye, ear, throat, or mouth pain or symptoms. Denies nasal or sinus congestion. CARDIOVASCULAR: Denies chest pain. RESPIRATORY: Denies cough, cold, or chest congestion. Denies shortness of breath, difficulty breathing, or wheezing. GASTROINTESTINAL: Denies abdominal pain. Denies nausea, vomiting, or diarrhea. Left flank pain GENITOURINARY: Denies difficulty urinating, painful urination, burning, frequency, or blood in urine. MUSCULOSKELETAL: Denies neck or back pain or joint pain or swelling. SKIN: Denies rash or skin lesions. NEUROLOGICAL: Denies altered mental status or loss of consciousness. Denies headache. Denies weakness or paralysis or loss of use of either side. Denies problems with gait or speech. Denies sensory or motor loss. ALL OTHER SYSTEMS REVIEWED AND NEGATIVE. Physical Exam - Vital signs Vitals: Temp Pulse Resp BP Pulse Ox 98 F 75 18 127/75 H 98 06/10/18 22:08 06/10/18 22:08 06/10/18 22:08 06/10/18 22:08 06/10/18 22:08 Course - Re-evaluation Re-evalutation: 06/11/18 01:21 On reevaluation patient is very well-appearing. I feel she safe to be discharged home. I encouraged her return to ER immediately if she has recurrent pain, fevers, or vomiting. Exact cause of her pain that she was having is unclear. By the time she got back to the ED room her pain was resolved. She denied wanting any pain medicine. She felt as if she had a kidney stone. I informed her that she may have passed a kidney stone that could be why her pain is resolved. Patient to return to ER if she has any recurrent symptoms or has any further concerns. She agrees with plan will be discharged home. Dictation of this chart was performed using voice recognition software; therefore, there may be some unintended grammatical errors. - Vital Signs Vital signs: Temp Pulse Resp BP Pulse Ox 98 F 75 18 127/75 H 98 06/10/18 22:08 06/10/18 22:08 06/10/18 22:08 06/10/18 22:08 06/10/18 22:08 - Laboratory Result Diagrams: 06/10/18 22:55 06/10/18 22:55 Laboratory results interpreted by me: 06/10/18 06/10/18 06/10/18 22:10 22:55 22:55 Seg Neutrophils % 39.3 L Lymphocytes % 45.7 H Carbon Dioxide 33 H Ur Leukocyte Esterase TRACE H Discharge - Discharge Clinical Impression: Flank pain Condition: Good Disposition: HOME, SELF-CARE Additional Instructions: Blood work and urine testing shows no evidence of infection. Your ultrasound shows no evidence of kidney stone at this time. It is possible that you may have recently passed a stone and that is why your pain is now relieved. Please have a low threshold to return to the ER if you have recurrent pain, vomiting, fevers, or feel unwell.
--- NOTE | 2018-06-11 01:07 | RADIOLOGY REPORT (SQ) ---
EXAM DESCRIPTION: US RETROPERITONEUM COMPLETED DATE/TME: 06/11/2018 00:08 CLINICAL HISTORY: 22 years, Female, left flank pain COMPARISON: None. TECHNIQUE: Grayscale and color images of the retroperitoneum LIMITATIONS: None. FINDINGS: Both kidneys are normal in size, shape, and echotexture. The right kidney measures 11.3 x 3.7 x 4.8 cm. The left kidney measures 12.4 x 4.6 x 4.6 cm. There is no hydronephrosis. No abnormal mass or stones are identified. The urinary bladder appears unremarkable. The bilateral ureteral jets identified. No wall thickening is identified. The visualized portions of the abdominal aorta are unremarkable IMPRESSION: Unremarkable exam. No hydronephrosis or stone is identified. copyright 2010 [employer]- All Rights Reserved
[2018-06-11 01:46] VITALS: BP 103/72
== END 2018-06-11 01:47 | disposition home or self-care (01) ==
LOC: ER 22:06
DX: R10.9 Unspecified abdominal pain (principal); Z87.442 Personal history of urinary calculi; Z86.14 Personal history of Methicillin resistant Staphylococcus aureus infection
CPT/HCPCS: 36415; 76770; 80053; 81001; 83690; 84703; 85025; 99284

== ENCOUNTER 2018-06-26 10:26 | Emergency (ER) | payer MEDICAID ==
--- NOTE | 2018-06-26 11:00 | ER Document Report ---
ED Skin Rash/Insect Bite/Abscs - General Chief Complaint: Hives Stated Complaint: RASH Time Seen by Provider: 06/26/18 10:44 Primary Care Provider: CARMEL RICHARD MD [Primary Care Provider] - Follow up in 3-5 days Mode of Arrival: Ambulatory Information source: Patient Notes: 22-year-old female presents to ED for complaint of itching and hives for the last 3 days. She states she has been having this each month at the time that she should be having her. Because she has a hormone imbalance. She states she has been tested for all the allergies twice several years apart in either time it is been negative. She states she is taking Benadryl and Zyrtec with no relief at this time. She states she is having itching and burning from these hives. Patient is alert oriented respirations regular and unlabored no shortness of breath no acute distress. TRAVEL OUTSIDE OF THE [place] IN LAST 30 DAYS: No - HPI Patient complains to provider of: Skin rash/lesion Onset: Other - 3 days Onset/Duration: Gradual, Persistent Quality of pain: Burning - Burning and itching Severity: Mild Pain Level: 1 Skin Character: Erythema, Rash, Urticarial Quality of rash: Itchy, Burning Identify cause: Yes - She states she was told it was a hormonal imbalance Exacerbated by: Denies Relieved by: Denies Similar symptoms previously: Yes Recently seen / treated by doctor: Yes - Related Data Allergies/Adverse Reactions: albuterol [Albuterol] Allergy (Severe, Verified 06/26/18 10:26) Heart races & passes out ethinyl estradiol [From NuvaRing] Allergy (Verified 06/26/18 10:26) etonogestrel [From NuvaRing] Allergy (Verified 06/26/18 10:26) chloraprep/pastora wipes Adverse Reaction (Mild, Uncoded 06/26/18 10:26) itching/welts Past Medical History - General Information source: Patient - 40 minutes and then comes increase of the less than 40 minutes of ankle - Social History Smoking Status: Never Smoker Chew tobacco use (# tins/day): No Frequency of alcohol use: None Drug Abuse: None Lives with: Family Family History: Reviewed & Not Pertinent Patient has suicidal ideation: No Patient has homicidal ideation: No - Past Medical History Cardiac Medical History: Reports: None Pulmonary Medical History: Reports: None EENT Medical History: Reports: None Neurological Medical History: Reports: None Endocrine Medical History: Reports: None Renal/ Medical History: Reports: Hx Kidney Stones Malignancy Medical History: Reports: None GI Medical History: Reports: Hx Gastroesophageal Reflux Disease - With Musculoskeletal Medical History: Reports None Skin Medical History: Reports Hx MRSA Psychiatric Medical History: Reports: None Traumatic Medical History: Reports: None Infectious Medical History: Reports: None Past Surgical History: Reports: Hx Cardiac Surgery - pulm stenosis-had stent placed, Hx Section - @41 weeks pregant due to breech, Hx Orthopedic Surgery - R shoulder - Immunizations Immunizations up to date: Yes Hx Diphtheria, Pertussis, Tetanus Vaccination: Yes Review of Systems - Review of Systems Constitutional: No symptoms reported EENT: No symptoms reported Cardiovascular: No symptoms reported Respiratory: No symptoms reported Gastrointestinal: No symptoms reported Genitourinary: No symptoms reported Female Genitourinary: No symptoms reported Musculoskeletal: No symptoms reported Skin: Other - Hives Hematologic/Lymphatic: No symptoms reported Neurological/Psychological: No symptoms reported -: Yes All other systems reviewed and negative Physical Exam - Vital signs Vitals: Temp Pulse Resp BP Pulse Ox 98.2 F 72 16 128/76 H 96 06/26/18 10:34 06/26/18 10:34 06/26/18 10:34 06/26/18 10:34 06/26/18 10:34 Interpretation: Normal - General General appearance: Appears well, Alert - HEENT Head: Normocephalic, Atraumatic Eyes: Normal Pupils: PERRL Ears: Normal External canal: Normal Tympanic membrane: Normal Sinus: Normal Nasal: Normal Mouth/Lips: Normal. No: Angioedema Mucous membranes: Normal Pharynx: Normal Neck: Normal - Respiratory Respiratory status: No respiratory distress Chest status: Nontender Breath sounds: Normal Chest palpation: Normal - Cardiovascular Rhythm: Regular Heart sounds: Normal auscultation Murmur: No - Abdominal Inspection: Normal Distension: No distension Bowel sounds: Normal Tenderness: Nontender Organomegaly: No organomegaly - Back Back: Normal, Nontender - Extremities General upper extremity: Normal inspection, Nontender, Normal color, Normal ROM, Normal temperature General lower extremity: Normal inspection, Nontender, Normal color, Normal ROM, Normal temperature, Normal weight bearing. No: Rosi's sign - Neurological Neuro grossly intact: Yes Cognition: Normal Orientation: AAOx4 [place] Coma Scale Eye Opening: Spontaneous [place] Coma Scale Verbal: Oriented [place] Coma Scale Motor: Obeys Commands [place] Coma Scale Total: 15 Speech: Normal Motor strength normal: LUE, RUE, LLE, RLE Sensory: Normal - Psychological Associated symptoms: Normal affect, Normal mood - Skin Skin Temperature: Warm Skin Moisture: Dry Skin Color: Normal Location of irregularity: Generalized Character of irregularity: Erythematous, Urticarial, Other Irregularity with: Tenderness Course - Vital Signs Vital signs: Temp Pulse Resp BP Pulse Ox 98.0 F 74 16 126/72 H 99 06/26/18 11:50 06/26/18 11:50 06/26/18 11:50 06/26/18 11:50 06/26/18 11:50 Discharge - Discharge Clinical Impression: Hives Condition: Stable Disposition: HOME, SELF-CARE Instructions: Acute Urticaria ([facility]) Additional Instructions: STEROID MEDICATION: You have been given a medicine of the cortisone/steroid class. This medication is used to control inflammation or allergy. It is usually only given for a short period of time, until the acute process subsides. There are usually no side effects from short-term use of cortisone-like medications. Some persons feel an increased sense of well-being and are not sle epy at bedtime. Long-term use of cortisone medications is best avoided, unless required for a severe condition. If your condition does not remit, or relapses after the course of corticosteroid medication, you should consult your physician. ACID-SUPPRESSING MEDICATION: You have a prescription for medicine which reduces the stomach's secretion of acid. Examples include Zantac, Tagament, and Pepcid. These drugs are often used to allow healing of ulcers or esophagitis. They may be needed to prevent recurrence of ulcers in some patients, or to prevent damage from acid reflux in the esophagus. Take all medication as prescribed, even after the pain is gone. Regular antacids may be added as needed if you have symptoms while taking this medicine. These medications sometimes are prescribed for allergic reactions because they have anti-histaminic effects and relieve the rash and itching of the reaction. There are usually no side effects from this medication. But, in rare cases and particularly in the elderly, serious problems can occur. Contact your doctor if there is fever, rash, hallucinations, confusion, or unusual bruising. Contact your doctor at once if you develop lightheadedness, black or bloody stool, or bloody vomitus. ANTIHISTAMINES: An antihistamine has been given and/or prescribed to control your symptoms. Antihistamines are used for many reasons, including itching, watering eyes, runny nose, allergic swelling, hives, and insect stings. Antihistamines may cause drowsiness, especially with the first dose. Do not operate machinery or drive while under the effects of the medication. Other common side effects include dry mouth and eyes. In older persons, antihistamines can occasionally cause urinary retention, constipation, and trouble focusing the eyes. Do not combine the medication with alcohol, or with any other medication without talking to your doctor. USE OF DIPHENHYDRAMINE: The use of diphenhydramine (Benadryl) has been recommended to control allergic symptoms. The 25 mg strength is available over- the-counter, as well as the elixir. This antihistamine is used for many symptoms. It's useful for itching, watering eyes and nose, allergic swelling, hives, and insect stings. The medication can be repeated four times daily. Age Elixir (12.5 mg/tsp) 25 mg pill 2-3 yr 1/2 tsp 4-8 yr 1 tsp 9-14 yr 2 tsp one tab adult 1-2 tabs Antihistamines may cause drowsiness, especially with the first dose. Do not operate machinery or drive while under the effects of the medication. Do not combine the medication with alcohol, or with any other medication without ta lking to your doctor. FOLLOW-UP CARE: If you have been referred to a physician for follow-up care, call the physicians office for an appointment as you were instructed or within the next two days. If you experience worsening or a significant change in your symptoms, notify the physician immediately or return to the Emergency Department at any time for re-evaluation. Prescriptions: Famotidine [Pepcid 20 mg Tablet] 20 mg PO BID #12 tablet Hydroxyzine HCl [Atarax 50 mg Tablet] 50 mg PO QPMP PRN #20 tablet PRN Reason: Prednisone [Deltasone 20 mg Tablet] 3 tab PO DAILY 3 Days tablet Forms: Elevated Blood Pressure, Return to Work Referrals: CARMEL RICHARD MD [Primary Care Provider] - Follow up in 3-5 days
[2018-06-26] MEDS ORDERED: PREDNISONE 20 MG TABLET PO ONE (11:01)
[2018-06-26 11:51] VITALS: BP 126/72
== END 2018-06-26 11:53 | disposition home or self-care (01) ==
LOC: ER 10:26
DX: L50.9 Urticaria, unspecified (principal); R21 Rash and other nonspecific skin eruption
CPT/HCPCS: 99283; 87070; 87880; J7512

== ENCOUNTER 2018-06-28 09:36 | Emergency (ER) | payer MEDICAID ==
[2018-06-28] MEDS ORDERED: FAMOTIDINE INJ/PF 20 MG/2 ML SDV IV ONE (10:09)
[2018-06-28] MEDS ORDERED: DIPHENHYDRAMINE HCL 50 MG/ML VIAL IV ONE (10:09)
[2018-06-28] MEDS ORDERED: METHYLPREDNISOLONE INJ 125 MG/2 ML SDV IV ONE (10:09)
--- NOTE | 2018-06-28 10:12 | ER Document Report ---
ED Medical Screen (RME) - General Chief Complaint: Allergic Reaction Stated Complaint: POSSIBLE ALLERGIC REACTION Time Seen by Provider: 06/28/18 10:05 Primary Care Provider: CARMEL RICHARD MD [Primary Care Provider] - Follow up as needed TRAVEL OUTSIDE OF THE [place] IN LAST 30 DAYS: No - HPI Notes: 06/28/18 10:10 Patient is a 22-year-old female who presents the emergency department complaining of upper and lower lip swelling and eye puffiness with a rash that began this morning about 2 hours ago. Patient states that she has issues with allergies and developing hives. She presented with the rash 2 days ago and received medicines which seem to help, but patient woke up this morning with the puffiness around her eyes and lips. She is still able to eat and drink without difficulty. She is urinating normally. No new foods or travel. She has been seen by an sea kayaking guide and has been on steroids before. She usually takes Benadryl. Denies SINGH, fever, drooling, hoarseness, neck pain, URI, CP, SOB, Abd pain. I have treated and performed a rapid initial assessment of this patient. A comprehensive ED assessment and evaluation of the patient, analysis of test results and completion of medical decision making process will be conducted by additional ED providers. PHYSICAL EXAMINATION: GENERAL: Well-appearing, well-nourished and in no acute distress. A&Ox4. Ans wers questions appropriately. LUNGS: Breath sounds clear to auscultation bilaterally and equal. No wheezes rales or rhonchi. HEART: Regular rate and rhythm without murmurs, rubs, gallops. HEENT: there is puffiness around both eyes. Upper and lower lip swollen. No airway compromise at this time. No tongue or throat swelling. No drooling/hoarseness. Skin: hives appearing rash, generalized. - Related Data Allergies/Adverse Reactions: albuterol [Albuterol] Allergy (Severe, Verified 06/28/18 09:38) Heart races & passes out ethinyl estradiol [From NuvaRing] Allergy (Verified 06/28/18 09:38) etonogestrel [From NuvaRing] Allergy (Verified 06/28/18 09:38) chloraprep/pastora wipes Adverse Reaction (Mild, Uncoded 06/28/18 09:38) itching/welts Past Medical History - Social History Frequency of alcohol use: None Drug Abuse: None Family history: Reviewed & Not Pertinent - Past Medical History Cardiac Medical History: Denies: Hx Heart Attack, Hx Hypertension Pulmonary Medical History: Denies: Hx Asthma, Hx Bronchitis, Hx COPD, Hx Pneumonia Neurological Medical History: Denies: Hx Seizures Renal/ Medical History: Reports: Hx Kidney Stones. Denies: Hx Peritoneal Dialysis GI Medical History: Reports: Hx Gastroesophageal Reflux Disease - With . Denies: Hx Hiatal Hernia, Hx Ulcer Musculoskeltal Medical History: Denies Hx Arthritis Skin Medical History: Reports Hx MRSA Past Surgical History: Reports: Hx Cardiac Surgery - pulm stenosis-had stent placed, Hx Section - @41 weeks pregant due to breech, Hx Orthopedic Surgery - R shoulder - Immunizations Immunizations up to date: Yes Hx Diphtheria, Pertussis, Tetanus Vaccination: Yes History of Influenza Vaccine for 12/2016 - 05/2017 Season: Unknown Physical Exam - Vital signs Vitals: Temp Pulse Resp BP Pulse Ox 98.4 F 91 18 123/89 H 100 06/28/18 09:47 06/28/18 09:47 06/28/18 09:47 06/28/18 09:47 06/28/18 09:47 Course - Vital Signs Vital signs: Temp Pulse Resp BP Pulse Ox 98.4 F 91 18 123/89 H 100 06/28/18 09:47 06/28/18 09:47 06/28/18 09:47 06/28/18 09:47 06/28/18 09:47 Doctor's Discharge - Discharge Referrals: CARMEL RICHARD MD [Primary Care Provider] - Follow up as needed
[2018-06-28 10:48] LABS: ABSOLUTE LYMPHOCYTES (AUTO) 3.6 10^3/uL (0.5-4.7); ABSOLUTE MONOCYTES (AUTO) 1.1 10^3/uL (0.1-1.4); ABSOLUTE NEUT (AUTO) 4.8 10^3/uL (1.7-8.2); BASOPHILS % (AUTO) 0.2 % (0-2); EOSINOPHILS % (AUTO) 0.4 % (0-6); HEMATOCRIT 41.7 % (36.0-47.0); HEMOGLOBIN 14.7 g/dL (12.0-15.5); LYMPHOCYTES % (AUTO) 37.9 % (13-45); MEAN CORPUSCULAR HEMOGLOBIN 29.9 pg (27.0-33.4); MEAN CORPUSCULAR HGB CONC 35.2 g/dL (32.0-36.0); MEAN CORPUSCULAR VOLUME 85 fl (80-97); MONOCYTES % (AUTO) 11.6 % (3-13); PLATELET COUNT 211 10^3/uL (150-450); RED CELL DISTRIBUTION WIDTH 12.8 % (11.5-14.0); SEGMENTED NEUTROPHILS % (AUTO) 49.9 % (42-78); TOTAL CELLS COUNTED % (AUTO) 100 %; WHITE BLOOD COUNT 9.5 10^3/uL (4.0-10.5)
--- NOTE | 2018-06-28 11:27 | ER Document Report ---
ED Allergic Reaction - General Chief Complaint: Allergic Reaction Stated Complaint: POSSIBLE ALLERGIC REACTION Time Seen by Provider: 06/28/18 10:05 Primary Care Provider: CARMEL RICHARD MD [Primary Care Provider] - Follow up as needed TRAVEL OUTSIDE OF THE [place] IN LAST 30 DAYS: No - HPI Notes: Patient is a 22-year-old female that presents to the emergency department for ch ief complaint of allergic reaction. Patient reports an Allergic reaction to an unknown source that began on Tuesday. She states that she has history of intermittent hives and has had allergy testing in 2017. Initially they believe that her source was related to hormone swings and control packs were helping her symptoms. Patient is currently breast-feeding her 4-month-old and has been off control for the last 3-4 weeks. She was on it shortly after the of her child and states she has had urticaria while on the control. They stopped it because her milk supply was diminishing. Patient denies any oral pharyngeal swelling or difficulty breathing. She does report lip edema and periorbital swelling that began today. She states the hives on her body are migratory and have been changing but are diffuse across her whole body. She has been taking prednisone 60 mg daily and Benadryl at home, this was prescribed after an ER visit shortly after initiation of her symptoms on Tuesday. Past Medical History: Allergies Past Surgical History: right shoulder fracture repair Social History: Denies drugs alcohol and tobacco Family History: Reviewed and noncontributory for presenting illness Allergies: Reviewed, see documented allergy list. REVIEW OF SYSTEMS: CONSTITUTIONAL : No fever No chills No diaphoresis No recent illness EENT: Lip swelling No vision changes No congestion No sore throat CARDIOVASCULAR: No chest pain No palpitations RESPIRATORY: No shortness of breath No cough No difficulty breathing GASTROINTESTINAL: No abdominal pain No nausea No vomiting No diarrhea GENITOURINARY: No dysuria No hematuria No difficulty urinating MUSCULOSKELETAL: No back pain No leg pain No arm pain SKIN: rashes No lesions LYMPHATIC: No swollen, enlarged glands. NEUROLOGICAL: No lightheadedness No headache No weakness No paresthesias PSYCHIATRIC: No anxiety No depression PHYSICAL EXAMINATION: Vital signs reviewed, nursing noted reviewed. GENERAL: Well-appearing, well-nourished and in no acute distress. HEAD: Atraumatic, normocephalic. EYES: Periorbital edema bilaterally, eyes appear normal, extraocular movements intact, sclera anicteric, conjunctiva are normal. ENT: Mild upper and lower lip edema, no lingular or oral pharyngeal edema, uvula appears normal, nares patent, oropharynx clear without exudates. Moist mucous membranes. NECK: Normal range of motion, supple without lymphadenopathy LUNGS: Breath sounds clear to auscultation bilaterally and equal. No wheezes rales or rhonchi. HEART: Regular rate and rhythm without murmurs ABDOMEN: Soft, nontender, normoactive bowel sounds. No rebound, guarding, or rigidity. No masses appreciated. EXTREMITIES: Nontender, good range of motion, no pitting or edema. NEUROLOGICAL: No focal neurological deficits. Moves all extremities spontaneou sly Motor and sensory grossly intact on exam. PSYCH: Normal mood, normal affect. SKIN: Warm, Dry, normal turgor, urticaria diffuse across upper extremities and upper chest - Related Data Allergies/Adverse Reactions: albuterol [Albuterol] Allergy (Severe, Verified 06/28/18 09:38) Heart races & passes out ethinyl estradiol [From NuvaRing] Allergy (Verified 06/28/18 09:38) etonogestrel [From NuvaRing] Allergy (Verified 06/28/18 09:38) chloraprep/pastora wipes Adverse Reaction (Mild, Uncoded 06/28/18 09:38) itching/welts Past Medical History - Social History Smoking Status: Never Smoker Frequency of alcohol use: None Drug Abuse: None Family History: Reviewed & Not Pertinent Patient has suicidal ideation: No Patient has homicidal ideation: No - Past Medical History Cardiac Medical History: Denies: Hx Heart Attack, Hx Hypertension Pulmonary Medical History: Denies: Hx Asthma, Hx Bronchitis, Hx COPD, Hx Pneumonia Neurological Medical History: Denies: Hx Seizures Renal/ Medical History: Reports: Hx Kidney Stones. Denies: Hx Peritoneal Dialysis GI Medical History: Reports: Hx Gastroesophageal Reflux Disease - With . Denies: Hx Hiatal Hernia, Hx Ulcer Musculoskeletal Medical History: Denies Hx Arthritis Skin Medical History: Reports Hx MRSA Past Surgical History: Reports: Hx Cardiac Surgery - pulm stenosis-had stent placed, Hx Section - @41 weeks pregant due to breech, Hx Orthopedic Surgery - R shoulder - Immunizations Immunizations up to date: Yes Hx Diphtheria, Pertussis, Tetanus Vaccination: Yes Physical Exam - Vital signs Vitals: Temp Pulse Resp BP Pulse Ox 98.4 F 91 18 123/89 H 100 06/28/18 09:47 06/28/18 09:47 06/28/18 09:47 06/28/18 09:47 06/28/18 09:47 Course - Re-evaluation Re-evalutation: 06/28/18 11:27 Vitals reviewed. Nursing notes reviewed. Patient symptoms have been ongoing since Tuesday. She does have some lip edema however she has no edema posterior to her gingival line. She is oxygenating well on room air and in no respiratory distress. She is hemodynamically stable. She has had symptomatic improvement after medication given in triage. Patient will be given an EpiPen and was counseled on indications for epinephrine. She will also be started on a Medrol Dosepak to taper steroids for a longer course given the prolonged symptoms. Patient encouraged to follow closely with her budget director for repeat allergy testing as she is likely re-exposing herself to an allergen. Patient in agreement with this plan of care and stable at discharge - Vital Signs Vital signs: Temp Pulse Resp BP Pulse Ox 98.4 F 91 18 123/89 H 100 06/28/18 09:47 06/28/18 09:47 06/28/18 09:47 06/28/18 09:47 06/28/18 09:47 - Laboratory Result Diagrams: 06/28/18 10:38 Discharge - Discharge Clinical Impression: Hives, Lip edema Allergic reaction Qualifiers: Encounter type: initial encounter Qualified Code(s): T78.40XA - Allergy, unspecified, initial encounter Condition: Stable Disposition: HOME, SELF-CARE Instructions: Acute Allergic Reaction ([facility]), Epinephrine Additional Instructions: Please return to the emergency department if you have any worsening, or concern of your symptoms. Please return to the emergency department if you develop chest pain, difficulty breathing, severe abdominal pain, or ongoing vomiting. Please follow-up with your primary care physician in 2-3 days and any other re commended physicians. If prescribed, take all medications as directed. If you have any questions or concerns do not hesitate to return the emergency department for evaluation. Contact your budget director for repeat allergy testing in the next few days. Prescriptions: Epinephrine [Epipen] 0.3 mg IJ ONCE PRN #1 auto.injct PRN Reason: Methylprednisolone [Medrol Dosepack (4 mg/Tab) 21 Tab/Dosepak] 4 mg PO ASDIR PRN #21 tab.[id number].[email or web address] PRN Reason: Referrals: CARMEL RICHARD MD [Primary Care Provider] - Follow up in 3-5 days
[2018-06-28 12:07] VITALS: BP 123/78
== END 2018-06-28 12:07 | disposition home or self-care (01) ==
LOC: ER 09:36
DX: L50.0 Allergic urticaria (principal); R60.9 Edema, unspecified
CPT/HCPCS: 99283; 96374; 96375; 36415; 84703; 85025; J1200; J2930; S0028

== ENCOUNTER 2019-01-12 22:15 | Emergency (ER) | payer SELFPAY ==
[2019-01-12 22:33] VITALS: BP 139/73
[2019-01-12 23:21] LABS: ABSOLUTE BASOPHILS # (AUTO) 0.1 10^3/uL (0.0-0.2); ABSOLUTE EOSINOPHILS # (AUTO) 0.1 10^3/uL (0.0-0.6); ABSOLUTE LYMPHOCYTES (AUTO) 3.6 10^3/uL (0.5-4.7); ABSOLUTE MONOCYTES (AUTO) 1.4 10^3/uL (0.1-1.4); ABSOLUTE NEUT (AUTO) 7.2 10^3/uL (1.7-8.2); BASOPHILS % (AUTO) 0.4 % (0-2); EOSINOPHILS % (AUTO) 0.9 % (0-6); HEMOGLOBIN 15.3 g/dL (12.0-15.5); LYMPHOCYTES % (AUTO) 29.4 % (13-45); MEAN CORPUSCULAR HGB CONC 34.9 g/dL (32.0-36.0); MEAN CORPUSCULAR VOLUME 86 fl (80-97); MONOCYTES % (AUTO) 10.9 % (3-13); PLATELET COUNT 221 10^3/uL (150-450); RED BLOOD COUNT 5.11 10^6/uL (3.72-5.28); RED CELL DISTRIBUTION WIDTH 12.5 % (11.5-14.0); SEGMENTED NEUTROPHILS % (AUTO) 58.4 % (42-78); TOTAL CELLS COUNTED % (AUTO) 100 %; WHITE BLOOD COUNT 12.4 10^3/uL (4.0-10.5)
[2019-01-12 23:23] LABS: APPEARANCE,URINE CLEAR; BILIRUBIN,URINE NEGATIVE (NEGATIVE); COLOR,URINE STRAW; GLUCOSE, URINE NEGATIVE (NEGATIVE); KETONES,URINE NEGATIVE (NEGATIVE); LEUKOCYTE ESTERASE,URINE NEGATIVE (NEGATIVE); NITRITE,URINE NEGATIVE (NEGATIVE); PROTEIN,URINE NEGATIVE (NEGATIVE); UROBILINOGEN,URINE NEGATIVE mg/dL (<2.0)
[2019-01-12 23:41] LABS: ALBUMIN 4.2 g/dL (3.5-5.0); ALKALINE PHOSPHATASE 101 U/L (38-126); ANION GAP 11 (5-19); ASPARTATE AMINO TRANSFERASE 18 U/L (14-36); BILIRUBIN,DIRECT 0.1 mg/dL (0.0-0.4); BILIRUBIN,TOTAL 0.3 mg/dL (0.2-1.3); BLOOD UREA NITROGEN 12 mg/dL (7-20); CALCIUM 9.3 mg/dL (8.4-10.2); CARBON DIOXIDE 25 mmol/L (22-30); CHLORIDE 103 mmol/L (98-107); GLUCOSE 97 mg/dL (75-110); TOTAL PROTEIN 7.2 g/dL (6.3-8.2)
== END 2019-01-13 01:27 | disposition left against medical advice (07) ==
LOC: ER 22:15
DX: Z53.21 Procedure and treatment not carried out due to patient leaving prior to being seen by health care provider (principal)
CPT/HCPCS: 36415; 80053; 81001; 83690; 84703; 85025; 99281

== ENCOUNTER 2019-01-25 11:33 | Emergency (ER) | payer SELFPAY ==
--- NOTE | 2019-01-25 11:59 | ER Document Report ---
ED Medical Screen (RME) - General Chief Complaint: Vaginal Bleeding Stated Complaint: VAGINAL BLEEDING Time Seen by Provider: 01/25/19 11:53 Notes: 23-year-old female presents the emergency department with abnormal vaginal bleeding since yesterday. Patient states that she has reduced the frequency of her breast-feeding to morning at night and yesterday she felt a very heavy pressure in her lower abdomen/pelvis when her bleeding increased. She states that she is going through approximately 1 pad per hour. She states that she does have some mild ". Like" cramping currently. Denies fever chills or any recent illness, denies nausea or vomiting. Exam: Well-appearing in no acute distress, lungs are clear to auscultation in all blanca, S1-S2 heard, regular cardiac rate and rhythm, abdominal exam deferred in triage I have greeted and performed a rapid initial assessment of this patient. A comprehensive ED assessment and evaluation of the patient, analysis of test results and completion of medical decision making process will be conducted by an additional ED providers. TRAVEL OUTSIDE OF THE [place] IN LAST 30 DAYS: No - Related Data Allergies/Adverse Reactions: albuterol [Albuterol] Allergy (Severe, Verified 06/28/18 09:38) Heart races & passes out ethinyl estradiol [From NuvaRing] Allergy (Verified 06/28/18 09:38) etonogestrel [From NuvaRing] Allergy (Verified 06/28/18 09:38) chloraprep/pastora wipes Adverse Reaction (Mild, Uncoded 06/28/18 09:38) itching/welts Home Medications: Zyrtec Past Medical History - Social History Frequency of alcohol use: None Drug Abuse: None Family history: Reviewed & Not Pertinent - Past Medical History Cardiac Medical History: Denies: Hx Heart Attack, Hx Hypertension Pulmonary Medical History: Denies: Hx Asthma, Hx Bronchitis, Hx COPD, Hx Pneumonia Neurological Medical History: Denies: Hx Seizures Renal/ Medical History: Reports: Hx Kidney Stones. Denies: Hx Peritoneal Dialysis GI Medical History: Reports: Hx Gastroesophageal Reflux Disease - With . Denies: Hx Hiatal Hernia, Hx Ulcer Musculoskeltal Medical History: Denies Hx Arthritis Skin Medical History: Reports Hx MRSA Past Surgical History: Reports: Hx Cardiac Surgery - pulm stenosis-had stent placed, Hx Section - @41 weeks pregant due to breech, Hx Orthopedic Surgery - R shoulder - Immunizations Immunizations up to date: Yes Hx Diphtheria, Pertussis, Tetanus Vaccination: Yes Physical Exam - Vital signs Vitals: Temp Pulse Resp BP Pulse Ox 97.9 F 85 18 150/84 H 98 01/25/19 11:37 01/25/19 11:37 01/25/19 11:37 01/25/19 11:37 01/25/19 11:37 Course - Vital Signs Vital signs: Temp Pulse Resp BP Pulse Ox 97.9 F 85 18 150/84 H 98 01/25/19 11:37 01/25/19 11:37 01/25/19 11:37 01/25/19 11:37 01/25/19 11:37
[2019-01-25 12:30] LABS: ABSOLUTE EOSINOPHILS # (AUTO) 0.1 10^3/uL (0.0-0.6); ABSOLUTE LYMPHOCYTES (AUTO) 2.6 10^3/uL (0.5-4.7); ABSOLUTE MONOCYTES (AUTO) 0.9 10^3/uL (0.1-1.4); ABSOLUTE NEUT (AUTO) 4.6 10^3/uL (1.7-8.2); BASOPHILS % (AUTO) 0.4 % (0-2); EOSINOPHILS % (AUTO) 1.1 % (0-6); HEMATOCRIT 44.6 % (36.0-47.0); HEMOGLOBIN 15.5 g/dL (12.0-15.5); LYMPHOCYTES % (AUTO) 31.9 % (13-45); MEAN CORPUSCULAR HEMOGLOBIN 30.5 pg (27.0-33.4); MEAN CORPUSCULAR HGB CONC 34.7 g/dL (32.0-36.0); MEAN CORPUSCULAR VOLUME 88 fl (80-97); MONOCYTES % (AUTO) 10.7 % (3-13); PLATELET COUNT 226 10^3/uL (150-450); RED BLOOD COUNT 5.07 10^6/uL (3.72-5.28); RED CELL DISTRIBUTION WIDTH 12.6 % (11.5-14.0); SEGMENTED NEUTROPHILS % (AUTO) 55.9 % (42-78); TOTAL CELLS COUNTED % (AUTO) 100 %; WHITE BLOOD COUNT 8.2 10^3/uL (4.0-10.5)
[2019-01-25 12:45] LABS: APPEARANCE,URINE SLIGHTLY-CLOUDY; BILIRUBIN,URINE NEGATIVE (NEGATIVE); GLUCOSE, URINE 50 mg/dL (NEGATIVE); KETONES,URINE NEGATIVE (NEGATIVE); LEUKOCYTE ESTERASE,URINE NEGATIVE (NEGATIVE); NITRITE,URINE NEGATIVE (NEGATIVE); PROTEIN,URINE NEGATIVE (NEGATIVE); URINE SPECIFIC GRAVITY 1.006; UROBILINOGEN,URINE NEGATIVE mg/dL (<2.0)
[2019-01-25 12:46] LABS: COLOR,URINE RED
[2019-01-25 12:50] LABS: ALBUMIN 4.5 g/dL (3.5-5.0); ALKALINE PHOSPHATASE 102 U/L (38-126); ANION GAP 8 (5-19); ASPARTATE AMINO TRANSFERASE 19 U/L (14-36); BILIRUBIN,DIRECT 0.1 mg/dL (0.0-0.4); BILIRUBIN,TOTAL 0.5 mg/dL (0.2-1.3); BLOOD UREA NITROGEN 12 mg/dL (7-20); CALCIUM 9.7 mg/dL (8.4-10.2); CARBON DIOXIDE 30 mmol/L (22-30); CHLORIDE 101 mmol/L (98-107); GLUCOSE 98 mg/dL (75-110); POTASSIUM 3.8 mmol/L (3.6-5.0); TOTAL PROTEIN 7.8 g/dL (6.3-8.2)
--- NOTE | 2019-01-25 14:08 | ER Document Report ---
ED General - General Chief Complaint: Vaginal Bleeding Stated Complaint: VAGINAL BLEEDING Time Seen by Provider: 01/25/19 11:53 Primary Care Provider: MARC SABA MD [Primary Care Provider] - Follow up as needed CARLOZ ZIEGLER MD [COMMUNITY BASED STAFF] - Follow up as needed MANUELA DANGELO MD [ACTIVE STAFF] - Follow up as needed Mode of Arrival: Ambulatory Information source: Patient TRAVEL OUTSIDE OF THE [place] IN LAST 30 DAYS: No - HPI Notes: 23-year-old female presents to emergency room for evaluation of heavy vaginal bleeding x 2 days, states she is bleeding through 1 pad an hour. Patient called her IRON ERECTOR who informed her to go to the emergency room for further evaluation. Patient states she just recently stopped breast-feeding approximately a week ago, she reported some light bleeding which she thought was here. Couple weeks prior however since she stopped breast-feeding she has had this heavy menstrual flow. Patient has not had a menstrual cycle in roughly 21 months. Denies being on any blood thinners, denies any clotting disorders. Denies fevers, chills, chest pain,palpitations, shortness of breath, dyspnea, nausea, vomiting, diarrhea, abdominal pain, hematuria,, LH, dizziness, syncope, headaches, wheezing, neck pain, weakness, bowel or bladder dysfunction, saddle anesthesia, numbness or tingling in bilateral upper or lower extremities equally, muscle paralysis, weakness in bilateral upper or lower extremities equally or rash. - Related Data Allergies/Adverse Reactions: albuterol [Albuterol] Allergy (Severe, Verified 06/28/18 09:38) Heart races & passes out ethinyl estradiol [From NuvaRing] Allergy (Verified 06/28/18 09:38) etonogestrel [From NuvaRing] Allergy (Verified 06/28/18 09:38) chloraprep/pastora wipes Adverse Reaction (Mild, Uncoded 06/28/18 09:38) itching/welts Home Medications: Zyrtec Past Medical History - General Information source: Patient Last Menstrual Period: 01/23/19 - Social History Smoking Status: Never Smoker Frequency of alcohol use: None Drug Abuse: None Family History: Reviewed & Not Pertinent Patient has suicidal ideation: No Patient has homicidal ideation: No - Past Medical History Cardiac Medical History: Denies: Hx Heart Attack, Hx Hypertension Pulmonary Medical History: Denies: Hx Asthma, Hx Bronchitis, Hx COPD, Hx Pneumonia Neurological Medical History: Denies: Hx Seizures Renal/ Medical History: Reports: Hx Kidney Stones. Denies: Hx Peritoneal Dialysis GI Medical History: Reports: Hx Gastroesophageal Reflux Disease - With . Denies: Hx Hiatal Hernia, Hx Ulcer Musculoskeletal Medical History: Denies Hx Arthritis Skin Medical History: Reports Hx MRSA Past Surgical History: Reports: Hx Cardiac Surgery - pulm stenosis-had stent placed, Hx Section - @41 weeks pregant due to breech, Hx Orthopedic Surgery - R shoulder - Immunizations Immunizations up to date: Yes Hx Diphtheria, Pertussis, Tetanus Vaccination: Yes Review of Systems - Review of Systems Constitutional: No symptoms reported EENT: No symptoms reported Cardiovascular: No symptoms reported Respiratory: No symptoms reported Gastrointestinal: No symptoms reported Genitourinary: See HPI Female Genitourinary: No symptoms reported Musculoskeletal: No symptoms reported Skin: No symptoms reported Hematologic/Lymphatic: No symptoms reported Neurological/Psychological: No symptoms reported Physical Exam - Vital signs Vitals: Temp Pulse Resp BP Pulse Ox 97.9 F 85 18 150/84 H 98 01/25/19 11:37 01/25/19 11:37 01/25/19 11:37 01/25/19 11:37 01/25/19 11:37 - Notes Notes: PHYSICAL EXAMINATION: reviewed vital signs by RN GENERAL: Well-appearing, well-nourished and in no acute distress. HEAD: Atraumatic, normocephalic. EYES: Pupils equal round and reactive to light, extraocular movements intact, conjunctiva are normal. ENT: Nares patent, oropharynx clear without exudates. Moist mucous membranes. NECK: Normal range of motion, supple without lymphadenopathy LUNGS: Breath sounds clear to auscultation bilaterally and equal. No wheezes rales or rhonchi. HEART: Regular rate and rhythm without murmurs ABDOMEN: Soft, nontender, nondistended abdomen. No guarding, no rebound. No masses appreciated. Female : External genitalia without erythema, exudate or discharge. Vaginal vault is without discharge. Cervix is of normal color without lesion. Uterus is noted to be of normal size and nontender. No cervical motion tenderness is seen. No masses are palpated. Moderate blood in the vaginal vault without clots, os open, no adnexal tenderness or mass Musculoskeletal: Normal range of motion, no pitting or edema. No cyanosis. NEUROLOGICAL: Cranial nerves grossly intact. Normal speech, normal gait. Normal sensory, motor exams PSYCH: Normal mood, normal affect. SKIN: Warm, Dry, normal turgor, no rashes or lesions noted. Course - Re-evaluation Re-evalutation: 01/25/19 19:42 Afebrile vital stable no distress. CBC negative for leukocytosis or anemia, CMP negative for hepatic or renal dysfunction. Transvaginal ultrasound was normal. Wet mount positive for bacterial vaginosis, patient will be treated accordingly. GC negative, discussed with patient that she is likely having withdrawal blee ding due to the fact that she stopped breast-feeding, her hormones are trying to rebalance. Discussed with patient that if she would like to prevent , advised to abstain from sexual intercourse, or use of her contraceptive with a good barrier method such as condoms control. Discussed the patient that her menstrual cycles are not likely regulate for the next couple of months and may be heavier than she remembered since she has not had a menstrual cycle in almost 2 years due to breast-feeding. Patient is not currently breast-feeding, her child is eating table food. Advised to follow-up with primary care provider or IRON ERECTOR as needed. After performing a Medical Screening Examination, I estimate there is LOW risk for ACUTE APPENDICITIS, BOWEL OBSTRUCTION, ACUTE CHOLECYSTITIS, PERFORATED DIVERTICULITIS, INCARCERATED HERNIA, PANCREATITIS, PELVIC INFLAMMATORY DISEASE, PERFORATED ULCER, ECTOPIC , or TUBO- OVARIAN ABSCESS, thus I consider the discharge disposition reasonable. Also, there is no evidence or peritonitis, sepsis, or toxicity. I have reevaluated this patient multiple times and no significant life threatening changes are noted. The patient and I have discussed the diagnosis and risks, and we agree with discharging home with close follow-up with the understanding that symptoms and presentations can change. We also discussed returning to the Emergency Depar tment immediately if new or worsening symptoms occur. We have discussed the symptoms which are most concerning (e.g., bloody stool, fever, changing or worsening pain, vomiting) that necessitate immediate return. - Vital Signs Vital signs: Temp Pulse Resp BP Pulse Ox 98.2 F 92 18 127/75 H 97 01/25/19 15:48 01/25/19 15:48 01/25/19 11:37 01/25/19 15:48 01/25/19 15:48 - Laboratory Result Diagrams: 01/25/19 12:00 01/25/19 12:00 Laboratory results interpreted by me: 01/25/19 12:00 Urine Glucose (UA) 50 H Urine Blood LARGE H Discharge - Discharge Clinical Impression: Vaginal bleeding, Bacterial vaginosis Condition: Stable Disposition: HOME, SELF-CARE Instructions: Vaginal Bleeding ([facility]), Vaginosis, Bacterial ([facility]) Additional Instructions: All of your blood work and diagnostic imaging today was normal. Return immediately for any new or worsening symptoms. Follow up with primary care provider, call tomorrow to make followup appointment. Prescriptions: Metronidazole [Flagyl] 500 mg PO BID #14 tablet Forms: Return to Work Referrals: MARC SABA MD [Primary Care Provider] - Follow up as needed CARLOZ ZIEGLER MD [COMMUNITY BASED STAFF] - Follow up as needed MANUELA DANGELO MD [ACTIVE STAFF] - Follow up as needed
--- NOTE | 2019-01-25 14:16 | RADIOLOGY REPORT (SQ) ---
EXAM DESCRIPTION: U/S NON OB PEL TV W/DOPPLER COMPLETED DATE/TIME: 01/25/2019 1:41 pm REASON FOR STUDY: Abnormal vaginal bleeding COMPARISON: 05/13/2017 TECHNIQUE: Dynamic and static grayscale images acquired of the pelvis via transvaginal approach and recorded on PACS. Additional selected color Doppler and spectral images recorded. LIMITATIONS: None. FINDINGS: UTERUS: Contour normal. No mass. ENDOMETRIAL STRIPE: No focal or generalized thickening. No masses. CERVIX: 2.9 cm. A nabothian cyst is present. RIGHT OVARY AND DOPPLER: Normal size. No worrisome masses. Normal arterial vascular flow without evid ence for torsion. LEFT OVARY AND DOPPLER: Normal size. No worrisome masses. Normal arterial vascular flow without evide nce for torsion. FREE FLUID: None noted. OTHER: No other significant finding. MEASUREMENTS: UTERUS: 8.4 x 6.2 x 4.8 cm. ENDOMETRIAL STRIPE: 11 mm. RIGHT OVARY: 2.7 x 2 x 2.1 cm. LEFT OVARY: 2.7 x 1.6 x 2 cm. IMPRESSION: NORMAL TRANSVAGINAL PELVIC ULTRASOUND. TECHNICAL DOCUMENTATION: JOB ID: [id number] [employer]- All Rights Reserved Rev-07/29 Reading location - IP/workstation name: [email or web address]
[2019-01-25 14:54] LABS: BACTERIA (WET MOUNT) 3+ BACTERIA SEEN; RBCS (WET MOUNT) 4+ RBCS SEEN; T.VAGINALIS (WET MOUNT) NO TRICHOMONAS SEEN; WBCS (WET MOUNT) RARE WBCS SEEN; YEAST (WET MOUNT) NO YEAST SEEN
[2019-01-25 15:54] VITALS: BP 127/75
[2019-01-25 16:19] LABS: CHLAM PCR NOT DETECTED (NOT DETECT)
== END 2019-01-25 15:58 | disposition home or self-care (01) ==
LOC: ER 11:33
DX: N93.9 Abnormal uterine and vaginal bleeding, unspecified (principal); N76.0 Acute vaginitis; B96.89 Other specified bacterial agents as the cause of diseases classified elsewhere; Z88.8 Allergy status to other drugs, medicaments and biological substances; Z79.899 Other long term (current) drug therapy
CPT/HCPCS: 36415; 76830; 80053; 81001; 81025; 85025; 87210; 87491; 87591; 93976

== ENCOUNTER 2019-02-23 21:37 | Emergency (ER) | payer SELFPAY ==
[2019-02-23 22:11] VITALS: BP 130/74
--- NOTE | 2019-02-23 22:48 | ER Document Report ---
ED Medical Screen (RME) - General Chief Complaint: Sore Throat Stated Complaint: SORE THROAT,HEAD AND NECK PAIN Time Seen by Provider: 02/23/19 22:40 Primary Care Provider: MARC SABA MD [Primary Care Provider] - Follow up as needed Mode of Arrival: Ambulatory Information source: Patient Notes: Is healthy 23-year-old female presents emergency department with right side facial pain, neck swelling, neck pain and the sensation that she cannot swallow. Patient reports this is been going on for 3 days with progressive worsening. She denies any fevers, nausea or vomiting. She is able to swallow her secretions. She has a slightly hoarse voice. Exam: No obvious tonsillar swelling, abscess or exudates noted. I have greeted and performed a rapid initial assessment of this patient. A comprehensive ED assessment and evaluation of the patient, analysis of test results and completion of the medical decision making process will be conducted by additional ED providers. I have specifically instructed the patient or family members with the patient to immediately return to any nursing staff should anything change in the patient's condition or with their chief complaint. This medical record was dictated with voice recognizing software. There may be grammatical, syntax errors that are unintended. TRAVEL OUTSIDE OF THE [place] IN LAST 30 DAYS: No - Related Data Allergies/Adverse Reactions: albuterol [Albuterol] Allergy (Severe, Verified 02/23/19 22:39) Heart races & passes out ethinyl estradiol [From NuvaRing] Allergy (Verified 02/23/19 22:39) etonogestrel [From NuvaRing] Allergy (Verified 02/23/19 22:39) chloraprep/pastora wipes Adverse Reaction (Mild, Uncoded 06/28/18 09:38) itching/welts Past Medical History - Social History Frequency of alcohol use: None Drug Abuse: None Family history: Reviewed & Not Pertinent - Past Medical History Cardiac Medical History: Denies: Hx Heart Attack, Hx Hypertension Pulmonary Medical History: Denies: Hx Asthma, Hx Bronchitis, Hx COPD, Hx Pneumonia Neurological Medical History: Denies: Hx Seizures Renal/ Medical History: Reports: Hx Kidney Stones. Denies: Hx Peritoneal Dialysis GI Medical History: Reports: Hx Gastroesophageal Reflux Disease - With . Denies: Hx Hiatal Hernia, Hx Ulcer Musculoskeltal Medical History: Denies Hx Arthritis Skin Medical History: Reports Hx MRSA Past Surgical History: Reports: Hx Cardiac Surgery - pulm stenosis-had stent placed, Hx Section - @41 weeks pregant due to breech, Hx Orthopedic Surgery - R shoulder - Immunizations Immunizations up to date: Yes Hx Diphtheria, Pertussis, Tetanus Vaccination: Yes Physical Exam - Vital signs Vitals: Temp Pulse Resp BP Pulse Ox 99.2 F 91 20 130/74 H 97 02/23/19 22:08 02/23/19 22:08 02/23/19 22:08 02/23/19 22:08 02/23/19 22:08 Course - Vital Signs Vital signs: Temp Pulse Resp BP Pulse Ox 99.2 F 91 20 130/74 H 97 02/23/19 22:40 02/23/19 22:08 02/23/19 22:40 02/23/19 22:08 02/23/19 22:40 Doctor's Discharge - Discharge Referrals: MARC SABA MD [Primary Care Provider] - Follow up as needed
[2019-02-23 23:05] LABS: ABSOLUTE BASOPHILS # (AUTO) 0.1 10^3/uL (0.0-0.2); ABSOLUTE EOSINOPHILS # (AUTO) 0.1 10^3/uL (0.0-0.6); ABSOLUTE LYMPHOCYTES (AUTO) 3.5 10^3/uL (0.5-4.7); ABSOLUTE MONOCYTES (AUTO) 1.4 10^3/uL (0.1-1.4); ABSOLUTE NEUT (AUTO) 7.9 10^3/uL (1.7-8.2); BASOPHILS % (AUTO) 0.4 % (0-2); EOSINOPHILS % (AUTO) 1.1 % (0-6); HEMATOCRIT 42.7 % (36.0-47.0); HEMOGLOBIN 14.8 g/dL (12.0-15.5); LYMPHOCYTES % (AUTO) 26.6 % (13-45); MEAN CORPUSCULAR HEMOGLOBIN 30.5 pg (27.0-33.4); MEAN CORPUSCULAR HGB CONC 34.7 g/dL (32.0-36.0); MEAN CORPUSCULAR VOLUME 88 fl (80-97); PLATELET COUNT 230 10^3/uL (150-450); RED BLOOD COUNT 4.87 10^6/uL (3.72-5.28); RED CELL DISTRIBUTION WIDTH 12.4 % (11.5-14.0); SEGMENTED NEUTROPHILS % (AUTO) 60.9 % (42-78); TOTAL CELLS COUNTED % (AUTO) 100 %
[2019-02-23 23:27] LABS: ALBUMIN 4.4 g/dL (3.5-5.0); ALKALINE PHOSPHATASE 105 U/L (38-126); ANION GAP 11 (5-19); ASPARTATE AMINO TRANSFERASE 23 U/L (14-36); BILIRUBIN,DIRECT 0.2 mg/dL (0.0-0.4); BILIRUBIN,TOTAL 0.4 mg/dL (0.2-1.3); BLOOD UREA NITROGEN 13 mg/dL (7-20); CALCIUM 9.5 mg/dL (8.4-10.2); CARBON DIOXIDE 31 mmol/L (22-30); CHLORIDE 98 mmol/L (98-107); GLUCOSE 109 mg/dL (75-110); POTASSIUM 3.9 mmol/L (3.6-5.0)
== END 2019-02-24 06:49 | disposition left against medical advice (07) ==
LOC: ER 21:37
DX: J02.9 Acute pharyngitis, unspecified (principal); M54.2 Cervicalgia; R51 Headache; Z86.14 Personal history of Methicillin resistant Staphylococcus aureus infection
CPT/HCPCS: 36415; 80053; 85025; 87070; 87077; 87880; 99281

== ENCOUNTER 2019-05-28 23:35 | Emergency (ER) | payer BC ==
[2019-05-28 23:42] VITALS: BP 143/76
[2019-05-28] MEDS ORDERED: METHYLPREDNISOLONE INJ 125 MG/2 ML SDV IM ONE (23:46)
[2019-05-28] MEDS ORDERED: FAMOTIDINE 20 MG TABLET PO ONE (23:46)
--- NOTE | 2019-05-28 23:50 | ER Document Report ---
ED Medical Screen (RME) - General Chief Complaint: Hives Stated Complaint: POSSIBLE RASH Primary Care Provider: MARC SABA MD [Primary Care Provider] - Follow up as needed Notes: Patient is a 23 yo WF with a PMH chronic intermittent hives who presents to the ED with a CC of the an acute flare. States began last night before bed. Reports red, raised itchy lesions diffusely, "hives". Reports she takes zyrtec BID for this, but is not helping this time. Reports taking benadryl 50 mg PO TID today w/o improvement. Has seen nursery hand with equivocal testing. Reports no tongue or throat swelling or SOB. I have treated and performed a rapid initial assessment of this patient. A comprehensive ED assessment and evaluation of the patient, analysis of test results and completion of medical decision making process will be conducted by additional ED providers. PHYSICAL EXAMINATION: GENERAL: Well-appearing, well-nourished and in no acute distress. A&Ox4. Answers questions appropriately. TRAVEL OUTSIDE OF THE [place] IN LAST 30 DAYS: No - Related Data Allergies/Adverse Reactions: albuterol [Albuterol] Allergy (Severe, Verified 05/28/19 23:44) Heart races & passes out ethinyl estradiol [From NuvaRing] Allergy (Verified 05/28/19 23:44) etonogestrel [From NuvaRing] Allergy (Verified 05/28/19 23:44) chloraprep/pastora wipes Adverse Reaction (Mild, Uncoded 06/28/18 09:38) itching/welts Past Medical History - Social History Family history: Reviewed & Not Pertinent - Past Medical History Cardiac Medical History: Denies: Hx Heart Attack, Hx Hypertension Pulmonary Medical History: Denies: Hx Asthma, Hx Bronchitis, Hx COPD, Hx Pneumonia Neurological Medical History: Denies: Hx Seizures Renal/ Medical History: Reports: Hx Kidney Stones. Denies: Hx Peritoneal Dialysis GI Medical History: Reports: Hx Gastroesophageal Reflux Disease - With . Denies: Hx Hiatal Hernia, Hx Ulcer Musculoskeltal Medical History: Denies Hx Arthritis Skin Medical History: Reports Hx MRSA Past Surgical History: Reports: Hx Cardiac Surgery - pulm stenosis-had stent placed, Hx Section - @41 weeks pregant due to breech, Hx Orthopedic Surgery - R shoulder - Immunizations Immunizations up to date: Yes Hx Diphtheria, Pertussis, Tetanus Vaccination: Yes Physical Exam - Vital signs Vitals: Temp Pulse Resp BP Pulse Ox 98.4 F 88 20 143/76 H 99 05/28/19 23:40 05/28/19 23:40 05/28/19 23:40 05/28/19 23:40 05/28/19 23:40 Course - Vital Signs Vital signs: Temp Pulse Resp BP Pulse Ox 98.4 F 88 20 143/76 H 99 05/28/19 23:40 05/28/19 23:40 05/28/19 23:40 05/28/19 23:40 05/28/19 23:40 Doctor's Discharge - Discharge Referrals: MARC SABA MD [Primary Care Provider] - Follow up as needed
== END 2019-05-29 02:16 | disposition left against medical advice (07) ==
LOC: ER 23:35
DX: L50.8 Other urticaria (principal); Z53.20 Procedure and treatment not carried out because of patient's decision for unspecified reasons; Z79.899 Other long term (current) drug therapy; Z88.8 Allergy status to other drugs, medicaments and biological substances
CPT/HCPCS: 99281; 96372; J2930

== ENCOUNTER 2019-05-29 15:59 | Emergency (ER) | payer BC ==
[2019-05-29 16:10] VITALS: BP 146/75
[2019-05-29] MEDS ORDERED: DEXAMETHASONE SOD PHOS INJ 10 MG/1 ML VIAL IM ONE (16:15)
[2019-05-29] MEDS ORDERED: FAMOTIDINE 20 MG TABLET PO ONE (16:15)
[2019-05-29] MEDS ORDERED: DIPHENHYDRAMINE HCL 25 MG CAPSULE PO ONE (16:16)
[2019-05-29] MEDS ORDERED: PREDNISONE 20 MG TABLET PO ONE (16:26)
--- NOTE | 2019-05-29 16:26 | ER Document Report ---
HPI - HPI Time Seen by Provider: 05/29/19 16:13 Notes: Patient is an otherwise healthy 23-year-old female presenting to the emergency department with chief complaint of possible allergic reaction. Patient reports hives to her bilateral arms, chest and back. She states this is been occurring intermittently over the last few months. She states she has seen a primary care provider as well as an quality analyst/technical writer with minimal relief of her symptoms. This time patient reports hives started flaring up this morning. She denies any difficulty breathing, difficulty swallowing or respiratory issues. - REPRODUCTIVE Reproductive: DENIES: : Past Medical History - General Information source: Patient - Social History Smoking Status: Never Smoker Family History: Reviewed & Not Pertinent - Past Medical History Cardiac Medical History: Denies: Hx Heart Attack, Hx Hypertension Pulmonary Medical History: Denies: Hx Asthma, Hx Bronchitis, Hx COPD, Hx Pneumonia Neurological Medical History: Denies: Hx Seizures Renal/ Medical History: Reports: Hx Kidney Stones. Denies: Hx Peritoneal Dialysis GI Medical History: Reports: Hx Gastroesophageal Reflux Disease - With . Denies: Hx Hiatal Hernia, Hx Ulcer Musculoskeletal Medical History: Denies Hx Arthritis Skin Medical History: Reports Hx MRSA Past Surgical History: Reports: Hx Cardiac Surgery - pulm stenosis-had stent placed, Hx Section - @41 weeks pregant due to breech, Hx Orthopedic Surgery - R shoulder - Immunizations Immunizations up to date: Yes Hx Diphtheria, Pertussis, Tetanus Vaccination: Yes Vertical Provider Document - CONSTITUTIONAL Notes: PHYSICAL EXAMINATION: GENERAL: Well-appearing, well-nourished and in no acute distress. HEAD: Atraumatic, normocephalic. EYES: Pupils equal round extraocular movements intact, conjunctiva are normal. ENT: Nares patent NECK: Normal range of motion LUNGS: No respiratory distress Musculoskeletal: Normal range of motion NEUROLOGICAL: Normal speech, normal gait. PSYCH: Normal mood, normal affect. SKIN: Hives noted to bilateral arms. - INFECTION CONTROL TRAVEL OUTSIDE OF THE [place] IN LAST 30 DAYS: No Course - Re-evaluation Re-evalutation: Hives cleared after administration of medications here in the emergency departme nt. Patient will be started on Pepcid, prednisone and Benadryl. Patient will be discharged home in stable condition. Encouraged follow-up with primary care and allergy doctor. - Vital Signs Vital signs: Temp Pulse Resp BP Pulse Ox 98.8 F 109 H 18 146/75 H 98 05/29/19 16:08 05/29/19 16:08 05/29/19 16:08 05/29/19 16:08 05/29/19 16:08 Discharge - Discharge Clinical Impression: Allergic reaction Qualifiers: Encounter type: initial encounter Qualified Code(s): T78.40XA - Allergy, unspecified, initial encounter Condition: Stable Disposition: HOME, SELF-CARE Additional Instructions: Please take medications as prescribed. Please also take 50 mg of Benadryl every 6 hours. Continue following up with your quality analyst/technical writer. Return to the emergency department with any new or worsening symptoms or difficulty breathing. Prescriptions: Prednisone [Deltasone 20 mg Tablet] 3 tab PO DAILY 5 Days #15 tablet Famotidine [Pepcid 20 mg Tablet] 40 mg PO BID #20 tablet
== END 2019-05-29 17:29 | disposition home or self-care (01) ==
LOC: ER 15:59
DX: L50.0 Allergic urticaria (principal)
CPT/HCPCS: 99283; J7512

== ENCOUNTER 2019-05-30 14:19 | Emergency (ER) | payer BC ==
--- NOTE | 2019-05-30 14:39 | ER Document Report ---
ED Medical Screen (RME) - General Chief Complaint: Allergic Reaction Stated Complaint: POSSIBLE ALLERGIC REACTION Time Seen by Provider: 05/30/19 14:37 Mode of Arrival: Ambulatory Information source: Patient Notes: 23-year-old female presented to ED for complaint of hives. She has been seen here yesterday and the day before for the same symptoms. She is taking Pepcid prednisone and Benadryl and is not getting any better. She states she is already had allergy testing and she is not got any allergies this is an autoimmune condition. She is alert oriented respirations regular nonlabored speaking in full sentences. I have greeted and performed a rapid initial assessment of this patient. A comprehensive ED assessment and evaluation of the patient, analysis of test results and completion of medical decision making process will be conducted by an additional ED providers. TRAVEL OUTSIDE OF THE [place] IN LAST 30 DAYS: No - Related Data Allergies/Adverse Reactions: albuterol [Albuterol] Allergy (Severe, Verified 05/30/19 14:36) Heart races & passes out dexamethasone [From Decadron] Allergy (Verified 05/30/19 14:36) ethinyl estradiol [From NuvaRing] Allergy (Verified 05/30/19 14:36) etonogestrel [From NuvaRing] Allergy (Verified 05/30/19 14:36) chloraprep/pastora wipes Adverse Reaction (Mild, Uncoded 05/30/19 14:36) itching/welts Past Medical History - Social History Family history: Reviewed & Not Pertinent - Past Medical History Cardiac Medical History: Denies: Hx Heart Attack, Hx Hypertension Pulmonary Medical History: Denies: Hx Asthma, Hx Bronchitis, Hx COPD, Hx Pneumonia Neurological Medical History: Denies: Hx Seizures Renal/ Medical History: Reports: Hx Kidney Stones. Denies: Hx Peritoneal Dialysis GI Medical History: Reports: Hx Gastroesophageal Reflux Disease - With . Denies: Hx Hiatal Hernia, Hx Ulcer Musculoskeltal Medical History: Denies Hx Arthritis Skin Medical History: Reports Hx MRSA Past Surgical History: Reports: Hx Cardiac Surgery - pulm stenosis-had stent placed, Hx Section - @41 weeks pregant due to breech, Hx Orthopedic Surgery - R shoulder - Immunizations Immunizations up to date: Yes Hx Diphtheria, Pertussis, Tetanus Vaccination: Yes Physical Exam - Vital signs Vitals: Temp Pulse Resp BP Pulse Ox 97.8 F 104 H 18 153/72 H 98 05/30/19 14:20 05/30/19 14:20 05/30/19 14:20 05/30/19 14:20 05/30/19 14:20 Course - Vital Signs Vital signs: Temp Pulse Resp BP Pulse Ox 97.8 F 104 H 18 153/72 H 98 05/30/19 14:20 05/30/19 14:20 05/30/19 14:20 05/30/19 14:20 05/30/19 14:20
[2019-05-30 15:26] LABS: ABSOLUTE LYMPHOCYTES (AUTO) 1.3 10^3/uL (0.5-4.7); ABSOLUTE MONOCYTES (AUTO) 0.7 10^3/uL (0.1-1.4); ABSOLUTE NEUT (AUTO) 14.7 10^3/uL (1.7-8.2); APPEARANCE,URINE CLEAR; BASOPHILS % (AUTO) 0.1 % (0-2); BILIRUBIN,URINE NEGATIVE (NEGATIVE); COLOR,URINE YELLOW; GLUCOSE, URINE 50 mg/dL (NEGATIVE); HEMATOCRIT 44.8 % (36.0-47.0); HEMOGLOBIN 15.8 g/dL (12.0-15.5); KETONES,URINE NEGATIVE (NEGATIVE); LYMPHOCYTES % (AUTO) 7.6 % (13-45); MEAN CORPUSCULAR HEMOGLOBIN 30.8 pg (27.0-33.4); MEAN CORPUSCULAR HGB CONC 35.2 g/dL (32.0-36.0); MEAN CORPUSCULAR VOLUME 87 fl (80-97); MONOCYTES % (AUTO) 4.2 % (3-13); PLATELET COUNT 226 10^3/uL (150-450); PROTEIN,URINE NEGATIVE (NEGATIVE); RED BLOOD COUNT 5.12 10^6/uL (3.72-5.28); RED CELL DISTRIBUTION WIDTH 12.3 % (11.5-14.0); SEGMENTED NEUTROPHILS % (AUTO) 88.1 % (42-78); TOTAL CELLS COUNTED % (AUTO) 100 %; URINE SPECIFIC GRAVITY 1.012; UROBILINOGEN,URINE NEGATIVE mg/dL (<2.0); WHITE BLOOD COUNT 16.7 10^3/uL (4.0-10.5)
[2019-05-30 15:41] LABS: URINE AMPHETAMINES SCREEN NEGATIVE; URINE BARBITURATES SCREEN NEGATIVE; URINE BENZODIAZEPINES SCREEN NEGATIVE; URINE COCAINE SCREEN NEGATIVE; URINE MARIJUANA (THC) SCREEN NEGATIVE; URINE METHADONE SCREEN NEGATIVE; URINE PHENCYCLIDINE SCREEN NEGATIVE
--- NOTE | 2019-05-30 15:46 | ER Document Report ---
ED General - General Chief Complaint: Allergic Reaction Stated Complaint: POSSIBLE ALLERGIC REACTION Time Seen by Provider: 05/30/19 14:37 Mode of Arrival: Ambulatory Information source: Patient TRAVEL OUTSIDE OF THE [place] IN LAST 30 DAYS: No - HPI Onset: Other - patient has had 5 years of skin issues/hives Onset/Duration: Gradual Quality of pain: No pain Severity: Mild Pain Level: 0 Associated symptoms: Other - Rash Exacerbated by: Denies Relieved by: Denies Similar symptoms previously: No Recently seen / treated by doctor: No Notes: 23 year old female with a history of skin issues/hives off and on for the last 5 years here for persistent hives which are itchy. The patient was seen in this ER yesterday for the same and she was prescribed Prednisone and told to use Pepcid and Benadryl. The patient has been doing this and she has only just now noticed an improvement of her symptoms. The patient is concerned she may have another process going on other than an allergic reaction. The patient says she has been to an revenue integrity analyst and a beer brewer and neither specialist found an answer to why she is having such a skin reaction. The patient denies fevers, chills, sweats, nausea, vomiting, GI issues, urinary symptoms. - Related Data Allergies/Adverse Reactions: albuterol [Albuterol] Allergy (Severe, Verified 05/30/19 14:36) Heart races & passes out dexamethasone [From Decadron] Allergy (Verified 05/30/19 14:36) ethinyl estradiol [From NuvaRing] Allergy (Verified 05/30/19 14:36) etonogestrel [From NuvaRing] Allergy (Verified 05/30/19 14:36) chloraprep/pastora wipes Adverse Reaction (Mild, Uncoded 05/30/19 14:36) itching/welts Home Medications: zyrtec Past Medical History - General Information source: Patient - Social History Smoking Status: Never Smoker Chew tobacco use (# tins/day): No Frequency of alcohol use: None Drug Abuse: None Lives with: Family Family History: Reviewed & Not Pertinent Patient has suicidal ideation: No Patient has homicidal ideation: No - Past Medical History Cardiac Medical History: Denies: Hx Heart Attack, Hx Hypertension Pulmonary Medical History: Denies: Hx Asthma, Hx Bronchitis, Hx COPD, Hx Pneumonia Neurological Medical History: Denies: Hx Seizures Renal/ Medical History: Reports: Hx Kidney Stones. Denies: Hx Peritoneal Dialysis GI Medical History: Reports: Hx Gastroesophageal Reflux Disease - With . Denies: Hx Hiatal Hernia, Hx Ulcer Musculoskeletal Medical History: Denies Hx Arthritis Skin Medical History: Reports Hx MRSA Past Surgical History: Reports: Hx Cardiac Surgery - pulm stenosis-had stent placed, Hx Section - @41 weeks pregant due to breech, Hx Orthopedic Surgery - R shoulder - Immunizations Immunizations up to date: Yes Hx Diphtheria, Pertussis, Tetanus Vaccination: Yes Review of Systems - Review of Systems Constitutional: No symptoms reported EENT: No symptoms reported Cardiovascular: No symptoms reported Respiratory: No symptoms reported Gastrointestinal: No symptoms reported Genitourinary: No symptoms reported Female Genitourinary: No symptoms reported Musculoskeletal: No symptoms reported Skin: Rash Hematologic/Lymphatic: No symptoms reported Neurological/Psychological: No symptoms reported -: Yes All other systems reviewed and negative Physical Exam - Vital signs Vitals: Temp Pulse Resp BP Pulse Ox 97.8 F 104 H 18 153/72 H 98 05/30/19 14:20 05/30/19 14:20 05/30/19 14:20 05/30/19 14:20 05/30/19 14:20 - Notes Notes: GENERAL: Well-appearing, well-nourished and in no acute distress. HEAD: Atraumatic, normocephalic. EYES: Pupils equal round and reactive to light, extraocular movements intact, sclera anicteric, conjunctiva are normal. ENT: TMs normal, nares patent, oropharynx clear without exudates. Moist mucous membranes. NECK: Normal range of motion, supple without lymphadenopathy or JVD. LUNGS: Breath sounds clear to auscultation bilaterally and equal. No wheezes rales or rhonchi. HEART: Regular rate and rhythm without murmurs, rubs or gallops. ABDOMEN: Soft, nontender, normoactive bowel sounds. No guarding, no rebound. No masses appreciated. EXTREMITIES: Normal range of motion, no pitting or edema. No clubbing or cyanosis. NEUROLOGICAL: Cranial nerves II through XII grossly intact. Normal speech, normal gait. PSYCH: Normal mood, normal affect. SKIN: Mild diffuse red raised rash/hives on arms, legs, and torso. Warm, Dry, normal turgor, no rashes or lesions noted. Course - Re-evaluation Re-evalutation: 05/30/19 15:49 The patient is here for diffuse rash/hives which is chronic (has been going on for 5 years). The patient does not know of any specific triggers and she has not tested positive for any food allergies. The patient usually used Pepcid and Benadryl with some relief but now that doesnt seem to be helping much. The patient was seen in this ER yesterday and she is currently on a prednisone burst (she took it today). Will prescribe Atarax and have patient try using Albina. Patient told to follow up with her PCP for further work up. Patient is concerned she has an autoimmune issues. I told her to raise this concern with her PCP. - Vital Signs Vital signs: Temp Pulse Resp BP Pulse Ox 97.8 F 104 H 18 153/72 H 98 05/30/19 14:20 05/30/19 14:20 05/30/19 14:20 05/30/19 14:20 05/30/19 14:20 - Laboratory Result Diagrams: 05/30/19 15:00 05/30/19 15:00 Laboratory results interpreted by me: 05/30/19 05/30/19 15:00 15:00 WBC 16.7 H Hgb 15.8 H Lymph % (Auto) 7.6 L Absolute Neuts (auto) 14.7 H Seg Neutrophils % 88.1 H Urine Glucose (UA) 50 H Discharge - Discharge Clinical Impression: Hives, Dermatitis Condition: Stable Disposition: HOME, SELF-CARE Instructions: Contact Dermatitis ([facility]) Additional Instructions: Try using over the counter Albina and the prescribed Atarax. Finish your previously prescribed Prednisone. Follow up with your primary care doctor for further work up if your rash persists. Prescriptions: Hydroxyzine HCl [Atarax 10 mg Tablet] 10 mg PO TID PRN #30 tablet PRN Reason:
[2019-05-30 15:47] LABS: ALBUMIN 4.2 g/dL (3.5-5.0); ALKALINE PHOSPHATASE 81 U/L (38-126); ANION GAP 8 (5-19); ASPARTATE AMINO TRANSFERASE 19 U/L (14-36); BILIRUBIN,DIRECT 0.2 mg/dL (0.0-0.4); BILIRUBIN,TOTAL 0.4 mg/dL (0.2-1.3); BLOOD UREA NITROGEN 13 mg/dL (7-20); CALCIUM 9.1 mg/dL (8.4-10.2); CARBON DIOXIDE 29 mmol/L (22-30); CHLORIDE 102 mmol/L (98-107); GLUCOSE 143 mg/dL (75-110); POTASSIUM 3.7 mmol/L (3.6-5.0); TOTAL PROTEIN 7.5 g/dL (6.3-8.2)
[2019-05-30 16:29] VITALS: BP 120/74
== END 2019-05-30 16:28 | disposition home or self-care (01) ==
LOC: ER 14:19
DX: L50.9 Urticaria, unspecified (principal); L30.9 Dermatitis, unspecified; Z88.8 Allergy status to other drugs, medicaments and biological substances; Z86.14 Personal history of Methicillin resistant Staphylococcus aureus infection
CPT/HCPCS: 36415; 80053; 80307; 81001; 84703; 85025; 99283

== ENCOUNTER 2019-05-31 07:15 | Emergency (ER) | payer BC ==
[2019-05-31 07:55] VITALS: BP 133/78
--- NOTE | 2019-05-31 08:31 | ER Document Report ---
HPI - HPI Time Seen by Provider: 05/31/19 08:16 Pain Level: 2 - REPRODUCTIVE Reproductive: DENIES: : Past Medical History - Social History Smoking Status: Never Smoker Family History: Reviewed & Not Pertinent Patient has suicidal ideation: No Patient has homicidal ideation: No - Past Medical History Cardiac Medical History: Denies: Hx Heart Attack, Hx Hypertension Pulmonary Medical History: Denies: Hx Asthma, Hx Bronchitis, Hx COPD, Hx Pneumonia Neurological Medical History: Denies: Hx Seizures Renal/ Medical History: Reports: Hx Kidney Stones. Denies: Hx Peritoneal Dialysis GI Medical History: Reports: Hx Gastroesophageal Reflux Disease - With . Denies: Hx Hiatal Hernia, Hx Ulcer Musculoskeletal Medical History: Denies Hx Arthritis Skin Medical History: Reports Hx MRSA Past Surgical History: Reports: Hx Cardiac Surgery - pulm stenosis-had stent placed, Hx Section - x1, Hx Orthopedic Surgery - R shoulder - Immunizations Immunizations up to date: Yes Hx Diphtheria, Pertussis, Tetanus Vaccination: Yes Vertical Provider Document - INFECTION CONTROL TRAVEL OUTSIDE OF THE [place] IN LAST 30 DAYS: No Course - Vital Signs Vital signs: Temp Pulse Resp BP Pulse Ox 98.1 F 72 16 133/78 H 100 05/31/19 07:44 05/31/19 07:44 05/31/19 07:44 05/31/19 07:44 05/31/19 07:44
--- NOTE | 2019-05-31 08:45 | ER Document Report ---
HPI - HPI Time Seen by Provider: 05/31/19 08:16 Pain Level: 2 Context: Patient is a 23-year-old female who presents to the emergency department with a chief complaint of a rash that she has had on and off for the past 5 years. Patient states that she was seen here in the emergency department was given steroids, Atarax, and Pepcid, but the symptoms have not gone away. According to the patient's labs drawn yesterday, the patient is . Patient states that she was not told that she was . Patient denies any past medical history other than the rash that she has had. - ROS Systems Reviewed and Negative: Yes All other systems reviewed and negative - CONSTITUTIONAL Constitutional: DENIES: Fever, Chills - EENT EENT: DENIES: Sore Throat, Ear Pain, Nasal Drainage-Clear - REPRODUCTIVE Reproductive: REPORTS: : Notes: as of labs yesterday. - DERM Skin Color: Normal Skin Problems: Rash Past Medical History - Social History Smoking Status: Never Smoker Family History: Reviewed & Not Pertinent Patient has suicidal ideation: No Patient has homicidal ideation: No - Past Medical History Cardiac Medical History: Denies: Hx Heart Attack, Hx Hypertension Pulmonary Medical History: Denies: Hx Asthma, Hx Bronchitis, Hx COPD, Hx Pneumonia Neurological Medical History: Denies: Hx Seizures Renal/ Medical History: Reports: Hx Kidney Stones. Denies: Hx Peritoneal Dialysis GI Medical History: Reports: Hx Gastroesophageal Reflux Disease - With . Denies: Hx Hiatal Hernia, Hx Ulcer Musculoskeletal Medical History: Denies Hx Arthritis Skin Medical History: Reports Hx MRSA Past Surgical History: Reports: Hx Cardiac Surgery - pulm stenosis-had stent placed, Hx Section - x1, Hx Orthopedic Surgery - R shoulder - Immunizations Immunizations up to date: Yes Hx Diphtheria, Pertussis, Tetanus Vaccination: Yes Vertical Provider Document - CONSTITUTIONAL Agree With Documented VS: Yes Exam Limitations: No Limitations General Appearance: Severe Distress - INFECTION CONTROL TRAVEL OUTSIDE OF THE [place] IN LAST 30 DAYS: No - HEENT HEENT: Atraumatic, Normocephalic, PERRLA. negative: Pharyngeal Exudate, Pharyngeal Tenderness, Pharyngeal Erythema - NECK Neck: Normal Inspection - RESPIRATORY Respiratory: Breath Sounds Normal, No Respiratory Distress - CARDIOVASCULAR Cardiovascular: Regular Rate, Regular Rhythm - MUSCULOSKELETAL/EXTREMETIES Musculoskeletal/Extremeties: FROM - NEURO Level of Consciousness: Awake, Alert, Appropriate Motor/Sensory: No Motor Deficit, No Sensory Deficit - DERM Integumentary: Warm, Dry, Rash - blanchable over arms, hands Course - Re-evaluation Re-evalutation: 05/31/19 08:43 Due to the patient having a rash for the past 5 years. I advised her to take Zyrtec and Benadryl, as this has worked well in the past. I advised her not to take her prednisone anymore, as she is , per labs yesterday. Patient did not know that she was . Advised her to follow-up with her primary care provider. Follow-up precautions were given. Verbal discharge instructions were given to the patient. They verbalized understanding. They are stable for discharge. - Vital Signs Vital signs: Temp Pulse Resp BP Pulse Ox 98.1 F 72 16 133/78 H 100 05/31/19 07:44 05/31/19 07:44 05/31/19 07:44 05/31/19 07:44 05/31/19 07:44 Discharge - Discharge Clinical Impression: Rash Qualifiers: Weeks of gestation: less than 8 weeks Qualified Code(s): Z3A.01 - Less than 8 weeks gestation of Condition: Stable Disposition: HOME, SELF-CARE Additional Instructions: You were seen today in the emergency department for a rash that you have had on and off for the last 5 years. Please take what works for you, which you said were the Zyrtec and Benadryl. Continue the Pepcid. Stop taking the prednisone. Please follow-up with your primary care provider. Please let them know that your you can get a referral to [facility]. Forms: Return to Work Referrals: [facility] [Provider Group] - Follow up as needed
== END 2019-05-31 08:55 | disposition home or self-care (01) ==
LOC: ER 07:15
DX: O26.891 Other specified pregnancy related conditions, first trimester (principal); R21 Rash and other nonspecific skin eruption; Z3A.01 Less than 8 weeks gestation of pregnancy
CPT/HCPCS: 99283

== ENCOUNTER 2019-07-13 16:50 | Emergency (ER) | payer BC ==
[2019-07-13] MEDS ORDERED: METOCLOPRAMIDE HCL 10 MG TABLET PO ONE (17:08)
--- NOTE | 2019-07-13 17:08 | ER Document Report ---
ED Medical Screen (RME) - General Chief Complaint: Low Back Pain Stated Complaint: BACK PAIN Time Seen by Provider: 07/13/19 17:02 Mode of Arrival: Ambulatory Information source: Patient Notes: 22-year-old female presented to ED for complaint of left flank pain for the last 3 days worse after she eats. She states the pain is sharp and throbbing and constant. She states her pain is level 2/5. She states she is 8 weeks 3 para 2. She states she has a past history of pulmonary stenosis no surgical history. She is alert oriented respirations regular nonlabored speaking in full sentences. She states she is on Unisom at home for the nausea. She states she called her primary care doctor but since then she has not seen them yet, they could not see her today. She states she then called [facility] and they could not see her today but told her to come to the emergency room. I have greeted and performed a rapid initial assessment of this patient. A comprehensive ED assessment and evaluation of the patient, analysis of test results and completion of medical decision making process will be conducted by an additional ED providers. TRAVEL OUTSIDE OF THE [place] IN LAST 30 DAYS: No - Related Data Allergies/Adverse Reactions: albuterol [Albuterol] Allergy (Severe, Verified 07/13/19 17:02) Heart races & passes out dexamethasone [From Decadron] Allergy (Verified 07/13/19 17:02) ethinyl estradiol [From NuvaRing] Allergy (Verified 07/13/19 17:02) etonogestrel [From NuvaRing] Allergy (Verified 07/13/19 17:02) chloraprep/pastora wipes Adverse Reaction (Mild, Uncoded 07/13/19 17:02) itching/welts Past Medical History - Social History Family history: Reviewed & Not Pertinent - Past Medical History Cardiac Medical History: Denies: Hx Heart Attack, Hx Hypertension Pulmonary Medical History: Denies: Hx Asthma, Hx Bronchitis, Hx COPD, Hx Pneumonia Neurological Medical History: Denies: Hx Seizures Renal/ Medical History: Reports: Hx Kidney Stones. Denies: Hx Peritoneal Dialysis GI Medical History: Reports: Hx Gastroesophageal Reflux Disease - With . Denies: Hx Hiatal Hernia, Hx Ulcer Musculoskeltal Medical History: Denies Hx Arthritis Skin Medical History: Reports Hx MRSA Past Surgical History: Reports: Hx Cardiac Surgery - pulm stenosis-had stent placed, Hx Section - x1, Hx Orthopedic Surgery - R shoulder - Immunizations Immunizations up to date: Yes Hx Diphtheria, Pertussis, Tetanus Vaccination: Yes Physical Exam - Vital signs Vitals: Temp Pulse Resp BP Pulse Ox 97.7 F 85 16 166/69 H 100 07/13/19 16:55 07/13/19 16:55 07/13/19 16:55 07/13/19 16:55 07/13/19 16:55 Course - Vital Signs Vital signs: Temp Pulse Resp BP Pulse Ox 97.7 F 85 16 166/69 H 100 07/13/19 16:55 07/13/19 16:55 07/13/19 16:55 07/13/19 16:55 07/13/19 16:55
[2019-07-13 17:26] LABS: ABSOLUTE BASOPHILS # (AUTO) 0.1 10^3/uL (0.0-0.2); ABSOLUTE EOSINOPHILS # (AUTO) 0.1 10^3/uL (0.0-0.6); ABSOLUTE LYMPHOCYTES (AUTO) 3.2 10^3/uL (0.5-4.7); ABSOLUTE MONOCYTES (AUTO) 0.9 10^3/uL (0.1-1.4); ABSOLUTE NEUT (AUTO) 4.8 10^3/uL (1.7-8.2); BASOPHILS % (AUTO) 0.6 % (0-2); EOSINOPHILS % (AUTO) 1.1 % (0-6); HEMATOCRIT 42.3 % (36.0-47.0); HEMOGLOBIN 15.2 g/dL (12.0-15.5); LYMPHOCYTES % (AUTO) 35.5 % (13-45); MEAN CORPUSCULAR HEMOGLOBIN 31.1 pg (27.0-33.4); MEAN CORPUSCULAR HGB CONC 35.9 g/dL (32.0-36.0); MEAN CORPUSCULAR VOLUME 87 fl (80-97); MONOCYTES % (AUTO) 10.3 % (3-13); PLATELET COUNT 200 10^3/uL (150-450); RED BLOOD COUNT 4.88 10^6/uL (3.72-5.28); RED CELL DISTRIBUTION WIDTH 12.6 % (11.5-14.0); SEGMENTED NEUTROPHILS % (AUTO) 52.5 % (42-78); TOTAL CELLS COUNTED % (AUTO) 100 %
[2019-07-13 17:44] LABS: ALBUMIN 4.2 g/dL (3.5-5.0); ALKALINE PHOSPHATASE 78 U/L (38-126); ANION GAP 8 (5-19); ASPARTATE AMINO TRANSFERASE 17 U/L (14-36); BILIRUBIN,TOTAL 0.3 mg/dL (0.2-1.3); BLOOD UREA NITROGEN 6 mg/dL (7-20); CALCIUM 9.2 mg/dL (8.4-10.2); CARBON DIOXIDE 26 mmol/L (22-30); CHLORIDE 100 mmol/L (98-107); GLUCOSE 95 mg/dL (75-110); POTASSIUM 3.7 mmol/L (3.6-5.0); TOTAL PROTEIN 7.2 g/dL (6.3-8.2)
[2019-07-13 17:56] LABS: APPEARANCE,URINE CLOUDY; BILIRUBIN,URINE NEGATIVE (NEGATIVE); COLOR,URINE YELLOW; GLUCOSE, URINE NEGATIVE (NEGATIVE); KETONES,URINE NEGATIVE (NEGATIVE); PROTEIN,URINE NEGATIVE (NEGATIVE); URINE SPECIFIC GRAVITY 1.015; UROBILINOGEN,URINE NEGATIVE mg/dL (<2.0)
--- NOTE | 2019-07-13 18:39 | ER Document Report ---
ED GI/ - General Mode of Arrival: Ambulatory Information source: Patient TRAVEL OUTSIDE OF THE [place] IN LAST 30 DAYS: No - HPI Patient complains to provider of: Diarrhea, Vomiting. No: Abdominal pain Onset: Other - Back pain Timing/Duration: Waxing and waning Quality of pain: Achy Pain Level: 2 Location: Left flank Vaginal bleeding (Compared to normal period): None Menstrual period history: Associated symptoms: Diarrhea, Nausea, Vomiting. denies: Constipation, Urinary hesitancy, Urinary frequency, Urinary retention, Urinary urgency, Vaginal discharge Exacerbated by: Denies Relieved by: Denies Similar symptoms previously: No Recently seen / treated by doctor: No - Related Data Home Medications: . unison <TELLY GREENBERG - Last Filed: 07/13/19 19:55> <URIEL MOORE - Last Filed: 07/13/19 20:44> - General Chief Complaint: Nausea/Vomiting Stated Complaint: BACK PAIN Time Seen by Provider: 07/13/19 17:02 Primary Care Provider: CONCEPCION GARZA MD [Primary Care Provider] - Follow up as needed Notes: Patient presents complaining of back pain off and on for the past 2 weeks that migrated in location. Patient states that the pain is to the left back although occasionally to the right flank area and occasionally to the right upper thoracic back area. Patient states that she is currently 8 weeks G3, P2. Patient states she has had nausea and vomiting throughout the although developed diarrhea over the past few days. Patient states she is vomited 4 times today and had diarrhea x2 episodes. Patient was given nausea medicine in triage and states that the nausea has resolved at this time. Patient denies any urinary symptoms or fever. Patient denies any abdominal tenderness. (TELLY GREENBERG) - Related Data Allergies/Adverse Reactions: albuterol [Albuterol] Allergy (Severe, Verified 07/13/19 17:02) Heart races & passes out dexamethasone [From Decadron] Allergy (Verified 07/13/19 17:02) ethinyl estradiol [From NuvaRing] Allergy (Verified 07/13/19 17:02) etonogestrel [From NuvaRing] Allergy (Verified 07/13/19 17:02) chloraprep/pastora wipes Adverse Reaction (Mild, Uncoded 07/13/19 17:02) itching/welts Past Medical History - General Information source: Patient - Social History Smoking Status: Never Smoker Chew tobacco use (# tins/day): No Frequency of alcohol use: None Drug Abuse: None 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 Denies: Hx Peritoneal Dialysis GI Medical History: Reports: Hx Gastroesophageal Reflux Disease - With . Denies: Hx Hiatal Hernia, Hx Ulcer Musculoskeletal Medical History: Denies Hx Arthritis Skin Medical History: Reports Hx MRSA Past Surgical History: Reports: Hx Cardiac Surgery - pulm stenosis-had stent placed, Hx Section - x1, Hx Orthopedic Surgery - R shoulder - Immunizations Immunizations up to date: Yes Hx Diphtheria, Pertussis, Tetanus Vaccination: Yes <TELLY GREENBERG - Last Filed: 07/13/19 19:55> Review of Systems - Review of Systems Constitutional: No symptoms reported. denies: Fever, Recent illness EENT: No symptoms reported Cardiovascular: No symptoms reported. denies: Chest pain, Dizziness Respiratory: No symptoms reported. denies: Cough, Short of breath Gastrointestinal: Diarrhea, Nausea, Vomiting. denies: Abdominal pain Genitourinary: Flank pain. denies: Dysuria Female Genitourinary: . denies: Vaginal discharge, Vaginal bleeding Musculoskeletal: Back pain Skin: No symptoms reported Hematologic/Lymphatic: No symptoms reported Neurological/Psychological: No symptoms reported <TELLY GREENBERG - Last Filed: 07/13/19 19:55> Physical Exam - General General appearance: Appears well, Alert In distress: None - HEENT Head: Normocephalic, Atraumatic Eyes: Normal Conjunctiva: Normal Nasal: Normal Mouth/Lips: Normal Mucous membranes: Normal Neck: Normal, Supple. No: Lymphadenopathy - Respiratory Respiratory status: No respiratory distress Chest status: Nontender Breath sounds: Normal. No: Rales, Rhonchi, Stridor, Wheezing Chest palpation: Normal - Cardiovascular Rhythm: Regular Heart sounds: S1 appreciated, S2 appreciated Murmur: No - Abdominal Inspection: Normal Distension: No distension Bowel sounds: Normal Tenderness: Nontender Organomegaly: No organomegaly - Back Back: Tender - Left lower lumbar paraspinal tenderness. No: CVA tenderness - Extremities General upper extremity: Normal inspection, Normal strength General lower extremity: Normal inspection, Normal strength - Neurological Neuro grossly intact: Yes Cognition: Normal [place] Coma Scale Eye Opening: Spontaneous [place] Coma Scale Verbal: Oriented [place] Coma Scale Motor: Obeys Commands [place] Coma Scale Total: 15 - Psychological Associated symptoms: Normal affect, Normal mood - Skin Skin Temperature: Warm Skin Moisture: Dry Skin Color: Normal <TELLY GREENBERG - Last Filed: 07/13/19 19:55> - Vital signs Vitals: Temp Pulse Resp BP Pulse Ox 97.7 F 85 16 166/69 H 100 07/13/19 16:55 07/13/19 16:55 07/13/19 16:55 07/13/19 16:55 07/13/19 16:55 Course - Laboratory Result Diagrams: 07/13/19 17:15 07/13/19 17:15 <TELLY GREENBERG - Last Filed: 07/13/19 19:55> - Laboratory Result Diagrams: 07/13/19 17:15 07/13/19 17:15 <URIEL MOORE - Last Filed: 07/13/19 20:44> - Re-evaluation Re-evalutation: 07/13/19 19:55 Report and handoff given to KELLY Bello (TELLY GREENBERG) 07/13/19 20:42 Ultrasound shows intrauterine at 9 weeks and 6 days with visualized heartbeat. No free fluid, no subchronic hemorrhage, no concerning findings. Retroperitoneal ultrasound showing no hydronephrosis or acute findings. Urinalysis nonspecific, large amount of squamous epithelials, no significant elevation in specific gravity. Laboratory work-up otherwise unremarkable. I di scussed with patient at length. She states that after the Reglan from triage she feels excellent, she is asking for this to be prescribed to her at home. I discussed her work-up at length, patient is apprised that she is this far along, she thought she was approximately 8 weeks. I discussed expectations, treatment at home, follow-up with [facility], and return precautions. Patient states appreciation and agreement. Blood pressure slightly elevated but significantly improved on repeat, this will be evaluated by [facility]. No complaints and stable at time of discharge. (URIEL MOORE) - Vital Signs Vital signs: Temp Pulse Resp BP Pulse Ox 98.9 F 85 18 135/71 H 100 07/13/19 19:46 07/13/19 19:46 07/13/19 19:46 07/13/19 19:46 07/13/19 19:46 - Laboratory Laboratory results interpreted by me: 07/13/19 07/13/19 17:15 17:15 Sodium 134.1 L BUN 6 L Creatinine 0.48 L Beta HCG, Quant 090191.00 H Leukocyte Esterase Rfl SMALL H Discharge <TELLY GREENBERG - Last Filed: 07/13/19 19:55> <URIEL MOORE - Last Filed: 07/13/19 20:44> - Discharge Clinical Impression: Flank pain, Nausea and vomiting during prior to 22 weeks gestation Condition: Stable Disposition: HOME, SELF-CARE Additional Instructions: Your ultrasound shows a living in the uterus at 9 weeks and 6 days with no noted abnormality. Your remaining work-up does not show any concerning findings. To treat your symptoms of nausea and vomiting take the Reglan as prescribed, you can also take diphenhydramine (Benadryl) 25 mg every 6 hours if needed additionally. Drink clear fluids, start with bland food. Take Tylenol for pain. Symptoms should gradually resolve as your hormones adjust as we discu ssed. Follow-up with [facility] for additional management. Return if you worsen including severe worsening pain, uncontrolled vomiting, fever, or any other concerning or worsening symptoms. Prescriptions: Metoclopramide HCl [Reglan] 5 mg PO ASDIR PRN #30 tablet PRN Reason: Referrals: CONCEPCION GARZA MD [Primary Care Provider] - Follow up in 3-5 days
--- NOTE | 2019-07-13 20:18 | RADIOLOGY REPORT (SQ) ---
EXAM DESCRIPTION: US TRANSVAGINAL COMPLETED DATE/TME: 07/13/2019 18:34 CLINICAL HISTORY: low back pain COMPARISON: None. FINDINGS: There is a single intrauterine with crown-rump length measuring 3 cm corresponding to nine weeks and six days. heart motion was calculated at 182 bpm. Images of the ovaries were not submitted. There is no free fluid in the pelvis. IMPRESSION: Single live intrauterine of approximately 9 weeks and six days.
--- NOTE | 2019-07-13 20:21 | RADIOLOGY REPORT (SQ) ---
EXAM DESCRIPTION: US RETROPERITONEUM COMPLETED DATE/TME: 07/13/2019 17:08 CLINICAL HISTORY: Left flank pain nausea and vomiting 8 weeks pregna COMPARISON: None. FINDINGS: Sonographic images of both kidneys were submitted. The right kidney measured 11.4 x 3.7 x 5.4 cm. The left kidney measured 11.5 x 5.3 x 4.8 cm. There is no hydronephrosis. The echotexture of both kidneys is within normal limits. 9 mm echogenic foci within the mid pole of the right kidney could represent a nonobstructive stone. The bladder is incompletely distended. IMPRESSION: No acute abnormalities.
[2019-07-13 20:52] VITALS: BP 133/68
== END 2019-07-13 20:53 | disposition home or self-care (01) ==
LOC: ER 16:50
DX: O21.9 Vomiting of pregnancy, unspecified (principal); O99.89 Other specified diseases and conditions complicating pregnancy, childbirth and the puerperium; M54.9 Dorsalgia, unspecified; O26.891 Other specified pregnancy related conditions, first trimester; R19.7 Diarrhea, unspecified; R10.9 Unspecified abdominal pain; Z79.899 Other long term (current) drug therapy; Z3A.09 9 weeks gestation of pregnancy; Z88.8 Allergy status to other drugs, medicaments and biological substances; Z87.442 Personal history of urinary calculi; Z87.19 Personal history of other diseases of the digestive system
CPT/HCPCS: 36415; 76770; 76817; 80053; 81001; 83690; 84702; 85025; 99284

== ENCOUNTER 2019-08-10 07:44 | Outpatient (CLI) | payer BC, MEDICAID ==
[2019-08-10] MEDS ORDERED: MISOPROSTOL 0.2 MG TABLET PO SCH (08:15)
[2019-08-10] MEDS ORDERED: OXYCODONE-ACETAMINOPHEN 5-325 MG TABLET PO PRN ×6 (08:30→23:27)
[2019-08-10 08:43] LABS: ABSOLUTE EOSINOPHILS # (AUTO) 0.1 10^3/uL (0.0-0.6); ABSOLUTE LYMPHOCYTES (AUTO) 1.7 10^3/uL (0.5-4.7); ABSOLUTE MONOCYTES (AUTO) 0.7 10^3/uL (0.1-1.4); ABSOLUTE NEUT (AUTO) 4.5 10^3/uL (1.7-8.2); BASOPHILS % (AUTO) 0.4 % (0-2); EOSINOPHILS % (AUTO) 0.9 % (0-6); HEMATOCRIT 40.5 % (36.0-47.0); HEMOGLOBIN 14.4 g/dL (12.0-15.5); LYMPHOCYTES % (AUTO) 24.3 % (13-45); MEAN CORPUSCULAR HEMOGLOBIN 30.9 pg (27.0-33.4); MEAN CORPUSCULAR HGB CONC 35.6 g/dL (32.0-36.0); MEAN CORPUSCULAR VOLUME 87 fl (80-97); MONOCYTES % (AUTO) 9.5 % (3-13); PLATELET COUNT 193 10^3/uL (150-450); RED BLOOD COUNT 4.67 10^6/uL (3.72-5.28); RED CELL DISTRIBUTION WIDTH 12.6 % (11.5-14.0); SEGMENTED NEUTROPHILS % (AUTO) 64.9 % (42-78); TOTAL CELLS COUNTED % (AUTO) 100 %
[2019-08-10] MEDS: MISOPROSTOL 0.2 MG TABLET PO SCH ×4 (09:34→20:43)
[2019-08-10] MEDS: RINGERS SOLUTION,LACTATED 1,000 ML IV PRN ×2 (09:37→20:41)
--- NOTE | 2019-08-10 21:45 | PDOC PROGRESS REPORT ---
Subjective Progress Note for:: 08/10/19 Subjective:: Bleeding after passing the fetus. Reason For Visit: LABOR CHECK Physical Exam - Physical Exam Vital Signs: Temp Pulse Resp BP Pulse Ox 98.7 F 125 H 18 147/85 H 100 08/10/19 21:26 08/10/19 21:26 08/10/19 21:00 08/10/19 21:26 08/10/19 21:26 Intake & Output 08/09/19 08/10/19 08/11/19 06:59 06:59 06:59 Intake Total 1000 Balance 1000 Weight 86.183 kg - Gynecological Exam Labia: other - Large vaginal bleeding and the uterus on ultrasound looks very full of clot and products. Result Laboratory Results: 08/10/19 08:30 08/10/19 08/10/19 08:30 08:30 WBC 7.0 RBC 4.67 Hgb 14.4 Hct 40.5 MCV 87 MCH 30.9 MCHC 35.6 RDW 12.6 Plt Count 193 Seg Neutrophils % 64.9 Blood Type O POSITIVE Antibody Screen NEGATIVE Assessment & Plan - Diagnosis (1) demise Is this a current diagnosis for this admission?: Yes Plan: The baby has passed but she is bleeding. Plan to proceed with a d and c. - Time Time Spent with patient: 15-24 minutes
[2019-08-10] MEDS ORDERED: LIDOCAINE 2% INJ-PF (20 MG/ML) 10 ML AMPUL ONE (21:57)
[2019-08-10] MEDS ORDERED: KETAMINE HCL INJ 500 MG/10 ML VIAL ONE (21:57)
[2019-08-10] MEDS ORDERED: FENTANYL CITRATE INJ/PF 100 MCG/2 ML AMPUL ONE (21:58)
[2019-08-10] MEDS ORDERED: DEXAMETHASONE SOD PHOSPHATE INJ 4 MG/1 ML VIAL ONE (21:58)
[2019-08-10] MEDS ORDERED: ONDANSETRON HCL INJ/PF 4 MG/2 ML SDV ONE (21:58)
[2019-08-10] MEDS ORDERED: PROPOFOL INJ 200 MG/20 ML VIAL IV ONE (21:58)
[2019-08-10] MEDS ORDERED: MIDAZOLAM 2 MG/2 ML INJ ONE (21:58)
[2019-08-10] MEDS ORDERED: RINGERS SOLUTION,LACTATED 1,000 ML IV PRN (22:39)
[2019-08-10] MEDS ORDERED: IBUPROFEN 800 MG TABLET PO PRN (22:39)
[2019-08-10] MEDS ORDERED: DOXYCYCLINE HYCLATE INJ 100 MG VIAL IV ONE (22:40)
--- NOTE | 2019-08-10 22:43 | Discharge Summary ---
Discharge Summary (SDC) - Discharge Final Diagnosis: demise Date of Surgery: 08/10/19 Discharge Date: 08/10/19 Condition: Good Treatment or Instructions: Pelvic rest and followup in office as planned. Discharge Diet: Regular Discharge Activity: Pelvic Rest, Slowly Increase Activity Report the Following to Your Physician Immediately: Fever over 101 Degrees, Unusual Bleeding
--- NOTE | 2019-08-10 23:18 | Operative Report ---
Operative Report DATE OF SURGERY: 08/10/19 PREOPERATIVE DIAGNOSIS: Retained products of conception POSTOPERATIVE DIAGNOSIS: Same OPERATION: Suction D&C SURGEON: MANUELA DANGELO ANESTHESIA: Moderate Sedation TISSUE REMOVED OR ALTERED: Uterine contents COMPLICATIONS: None ESTIMATED BLOOD LOSS: 50 cc INTRAOPERATIVE FINDINGS: Retained products in the uterus PROCEDURE: Patient was taken the OR and placed in supine position. Anesthesia was induced. She placed in dorsal lithotomy position using Kevin stirrups. Her perineum was prepared and draped in sterile fashion. Her bladder was drained with a red rubber catheter. A weighted speculum was placed in the anterior lip of the cervix was grasped with a tenaculum. Uterus sounded to 10 cm before in a similar is after the procedure. With the ring forceps a large amount of products were removed. Suction curettage also removed a large amount of products. With no further products were found a gentle sharp curettage was performed which revealed no retained products. All instruments were removed she is placed back in supine position taken recovery room stable condition.
[2019-08-10] MEDS ORDERED: LABETALOL HCL INJ 20 MG/4 ML DISP.SYRIN IV PRN ×2 (23:26→23:27)
[2019-08-10] MEDS ORDERED: MEPERIDINE HCL/PF INJ 25 MG/1 ML DISP.SYRIN IV PRN (23:27)
[2019-08-10] MEDS ORDERED: FENTANYL CITRATE INJ/PF 100 MCG/2 ML AMPUL IV PRN ×3 (23:27)
[2019-08-10] MEDS ORDERED: MORPHINE SULFATE 10 MG/ML INJ IV PRN (23:27)
[2019-08-10] MEDS ORDERED: LABETALOL HCL INJ 20 MG/4 ML DISP.SYRIN IV ONE (23:27)
[2019-08-10] MEDS ORDERED: PROMETHAZINE HCL INJ 25 MG/1 ML VIAL IV PRN (23:27)
[2019-08-10] MEDS ORDERED: DIPHENHYDRAMINE HCL 50 MG/ML VIAL IV PRN (23:27)
[2019-08-10] MEDS: DOXYCYCLINE HYCLATE INJ 100 MG VIAL ONE ×3 (23:30→23:54)
[2019-08-11] MEDS: MISOPROSTOL 0.2 MG TABLET PO SCH (01:15)
[2019-08-11 08:58] VITALS: BP 125/73
== END 2019-08-11 09:30 | disposition home or self-care (01) ==
LOC: OBSVTOIN 07:44 → UNDOADMOB 07:44 → LC 07:44 → 2N 07:44 → INTOOBSV 07:44 → 2N 13:48 → EDSTATUS 15:42 → LC 08-11 09:30
PROVIDERS: ATTEND Obstetrics & Gynecology
DX: O02.1 Missed abortion (principal); Z3A.13 13 weeks gestation of pregnancy
CPT/HCPCS: 59820; 86900; 86901; 36415; 86850; 84702; 85025; 88305 ×2; J2250; J1100; J3490 ×4; J3010; J2405; J7120; J2704; 940; 99140

== ENCOUNTER 2020-02-07 23:02 | Emergency (ER) | payer BC ==
--- NOTE | 2020-02-08 00:23 | ER Document Report ---
ED Medical Screen (RME) - General Chief Complaint: Headache Stated Complaint: SEVERE HEADACHE WORST EVER Time Seen by Provider: 02/08/20 00:16 Notes: Patient presents to the ER for evaluation of occipital headache that began upon waking this morning. The patient states this is the worst headache that she has ever had. She states she does not have a history of headaches. She denies nausea or vomiting. She denies unilateral weakness or numbness. She denies recent injury. The patient states she is approximately 6 weeks . Exam CONSTITUTIONAL: Patient appears to be uncomfortable. She is in mild distress. NECK: No obvious swelling, normal range of motion NEUROLOGIC: Normal speech, moves all extremities. Cranial nerves are within normal limits. [employer] strength strong and equal in the upper extremities bilaterally. There is good strength and sensation in bilateral lower extremities. There is no arm or leg drift noted. I have greeted and performed a rapid initial assessment of this patient. A comprehensive ED assessment and evaluation of the patient, analysis of test results and completion of the medical decision making process will be conducted by additional ED providers. Dictation of this chart was performed using voice recognition software; therefore, there may be some unintended grammatical errors. TRAVEL OUTSIDE OF THE [place] IN LAST 30 DAYS: No - Related Data Allergies/Adverse Reactions: albuterol [Albuterol] Allergy (Severe, Verified 07/13/19 17:02) Heart races & passes out dexamethasone [From Decadron] Allergy (Intermediate, Verified 08/10/19 09:27) nausea and vomiting ethinyl estradiol [From NuvaRing] Allergy (Intermediate, Verified 08/10/19 09:27) Hives etonogestrel [From NuvaRing] Allergy (Intermediate, Verified 08/10/19 09:26) Hives chloraprep/pastora wipes Adverse Reaction (Mild, Uncoded 07/13/19 17:02) itching/welts Home Medications: vitamins Past Medical History - Social History Family history: Reviewed & Not Pertinent - Past Medical History Cardiac Medical History: Denies: Hx Heart Attack, Hx Hypertension Pulmonary Medical History: Denies: Hx Asthma, Hx Bronchitis, Hx COPD, Hx Pneumonia Neurological Medical History: Denies: Hx Seizures Renal/ Medical History: Reports: Hx Kidney Stones. Denies: Hx Peritoneal Dialysis GI Medical History: Reports: Hx Gastroesophageal Reflux Disease - With . Denies: Hx Hiatal Hernia, Hx Ulcer Musculoskeltal Medical History: Denies Hx Arthritis Skin Medical History: Reports Hx MRSA Psychiatric Medical History: Denies: Hx Depression Past Surgical History: Reports: Hx Cardiac Surgery - pulm stenosis-had stent charis stanley, Hx Section - x1, Hx Orthopedic Surgery - R shoulder - Immunizations Immunizations up to date: Yes Hx Diphtheria, Pertussis, Tetanus Vaccination: Yes Physical Exam - Vital signs Vitals: Temp Pulse Resp BP Pulse Ox 98.4 F 92 14 165/93 H 100 02/07/20 23:07 02/07/20 23:07 02/07/20 23:07 02/07/20 23:07 02/07/20 23:07 Course - Vital Signs Vital signs: Temp Pulse Resp BP Pulse Ox 98.4 F 92 14 165/93 H 100 02/07/20 23:07 02/07/20 23:07 02/07/20 23:07 02/07/20 23:07 02/07/20 23:07
--- NOTE | 2020-02-08 01:00 | RADIOLOGY REPORT (SQ) ---
CLINICAL HISTORY: worst headache of life COMPARISON: 05/24/2016. TECHNIQUE: CT HEAD WITHOUT IV CONTRAST on 02/08/2020 12:20 AM JEWEL GAUGER This exam was performed according to our departmental dose-optimization program, which includes automated exposure control, adjustment of the mA and/or kV according to patient size and/or use of iterative reconstruction technique. FINDINGS: There is no acute hemorrhage, mass effect or midline shift. Thomas-white differentiation is preserved. There is no hydrocephalus. There is no significant volume loss for age. The calvarium is intact. Orbits and globes are unremarkable. The paranasal sinuses are clear. Mastoid air cells are clear. IMPRESSION: No acute intracranial findings.
[2020-02-08] MEDS ORDERED: DIPHENHYDRAMINE HCL 50 MG/ML VIAL IV ONE (04:38)
[2020-02-08] MEDS ORDERED: NORMAL SALINE 1000 ML 1,000 ML IV ONE (04:38)
[2020-02-08] MEDS ORDERED: METOCLOPRAMIDE HCL INJ/PF 10 MG/2 ML SDV IV ONE (04:38)
--- NOTE | 2020-02-08 04:53 | ER Document Report ---
ED Headache - General Chief Complaint: Headache Stated Complaint: SEVERE HEADACHE WORST EVER Time Seen by Provider: 02/08/20 00:16 Primary Care Provider: PAOLA VICENTE MD [Primary Care Provider] - Follow up as needed Notes: Patient is a 24-year-old female that comes emergency department for chief complaint of a headache. She states she woke up with a headache this morning, she states she felt tightness on the left side of her neck and she felt a headache at the base of her head and neck. She states this progressed during the day, the neck, loosened up and resolved, and then she developed a throbbing headache behind the left eye with light sensitivity and nausea. She denies vomiting, head injury, current neck pain, fever/chills, focal numbness or weakness, visual changes. She denies frequent headaches. She states she is at approximately 6 weeks, she had an ultrasound confirming intrauterine a few days ago. She is . She denies any current medications other than vitamins. TRAVEL OUTSIDE OF THE [place] IN LAST 30 DAYS: No - Related Data Allergies/Adverse Reactions: albuterol [Albuterol] Allergy (Severe, Verified 07/13/19 17:02) Heart races & passes out dexamethasone [From Decadron] Allergy (Intermediate, Verified 08/10/19 09:27) nausea and vomiting ethinyl estradiol [From NuvaRing] Allergy (Intermediate, Verified 08/10/19 09:27) Hives etonogestrel [From NuvaRing] Allergy (Intermediate, Verified 08/10/19 09:26) Hives chloraprep/pastora wipes Adverse Reaction (Mild, Uncoded 07/13/19 17:02) itching/welts Home Medications: vitamins Past Medical History - General Information source: Patient - Social History Smoking Status: Never Smoker Frequency of alcohol use: None Drug Abuse: None Lives with: Family Family History: Reviewed & Not Pertinent - Past Medical History Cardiac Medical History: Denies: Hx Heart Attack, Hx Hypertension Pulmonary Medical History: Denies: Hx Asthma, Hx Bronchitis, Hx COPD, Hx Pneumonia Neurological Medical History: Denies: Hx Seizures Renal/ Medical History: Reports: Hx Kidney Stones. Denies: Hx Peritoneal Dialysis GI Medical History: Reports: Hx Gastroesophageal Reflux Disease - With . Denies: Hx Hiatal Hernia, Hx Ulcer Musculoskeletal Medical History: Denies Hx Arthritis Skin Medical History: Reports Hx MRSA Psychiatric Medical History: Denies: Hx Depression Past Surgical History: Reports: Hx Cardiac Surgery - pulm stenosis-had stent placed, Hx Section - x1, Hx Orthopedic Surgery - R shoulder - Immunizations Immunizations up to date: Yes Hx Diphtheria, Pertussis, Tetanus Vaccination: Yes Review of Systems - Review of Systems Constitutional: No symptoms reported EENT: No symptoms reported Cardiovascular: No symptoms reported Respiratory: No symptoms reported Gastrointestinal: No symptoms reported Genitourinary: No symptoms reported Female Genitourinary: No symptoms reported Musculoskeletal: See HPI Skin: No symptoms reported Hematologic/Lymphatic: No symptoms reported Neurological/Psychological: See HPI Physical Exam - Vital signs Vitals: Temp Pulse Resp BP Pulse Ox 98.4 F 92 14 165/93 H 100 02/07/20 23:07 02/07/20 23:07 02/07/20 23:07 02/07/20 23:07 02/07/20 23:07 - Notes Notes: GENERAL: Alert, interacts well. No acute distress. HEAD: Normocephalic, atraumatic. EYES: Pupils equal, round, and reactive to light. Extraocular movements intact. ENT: Oral mucosa moist, tongue midline. Oropharynx unremarkable. Airway patent. NECK: Full range of motion. Supple. Trachea midline. No lymphadenopathy. LUNGS: Clear to auscultation bilaterally, no wheezes, rales, or rhonchi. No respiratory distress. Non-tender chest wall. HEART: Regular rate and rhythm. No murmur ABDOMEN: Soft, non-tender. Non-distended. Bowel sounds present in all 4 quadrants. GENITOURINARY: Deferred EXTREMITIES: Moves all 4 extremities spontaneously. No edema, normal radial and dorsalis pedis pulses bilaterally. No cyanosis. BACK: no cervical, thoracic, lumbar midline tenderness. No saddle anesthesia, normal distal neurovascular exam. Moves all extremities in full range of motion. NEUROLOGICAL: Alert and oriented x3. Normal speech. Cranial nerves II through XII grossly intact. Strength 5/5 in all extremities. PSYCH: Normal affect, normal mood. SKIN: Warm, dry, normal turgor. No rashes or lesions noted. Course - Re-evaluation Re-evalutation: Patient is sitting in the dark and is clearly having photophobia on my exam but she is nontoxic in appearance. Neck exam unremarkable with no nuchal rigidity or concerning findings. Neurological exam is normal. Blood pressure is slightly borderline elevated but is significantly improved from prior. Patient states checks feels a lot better than when she first came in but she still has a throbbing headache with migraine-like symptoms. I did review CT of the head, this was passed 6 hours since symptom onset but based on her reassuring evaluation I have low suspicion of intracranial hemorrhage/emergency. She will be medicated and reevaluated. On reevaluation headache is completely gone, patient alert and appreciative, requesting discharge. I now have an even lower suspicion of intracranial emergency. Discussed with patient and , discussed recommendations, options, follow- up, and return precautions. Provided with Reglan on request. They state understanding and agreement, stable and well-appearing at time of discharge. - Vital Signs Vital signs: Temp Pulse Resp BP Pulse Ox 98.6 F 96 18 138/79 H 100 02/08/20 05:54 02/08/20 05:54 02/08/20 05:54 02/08/20 05:54 02/08/20 05:54 Discharge - Discharge Clinical Impression: Headache Qualifiers: Headache type: unspecified Headache chronicity pattern: acute headache Intractability: not intractable Qualified Code(s): R51.9 - Headache, unspecified Condition: Stable Disposition: HOME, SELF-CARE Additional Instructions: Your evaluation, symptoms, and resolution with treatment are very suggestive of a migraine. The CAT scan of your head was normal. You have been prescribed Reglan, this can significantly help with headaches, you can combine this with 25 mg of Benadryl and 1000 mg of Tylenol every 6 hours if needed. Drink plenty fluids and rest. Follow-up with primary care for additional evaluation and management of migraines and your . Return if you worsen including returned or severe headache, vomiting, fever, or any other concerning or worsening symptoms. Prescriptions: Metoclopramide HCl [Reglan] 5 mg PO ASDIR PRN #30 tablet PRN Reason: Forms: Elevated Blood Pressure Referrals: PAOLA VICENTE MD [Primary Care Provider] - Follow up as needed
[2020-02-08 05:54] VITALS: BP 138/79
== END 2020-02-08 06:03 | disposition home or self-care (01) ==
LOC: ER 23:02
DX: O26.91 Pregnancy related conditions, unspecified, first trimester (principal); R51.9 Headache, unspecified; R50.9 Fever, unspecified; Z3A.01 Less than 8 weeks gestation of pregnancy
CPT/HCPCS: 99285; 96361; 96374; 96375; 70450; J1200; J2765; J7030

== ENCOUNTER 2020-04-10 20:32 | Emergency (ER) | payer BC, MEDICAID ==
--- NOTE | 2020-04-10 21:49 | ER Document Report ---
ED Medical Screen (RME) - General Chief Complaint: Low Blood Pressure Stated Complaint: LOW BLOOD PRESSURE Time Seen by Provider: 04/10/20 21:24 Primary Care Provider: PAOLA VICENTE MD [Primary Care Provider] - Follow up as needed Mode of Arrival: Ambulatory Information source: Patient Notes: 24-year-old female G4, P2 presenting to the emergency department concern for dizziness, possible low blood pressure and possible vaginal spotting. Patient reports she has been monitoring her blood pressure because it has been running high during this . She states it is usually around 140 systolic. Today she felt very dizzy, felt like she was going to pass out upon her blood pressure to be in the low 100s systolic. She reports she called her nurse line who told her to come to the emergency department. While she was here she states she used the bathroom and felt like she might of had vaginal spotting on the toilet paper. 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 Currently patient reports she feels well, no acute complaints. I have greeted and performed a rapid initial assessment of this patient. A comprehensive ED assessment and evaluation of the patient, analysis of test results and completion of the medical decision making process will be conducted by additional ED providers. I have specifically instructed the patient or family members with the patient to immediately return to any nursing staff should anything change in the patient's condition or with their chief complaint. TRAVEL OUTSIDE OF THE [place] IN LAST 30 DAYS: No - Related Data Allergies/Adverse Reactions: albuterol [Albuterol] Allergy (Severe, Verified 07/13/19 17:02) Heart races & passes out dexamethasone [From Decadron] Allergy (Intermediate, Verified 08/10/19 09:27) nausea and vomiting ethinyl estradiol [From NuvaRing] Allergy (Intermediate, Verified 08/10/19 09:27) Hives etonogestrel [From NuvaRing] Allergy (Intermediate, Verified 08/10/19 09:26) Hives chloraprep/pastora wipes Adverse Reaction (Mild, Uncoded 07/13/19 17:02) itching/welts Home Medications: baby aspirin. Past Medical History - Social History Family history: Reviewed & Not Pertinent - Past Medical History Cardiac Medical History: Denies: Hx Heart Attack, Hx Hypertension Pulmonary Medical History: Denies: Hx Asthma, Hx Bronchitis, Hx COPD, Hx Pneumonia Neurological Medical History: Denies: Hx Seizures Renal/ Medical History: Reports: Hx Kidney Stones. Denies: Hx Peritoneal Dialysis GI Medical History: Reports: Hx Gastroesophageal Reflux Disease - With . Denies: Hx Hiatal Hernia, Hx Ulcer Musculoskeltal Medical History: Denies Hx Arthritis Skin Medical History: Reports Hx MRSA Psychiatric Medical History: Denies: Hx Depression Past Surgical History: Reports: Hx Cardiac Surgery - pulm stenosis-had stent placed, Hx Section - x1, Hx Orthopedic Surgery - R shoulder - Immunizations Immunizations up to date: Yes Hx Diphtheria, Pertussis, Tetanus Vaccination: Yes Physical Exam - Vital signs Vitals: Temp Pulse Resp BP Pulse Ox 99.0 F 89 16 149/79 H 99 04/10/20 20:43 04/10/20 20:43 04/10/20 20:43 04/10/20 20:43 04/10/20 20:43 Course - Vital Signs Vital signs: Temp Pulse Resp BP Pulse Ox 99.0 F 89 16 149/79 H 99 04/10/20 20:43 04/10/20 20:43 04/10/20 20:43 04/10/20 20:43 04/10/20 20:43 Doctor's Discharge - Discharge Referrals: PAOLA VICENTE MD [Primary Care Provider] - Follow up as needed
--- NOTE | 2020-04-10 22:45 | RADIOLOGY REPORT (SQ) ---
EXAM DESCRIPTION: US LIMITED COMPLETED DATE/TME: 04/10/2020 22:23 CLINICAL HISTORY: 24 years Female, 15 wks, vaginal spotting Comparison:Jul 13 2019 TECHNIQUE/LIMITATION: Targeted OB sonogram for requested parameters only. FINDINGS: Single IUP EGA is 15w3d with RUTH of 09/29/20 Cardiac activity: 152-bpm. LVP: 3.1-cm (x 5.6-cm) Placenta: Anterior. No demonstrated abruption or previa. (Imaging note: Ultrasound does not detect most cases of abruption and "placental abruption" is considered a clinical diagnosis.) Presentation: Transverse. Cervical length: 3.2-cm. Closed appearance. IMPRESSION: Targeted OB sonogram for requested parameters
[2020-04-10 22:48] LABS: ABSOLUTE LYMPHOCYTES (AUTO) 2.5 10^3/uL (0.5-4.7); ABSOLUTE MONOCYTES (AUTO) 0.8 10^3/uL (0.1-1.4); ABSOLUTE NEUT (AUTO) 4.9 10^3/uL (1.7-8.2); BASOPHILS % (AUTO) 0.3 % (0-2); EOSINOPHILS % (AUTO) 0.5 % (0-6); HEMATOCRIT 39.9 % (36.0-47.0); HEMOGLOBIN 13.9 g/dL (12.0-15.5); LYMPHOCYTES % (AUTO) 30.3 % (13-45); MEAN CORPUSCULAR HEMOGLOBIN 30.3 pg (27.0-33.4); MEAN CORPUSCULAR HGB CONC 34.9 g/dL (32.0-36.0); MEAN CORPUSCULAR VOLUME 87 fl (80-97); PLATELET COUNT 177 10^3/uL (150-450); RED BLOOD COUNT 4.59 10^6/uL (3.72-5.28); RED CELL DISTRIBUTION WIDTH 13.3 % (11.5-14.0); SEGMENTED NEUTROPHILS % (AUTO) 58.9 % (42-78); TOTAL CELLS COUNTED % (AUTO) 100 %; WHITE BLOOD COUNT 8.3 10^3/uL (4.0-10.5)
[2020-04-10 23:03] LABS: APPEARANCE,URINE CLEAR; BILIRUBIN,URINE NEGATIVE (NEGATIVE); COLOR,URINE STRAW; GLUCOSE, URINE NEGATIVE (NEGATIVE); KETONES,URINE NEGATIVE (NEGATIVE); LEUKOCYTE ESTERASE,URINE NEGATIVE (NEGATIVE); NITRITE,URINE NEGATIVE (NEGATIVE); PROTEIN,URINE NEGATIVE (NEGATIVE); URINE SPECIFIC GRAVITY 1.005; UROBILINOGEN,URINE NEGATIVE mg/dL (<2.0)
[2020-04-10 23:04] LABS: ALBUMIN 3.9 g/dL (3.5-5.0); ALKALINE PHOSPHATASE 72 U/L (38-126); ANION GAP 9 (5-19); ASPARTATE AMINO TRANSFERASE 15 U/L (14-36); BILIRUBIN,DIRECT 0.1 mg/dL (0.0-0.4); BILIRUBIN,TOTAL 0.3 mg/dL (0.2-1.3); BLOOD UREA NITROGEN 6 mg/dL (7-20); CALCIUM 9.4 mg/dL (8.4-10.2); CARBON DIOXIDE 26 mmol/L (22-30); CHLORIDE 101 mmol/L (98-107); GLUCOSE 98 mg/dL (75-110); POTASSIUM 3.7 mmol/L (3.6-5.0); TOTAL PROTEIN 6.8 g/dL (6.3-8.2)
--- NOTE | 2020-04-11 00:24 | ER Document Report ---
ED General - General Chief Complaint: Low Blood Pressure Stated Complaint: LOW BLOOD PRESSURE Time Seen by Provider: 04/10/20 21:24 Primary Care Provider: [facility] [Provider Group] - Follow up tomorrow (Call tomorrow for follow-up appointment) Mode of Arrival: Ambulatory Information source: Patient Notes: 24-year-old female presents to the emergency room with concerns of hypotension. Patient states she is a 4 para 2, who is 15 weeks who has been monitoring her blood pressure at home due to elevated blood pressures at the beginning of her as well as a history of post eclampsia after one of her previous pregnancies. Patient states that when she returned home from work today she felt "off", chills "". States she checked her blood pressure it was 104/59 she ate some crackers drink juice rechecked it and it was 116/67. States she called the nurse hotline and was referred to the emergency room. She denies any nausea, vomiting, no abdominal pain. States at one point when she went to the bathroom earlier she thought she noticed some spotting but has not had any bleeding since. Denies any abdominal pelvic pain. Her OB care is up-to-date. Patient states she does have a history of pulmonary stenosis is followed by cardiology recently seen within the past month and has been cleared at this time by her physical therapy aides teacher. Has occasional PVCs but has not had any since her 10th week of . She denies any COVID-19 exposure. TRAVEL OUTSIDE OF THE [place] IN LAST 30 DAYS: No - Related Data Allergies/Adverse Reactions: albuterol [Albuterol] Allergy (Severe, Verified 07/13/19 17:02) Heart races & passes out dexamethasone [From Decadron] Allergy (Intermediate, Verified 08/10/19 09:27) nausea and vomiting ethinyl estradiol [From NuvaRing] Allergy (Intermediate, Verified 08/10/19 09:27) Hives etonogestrel [From NuvaRing] Allergy (Intermediate, Verified 08/10/19 09:26) Hives chloraprep/pastora wipes Adverse Reaction (Mild, Uncoded 07/13/19 17:02) itching/welts Home Medications: baby aspirin. Past Medical History - General Information source: Patient - Social History Smoking Status: Never Smoker Family History: Reviewed & Not Pertinent - Past Medical History Cardiac Medical History: Denies: Hx Heart Attack, Hx Hypertension Pulmonary Medical History: Denies: Hx Asthma, Hx Bronchitis, Hx COPD, Hx Pneumonia Neurological Medical History: Denies: Hx Seizures Renal/ Medical History: Reports: Hx Kidney Stones. Denies: Hx Peritoneal Dialysis GI Medical History: Reports: Hx Gastroesophageal Reflux Disease - With . Denies: Hx Hiatal Hernia, Hx Ulcer Musculoskeletal Medical History: Denies Hx Arthritis Skin Medical History: Reports Hx MRSA Psychiatric Medical History: Denies: Hx Depression Past Surgical History: Reports: Hx Cardiac Surgery - pulm stenosis-had stent placed, Hx Section - x1, Hx Orthopedic Surgery - R shoulder - Immunizations Immunizations up to date: Yes Hx Diphtheria, Pertussis, Tetanus Vaccination: Yes Review of Systems - Review of Systems Constitutional: Fever, Malaise Cardiovascular: No symptoms reported Respiratory: No symptoms reported Gastrointestinal: No symptoms reported Genitourinary: No symptoms reported Female Genitourinary: , Other - Spotting Musculoskeletal: No symptoms reported Skin: No symptoms reported Neurological/Psychological: No symptoms reported -: Yes All other systems reviewed and negative Physical Exam - Vital signs Vitals: Temp Pulse Resp BP Pulse Ox 99.0 F 89 16 149/79 H 99 04/10/20 20:43 04/10/20 20:43 04/10/20 20:43 04/10/20 20:43 04/10/20 20:43 - Notes Notes: GENERAL: Mild acute distress, non-toxic appearance. HEAD: Normal with no signs of head trauma. EYES: PERRLA, EOMI, conjunctiva normal, no discharge. EARS: Hearing grossly intact. NOSE: Normal. THROAT: Oropharynx is normal. NECK: Normal range of motion, no tenderness, supple, no lymphadenopathy, No adenopathy, no JVD. CHEST: Clear breath sounds bilaterally. No wheezes, rales, or rhonchi. CARDIAC: Regular rate and rhythm. S1 and S2, without murmurs, gallops, or rubs. VASCULAR: No Edema. Peripheral pulses normal and equal in all extremities. ABDOMEN: Normal and soft with no tenderness, no masses or pulsatile masses. No organomegaly. Positive bowel sounds x4. No CVA tenderness noted bilaterally. GASTROINTESTINAL: Bowel sounds normal LYMPATHTIC: No lymphadenopathy noted. MUSCULOSKELETAL: Good range of motion of all major joints. Extremities without clubbing, cyanosis or edema. NEUROLOGICAL: Alert and oriented x 3. No focal sensory or strength deficits. Speech normal. Follows commands appropriately. PSYCHIATRIC: Normal Affect, judgement and mood. SKIN: Normal appearance with no rashes or lesions. Course - Re-evaluation Re-evalutation: 04/11/20 00:24 Patient is currently resting comfortably. Reviewed all her lab and ultrasound reports with the patient. Vital signs are stable in the emergency room. No signs of hypotension patient is currently asymptomatic. Denies any vaginal bleeding or spotting since arrival to the emergency room. Ultrasound shows 15- week 3-day cervix is closed heart rate 152 no abnormalities on ultrasound. Patient was counseled to encourage fluids. Call her HUMAN RESOURCES OPERATIONS DIRECTOR tomorrow for follow-up appointment. Patient was given strict return to the emergency room guidelines. Return for any new or worsening symptoms. All questions were answered. Patient verbalized understanding and agrees with plan of care. 04/11/20 00:30 - Vital Signs Vital signs: Temp Pulse Resp BP Pulse Ox 97.8 F 89 17 132/76 H 100 04/11/20 00:45 04/11/20 00:45 04/11/20 00:45 04/11/20 00:45 04/11/20 00:45 - Laboratory Results Result Diagrams: 04/10/20 22:32 04/10/20 22:32 Laboratory Results Interpreted: 04/10/20 22:32 Sodium 136.3 L BUN 6 L Creatinine 0.50 L Critical Laboratory Results Reviewed: No Critical Results - Radiology Results Radiology Results Interpreted: 04/11/20 00:25 Obstetrics Ultrasound 04/10/20 21:45 IMPRESSION: Targeted OB sonogram for requested parameters Critical Radiology Results Reviewed: No Critical Results Discharge - Discharge Clinical Impression: Hypotension Qualifiers: Hypotension type: unspecified hypotension type Qualified Code(s): I95.9 - Hypotension, unspecified Qualifiers: Weeks of gestation: 15 weeks Qualified Code(s): Z3A.15 - 15 weeks gestation of Condition: Stable Disposition: HOME, SELF-CARE Instructions: Hypotension ([facility]), ([facility]) Additional Instructions: Rest, encourage fluids. Call your HUMAN RESOURCES OPERATIONS DIRECTOR tomorrow for follow-up appointment. Return to emergency room for any new or worsening symptoms. Referrals: [facility] [Provider Group] - Follow up tomorrow (Call tomorrow for follow-up appointment)
[2020-04-11 00:46] VITALS: BP 132/76
== END 2020-04-11 01:02 | disposition home or self-care (01) ==
LOC: ER 20:32
DX: O26.52 Maternal hypotension syndrome, second trimester (principal); O26.852 Spotting complicating pregnancy, second trimester; O26.892 Other specified pregnancy related conditions, second trimester; R50.9 Fever, unspecified; O26.812 Pregnancy related exhaustion and fatigue, second trimester; Z79.82 Long term (current) use of aspirin; Z79.899 Other long term (current) drug therapy; Z3A.15 15 weeks gestation of pregnancy; Z88.8 Allergy status to other drugs, medicaments and biological substances
CPT/HCPCS: 36415; 76815; 80053; 81001; 85025; 86900; 86901; 99284